=== PATIENT | female | born 1995 | race Two or more races ===

== ENCOUNTER 2020-07-15 22:47 | Emergency (ER) | payer OTHER, SELFPAY ==
[2020-07-15 22:58] VITALS: BP 111/71; BP 120/67; PULSE 71; PULSE 80; RESP 16; TEMP 36.7; O2SAT 100; O2SAT 99; BMI 33.6
--- NOTE | 2020-07-15 23:25 | ED.GENADULT ---
HPI - General Adult General Chief complaint: Dizziness Stated complaint: DIZZY W/NEAR SYNCOPE Time Seen by Provider: 07/15/20 23:12 History of Present Illness HPI narrative: 25-year-old female who presents to the emergency department for evaluation headache. 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 She states that at 8:45 p.m. she lifted a heavy package and had a sudden onset of left-sided headache. She describes the headache as a pounding sensation and it was 8/10 at its worst. She states that she lost her hearing in felt lightheaded and dizzy. She states that her legs also became shaky. She states that she had to continue working but the pain persisted and an ambulance was called and she was brought to the emergency department. Here in the emergency department she states she still has a pounding headache. The headache is located on the left side of her head. She denied any change in her vision or hearing. She denies any numbness or weakness. She states that her headache is currently 7/10. The patient states that she does get headaches approximately 3 times a month but has never had a headache like today's headache. The patient states that she had a cousin who at age 26 of an aneurysm. Related Data Allergies Allergy/AdvReac Type Severity Reaction Status Date / Time No Known Allergies Allergy Unverified 05/01/20 18:34 Environmental Allergies Allergy Unknown Uncoded 02/04/16 00:00 pt states no known food Allergy Unknown Uncoded 02/04/16 00:00 allerg Review of Systems Review of Systems: Yes all other systems are reviewed and are negative Constitutional: Constitutional: Reports as per HPI Eyes: Eyes: Reports as per HPI ENT: Reports as per HPI Cardiovascular: Cardiovascular: Reports as per HPI Respiratory: Respiratory: Reports as per HPI Gastrointestinal: Gastrointestinal: Reports as per HPI Genitourinary: Genitourinary: Reports as per HPI Musculoskeletal: Musculoskeletal: Reports as per HPI Integumentary/Breasts: Skin/Breast: Reports as per HPI Neurologic: Reports as per HPI and Reports Abnormal speech present Psychiatric: Psychiatric: Reports as per HPI Allergic/Immunologic: Allergic/Immunologic: Reports as per HPI PMFSH Past Medical History Medical History Asthma Social History Social History Advance Directives: No Advance Directives Information Provided: No Physical Exam Vital Signs: Vital Signs: Last Vital Signs Temp 98.1 F 07/15/20 22:58 Pulse 71 07/16/20 00:00 Resp 16 07/16/20 00:00 BP 107/71 07/16/20 00:00 Pulse Ox 100 07/16/20 00:00 Body Mass Index 33.6 Const: General: cooperative, no acute distress, alert and awake Orientation/consciousness: oriented to person and oriented to place Limitations: no limitations HENMT: Head: Yes normal to inspection, Yes normocephalic and Yes atraumatic Ears: external ears normal General nose exam: Normal external nose present Face and sinus: Yes normal facial exam Mouth: Normal oral and palatal mucosa present Throat: Yes posterior oropharynx normal Eyes: General: appearance normal, both eyes and all related structures Periorbital: periorbital findings normal Eyelids: Yes eyelids normal Conjunctivae: conjunctivae normal Sclerae: sclerae normal Corneas: corneas normal Pupils: Equal, round and reactive pupils present Direct Ophthalmoscopy: normal light reflex Neck: Neck: Yes normal visual inspection and Yes supple Lymphatic: no lymphadenopathy noted Chest: Chest palpation & inspection: normal inspection of the chest and normal palpation of entire chest wall Resp: Effort & Inspection: normal respiratory effort, abnormal respiratory pattern, no audible wheezes and no respiratory distress Auscultation: clear to auscultation bilaterally, no crackles, no rales, no rhonchi and no wheezes Cardio: Rate: regular rate Rhythm: regular rhythm Heart sounds: S1 normal heart sound present, S2 normal heart sound present and Murmur heart sound present GI: Inspection: No distended Palpation (GI): Soft to palpation, nontender, no guarding and No hepatosplenomegaly present Auscultation: normal bowel sounds : General: Yes no CVA tenderness Back/Spine/Pelvis: Back: no CVA tenderness Skin: General skin exam: no rashes or lesions noted Lesions: no lesions Rashes: no rashes Wounds: no wounds Neuro: General: oriented to person and oriented to place Cranial nerves: Yes CN's II-XII intact bilaterally and Yes Equal, round and reactive pupils present Cognition (Neuro): normal cognition Speech: Abnormal speech present Motor exam (neuro): 5/5 motor strength present throughout Extrem: General: Yes normal to inspection, Yes full ROM, Yes no pedal edema and Yes no calf tenderness Psych: Appearance: grossly normal Mental Status: mental status grossly normal Speech and movement: Clear speech present Affect: normal affect Thought process: Normal thought process present Course Course Course Narrative: 25-year-old female who presents emergency department for evaluation of sudden onset severe headache after lifting heavy object at work. The patient's physical examination was unremarkable. The patient was treated with Toradol 30 mg IV, Benadryl 50 mg IV and Reglan 10 mg IV with complete resolution of her headache. CT scan of the brain without contrast revealed no evidence of subarachnoid hemorrhage or other significant abnormality to explain the patient's headache. The CT scan was obtained within 6 hours of onset of the symptoms which is a good negative predictive for subarachnoid hemorrhage. I did discuss this with the patient. The patient will be discharged home. She was given a note not return to work for 2 days. She is advised to take Tylenol and ibuprofen for headache. Discharge Plan Discharge Clinical Impression: Headache Patient Disposition: Home, Self-Care Instructions: Acute Headache (ED) Additional Instructions: The CT scan of your brain revealed no bleeding in the brain and no other abnormalities to explain her headache. This is reassuring. I suspect that you may have strained the muscles of your neck and head from lifting a heavy box causing your headache. Apply ice to the areas that hurt for 10-15 minutes 4 to 6 times a day for the next 1-2 days. Take ibuprofen 200 mg pills, 3 pills every 6 hours as needed for pain. Also take Tylenol 500 mg pills, 2 pills every 4-6 hours as needed for pain. Follow-up with your doctor in 2 days. No work for 2 days. Return to the emergency department if your symptoms get worse or if you develop any new symptoms that are concerning to you. Stand Alone Forms: Work/School Release
[2020-07-15] MEDS: Metoclopramide HCl 10 MG/2 ML VIAL IVPUSH (23:55)
[2020-07-15] MEDS: Ketorolac Tromethamine 15 MG/ML VIAL 30 MG IV (23:55)
[2020-07-15] MEDS: diphenhydrAMINE HCL 50 MG/ML VIAL IVPUSH (23:56)
[2020-07-16] VITALS: BP 107/71; PULSE 71; RESP 16; O2SAT 100
--- NOTE | 2020-07-16 00:08 | PC.NURSE ---
Pt presents to ED for concerns of headache at base of head; states throbbing pain. Pain started after lifting heavy box earlier today. Familial hx of aneurysms. At this time, patient states pain 8/10. Denies nausea/vomiting/dizziness. Neuros intact. Breathing equal and unlabored. Skin warm and well perfused. Pt medicated at this time as ordered with Toradol and Benedryl; Reglan infusing. Pt with dizziness following Benedryl, patient laid down. Symptoms resolved within a few minutes. Will continue to monitor.
--- NOTE | 2020-07-16 00:59 | CT_ITS ---
EXAMINATION: CT HEAD WITHOUT CONTRAST CLINICAL INFORMATION: Sudden onset severe headache COMPARISON: 03/15/2019 TECHNIQUE: Contiguous axial imaging was performed from the skull base to vertex without intravenous administration of contrast. This CT examination was performed using dose optimization techniques as appropriate, variously including the following: *Automated exposure control *Adjustment of mA and/or kV according to patient size (this includes techniques or standardized protocols for targeted exams where dose is matched to indication/reason for exam; i.e. extremities or head) *Use of iterative reconstruction technique DLP: 648 mGy-cm FINDINGS: There is no evidence of acute intracranial hemorrhage or territorial infarction. No abnormal mass effect or midline shift is seen. Hendrickson to white matter differentiation is well preserved. No extra-axial fluid collections are identified. The ventricles are normal in size. There is no abnormal attenuation within the brain parenchyma. The osseous structures and soft tissues are normal. The mastoid air cells and visualized portions of the paranasal sinuses are well aerated. CT/CT head/brain wo con IMPRESSION: No acute intracranial pathology.
== END 2020-07-16 02:11 | disposition home or self-care (01) ==
PROVIDERS: Emergency Provider Emergency Medicine Emergency Medical Services
DX: R51.9 Headache, unspecified (principal)
CPT/HCPCS: 70450; 96374; 96375; 99284; J1200; J1885; J2765

== ENCOUNTER → 2020-10-01 11:12 | Outpatient (BNVA) | payer OTHER, SELFPAY | PROVIDERS: PCP Internal Medicine; Visit Provider Advanced Practice Midwife | DX: Z32.02 Encounter for pregnancy test, result negative (principal) | CPT/HCPCS: 99211 ==

== ENCOUNTER 2021-02-08 23:25 | Emergency (ER) | payer OTHER, SELFPAY ==
[2021-02-08 23:42] VITALS: BMI 36.7
--- NOTE | 2021-02-08 23:48 | ED.GENADULT ---
HPI - General Adult General Chief complaint: Upper Respiratory Symptoms Stated complaint: sore throat Time Seen by Provider: 02/08/21 23:47 History of Present Illness HPI narrative: 25-year-old female presents today with having sore throat and having some coughing upper respiratory symptoms. Patient has a history of coronavirus back in October. No chest pain or diaphoresis. No travel history. Patient from home. Related Data Previous Rx's Medication Instructions Recorded escitalopram oxalate 10 mg tablet 10 mg PO DAILY 90 Days #90 tab 01/21/21 sumatriptan succinate 25 mg tablet 25 mg PO Q2-4H PRN 30 Days #9 tab 01/21/21 Allergies Allergy/AdvReac Type Severity Reaction Status Date / Time shrimp Allergy Mild tongue Verified 02/08/21 23:45 swelling Environmental Allergies Allergy Intermediate sneezing, Uncoded 01/21/21 14:29 asthma Review of Systems Review of Systems: Constitutional: No Weight loss, No Fever, No Chills, No Night Sweats, No Fatigue, No Malaise ENT/Mouth: No Hearing loss, No Ear Pain, No Nasal Congestion, No Sinus Pain, No Hoarseness, positive sore throat, No Rhinorrhea, No Swallowing Difficulty Eyes: No Eye Pain, No Swelling, No Redness, No Foreign Body, No Discharge, No Vision Changes Cardiovascular: No Chest Pain, No SOB, No Dyspnea on Exertion, No Orthopnea, No Edema, No Palpitations Respiratory: Positive Cough, No Sputum, No Wheezing, No Smoke Exposure, No Dyspnea Gastrointestinal: No Nausea, No Vomiting, No Diarrhea, No Constipation, No abdominal Pain, No Hematochezia, No Melena Genitourinary: no irregular bleeding, No Dysuria, No Urinary Frequency, No Hematuria, No Urinary Incontinence, No Urgency, No Flank Pain, No Urinary Flow Changes, No Hesitancy Musculoskeletal: No joint pain, No Myalgias, No Joint Swelling Skin: No Skin Lesions, No rash Neuro: No Weakness, No Numbness, No Paresthesias, No Loss of Consciousness, No Dizziness, No Headache Psych: No Anxiety/Panic, No Depression, No SI/HI/AH/VH, No Social Issues, Heme/Lymph: No Bruising, No Bleeding,No Lymphadenopathy Endocrine: No Polyuria, No Polydipsia, No Temperature Intolerance PMFSH Past Medical History Attestation statement: The following information was validated with the patient. Medical History Asthma Depression Hyperprolactinemia Obese Surgical History No pertinent past surgical history Family History Family History Mother No problems noted. Father Parkinson disease Diabetes Social History Social History Housing: House Alcohol intake: former Patient Tobacco Use Status: Former Tobacco user Tobacco use type: Cigarette e-Cigarette/Vaping Use: Currently Using Second Hand Smoke Exposure: No Advance Directives: No Patient : No service: No Current occupational status: unemployed Physical Exam Vital Signs: Vital Signs: Last Vital Signs Temp 99.5 F 02/08/21 23:55 Pulse 98 02/08/21 23:55 Resp 17 02/08/21 23:55 BP 118/67 02/08/21 23:55 Pulse Ox 100 02/08/21 23:55 Body Mass Index 36.7 Appearance: Alert. Oriented X3. No acute distress. Eyes: Pupils equal, round and reactive to light. ENT: Pharynx normal. Neck: Normal inspection. Neck supple. No lymph nodes noted. No crepitus CVS: Normal heart rate and rhythm. Pulses normal. Normal S1 and S2 Respiratory: No respiratory distress. Breath sounds normal. No Wheezing. No rales Abdomen: Soft and nontender. No rigidity. No distention. good BS x4 Skin: Skin warm and dry. Normal skin color. Normal skin turgor. Extremities: No lower extremity edema. Neurovascular intact to all extremities. No Lacerations. No Rash Neuro: Oriented X 3. No motor deficit. No sensory deficit. Moving all extermities. No slurred speech Medical Decision Making MDM Narrative Medical decision making narrative: rapid strep negative. Patient's posterior pharynx only minimally inflamed. There is no exudate. Positive upper respiratory symptom less likely secondary to strep. Will discharge patient home close follow-up outpatient basis. Lab Data Labs: Lab Results 02/08/21 Range/Units 23:47 S. pyogenes GrpA KEN Negative (Negative) Discharge Plan Discharge Clinical Impression: Upper respiratory infection Patient Disposition: Home, Self-Care Instructions: Upper Respiratory Infection (ED) Prescriptions: No Action escitalopram oxalate 10 mg tablet 10 mg PO DAILY 90 Days Qty: 90 RF: 1 sumatriptan succinate 25 mg tablet 25 mg PO Q2-4H PRN (Reason: migraine headache) 30 Days Qty: 9 RF: 0 Referrals: Beckie Mora MD [Primary Care Provider] - 2 days
[2021-02-08 23:55] VITALS: BP 112/60; BP 118/67; PULSE 112; PULSE 98; RESP 17; TEMP 37.5; O2SAT 100; O2SAT 98; BMI 36.7
[2021-02-09 00:06] LABS: IDNOW Serial# 9DD0AD1C; Strep A Nucleic Acid Negative (Negative)
[2021-02-09 00:13] LABS: COVID-19 Test Negative (Negative)
== END 2021-02-09 00:28 | disposition home or self-care (01) ==
PROVIDERS: Emergency Provider Emergency Medicine Emergency Medical Services; PCP Internal Medicine
DX: J06.9 Acute upper respiratory infection, unspecified (principal); Z20.822 Contact with and (suspected) exposure to COVID-19; J45.909 Unspecified asthma, uncomplicated; F17.290 Nicotine dependence, other tobacco product, uncomplicated
CPT/HCPCS: 36415; 87635; 87651; 99283

== ENCOUNTER 2022-02-25 11:08 | Outpatient (REF) | payer OTHER, SELFPAY ==
--- NOTE | ~2022-02-25 | XR_ITS ---
EXAMINATION: XR LEFT SCAPULA XR LEFT SHOULDER CLINICAL INFORMATION: Pain. COMPARISON: None. TECHNIQUE: 4 views left shoulder and 2 views left scapula. FINDINGS: Left Scapula: There is a no visible fracture or bony abnormality. The soft tissues are normal. Left Shoulder: The glenohumeral joint space is normal. No bony erosive changes. No fracture or loose bodies. The soft tissues are normal. The left AC joint is maintained normal. XR/XR scapula LT IMPRESSION: Unremarkable left scapula and left shoulder.
--- NOTE | ~2022-02-25 | XR_ITS ---
EXAMINATION: XR LEFT SCAPULA XR LEFT SHOULDER CLINICAL INFORMATION: Pain. COMPARISON: None. TECHNIQUE: 4 views left shoulder and 2 views left scapula. FINDINGS: Left Scapula: There is a no visible fracture or bony abnormality. The soft tissues are normal. Left Shoulder: The glenohumeral joint space is normal. No bony erosive changes. No fracture or loose bodies. The soft tissues are normal. The left AC joint is maintained normal. XR/XR shoulder LT min 2V IMPRESSION: Unremarkable left scapula and left shoulder.
[2022-02-25 12:04] LABS: Hematocrit 38.4 % (37.0-47.0); Hemoglobin 12.7 g/dl (12.0-16.0); Mean Corpuscular HGB Conc 33.1 g/dl (31.0-35.0); Mean Corpuscular Hemoglobin 30.9 pg (27.0-33.0); Mean Corpuscular Volume 93.4 fL (80.0-98.0); Mean Platelet Volume 9.6 fL (9.4-12.3); Platelet Count 329 X10*3/uL (160-400); Red Blood Count 4.11 X10*6/uL (4.20-5.50); Red Cell Distribution Width 11.5 % (11.0-16.0); White Blood Count 12.1 X10*3/uL (4.8-10.8)
[2022-02-25 12:39] LABS: Alanine Aminotransferase 16 U/L (0-31); Albumin Level 3.9 g/dL (3.5-5.0); Alkaline Phosphatase 58 U/L (39-117); Anion Gap 11 (12-20); Aspartate Amino Transferase 10 U/L (5-31); Bilirubin Total 0.5 mg/dL (0.0-1.0); Blood Urea Nitrogen 9 mg/dL (9-16); Calcium 8.6 mg/dL (8.4-10.2); Carbon Dioxide 24 mmol/L (22-29); Chloride 106 mmol/L (96-108); Estimated Glomerular Filt Rate > 60; Glucose Random 91 mg/dL (60-115); Potassium 4.4 mmol/L (3.3-5.1); Sodium 137 mmol/L (135-145); Total Protein 6.8 g/dL (6.5-8.0)
[2022-02-25 12:49] LABS: TSH reflex Free T4 3.18 uIU/mL (0.32-4.0); Vitamin D 25-OH Total 16.2 ng/mL (>30)
[2022-02-25 13:13] LABS: Folate 7.9 ng/mL (> or = 4.0); Vitamin B12 293 pg/mL (200-900)
== END 2022-02-25 11:09 | disposition home or self-care (01) ==
LOC: HO.XRAY 11:08
PROVIDERS: Absent Provider Nurse Practitioner Family; PCP Internal Medicine; Visit Provider Internal Medicine
DX: Z13.29 Encounter for screening for other suspected endocrine disorder (principal); M89.8X1 Other specified disorders of bone, shoulder; M25.512 Pain in left shoulder; E66.9 Obesity, unspecified
CPT/HCPCS: 36415; 73010; 73030; 80053; 82306; 82607; 82746; 84443; 85027

== ENCOUNTER → 2022-03-04 15:51 | Outpatient (BNVA) | payer OTHER, SELFPAY | PROVIDERS: PCP Internal Medicine; Visit Provider Internal Medicine Endocrinology, Diabetes & Metabolism | DX: E66.9 Obesity, unspecified (principal); E22.1 Hyperprolactinemia; Z68.41 Body mass index [BMI] 40.0-44.9, adult | CPT/HCPCS: 99212 ==

== ENCOUNTER 2022-03-05 10:31 | Outpatient (REF) | payer OTHER, SELFPAY ==
[2022-03-08 08:18] LABS: Prolactin 32.7 ng/mL
== END 2022-03-05 10:32 | disposition home or self-care (01) ==
LOC: HO.LAB 10:31
PROVIDERS: PCP Internal Medicine; Visit Provider Internal Medicine Endocrinology, Diabetes & Metabolism
DX: E22.1 Hyperprolactinemia (principal)
CPT/HCPCS: 36415; 84146

== ENCOUNTER 2022-03-28 18:45 | Emergency (ER) | payer OTHER, SELFPAY ==
[2022-03-28 19:33] VITALS: BP 138/75; PULSE 80; RESP 18; TEMP 36.8; O2SAT 98; BMI 40.3
[2022-03-28 19:48] LABS: MANUAL DIFF FLAG NO
[2022-03-28 19:51] LABS: Basophils Absolute Auto 0.1 X10*3/uL (0.0-0.2); Basophils Percent Auto 0.6 % (0-2); Eosinophils Absolute Auto 0.3 X10*3/uL (0.0-0.4); Eosinophils Percent Auto 2.8 % (0-4); Hematocrit 38.9 % (37.0-47.0); Imm Gran Abs Auto 0.03 X10*3/uL (0.00-0.03); Imm Gran Pct Auto 0.3 % (0.0-0.4); Lymphocytes Absolute Auto 2.3 X10*3/uL (1.2-4.9); Mean Corpuscular HGB Conc 33.4 g/dl (31.0-35.0); Mean Corpuscular Hemoglobin 31.3 pg (27.0-33.0); Mean Corpuscular Volume 93.5 fL (80.0-98.0); Mean Platelet Volume 9.4 fL (9.4-12.3); Monocytes Absolute Auto 0.7 X10*3/uL (0.1-1.2); Monocytes Percent Auto 6.9 % (2-11); Neutrophils Absolute Auto 7.4 x10*3/uL (2.0-8.3); Neutrophils Percent Auto 68.4 % (45-73); Platelet Count 346 X10*3/uL (160-400); Red Blood Count 4.16 X10*6/uL (4.20-5.50); Red Cell Distribution Width 11.4 % (11.0-16.0); White Blood Count 10.8 X10*3/uL (4.8-10.8)
[2022-03-28 20:02] LABS: Appearance Urine CLEAR; Color Urine STRAW; Glucose Urine UA NEG (NEG); Leukocyte Esterase Urine NEG (NEG); Nitrite Urine NEG (NEG); Specific Gravity - Urine <= 1.005 (1.005-1.025); UACC Culture Trigger NO; UPreg QC Valid YES; Urine Blood TRACE (NEG); Urine Ketones NEG (NEG); Urine Pregnancy NEGATIVE (NEGATIVE); Urine Protein NEG (NEG-TRACE)
[2022-03-28 20:05] LABS: Alanine Aminotransferase 24 U/L (0-31); Albumin Level 3.9 g/dL (3.5-5.0); Alkaline Phosphatase 52 U/L (39-117); Anion Gap 13 (12-20); Aspartate Amino Transferase 13 U/L (5-31); Bilirubin Total 0.3 mg/dL (0.0-1.0); Blood Urea Nitrogen 7 mg/dL (9-16); Calcium 8.4 mg/dL (8.4-10.2); Carbon Dioxide 25 mmol/L (22-29); Chloride 106 mmol/L (96-108); Creatinine Clr Calc Pharmacy 144.2; Estimated Glomerular Filt Rate > 60; Glucose Random 71 mg/dL (60-115); Potassium 3.9 mmol/L (3.3-5.1); Sodium 140 mmol/L (135-145); Total Protein 7.1 g/dL (6.5-8.0)
[2022-03-28 20:13] LABS: Squamous Epithelial Cell Urine 1+ /LPF; WBC Urine 0-2 /HPF (0-4)
--- NOTE | 2022-03-29 01:54 | ED_ITS ---
HPI - General Adult General Chief complaint: General Medical Stated complaint: UTI Time Seen by Provider: 03/28/22 21:46 Source: patient Mode of arrival: ambulatory Limitations: no limitations History of Present Illness HPI narrative: 27-year-old female who presents emergency department for evaluation of abdominal pain, lower back pain, urinary frequency and urgency x1 week. Patient states that she has been having intermittent lower abdominal pain x1 week. She describes the pain as a pressure is like sensation. She points to her suprapubic and pelvic area when asked to localize the pain. She states that the pain is 7/10 at its worst. She has not noticed any vaginal discharge. She denied dysuria . she states she does feel the pain in her back. The patient is sexually active and she did request to be tested for STDs. She denied fever, chills, rhinorrhea, sore throat, cough, chest pain, shortness of breath, dyspnea on exertion, vomiting, diarrhea, rash. MD complaint: Pelvic pain Onset (ago): week(s) (1) Location: abdomen and pelvis Radiation: non-radiation Severity: severe Severity scale (1-10): 7 Quality: other (Pressure) Pain Consistency: intermittent Relieving factors: none Exacerbating factors: none Associated symptoms: other (Frequency, urgency) Treatments prior to arrival: none Related Data Previous Rx's Medication Instructions Recorded sumatriptan succinate 25 mg tablet 25 mg PO Q2-4H PRN migraine 01/21/21 headache 30 days #9 tabs albuterol sulfate 90 mcg/actuation 2 puff inhalation Q4-6H PRN 09/21/21 aerosol inhaler (ProAir HFA) bronchospasm 30 days #6.7 grams cholecalciferol (vitamin D3) 50 50 mcg PO DAILY 90 days #90 caps 02/25/22 mcg (2,000 unit) capsule doxycycline hyclate 100 mg tablet 100 mg PO 14 10 days #10 tabs 03/29/22 ibuprofen 600 mg tablet 600 mg PO Q6H PRN pain #30 tabs 03/29/22 metronidazole 500 mg tablet 500 mg PO BID 14 days #28 tabs 03/29/22 Allergies Allergy/AdvReac Type Severity Reaction Status Date / Time shrimp Allergy Mild tongue Verified 03/04/22 15:56 swelling Environmental Allergies Allergy Intermediate sneezing, Uncoded 02/25/22 10:45 asthma Review of Systems Review of Systems: Yes all other systems are reviewed and are negative [facility] Past Medical History Medical History Asthma Depression Hyperprolactinemia Obese Surgical History No pertinent past surgical history Family History Family History Mother No problems noted. Father Parkinson disease Diabetes Other Mental health disorder Social History Social History Housing: House Alcohol intake: former Patient Tobacco Use Status: Former Tobacco user Tobacco use type: Cigarette e-Cigarette/Vaping Use: Currently Using Second Hand Smoke Exposure: No Advance Directives: No Advance Directives Information Provided: Yes service: No Current occupational status: employed and unemployed Cognitive needs: No Hearing needs: No Vision needs: No Physical Exam ED Vital Signs: Vital Signs - 24 hr 03/28/22 19:33 Temperature 98.2 F Pulse Rate 80 Respiratory Rate 18 Blood Pressure 138/75 Pulse Oximetry 98 Oxygen Delivery Method Room Air BMI result Body Mass Index 40.3 Const General: cooperative and no acute distress Orientation/consciousness: oriented to person and oriented to place Limitations: no limitations HENMT Head: Yes normal to inspection, Yes normocephalic and Yes atraumatic Ears: external ears normal General nose exam: Normal external nose present Face and sinus: Yes normal facial exam Mouth: Normal oral and palatal mucosa present Throat: Yes posterior oropharynx normal Eyes General: appearance normal, both eyes and all related structures Pupils: Equal, round and reactive pupils present Neck Neck: Yes normal visual inspection, Yes no lymphadenopathy, Yes trachea midline and Yes supple Chest Chest palpation & inspection: normal inspection of the chest and normal palpation of entire chest wall Resp Effort & Inspection: normal respiratory effort and able to speak in complete sentences Auscultation: clear to auscultation bilaterally Cardio Rate: regular rate Rhythm: regular rhythm Heart sounds: S1 normal heart sound present, S2 normal heart sound present and no murmurs GI Inspection: Yes normal to inspection Palpation (GI): Soft to palpation, Tenderness to palpation present (GI) suprapubicly (Moderate) and no guarding Auscultation: normal bowel sounds General: Yes no CVA tenderness External Female Exam: normal external appearance Speculum Exam - Vagina: normal vaginal discharge Speculum Exam - Cervix: Cervical os closed, Abnormal cervical discharge present yellow and Cervical tenderness present Bimanual exam- vagina & uterus: Cervical tenderness present, cervical motion tenderness and Uterine tenderness Bimanual Exam- Adnexa, other: tender Back/Spine/Pelvis Back: no CVA tenderness Skin General skin exam: no rashes or lesions noted Neuro General: oriented to person and oriented to place Cranial nerves: Yes CN's II-XII intact bilaterally and Yes Equal, round and reactive pupils present Cognition (Neuro): normal cognition Motor exam (neuro): 5/5 motor strength present throughout Extrem General: Yes normal to inspection Psych Appearance: grossly normal Speech and movement: Normal speech and movement present Affect: normal affect Attitude: cooperative Thought process: Normal thought process present Thought content: Normal thought content present Course Course Course Narrative: 27-year-old female who presents emergency department for evaluation of lower abdominal pelvic pain, intermittent, x1 week, pain radiates to her back, patient has also had urinary frequency and urgency with no vaginal discharge. The patient is sexually active. Vital signs were normal. Abdominal exam did reveal suprapubic pelvic tenderness. Speculum exam did reveal an abnormal cervical discharge with a normal appearing vaginal discharge. The patient did have cervical motion tenderness, uterine tenderness and adnexal tenderness. Patient's CBC, comprehensive metabolic panel, urinalysis were unremarkable. Patient's urine test was negative. Patient's presentation physical findings are consistent with pelvic inflammatory disease and I did discuss this with the patient patient's mother. Patient was treated with ceftriaxone 500 mg/lidocaine IM. Patient was given a prescription for doxycycline 100 mg twice a day for 14 days, Flagyl 500 mg twice a day for 14 days, ibuprofen 600 mg 3 times a day as needed for pain. GC and chlamydia urine testing was ordered. 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 She was given printed and verbal instructions and discharged home. Medical Decision Making Lab Data Result diagrams: 03/28/22 19:43 03/28/22 19:42 Labs: Lab Results 03/28/22 03/28/22 03/28/22 Range/Units 19:42 19:43 19:43 WBC 10.8 (4.8-10.8) X10*3/uL RBC 4.16 L (4.20-5.50) X10*6/uL Hgb 13.0 (12.0-16.0) g/dl Hct 38.9 (37.0-47.0) % MCV 93.5 (80.0-98.0) fL MCH 31.3 (27.0-33.0) pg MCHC 33.4 (31.0-35.0) g/dl RDW 11.4 (11.0-16.0) % Plt Count 346 (160-400) X10*3/uL MPV 9.4 (9.4-12.3) fL Immature Gran % (Auto) 0.3 (0.0-0.4) % Neut % (Auto) 68.4 (45-73) % Lymph % (Auto) 21.0 (20-40) % [place] % (Auto) 6.9 (2-11) % Eos % (Auto) 2.8 (0-4) % Baso % (Auto) 0.6 (0-2) % Lymph # (Auto) 2.3 (1.2-4.9) X10*3/uL [place] # (Auto) 0.7 (0.1-1.2) X10*3/uL Eos # (Auto) 0.3 (0.0-0.4) X10*3/uL Baso # (Auto) 0.1 (0.0-0.2) X10*3/uL Abs Immat Gran (auto) 0.03 (0.00-0.03) X10*3/uL Absolute Neuts (auto) 7.4 (2.0-8.3) x10*3/uL Absolute Nucleated RBC 0.000 (0.0-0.012) X10*3/uL Nucleated RBC % (auto) 0.0 (0.0-0.2) /100WBC Sodium 140 (135-145) mmol/L Potassium 3.9 (3.3-5.1) mmol/L Chloride 106 (96-108) mmol/L Carbon Dioxide 25 (22-29) mmol/L Anion Gap 13 (12-20) BUN 7 L (9-16) mg/dL Creatinine 0.71 (0.5-1.4) mg/dL Estim Creat Clear Calc 144.2 Estimated GFR > 60 Random Glucose 71 (60-115) mg/dL Calcium 8.4 (8.4-10.2) mg/dL Total Bilirubin 0.3 (0.0-1.0) mg/dL AST 13 (5-31) U/L ALT 24 (0-31) U/L Alkaline Phosphatase 52 (39-117) U/L Total Protein 7.1 (6.5-8.0) g/dL Albumin 3.9 (3.5-5.0) g/dL Urine Color STRAW Urine Appearance CLEAR Urine pH 6.0 (5.0-8.0) Ur Specific [place] <= 1.005 (1.005-1.025) Urine Protein NEG (NEG-TRACE) MG/DL Urine Glucose (UA) NEG (NEG) MG/DL Urine Ketones NEG (NEG) MG/DL Urine Blood TRACE (NEG) Urine Nitrite NEG (NEG) Ur Leukocyte Esterase NEG (NEG) Urine RBC 1-4 (0) /HPF Urine WBC 0-2 (0-4) /HPF Ur Squamous Epith Cells 1+ /LPF Urine Bacteria NONE /LPF Urine Test (NEGATIVE) 03/28/22 Range/Units 19:43 WBC (4.8-10.8) X10*3/uL RBC (4.20-5.50) X10*6/uL Hgb (12.0-16.0) g/dl Hct (37.0-47.0) % MCV (80.0-98.0) fL MCH (27.0-33.0) pg MCHC (31.0-35.0) g/dl RDW (11.0-16.0) % Plt Count (160-400) X10*3/uL MPV (9.4-12.3) fL Immature Gran % (Auto) (0.0-0.4) % Neut % (Auto) (45-73) % Lymph % (Auto) (20-40) % [place] % (Auto) (2-11) % Eos % (Auto) (0-4) % Baso % (Auto) (0-2) % Lymph # (Auto) (1.2-4.9) X10*3/uL [place] # (Auto) (0.1-1.2) X10*3/uL Eos # (Auto) (0.0-0.4) X10*3/uL Baso # (Auto) (0.0-0.2) X10*3/uL Abs Immat Gran (auto) (0.00-0.03) X10*3/uL Absolute Neuts (auto) (2.0-8.3) x10*3/uL Absolute Nucleated RBC (0.0-0.012) X10*3/uL Nucleated RBC % (auto) (0.0-0.2) /100WBC Sodium (135-145) mmol/L Potassium (3.3-5.1) mmol/L Chloride (96-108) mmol/L Carbon Dioxide (22-29) mmol/L Anion Gap (12-20) BUN (9-16) mg/dL Creatinine (0.5-1.4) mg/dL Estim Creat Clear Calc Estimated GFR Random Glucose (60-115) mg/dL Calcium (8.4-10.2) mg/dL Total Bilirubin (0.0-1.0) mg/dL AST (5-31) U/L ALT (0-31) U/L Alkaline Phosphatase (39-117) U/L Total Protein (6.5-8.0) g/dL Albumin (3.5-5.0) g/dL Urine Color Urine Appearance Urine pH (5.0-8.0) Ur Specific [place] (1.005-1.025) Urine Protein (NEG-TRACE) MG/DL Urine Glucose (UA) (NEG) MG/DL Urine Ketones (NEG) MG/DL Urine Blood (NEG) Urine Nitrite (NEG) Ur Leukocyte Esterase (NEG) Urine RBC (0) /HPF Urine WBC (0-4) /HPF Ur Squamous Epith Cells /LPF Urine Bacteria /LPF Urine Test NEGATIVE (NEGATIVE) Discharge Plan Discharge Clinical Impression: Acute pelvic inflammatory disease (PID) Patient Disposition: Home, Self-Care Additional Instructions: Pelvic inflammatory disease instructions: Your presentation and physical findings are consistent with pelvic inflammatory disease (PID). Approximately 30% of the time, pelvic inflammatory disease is caused by sexually transmitted diseases such as Trichomonas, gonorrhea or chlamydia. Approximately 70% of the time, pelvic inflammatory disease is caused by abnormal bacteria (anaerobic bacteria) in your vagina that can cause an infection Medications You received ceftriaxone 500 mg intramuscularly here in the emergency department Take doxycycline 100 mg, 1 pill twice a day for 14 days. Take metronidazole 500 mg, 1 pill twice a day for 14 days. These 3 antibiotics treat sexually transmitted diseases such as gonorrhea, chlamydia and Trichomonas as well as anaerobic bacteria that can cause pelvic inflammatory disease. Take ibuprofen 600 mg pills, 1 pills every 6 hours as needed for pain. Take Tylenol (acetaminophen) 500 mg pills, 2 pills every 4 to 6 hours as needed for pain. Follow-Up Follow-up with your gynecology in 10-14 days. Pending laboratory tests: The doctor that follows up will need to review the following results with you: Gonorrhea and chlamydia (urine test) You can also check these results on the patient portal. If your gonorrhea and chlamydia tests are positive then your doctor will need to test you for syphilis and HIV disease. Return precautions: Please return to the emergency department if your symptoms get worse if your pain does not go away in 24-48 hours or if you develop any symptoms that are concerning to you. Prescriptions: New doxycycline hyclate 100 mg tablet 100 mg PO 14 10 Days Qty: 10 0RF metronidazole 500 mg tablet 500 mg PO BID 14 Days Qty: 28 0RF ibuprofen 600 mg tablet 600 mg PO Q6H PRN (Reason: pain) Qty: 30 0RF No Action albuterol sulfate [ProAir HFA] 90 mcg/actuation HFA aerosol inhaler 2 puff inhalation Q4-6H PRN (Reason: bronchospasm) 30 Days Qty: 6.7 3RF cholecalciferol (vitamin D3) 50 mcg (2,000 unit) capsule 50 mcg PO DAILY 90 Days Qty: 90 0RF sumatriptan succinate 25 mg tablet 25 mg PO Q2-4H PRN (Reason: migraine headache) 30 Days Qty: 9 0RF Rx Instructions: do not exceed 8 doses per 24 hrs
[2022-03-29] MEDS: cefTRIAXone sodium 500 MG, Lidocaine HCl 1 % MPF 1 ML IM (02:25)
[2022-03-29] MEDS: Ibuprofen 600 MG TABLET PO (02:52)
[2022-03-29 03:55] LABS: CT PCR NOT DETECTED (Not Detect.); NG PCR NOT DETECTED (Not Detect.)
== END 2022-03-29 02:53 | disposition home or self-care (01) ==
PROVIDERS: Emergency Provider Emergency Medicine Emergency Medical Services; PCP Internal Medicine
DX: N73.9 Female pelvic inflammatory disease, unspecified (principal); R10.30 Lower abdominal pain, unspecified
CPT/HCPCS: 36415; 80053; 81001; 81003; 81025; 85025; 87491; 87591; 96372; 99284; J0696

== ENCOUNTER 2022-05-26 10:01 | Outpatient (REF) | payer OTHER, SELFPAY ==
[2022-05-26 12:32] LABS: Hematocrit 39.9 % (37.0-47.0); Hemoglobin 13.4 g/dl (12.0-16.0); Mean Corpuscular HGB Conc 33.6 g/dl (31.0-35.0); Mean Corpuscular Hemoglobin 30.9 pg (27.0-33.0); Mean Corpuscular Volume 92.1 fL (80.0-98.0); Mean Platelet Volume 9.9 fL (9.4-12.3); Platelet Count 374 X10*3/uL (160-400); Red Blood Count 4.33 X10*6/uL (4.20-5.50); Red Cell Distribution Width 11.2 % (11.0-16.0); White Blood Count 9.5 X10*3/uL (4.8-10.8)
[2022-05-26 12:43] LABS: Estimated Average Glucose 94 mg/dL; Hemoglobin A1c % 4.9 %
[2022-05-26 13:10] LABS: HCG Quantitative < 2 mIU/mL
[2022-05-26 13:19] LABS: Vitamin D 25-OH Total 17.8 ng/mL (>30)
[2022-05-26 13:20] LABS: Free T4 (Free Thyroxine) 0.85 ng/dL (0.71-1.85); Thyroid Stimulating Hormone 2.31 uIU/mL (0.32-4.0)
== END 2022-05-26 10:02 | disposition home or self-care (01) ==
LOC: HO.LAB 10:01
PROVIDERS: Nurse Practitioner Family; Absent Provider Internal Medicine Endocrinology, Diabetes & Metabolism; PCP Internal Medicine; Visit Provider Advanced Practice Midwife
DX: E28.2 Polycystic ovarian syndrome (principal); E23.7 Disorder of pituitary gland, unspecified; N91.1 Secondary amenorrhea; E22.1 Hyperprolactinemia; R79.89 Other specified abnormal findings of blood chemistry; E66.01 Morbid (severe) obesity due to excess calories; D72.829 Elevated white blood cell count, unspecified; Z79.899 Other long term (current) drug therapy; Z68.41 Body mass index [BMI] 40.0-44.9, adult; Z32.02 Encounter for pregnancy test, result negative
CPT/HCPCS: 36415; 81025; 82306; 83036; 84439; 84443; 84702; 85027; 99212

== ENCOUNTER 2022-06-30 15:55 | Emergency (ER) | payer OTHER, SELFPAY ==
[2022-06-30 16:53] VITALS: BP 136/87; PULSE 76; RESP 18; TEMP 36.4; BMI 44.0
--- OUTSIDE RECORDS SUMMARY | 2022-06-30 17:16 | XMS_ITS ---
:1995 Author Organization [id number] Address [address] [place] [id number] Care Team Providers Name Role Phone Mo Ojeda Unavailable Unavailable PROBLEMS Type Condition ICD9-CM Code [id number] Code Onset Condition SNO MED Code Dates Status Problem Body mass Z68.35 Active [id number] index (BMI) 35.0-35.9, adult ALLERGIES No Known Allergies ENCOUNTERS Encounter Location Date Diagnosis [id number] [address] [place] [address], Oct, Cont act with [place] [id number] ([place] man[place]) exposure to other viral comm unicable diseases Z20.828 ; Other fatigue R53.83 a nd Nasal congestion R09.8 1 [id number] [address] [place] [address], Oct, Cont act with [place] [facility] [id number] ([place]) exposure to other viral comm unicable diseases Z20.828 ; Other fatigue R53.83 a nd Nasal congestion R09.8 1 [facility] and [address] Oct, [place] [address] [id number] [address] [facility], Oct, Cont act with [place] [facility] [address] ([place]) exposure to other viral comm unicable diseases Z20.828 ; Other fatigue R53.83 a nd Nasal congestion R09.8 1 [id number] [address] [place] [address], Aug, Unsp ecified [place] [facility] [id number] unspeci fied toe(s) with damage to nail, initial encounter S91.20 9A and Body mass index (BMI) 35.0-35.9, adult Z68.35 IMMUNIZATIONS No Known Immunizations SOCIAL HISTORY Never Assessed REASON FOR REFERRAL FUNCTIONAL STATUS PLAN OF CARE Activity Details Follow Up 1 Week Reason:Televisit foll ow up as needed VITAL SIGNS Temperature 98.4 degrees Fahrenheit 2020-10-31 Temperature 98.3 degrees Fahrenheit 2020-10-24 Temperature 98.5 degrees Fahrenheit 2020-10-14 Temperature 98 degrees Fahrenheit 2020-08-22 Heart Rate 101 /min 2020-10-31 Heart Rate 82 /min 2020-10-24 Heart Rate 104 /min 2020-10-14 Heart Rate 73 /min 2020-08-22 Oximetry 98 % 2020-10-31 Oximetry 99 % 2020-10-24 Oximetry 99 % 2020-10-14 Oximetry 98 % 2020-08-22 Respiratory Rate 17 /min 2020-10-31 Respiratory Rate 17 /min 2020-10-24 Respiratory Rate 16 /min 2020-08-22 Height 5 ft 4 in in 2020-10-31 Height 5 ft 4 in in 2020-10-24 Height 5 ft 4 in in 2020-10-14 Height 5 ft 4 in in 2020-08-22 Weight 204 lbs 2020-10-31 Weight 206 lbs 2020-10-24 Weight 204 lbs 2020-10-14 Weight 204 lbs 2020-08-22 BMI 35.01 kg/m2 2020-10-31 BMI 35.36 kg/m2 2020-10-24 BMI 35.01 kg/m2 2020-10-14 BMI 35.01 kg/m2 2020-08-22 Blood pressure systolic 122 mm Hg 2020-08-22 Blood pressure diastolic 83 mm Hg 2020-08-22 MEDICATIONS No Known Medications PROCEDURES Procedure Date Ordered Result Body Site SARS CoV 2 Antigen (Rapid Covid-19 swab) October 14, 2020 BMI >=30 CALCUATE W/FOLLOWUP Aug 22, 2020 Docrev cur meds by [facility] clin October 14, 2020 DOC MEDS VERIFIED W/PT OR RE October 31, 2020 Office Visit Aug 22, 2020 DOC MEDS VERIFIED W/PT OR RE October 24, 2020 Provision of additional supplies, PPE October 24, 2020 Provision of additional supplies, PPE October 31, 2020 BP SCR PRFRM RCMDD DEFIND SCR INTVL Aug 22, 2020 Provision of additional supplies, PPE October 14, 2020 MEDICATION RECONCILIATION October 31, 2020 SARS CoV 2 Antigen (Rapid Covid-19 swab) October 24, 2020 MEDICATION RECONCILIATION October 24, 2020 SARS CoV 2 Antigen (Rapid Covid-19 swab) October 31, 2020 Office Visit October 24, 2020 Office Visit October 31, 2020 Office Visit October 14, 2020 MEDICATION RECONCILIATION October 14, 2020 RESULTS Name Result Date Reference Range SARS-CoV-2 Antigen (rapid Covid-19 swab) Result Negative SARS-CoV-2 Antigen (rapid Covid-19 swab) Negative SARS Negative SARS-CoV-2 Antigen (rapid Covid-19 swab) Result Negative SARS-CoV-2 Antigen (rapid Covid-19 swab) Negative SARS Negative SARS-CoV-2 Antigen (rapid Covid-19 swab) Result Positive SARS-CoV-2 Antigen (rapid Covid-19 swab) Positive SARS Positive REASON FOR VISIT Rapid test, rapid, Covid f/u (rapid pos), Rapid test, toe injury Insurance Providers [facility] Member Patient Patient Patient Patient Patient Subscriber Subscriber Subscriber Group Insurance Plan Plan Plan Plan ID Relationship Address Phone Name Date of ID Name Date of No Type Insurance Insurance Insurance Coverage to Subscriber Address Phone Name Dates [facility] [phone] [facility] self Hina [id number] [facility] [id number] [facility] PLAN CLAIMS PLAN [facility] [id number]
--- OUTSIDE RECORDS SUMMARY | 2022-06-30 17:16 | XMS_ITS | Continuity of Care Document ---
:1995 Author Organization [facility] Address [address] [facility], [address]th Floor [address] [place] [id number] Care Team Providers Name Role Phone Margaret Fuller Vanita GRIMM Primary Care Physician [phone] Encounter [facility] Date(s): 03/07/20 - 05/22/20 [facility] [address] [facility] [place] [phone] [facility] Attending Physician: Bridgett Carr MD Referring Physician: Renuka HEATH , Manuelito Prince Allergies, Adverse Reactions, Alerts Substance Reaction Severity Status NKA Active Medications ProAir HFA 90 mcg/inh inhalation aerosol with adapter 2, puffs, Inhalation, 4 times a day, Refills 0, Maintenance, 05/18/17 11:30:39 Start Date: 05/18/17 Status: OrderedQvar 40 mcg/inh inhalation aerosol Inhalation, 2 times a day, Refills 0, Maintenance, 05/18/17 11:30:57 Start Date: 05/18/17 Status: OrderedSingulair By Mouth, Daily, 0 Refills, Maintenance, 05/18/17 11:30:21 Start Date: 05/18/17 Status: Ordered Problem List Condition Effective Dates Status Health Status Informant Epigastric pain(Confirmed) Active Dyspepsia(Confirmed) Active Microhematuria(Confirmed) Active RUQ abdominal pain(Confirmed) Active
--- OUTSIDE RECORDS SUMMARY | 2022-06-30 17:16 | XMS_ITS | Continuity of Care Document ---
:1995 Author Organization [facility] Address [address] [facility], [address]th [address] [place] [phone]- Care Team Providers Name Role Phone Vanita Llanos DO Primary Care Physician Encounter [facility] [place] Date(s): 04/22/20 - 05/22/20 [facility] [address] [facility] [place] [phone] [facility] Attending Physician: Shawn Trujillo Admitting Physician: AdmtrShawn Referring Physician: Admtr, ArAminah Allergies, Adverse Reactions, Alerts Substance Reaction Severity [...]
--- NOTE | 2022-06-30 17:25 | ED_ITS ---
HPI - General Adult General Chief complaint: General Medical Stated complaint: Body aches/ Cough Time Seen by Provider: 06/30/22 17:11 Source: patient Mode of arrival: ambulatory Limitations: no limitations History of Present Illness HPI narrative: 27-year-old female presents to the ED for coughing, headache, and body aches for the past 2 days. Patient states her sister was positive for COVID. Patient denies any chest pain, shortness of breath, rash, or watery eyes. Related Data Previous Rx's Medication Instructions Recorded sumatriptan succinate 25 mg tablet 25 mg PO Q2-4H PRN migraine 01/21/21 headache 30 days #9 tabs albuterol sulfate 90 mcg/actuation 2 puff inhalation Q4-6H PRN 09/21/21 aerosol inhaler (ProAir HFA) bronchospasm 30 days #6.7 grams doxycycline hyclate 100 mg tablet 100 mg PO 14 10 days #10 tabs 03/29/22 ibuprofen 600 mg tablet 600 mg PO Q6H PRN pain #30 tabs 03/29/22 budesonide 90 mcg/actuation breath 1 inh inhalation BID 30 days #1 ea 05/02/22 activated powder inhaler (Pulmicort Flexhaler) cholecalciferol (vitamin D3) 50 50 mcg PO DAILY 90 days #90 caps 05/25/22 mcg (2,000 unit) capsule desogestrel-e.estradiol 0.15 1 tab PO DAILY #84 tabs 05/26/22 mg-0.02 mg(21)/e.estrad 0.01 mg(5) tablet Allergies Allergy/AdvReac Type Severity Reaction Status Date / Time shrimp Allergy Mild tongue Verified 05/26/22 10:16 swelling Environmental Allergies Allergy Intermediate sneezing, Uncoded 05/26/22 10:16 asthma Review of Systems Review of Systems: Coughing, headache, and bodyaches Yes all other systems are reviewed and are negative PMFSH Past Medical History Medical History Asthma Depression Hyperprolactinemia Obese Surgical History No pertinent past surgical history Family History Family History Mother No problems noted. Father Parkinson disease Diabetes Other Mental health disorder Social History Social History Housing: House Alcohol intake: former Patient Tobacco Use Status: Former Tobacco user Tobacco use type: Cigarette e-Cigarette/Vaping Use: Currently Using Second Hand Smoke Exposure: No Advance Directives: No Advance Directives Information Provided: No service: No Current occupational status: employed and unemployed Cognitive needs: No Hearing needs: No Vision needs: No Physical Exam ED Vital Signs: Vital Signs - 24 hr 06/30/22 16:53 Temperature 97.6 F Pulse Rate 76 Respiratory Rate 18 Blood Pressure 136/87 Oxygen Delivery Method Room Air BMI result Body Mass Index 44.0 Const General: cooperative, healthy appearing, comfortable, no acute distress, well developed, alert, awake and Physically active Orientation/consciousness: oriented to person, oriented to place, oriented to time and patient oriented x3 HENMT Head: Yes normal to inspection, Yes No palpable skull fracture present, Yes normocephalic, Yes atraumatic and No abrasion Ears: hearing grossly normal bilaterally, external ears normal, TM's normal bilaterally, EAC's normal, mastoids normal and no periauricular adenopathy Throat: Yes posterior oropharynx normal, Yes tonsils normal and Yes uvula midline Eyes General: appearance normal, both eyes and all related structures Neck Neck: Yes normal visual inspection, Yes full ROM, Yes no lymphadenopathy, Yes no meningeal signs, Yes trachea midline, Yes supple, No anterior neck swelling and No tender Chest Chest palpation & inspection: normal inspection of the chest and normal palpati on of entire chest wall Resp Effort & Inspection: normal respiratory effort and able to speak in complete sentences Cardio Jugular venous distension: no JVD Heart sounds: S1 normal heart sound present and S2 normal heart sound present GI Inspection: Yes normal to inspection and No abdominal wall ecchymosis Palpation (GI): Soft to palpation, not firm, nontender, no guarding and not rigid General: No CVA tenderness and Yes no CVA tenderness Back/Spine/Pelvis Back: no CVA tenderness, No CVA tenderness and No back tenderness Skin General skin exam: no rashes or lesions noted and elasticity normal Neuro General: oriented to person, oriented to place, oriented to time, patient oriented x3, gait normal, tone normal, no meningeal signs and CN's II-XI intact bilaterally Cranial nerves: Yes CN's II-XII intact bilaterally Extrem General: Yes normal to inspection and Yes full ROM Psych Appearance: grossly normal, well kempt and not disheveled Course Course Course Narrative: SARS orderd. Reevaluation(s) Reevaluation #1: SARs negative. Patient well-appearing. Patient recommend to get retested in 5 days from onset of symptoms. Time: 18:32 Medical Decision Making MDM Narrative Medical decision making narrative: Viral Syndrome Lab Data Labs: Lab Results 06/30/22 Range/Units 17:07 Influenza Type A (PCR) NEGATIVE (Negative) Influenza Type B (PCR) NEGATIVE (Negative) RSV RNA Qual (PCR) NEGATIVE (Negative) SARS-CoV-2 RNA (RT-PCR) NEGATIVE (Negative) Discharge Plan Discharge Clinical Impression: Acute viral syndrome Patient Disposition: Home, Self-Care Instructions: Viral Syndrome (ED) Additional Instructions: Your COVID, RSV, and influenza came back negative. Recommend repeat tested 5 days from onset of symptoms. Return to the ED immediately for any chest pain, shortness of breath, weakness, dizziness, or any other concerning symptoms. Please follow up with PCP. Prescriptions: No Action albuterol sulfate [ProAir HFA] 90 mcg/actuation HFA aerosol inhaler 2 puff inhalation Q4-6H PRN (Reason: bronchospasm) 30 Days Qty: 6.7 3RF Pulmicort Flexhaler 90 mcg/actuation aerosol powdr breath activated 1 inh inhalation BID 30 Days Qty: 1 1RF cholecalciferol (vitamin D3) 50 mcg (2,000 unit) capsule 50 mcg PO DAILY 90 Days Qty: 90 0RF doxycycline hyclate 100 mg tablet 100 mg PO 14 10 Days Qty: 10 0RF ibuprofen 600 mg tablet 600 mg PO Q6H PRN (Reason: pain) Qty: 30 0RF sumatriptan succinate 25 mg tablet 25 mg PO Q2-4H PRN (Reason: migraine headache) 30 Days Qty: 9 0RF Rx Instructions: do not exceed 8 doses per 24 hrs desog-e.estradiol/e.estradiol 0.15-0.02 mgx21 /0.01 mg x 5 tablet 1 tab PO DAILY Qty: 84 4RF Referrals: Joe Lockett MD [Primary Care Provider] - (Viral syndrome) Stand Alone Forms: Work/School Release Interventions: ED Discharge Assessment Last Done: 06/30/22 19:03 Discharge Date/Time: 06/30/22 19:06 Print Language: Panamanian
[2022-06-30 18:04] LABS: Influenza A PCR NEGATIVE (Negative); Influenza B PCR NEGATIVE (Negative); Resp Syncy Virus RNA Qual PCR NEGATIVE (Negative); SARS COV2 PCR INHOUSE NEGATIVE (Negative)
== END 2022-06-30 19:06 | disposition home or self-care (01) ==
PROVIDERS: Emergency Provider Internal Medicine; PCP Student in an Organized Health Care Education/Training Program
DX: B34.9 Viral infection, unspecified (principal); R05.9 Cough, unspecified; M79.10 Myalgia, unspecified site; Z20.822 Contact with and (suspected) exposure to COVID-19; F17.290 Nicotine dependence, other tobacco product, uncomplicated; E66.9 Obesity, unspecified; Z68.41 Body mass index [BMI] 40.0-44.9, adult
CPT/HCPCS: 0241U; 99282; 99283

== ENCOUNTER 2022-07-09 05:12 | Emergency (ER) | payer OTHER, SELFPAY ==
[2022-07-09 05:20] VITALS: BP 117/87; PULSE 92; RESP 16; TEMP 36.6; O2SAT 97; BMI 39.4
[2022-07-09 07:36] VITALS: BP 109/74; PULSE 79; RESP 16; TEMP 36.8; O2SAT 97
[2022-07-09] MEDS: predniSONE 20 MG TABLET 80 MG PO (09:31)
[2022-07-09 10:18] LABS: COVID-19 Test Negative (Negative); IDNOW Serial# BCCEAD1C
[2022-07-09] MEDS: Albuterol Sulfate 2.5 MG/0.5 ML VIAL.NEB 5 MG INHALE (10:22)
[2022-07-09 10:23] VITALS: PULSE 83; RESP 18; O2SAT 95
[2022-07-09 10:29] LABS: IDNOW Serial# 16C4AD1C
[2022-07-09 10:30] LABS: Influenza A Negative (Negative); Influenza B2 Negative (Negative)
[2022-07-09 11:02] VITALS: BP 143/78; PULSE 113; RESP 20; TEMP 36.8; O2SAT 96
--- NOTE | 2022-07-09 11:07 | ED.URI ---
HPI - URI/Sore Throat General Chief Complaint: Upper Respiratory Symptoms Stated Complaint: asthma, headache, nausea Time Seen by Provider: 07/09/22 07:16 Source: patient Mode of arrival: ambulatory Limitations: no limitations History of Present Illness HPI Narrative: 27-year-old female who presents emergency department for evaluation of sore throat, cough, shortness of breath body aches x2 days. Patient states she has a history of asthma he she states that over the past 2 days she has felt sick. She states she has a constant, sore throat which is worse with swallowing. She states she has a cough which is nonproductive. She states she is feeling tired and fatigued and her body aches. The patient has been using her albuterol inhaler frequently with no improvement of her shortness of breath or cough. She has also been using her albuterol nebulizer. She states that she does have Advair Diskus but ran out of this medication about 1 month prior. She does have a refill his medication but she has not had a chance to get it refilled yet. Patient states that her asthma has been acting up over the past month as well. She attributes this to being exposed to dust in the [employer] that she works out. MD elicited complaint: cough, sore throat and other (Shortness of breath) Pertinent past history: asthma Onset (ago): day(s) (2) Consistency: intermittent Severity: moderate Description of mucous: other (Nonproductive) Able to tolerate fluids by mouth: Yes Exacerbating factors: other (Exposure to dust) Relieving factors: nothing Associated symptoms: myalgias, sore throat, cough and shortness of breath Treatments prior to arrival: other (Bronchodilators) Related Data Previous Rx's Medication Instructions Recorded sumatriptan succinate 25 mg tablet 25 mg PO Q2-4H PRN migraine 01/21/21 headache 30 days #9 tabs albuterol sulfate 90 mcg/actuation 2 puff inhalation Q4-6H PRN 09/21/21 aerosol inhaler (ProAir HFA) bronchospasm 30 days #6.7 grams doxycycline hyclate 100 mg tablet 100 mg PO 14 10 days #10 tabs 03/29/22 ibuprofen 600 mg tablet 600 mg PO Q6H PRN pain #30 tabs 03/29/22 budesonide 90 mcg/actuation breath 1 inh inhalation BID 30 days #1 ea 05/02/22 activated powder inhaler (Pulmicort Flexhaler) cholecalciferol (vitamin D3) 50 50 mcg PO DAILY 90 days #90 caps 05/25/22 mcg (2,000 unit) capsule desogestrel-e.estradiol 0.15 1 tab PO DAILY #84 tabs 05/26/22 mg-0.02 mg(21)/e.estrad 0.01 mg(5) tablet albuterol sulfate 2.5 mg/3 mL 2.5 mg (3 mL) inhalation Q4-6H PRN 07/09/22 (0.083 %) solution for nebulization shortness of breath or wheezing #75 mL prednisone 20 mg tablet 60 mg PO DAILY 5 days #15 tabs 07/09/22 Allergies Allergy/AdvReac Type Severity Reaction Status Date / Time shrimp Allergy Mild tongue Verified 05/26/22 10:16 swelling Environmental Allergies Allergy Intermediate sneezing, Uncoded 05/26/22 10:16 asthma Review of Systems Review of Systems: Yes all other systems are reviewed and are negative [facility] Past Medical History [facility] Narrative: Social history: She denies tobacco, alcohol and drug use. Medical History Asthma Depression Hyperprolactinemia Obese Surgical History No pertinent past surgical history Family History Family History Mother No problems noted. Father Parkinson disease Diabetes Other Mental health disorder Social History Social History Housing: House Alcohol intake: former Patient Tobacco Use Status: Former Tobacco user Tobacco use type: Cigarette Smoked in Last 30 Days: No e-Cigarette/Vaping Use: Currently Using Second Hand Smoke Exposure: No Use of substances other than those prescribed or required for medical reasons: No Advance Directives: No Advance Directives Information Provided: No Patient : No service: No Current occupational status: employed and unemployed Cognitive needs: No Hearing needs: No Vision needs: No Physical Exam Vital Signs: Vital Signs: Last Vital Signs Temp 98.3 F 07/09/22 11:02 Pulse 113 H 07/09/22 11:02 Resp 20 07/09/22 11:02 BP 143/78 H 07/09/22 11:02 Pulse Ox 96 07/09/22 11:02 O2 Del Method 07/09/22 11:02 BMI result Body Mass Index 39.4 Const: General: cooperative and no acute distress Orientation/consciousness: oriented to person and oriented to place Limitations: no limitations HEENT: Head: Yes normal to inspection, Yes normocephalic and Yes atraumatic Ears: external ears normal General nose exam: Normal external nose present Face and sinus: Yes normal facial exam Mouth: Normal oral and palatal mucosa present Throat: Yes posterior oropharynx normal Eyes: General: appearance normal, both eyes and all related structures Pupils: Equal, round and reactive pupils present Neck: Neck: Yes normal visual inspection, Yes no lymphadenopathy, Yes trachea midline and Yes supple Chest: Chest palpation & inspection: normal inspection of the chest and normal palpation of entire chest wall Resp: Effort & Inspection: normal respiratory effort and able to speak in complete sentences Auscultation: wheezes (Diffuse) Cardio: Rate: regular rate Rhythm: regular rhythm Heart sounds: S1 normal heart sound present, S2 normal heart sound present and no murmurs GI: Inspection: Yes normal to inspection Palpation (GI): Soft to palpation, nontender and no guarding Auscultation: normal bowel sounds : General: Yes no CVA tenderness Back/Spine/Pelvis: Back: no CVA tenderness Skin: General skin exam: no rashes or lesions noted Neuro: General: oriented to person and oriented to place Cranial nerves: Yes CN's II-XII intact bilaterally and Yes Equal, round and reactive pupils present Cognition (Neuro): normal cognition Motor exam (neuro): 5/5 motor strength present throughout Extrem: General: Yes normal to inspection Psych: Appearance: grossly normal Speech and movement: Normal speech and movement present Affect: normal affect Attitude: cooperative Thought process: Normal thought process present Thought content: Normal thought content present Course Course Course Narrative: 27-year-old female with history of asthma who presents emergency department for evaluation of symptoms consistent with a URI x2 days. Vital signs initially normal, repeat did reveal an elevated heart rate of 113 but this was after an albuterol nebulizer. The patient's lung exam did reveal diffuse wheezing otherwise was unremarkable. Patient's COVID-19 influenza tests were negative. Patient was treated with prednisone 80 mg orally and albuterol nebulized with improvement of her symptoms. Patient most likely has a viral URI causing exacerbation of the patient's asthma. Patient was started on prednisone 60 mg once a day for 5 days, she was given a refill of her albuterol nebulizer solution she was advised to refill her Advair as well. She was given printed and verbal instructions discharged home. Medications Administered Discontinued Medications Generic Name Dose Route Start Last Admin Trade Name Rufus PRN Reason Stop Dose Admin Albuterol Sulfate 5 mg 07/09/22 09:24 07/09/22 10:22 Albuterol Sulfate 2.5 Mg/0.5 Ml Vial.Neb INHALE 07/09/22 09:25 5 mg ONCE ONE Administration Prednisone 80 mg 07/09/22 09:24 07/09/22 09:31 Prednisone 20 Mg Tablet PO 07/09/22 09:25 80 mg ONCE ONE Administration MDM - URI/Sore Throat Lab Data Labs: Lab Results 07/09/22 07/09/22 Range/Units 09:44 09:44 COVID-19 (RADHA) Negative (Negative) COVID-19 Clin Com See Note Influenza Type A (KEN) Negative (Negative) Influenza Type B (KEN) Negative (Negative) Influenza A & B Note See Note Discharge Plan Discharge Clinical Impression: URI (upper respiratory infection) Qualifiers: URI type: unspecified viral URI Qualified Code(s): J06.9 - Acute upper respiratory infection, unspecified Asthma exacerbation Qualifiers: Asthma severity: moderate Patient Disposition: Home, Self-Care Additional Instructions: Your COVID-19 test was negative. Your influenza test was negative. You most likely have a virus which is causing your symptoms and causing your asthma to flare up. Take prednisone 20 mg pills, 3 pills once a day for 5 days. While you are taking prednisone, do not take any NSAIDs (Motrin, Advil, ibuprofen, Aleve, naproxen). Continue to use your albuterol nebulizer and inhaler as prescribed by your doctor. Make sure you get a refill of your Advair in use this twice a day, this will help improve your asthma and hopefully prevent you from having frequent asthma attacks. Follow-up with your doctor in 2 days. Please return to the emergency department if your symptoms get worse or if you develop any symptoms that are concerning to you. Prescriptions: New albuterol sulfate 2.5 mg /3 mL (0.083 %) solution for nebulization 2.5 mg inhalation Q4-6H PRN (Reason: shortness of breath or wheezing) Qty: 75 0RF prednisone 20 mg tablet 60 mg PO DAILY 5 Days Qty: 15 0RF No Action albuterol sulfate [ProAir HFA] 90 mcg/actuation HFA aerosol inhaler 2 puff inhalation Q4-6H PRN (Reason: bronchospasm) 30 Days Qty: 6.7 3RF Pulmicort Flexhaler 90 mcg/actuation aerosol powdr breath activated 1 inh inhalation BID 30 Days Qty: 1 1RF cholecalciferol (vitamin D3) 50 mcg (2,000 unit) capsule 50 mcg PO DAILY 90 Days Qty: 90 0RF doxycycline hyclate 100 mg tablet 100 mg PO 14 10 Days Qty: 10 0RF ibuprofen 600 mg tablet 600 mg PO Q6H PRN (Reason: pain) Qty: 30 0RF sumatriptan succinate 25 mg tablet 25 mg PO Q2-4H PRN (Reason: migraine headache) 30 Days Qty: 9 0RF Rx Instructions: do not exceed 8 doses per 24 hrs desog-e.estradiol/e.estradiol 0.15-0.02 mgx21 /0.01 mg x 5 tablet 1 tab PO DAILY Qty: 84 4RF
== END 2022-07-09 11:46 | disposition home or self-care (01) ==
PROVIDERS: Emergency Provider Emergency Medicine Emergency Medical Services
DX: J06.9 Acute upper respiratory infection, unspecified (principal); J45.41 Moderate persistent asthma with (acute) exacerbation; Z20.822 Contact with and (suspected) exposure to COVID-19; E66.9 Obesity, unspecified; Z68.39 Body mass index [BMI] 39.0-39.9, adult; Z87.891 Personal history of nicotine dependence
CPT/HCPCS: 36415; 71045; 80048; 85025; 87502; 87635; 94640; 96361; 96374; 96375; 99284; J1100; J3475

== ENCOUNTER 2022-07-09 21:09 | Emergency (ER) | payer OTHER, SELFPAY ==
--- NOTE | ~2022-07-09 | XR_ITS ---
EXAMINATION: XR CHEST CLINICAL INFORMATION: Shortness of breath COMPARISON: 10/13/2019 TECHNIQUE: Frontal view of the chest was obtained. FINDINGS: No significant abnormality is noted involving the heart, lungs, mediastinum, bony thorax or soft tissues. XR/XR chest 1V IMPRESSION: Unremarkable examination.
[2022-07-09 21:16] VITALS: BP 150/72; PULSE 123; PULSE 93; RESP 24; TEMP 37.2; O2SAT 92; O2SAT 98; BMI 39.9
--- NOTE | 2022-07-09 21:31 | ED_ITS ---
HPI - SOB/Dyspnea General Chief Complaint: Dyspnea Stated Complaint: dif breathing Time Seen by Provider: 07/09/22 21:16 Source: patient Mode of arrival: ambulatory Limitations: no limitations History of Present Illness HPI Narrative: Patient has history of asthma been having shortness of breath with wheezing since yesterday after work where she had a lot of dust was seen here last night given IV fluid and steroids comes back as she is still wheezing and feels short of breath on arrival patient is saturating 92% on room air patient does have asthma and gets sick often mostly secondary to allergies Related Data Previous Rx's Medication Instructions Recorded sumatriptan succinate 25 mg tablet 25 mg PO Q2-4H PRN migraine 01/21/21 headache 30 days #9 tabs albuterol sulfate 90 mcg/actuation 2 puff inhalation Q4-6H PRN 09/21/21 aerosol inhaler (ProAir HFA) bronchospasm 30 days #6.7 grams doxycycline hyclate 100 mg tablet 100 mg PO 14 10 days #10 tabs 03/29/22 ibuprofen 600 mg tablet 600 mg PO Q6H PRN pain #30 tabs 03/29/22 budesonide 90 mcg/actuation breath 1 inh inhalation BID 30 days #1 ea 05/02/22 activated powder inhaler (Pulmicort Flexhaler) cholecalciferol (vitamin D3) 50 50 mcg PO DAILY 90 days #90 caps 05/25/22 mcg (2,000 unit) capsule desogestrel-e.estradiol 0.15 1 tab PO DAILY #84 tabs 05/26/22 mg-0.02 mg(21)/e.estrad 0.01 mg(5) tablet albuterol sulfate 2.5 mg/3 mL 2.5 mg (3 mL) inhalation Q4-6H PRN 07/09/22 (0.083 %) solution for nebulization shortness of breath or wheezing #75 mL prednisone 20 mg tablet 60 mg PO DAILY 5 days #15 tabs 07/09/22 codeine 10 mg-guaifenesin 100 mg/5 10 ml PO Q6H PRN cough #237 mL 07/10/22 mL oral liquid Allergies Allergy/AdvReac Type Severity Reaction Status Date / Time shrimp Allergy Mild tongue Verified 05/26/22 10:16 swelling Environmental Allergies Allergy Intermediate sneezing, Uncoded 05/26/22 10:16 asthma Review of Systems Review of Systems: Yes all other systems are reviewed and are negative [facility] Past Medical History Medical History Asthma Depression Hyperprolactinemia Obese Surgical History No pertinent past surgical history Family History Family History Mother No problems noted. Father Parkinson disease Diabetes Other Mental health disorder Social History Social History Housing: House Alcohol intake: never Patient Tobacco Use Status: Former Tobacco user Tobacco use type: Cigarette Smoked in Last 30 Days: No e-Cigarette/Vaping Use: Currently Using Second Hand Smoke Exposure: No Use of substances other than those prescribed or required for medical reasons: No Advance Directives: No Patient : No service: No Current occupational status: employed and unemployed Cognitive needs: No Hearing needs: No Vision needs: No Physical Exam Vital Signs: Vital Signs: Last Vital Signs Temp 98.0 F 07/10/22 07:17 Pulse 119 H 07/10/22 07:17 Resp 18 07/10/22 07:17 BP 134/65 07/10/22 07:17 Pulse Ox 95 07/10/22 07:17 O2 Del Method 07/10/22 07:17 O2 Flow Rate 3 07/09/22 22:41 BMI result Body Mass Index 39.9 Appearance: Alert. Oriented X3. No acute distress. ModerateRespiratory distress with wheezing ENT: Pharynx normal. Oral Mucosa moist Neck: Normal inspection. Neck supple. CVS: Normal heart rate and rhythm. Pulses normal. Respiratory: Moderate respiratory distress. Equal air entry bilateral, bilateral wheezing and rhonchi no rales Abdomen: Soft and nontender. Bowel sounds are present, no mass palpable, no CVA tenderness Skin: Skin warm and dry. Normal skin color. Normal skin turgor. Extremities: No lower extremity edema. No calf tenderness Neuro: Oriented X 3. No motor deficit. Medications Administered Discontinued Medications Generic Name Dose Route Start Last Admin Trade Name Freq PRN Reason Stop Dose Admin Albuterol Sulfate 5 mg/ 7.5 mg 07/10/22 00:26 07/10/22 01:09 Albuterol Sulfate 2.5 mg INHALE 07/10/22 00:27 7.5 mg ONCE ONE Administration Albuterol Sulfate 2.5 mg/ 0 mg 07/09/22 21:31 07/09/22 22:03 Albuterol/Ipratropium 3 ml INHALE 07/09/22 21:32 1 each ONCE ONE Administration Dexamethasone Sodium Phosphate 10 mg 07/09/22 21:31 07/09/22 21:46 Dexamethasone Sod Phosphate 10 Mg/Ml Vial IVPUSH 07/09/22 21:32 10 mg ONCE ONE Administration Guaifenesin/Codeine Phosphate 10 ml 07/10/22 03:10 07/10/22 04:39 Guaifen/Codeine Sf 200/20/10ml 10 Ml Liquid PO 07/10/22 03:11 10 ml ONCE ONE Administration Magnesium Sulfate 2 gm in 50 mls @ 100 mls/hr 07/09/22 21:31 07/09/22 22:53 Magnesium Sulfate/H2o IV 07/09/22 22:00 Infused ONCE ONE Infusion Sodium Chloride 1,000 mls @ 999 mls/hr 07/09/22 21:33 07/09/22 22:56 Ns IV 07/09/22 22:33 Infused .Q1H1M ONE Infusion Levalbuterol HCl 2.5 mg 07/10/22 04:21 07/10/22 05:35 Levalbuterol Hcl 1.25 Mg/0.5 Ml Vial.Neb INHALE 07/10/22 04:22 2.5 mg ONCE ONE Administration MDM - SOB/Dyspnea MDM Narrative Medical decision making narrative: Patient acute asthma attack status asthmaticus responded to IV fluids steroids magnesium and continues treatment x2 will discharge patient home advised to continue albuterol nebulizing treatment at home patient is saturating 93- 94% at room air Lab Data Attestation: I reviewed the patient's lab results. Result diagrams: 07/09/22 21:41 07/09/22 21:41 Labs: Lab Results 07/09/22 07/09/22 Range/Units 21:41 21:41 WBC 14.9 H (4.8-10.8) X10*3/uL RBC 4.28 (4.20-5.50) X10*6/uL Hgb 13.2 (12.0-16.0) g/dl Hct 39.7 (37.0-47.0) % MCV 92.8 (80.0-98.0) fL MCH 30.8 (27.0-33.0) pg MCHC 33.2 (31.0-35.0) g/dl RDW 11.4 (11.0-16.0) % Plt Count 393 (160-400) X10*3/uL MPV 9.3 L (9.4-12.3) fL Immature Gran % (Auto) 0.4 (0.0-0.4) % Neut % (Auto) 90.1 H (45-73) % Lymph % (Auto) 4.6 L (20-40) % [place] % (Auto) 4.7 (2-11) % Eos % (Auto) 0.0 (0-4) % Baso % (Auto) 0.2 (0-2) % Lymph # (Auto) 0.7 L (1.2-4.9) X10*3/uL [place] # (Auto) 0.7 (0.1-1.2) X10*3/uL Eos # (Auto) 0.0 (0.0-0.4) X10*3/uL Baso # (Auto) 0.0 (0.0-0.2) X10*3/uL Abs Immat Gran (auto) 0.06 H (0.00-0.03) X10*3/uL Absolute Neuts (auto) 13.4 H (2.0-8.3) x10*3/uL Absolute Nucleated RBC 0.000 (0.0-0.012) X10*3/uL Nucleated RBC % (auto) 0.0 (0.0-0.2) /100WBC Smear Tech's Comments VERIFIED Sodium 139 (135-145) mmol/L Potassium 4.4 (3.3-5.1) mmol/L Chloride 106 (96-108) mmol/L Carbon Dioxide 22 (22-29) mmol/L Anion Gap 15 (12-20) BUN 6 L (9-16) mg/dL Creatinine 0.74 (0.5-1.4) mg/dL Estim Creat Clear Calc 137.7 Estimated GFR > 60 Random Glucose 110 (60-115) mg/dL Calcium 9.5 D (8.4-10.2) mg/dL Critical Care Time Critical Care Time Critical Care Time: Yes Total Critical Care Time: 45 Attestation: The patient was critically ill with a high probability of imminent or life threatening deterioration. I spent greater than 50 minutes of discontinuous time evaluating the patient,delivering critical care at the bedside, discussing and evaluating pertinent data with consultants. Critical care time does not include time spent performing separately billable procedures or teaching. Total time spent performing critical care was 45 minutes. Discharge Plan Discharge Clinical Impression: Asthma with acute exacerbation Patient Disposition: Home, Self-Care Instructions: Asthma (ED) Additional Instructions: Continue your nebulizing treatment and prednisone tablets as prescribed Follow with PCP Prescriptions: New codeine-guaifenesin 10-100 mg/5 mL liquid 10 ml PO Q6H PRN (Reason: cough) Qty: 237 0RF No Action albuterol sulfate [ProAir HFA] 90 mcg/actuation HFA aerosol inhaler 2 puff inhalation Q4-6H PRN (Reason: bronchospasm) 30 Days Qty: 6.7 3RF Pulmicort Flexhaler 90 mcg/actuation aerosol powdr breath activated 1 inh inhalation BID 30 Days Qty: 1 1RF cholecalciferol (vitamin D3) 50 mcg (2,000 unit) capsule 50 mcg PO DAILY 90 Days Qty: 90 0RF doxycycline hyclate 100 mg tablet 100 mg PO 14 10 Days Qty: 10 0RF ibuprofen 600 mg tablet 600 mg PO Q6H PRN (Reason: pain) Qty: 30 0RF albuterol sulfate 2.5 mg /3 mL (0.083 %) solution for nebulization 2.5 mg inhalation Q4-6H PRN (Reason: shortness of breath or wheezing) Qty: 75 0RF prednisone 20 mg tablet 60 mg PO DAILY 5 Days Qty: 15 0RF sumatriptan succinate 25 mg tablet 25 mg PO Q2-4H PRN (Reason: migraine headache) 30 Days Qty: 9 0RF Rx Instructions: do not exceed 8 doses per 24 hrs desog-e.estradiol/e.estradiol 0.15-0.02 mgx21 /0.01 mg x 5 tablet 1 tab PO DAILY Qty: 84 4RF Interventions: ED Discharge Assessment Last Done: 07/10/22 07:26 Discharge Date/Time: 07/10/22 07:34
[2022-07-09] MEDS: 0.9 % Sodium Chloride 1,000 ML 999 ML IV (21:38)
[2022-07-09] MEDS: dexAMETHasone sod phosphate 10 MG/ML VIAL IVPUSH (21:46)
[2022-07-09 21:47] LABS: Basophils Percent Auto 0.2 % (0-2); Hematocrit 39.7 % (37.0-47.0); Hemoglobin 13.2 g/dl (12.0-16.0); Imm Gran Abs Auto 0.06 X10*3/uL (0.00-0.03); Imm Gran Pct Auto 0.4 % (0.0-0.4); Lymphocytes Absolute Auto 0.7 X10*3/uL (1.2-4.9); Lymphocytes Percent Auto 4.6 % (20-40); MANUAL DIFF FLAG SCAN; Mean Corpuscular HGB Conc 33.2 g/dl (31.0-35.0); Mean Corpuscular Hemoglobin 30.8 pg (27.0-33.0); Mean Corpuscular Volume 92.8 fL (80.0-98.0); Mean Platelet Volume 9.3 fL (9.4-12.3); Monocytes Absolute Auto 0.7 X10*3/uL (0.1-1.2); Monocytes Percent Auto 4.7 % (2-11); Neutrophils Absolute Auto 13.4 x10*3/uL (2.0-8.3); Neutrophils Percent Auto 90.1 % (45-73); Platelet Count 393 X10*3/uL (160-400); Red Blood Count 4.28 X10*6/uL (4.20-5.50); Red Cell Distribution Width 11.4 % (11.0-16.0); SCAN SMEAR FLAG 1; White Blood Count 14.9 X10*3/uL (4.8-10.8)
[2022-07-09] MEDS: Magnesium Sulfate/H2O 2 GM/50 ML PIGGYBACK IV (21:47)
[2022-07-09 22:00] LABS: Anion Gap 15 (12-20); Blood Urea Nitrogen 6 mg/dL (9-16); Calcium 9.5 mg/dL (8.4-10.2); Carbon Dioxide 22 mmol/L (22-29); Chloride 106 mmol/L (96-108); Creatinine Clr Calc Pharmacy 137.7; Estimated Glomerular Filt Rate > 60; Glucose Random 110 mg/dL (60-115); Potassium 4.4 mmol/L (3.3-5.1); Sodium 139 mmol/L (135-145)
[2022-07-09 22:03] VITALS: PULSE 122; RESP 16; O2SAT 97
[2022-07-09] MEDS: Albuterol Sulfate 2.5 MG, Albuterol/Iprat 2.5/0.5MG 3 ML 3 ML INHALE (22:03)
[2022-07-09 22:07] LABS: SLIDE REVIEW VERIFIED
[2022-07-09 22:41] VITALS: BP 127/61; PULSE 118; RESP 21; O2SAT 96
[2022-07-10] MEDS: Albuterol Sulfate 5 MG, Albuterol Sulfate (0.083%) 2.5 MG 7.5 MG INHALE (01:09)
[2022-07-10 01:10] VITALS: PULSE 118; RESP 21; O2SAT 96
[2022-07-10 01:21] VITALS: BP 138/79; PULSE 134; RESP 16; TEMP 36.6; O2SAT 98
--- NOTE | 2022-07-10 03:08 | PC.NURSE ---
report given to SHAYY Hook
[2022-07-10 03:59] VITALS: BP 141/76; PULSE 121; RESP 26; TEMP 36.6; O2SAT 96
[2022-07-10] MEDS: guaiFEN/Codeine SF 200/20/10ML 10 ML LIQUID PO (04:39)
[2022-07-10 05:41] VITALS: PULSE 105; RESP 18; O2SAT 95
[2022-07-10 07:17] VITALS: BP 134/65; PULSE 119; RESP 18; TEMP 36.7; O2SAT 95
== END 2022-07-10 07:34 | disposition home or self-care (01) ==
PROVIDERS: Emergency Provider Internal Medicine; PCP Internal Medicine
DX: J45.901 Unspecified asthma with (acute) exacerbation (principal); E66.9 Obesity, unspecified; Z68.39 Body mass index [BMI] 39.0-39.9, adult; Z87.891 Personal history of nicotine dependence
CPT/HCPCS: 36415; 71045; 80048; 85025; 94640; 99284; J1100; J3475

== ENCOUNTER 2022-11-04 01:28 | Emergency (ER) | payer OTHER, SELFPAY ==
[2022-11-04 01:31] VITALS: BP 109/72; PULSE 101; O2SAT 100; BMI 24.0
--- NOTE | 2022-11-04 01:41 | ECG_ITS ---
Test Reason : CHEST PAIN Blood Pressure : / mmHG Vent. Rate : 076 BPM Atrial Rate : 076 BPM P-R Int : 142 ms QRS Dur : 076 ms QT Int : 370 ms P-R-T Axes : 061 069 042 degrees QTc Int : 416 ms Normal sinus rhythm Normal ECG No previous ECGs available Referred By: Generic ED Physician Electronically Signed By:CHRIS LOGAN MD
[2022-11-04 01:42] VITALS: BP 131/82; PULSE 93; RESP 15; TEMP 36.9; O2SAT 96
--- NOTE | 2022-11-04 01:50 | ED_ITS ---
HPI - SOB/Dyspnea General Chief Complaint: Dyspnea Stated Complaint: SOB/Asthma Time Seen by Provider: 11/04/22 01:46 Source: patient and EMS Mode of arrival: EMS Limitations: no limitations History of Present Illness HPI Narrative: Patient comes to the emergency room complaining of an asthma exacerbation. Patient states that she has been having intermittent asthma exacerbation for couple of months. Patient call 911 for an asthma exacerbation, EMS reports that when they arrived, patient's oxygen saturation was 93% on room air, patient was giving a DuoNeb and oxygen saturation improved to 100%. Patient feeling much better, denies cough, no wheezing at this time, overall patient feeling better. Patient states that she ran out of albuterol. Related Data Previous Rx's Medication Instructions Recorded sumatriptan succinate 25 mg tablet 25 mg PO Q2-4H PRN migraine 01/21/21 headache 30 days #9 tabs albuterol sulfate 90 mcg/actuation 2 puff inhalation Q4-6H PRN 09/21/21 aerosol inhaler (ProAir HFA) bronchospasm 30 days #6.7 grams doxycycline hyclate 100 mg tablet 100 mg PO 14 10 days #10 tabs 03/29/22 ibuprofen 600 mg tablet 600 mg PO Q6H PRN pain #30 tabs 03/29/22 budesonide 90 mcg/actuation breath 1 inh inhalation BID 30 days #1 ea 05/02/22 activated powder inhaler (Pulmicort Flexhaler) cholecalciferol (vitamin D3) 50 50 mcg PO DAILY 90 days #90 caps 05/25/22 mcg (2,000 unit) capsule desogestrel-e.estradiol 0.15 1 tab PO DAILY #84 tabs 05/26/22 mg-0.02 mg(21)/e.estrad 0.01 mg(5) tablet albuterol sulfate 2.5 mg/3 mL 2.5 mg (3 mL) inhalation Q4-6H PRN 07/09/22 (0.083 %) solution for nebulization shortness of breath or wheezing #75 mL prednisone 20 mg tablet 60 mg PO DAILY 5 days #15 tabs 07/09/22 codeine 10 mg-guaifenesin 100 mg/5 10 ml PO Q6H PRN cough #237 mL 07/10/ mL oral liquid albuterol sulfate 2.5 mg/3 mL 2.5 mg (3 mL) inhalation Q4-6H PRN 11/04/22 (0.083 %) solution for nebulization shortness of breath or wheezing #75 mL albuterol sulfate 90 mcg/actuation 2 puff inhalation Q4-6H PRN 11/04/22 aerosol inhaler shortness of breath or wheezing #8.5 grams prednisone 50 mg tablet 50 mg PO DAILY #4 tabs 11/04/22 Allergies Allergy/AdvReac Type Severity Reaction Status Date / Time shrimp Allergy Mild tongue Verified 05/26/22 10:16 swelling Environmental Allergies Allergy Intermediate sneezing, Uncoded 05/26/22 10:16 asthma Review of Systems Review of Systems: Constitutional : No Weight loss, No Fever, No Chills, No Night Sweats, No Fatigue, No Malaise ENT/Mouth : No Hearing loss, No Ear Pain, No Nasal Congestion, No Sinus Pain, No Hoarseness, No sore throat, No Rhinorrhea, No Swallowing Difficulty Eyes: No Eye Pain, No Swelling, No Redness, No Foreign Body, No Discharge, No Vision Changes Cardiovascular : No Chest Pain, No SOB, No Dyspnea on Exertion, No Orthopnea, No Edema, No Palpitations Respiratory : No Cough, No Sputum, complaining of Wheezing, No Smoke Exposure, No Dyspnea Gastrointestinal : No Nausea, No Vomiting, No Diarrhea, No Constipation, No abdominal Pain, No Hematochezia, No Melena Genitourinary : no irregular bleeding, No Dysuria, No Urinary Frequency, No Hematuria, No Urinary Incontinence, No Urgency, No Flank Pain, No Urinary Flow Changes, No Hesitancy Musculoskeletal : No joint pain, No Myalgias, No Joint Swelling Skin : No Skin Lesions, No rash Neuro : No Weakness, No Numbness, No Paresthesias, No Loss of Consciousness, No Dizziness, No Headache Psych : No Anxiety/Panic, No Depression, No SI/HI/AH/VH, No Social Issues, Heme/Lymph: No Bruising, No Bleeding,No Lymphadenopathy Endocrine : No Polyuria, No Polydipsia, No Temperature Intolerance PMFSH Past Medical History Medical History Asthma Depression Hyperprolactinemia Obese Surgical History No pertinent past surgical history Family History Family History Mother No problems noted. Father Parkinson disease Diabetes Other Mental health disorder Social History Social History Housing: House Alcohol intake: never Patient Tobacco Use Status: Former Tobacco user Tobacco use type: Cigarette e-Cigarette/Vaping Use: Currently Using Second Hand Smoke Exposure: No Advance Directives: No service: No Current occupational status: employed and unemployed Cognitive needs: No Hearing needs: No Vision needs: No Physical Exam Vital Signs: Vital Signs: Last Vital Signs Temp 97.7 F 11/04/22 03:04 Pulse 87 11/04/22 03:04 Resp 12 11/04/22 03:04 BP 127/56 L 11/04/22 03:04 Pulse Ox 98 11/04/22 03:04 O2 Del Method 11/04/22 03:04 BMI result Body Mass Index 24.0 Const: Other: Appearance: Alert. Oriented X3. No acute distress. Eyes: Pupils equal, round and reactive to light. ENT: Pharynx normal. Neck: Normal inspection. Neck supple. No lymph nodes noted. No crepitus CVS: Normal heart rate and rhythm. Pulses normal. Normal S1 and S2 Respiratory: No respiratory distress. Minimal wheezing bilaterally, good air movement, oxygen saturation 96% on room air Abdomen: Soft and nontender. No rigidity. No distention. Skin: Skin warm and dry. Normal skin color. Normal skin turgor. Extremities: No lower extremity edema. No Lacerations. No Rash Neuro: Oriented X 3. No motor deficit. No sensory deficit. Moving all extremities. No slurred speech. CN 2 through 12 grossly intact Psych: calm, cooperative, normal affect Course Course Course Narrative: -patient will be given 1 more dose of nebulized treatment albuterol, IV Solu- Medrol and magnesium. -patient speaking full sentences, well appearing, likely to be discharged home Medications Administered Generic Name Dose Route Start Last Admin Trade Name Freq PRN Reason Stop Dose Admin Magnesium Sulfate 2 gm in 50 mls @ 25 mls/hr 11/04/22 01:49 11/04/22 02:06 Magnesium Sulfate/H2o IV 11/04/22 03:48 25 mls/hr ONCE ONE Administration Discontinued Medications Generic Name Dose Route Start Last Admin Trade Name Freq PRN Reason Stop Dose Admin Albuterol Sulfate 5 mg 11/04/22 01:49 11/04/22 01:58 Albuterol Sulfate (0.083%) 2.5 Mg/3 Ml Vial.Neb INHALE 11/04/22 01:50 5 mg ONCE ONE Administration Methylprednisolone Sodium Succinate 125 mg 11/04/22 01:49 11/04/22 02:06 Methylprednisolone Sod Succ 125 Mg/2 Ml Vial IVPUSH 11/04/22 01:50 125 mg ONCE ONE Administration Medical Decision Making Medical Decision Making [facility] Narrative: -after treatment, patient feels completely back to baseline, no longer wheezing. Oxygen saturation 98% with exertion. Differential Diagnosis Differential Diagnoses: The differential diagnosis associated with the presentation includes (Asthma exacerbation, viral syndrome) Lab Data [facility] Lab Attestation statement: I reviewed the patient's lab results. Labs: Lab Results 11/04/22 Range/Units 02:11 POC Glucose 94 (60-115) mg/dL Discharge Plan Discharge Clinical Impression: Asthma exacerbation Patient Disposition: Home, Self-Care Instructions: Asthma (ED) Additional Instructions: Please follow-up with your primary care physician tomorrow. If you have any worsening or new symptoms, please return to the emergency room or call 911 Prescriptions: New albuterol sulfate 90 mcg/actuation HFA aerosol inhaler 2 puff inhalation Q4-6H PRN (Reason: shortness of breath or wheezing) Qty: 8.5 1RF albuterol sulfate 2.5 mg /3 mL (0.083 %) solution for nebulization 2.5 mg inhalation Q4-6H PRN (Reason: shortness of breath or wheezing) Qty: 75 0RF prednisone 50 mg tablet 50 mg PO DAILY Qty: 4 0RF No Action albuterol sulfate [ProAir HFA] 90 mcg/actuation HFA aerosol inhaler 2 puff inhalation Q4-6H PRN (Reason: bronchospasm) 30 Days Qty: 6.7 3RF Pulmicort Flexhaler 90 mcg/actuation aerosol powdr breath activated 1 inh inhalation BID 30 Days Qty: 1 1RF cholecalciferol (vitamin D3) 50 mcg (2,000 unit) capsule 50 mcg PO DAILY 90 Days Qty: 90 0RF doxycycline hyclate 100 mg tablet 100 mg PO 14 10 Days Qty: 10 0RF ibuprofen 600 mg tablet 600 mg PO Q6H PRN (Reason: pain) Qty: 30 0RF albuterol sulfate 2.5 mg /3 mL (0.083 %) solution for nebulization 2.5 mg inhalation Q4-6H PRN (Reason: shortness of breath or wheezing) Qty: 75 0RF prednisone 20 mg tablet 60 mg PO DAILY 5 Days Qty: 15 0RF codeine-guaifenesin 10-100 mg/5 mL liquid 10 ml PO Q6H PRN (Reason: cough) Qty: 237 0RF sumatriptan succinate 25 mg tablet 25 mg PO Q2-4H PRN (Reason: migraine headache) 30 Days Qty: 9 0RF Rx Instructions: do not exceed 8 doses per 24 hrs desog-e.estradiol/e.estradiol 0.15-0.02 mgx21 /0.01 mg x 5 tablet 1 tab PO DAILY Qty: 84 4RF
[2022-11-04 01:54] VITALS: RESP 15
[2022-11-04] MEDS: Albuterol Sulfate (0.083%) 2.5 MG/3 ML VIAL.NEB 5 MG INHALE (01:58)
[2022-11-04 02:00] VITALS: PULSE 90; RESP 15; O2SAT 96
[2022-11-04] MEDS: Magnesium Sulfate/H2O 2 GM/50 ML PIGGYBACK IV (02:06)
[2022-11-04] MEDS: methylPREDNISolone Sod Succ 125 MG/2 ML VIAL IVPUSH (02:06)
[2022-11-04 02:18] LABS: Glucose, Whole Blood 94 mg/dL (60-115)
[2022-11-04 03:04] VITALS: BP 127/56; PULSE 87; RESP 12; TEMP 36.5; O2SAT 98
--- NOTE | 2022-11-04 03:06 | PC.NURSE ---
Pt aox3 resting at the bedside in no apparent distress. Breaths are even regular and unlabored. NSR on monitor with hr 87. Pt reports improved breathing and no pain at this time. MD at bedside. Will continue to monitor.
--- NOTE | 2022-11-04 03:29 | PC.NURSE ---
IV line removed with no complications. Pt tolerated well. Discharge instructions reviewed with pt. Pt verbalizes understanding.
== END 2022-11-04 03:30 | disposition home or self-care (01) ==
PROVIDERS: Emergency Provider Emergency Medicine; PCP Internal Medicine
DX: J45.901 Unspecified asthma with (acute) exacerbation (principal); Z87.891 Personal history of nicotine dependence; Z79.899 Other long term (current) drug therapy
CPT/HCPCS: 82947; 93005; 94640; 96374; 96375; 99284; 99285; J2930; J3475

== ENCOUNTER → 2022-11-05 14:20 | Outpatient (BNVA) | payer OTHER, SELFPAY | PROVIDERS: PCP Internal Medicine; Visit Provider Physician Assistant Surgical ==

== ENCOUNTER → 2022-11-08 08:03 | Outpatient (BNVA) | payer OTHER, SELFPAY | PROVIDERS: PCP Internal Medicine; Visit Provider Surgery ==

== ENCOUNTER 2022-11-18 10:20 | Outpatient (REF) | payer OTHER, SELFPAY ==
--- NOTE | ~2022-11-18 | XR_ITS ---
EXAMINATION: XR CHEST CLINICAL INFORMATION: E66.01. Bariatric service evaluation. COMPARISON: Chest radiographs 07/09/2022, 10/13/2019 TECHNIQUE: 2 views of the chest were obtained. FINDINGS: The lungs are clear. The vascularity is normal. The costophrenic sulci are well-defined. Heart size normal. The hilar and mediastinal contours and bony structures are unremarkable. XR/XR chest 2V IMPRESSION: Unremarkable examination.
--- NOTE | 2022-11-18 10:28 | ECG_ITS ---
Test Reason : E66.01 Blood Pressure : / mmHG Vent. Rate : 064 BPM Atrial Rate : 064 BPM P-R Int : 150 ms QRS Dur : 094 ms QT Int : 400 ms P-R-T Axes : 039 058 034 degrees QTc Int : 412 ms Normal sinus rhythm Normal ECG When compared with ECG of 04-NOV-2022 01:43, No significant change was found Referred By: Keith Nick Electronically Signed By:CHRIS LOGAN MD
[2022-11-18 10:42] LABS: MANUAL DIFF FLAG NO
[2022-11-18 11:03] LABS: Basophils Percent Auto 0.3 % (0-2); Eosinophils Absolute Auto 0.2 X10*3/uL (0.0-0.4); Eosinophils Percent Auto 1.6 % (0-4); Hematocrit 37.8 % (37.0-47.0); Imm Gran Abs Auto 0.03 X10*3/uL (0.00-0.03); Imm Gran Pct Auto 0.3 % (0.0-0.4); Lymphocytes Absolute Auto 2.4 X10*3/uL (1.2-4.9); Lymphocytes Percent Auto 26.1 % (20-40); Mean Corpuscular HGB Conc 34.4 g/dl (31.0-35.0); Mean Corpuscular Hemoglobin 32.3 pg (27.0-33.0); Mean Platelet Volume 9.6 fL (9.4-12.3); Monocytes Absolute Auto 0.6 X10*3/uL (0.1-1.2); Monocytes Percent Auto 6.8 % (2-11); Neutrophils Percent Auto 64.9 % (45-73); Platelet Count 374 X10*3/uL (160-400); Red Blood Count 4.02 X10*6/uL (4.20-5.50); Red Cell Distribution Width 11.4 % (11.0-16.0); White Blood Count 9.3 X10*3/uL (4.8-10.8)
[2022-11-18 11:12] LABS: Estimated Average Glucose 100 mg/dL; Hemoglobin A1c % 5.1 %
[2022-11-18 11:39] LABS: Alanine Aminotransferase 15 U/L (0-31); Albumin Level 3.9 g/dL (3.5-5.0); Alkaline Phosphatase 56 U/L (39-117); Anion Gap 11 (12-20); Aspartate Amino Transferase 12 U/L (5-31); Bilirubin Total 0.8 mg/dL (0.0-1.0); Blood Urea Nitrogen 8 mg/dL (9-16); C Reactive Protein 0.41 mg/dL (< or = 0.50); Calcium 8.9 mg/dL (8.4-10.2); Carbon Dioxide 27 mmol/L (22-29); Chloride 108 mmol/L (96-108); Cholesterol 135 mg/dL; Estimated Glomerular Filt Rate > 60; Glucose Random 95 mg/dL (60-115); HDL Cholesterol 28 mg/dL; Iron 71 mcg/dL (30-160); LDL Cholesterol Calculated 95 mg/dl; Percent Iron Saturation 24 % (15-50); Potassium 4.1 mmol/L (3.3-5.1); Sodium 142 mmol/L (135-145); Total Iron Binding Capacity 292 mcg/dL (228-428); Total Protein 6.5 g/dL (6.5-8.0); Triglycerides 60 mg/dL; Unsaturated Iron Binding 221 ug/dL
[2022-11-18 12:29] LABS: Ferritin 34 ng/mL (10-122); Insulin 8 uU/mL (2-29); TSH reflex Free T4 3.73 uIU/mL (0.32-4.0); Vitamin B12 487 pg/mL (200-900); Vitamin D 25-OH Total 16.8 ng/mL (>30)
[2022-11-22 21:49] LABS: Calcium (PTHI) 8.9 mg/dL (8.6-10.2); PTHI 32 pg/mL (16-77)
[2022-11-23 05:39] LABS: Zinc 84 mcg/dL (60-130)
[2022-11-25 23:44] LABS: Vitamin A 35 mcg/dL (38-98)
[2022-11-26 06:24] LABS: Vitamin B1 9 nmol/L (8-30)
== END 2022-11-18 10:21 | disposition home or self-care (01) ==
LOC: HO.LAB 10:20
PROVIDERS: PCP Internal Medicine; Visit Provider Surgery
DX: E66.01 Morbid (severe) obesity due to excess calories (principal); E28.2 Polycystic ovarian syndrome; J45.909 Unspecified asthma, uncomplicated
CPT/HCPCS: 36415; 71046; 80053; 80061; 82306; 82607; 82728; 82746; 83036; 83525; 83540; 83970; 84425; 84443; 84590; 84630; 85025; 86140; 93005

== ENCOUNTER → 2022-11-25 11:58 | Outpatient (BNVA) | payer OTHER, SELFPAY | PROVIDERS: PCP Internal Medicine; Visit Provider Counselor Mental Health ==

== ENCOUNTER → 2022-12-02 09:30 | Outpatient (BNVA) | payer OTHER, SELFPAY | PROVIDERS: PCP Internal Medicine; Visit Provider Counselor Mental Health ==

== ENCOUNTER → 2022-12-10 08:00 | Outpatient (BNVA) | payer OTHER, SELFPAY | PROVIDERS: PCP Internal Medicine; Visit Provider Surgery ==

== ENCOUNTER 2022-12-13 09:03 | Outpatient (REF) | payer OTHER, SELFPAY ==
[2022-12-14 15:28] LABS: H Pylori Breath Test Negative (Negative)
== END 2022-12-13 09:04 | disposition home or self-care (01) ==
LOC: HO.LNP 09:03
PROVIDERS: Surgery; PCP Internal Medicine; Visit Provider Physician Assistant Surgical
DX: E66.01 Morbid (severe) obesity due to excess calories (principal); E28.2 Polycystic ovarian syndrome; J45.909 Unspecified asthma, uncomplicated
CPT/HCPCS: 83013; 99211

== ENCOUNTER → 2022-12-14 11:26 | Outpatient (BNVA) | payer OTHER, SELFPAY | PROVIDERS: PCP Internal Medicine; Visit Provider Dietitian, Registered | DX: E66.01 Morbid (severe) obesity due to excess calories (principal); E22.1 Hyperprolactinemia; U07.0 Vaping-related disorder; Z87.891 Personal history of nicotine dependence; Z71.3 Dietary counseling and surveillance | CPT/HCPCS: 97802 ==

== ENCOUNTER → 2022-12-16 10:38 | Outpatient (BNVA) | payer OTHER, SELFPAY | PROVIDERS: PCP Internal Medicine; Visit Provider Counselor Mental Health | DX: F33.1 Major depressive disorder, recurrent, moderate (principal); F50.81 Binge eating disorder; E66.01 Morbid (severe) obesity due to excess calories ==

== ENCOUNTER 2023-01-03 19:44 | Emergency (ER) | payer OTHER, SELFPAY ==
[2023-01-03 20:00] VITALS: BP 126/69; PULSE 98; RESP 20; TEMP 36.6; O2SAT 97; BMI 39.5
--- NOTE | 2023-01-03 20:00 | ED_ITS ---
HPI - URI/Sore Throat General Chief Complaint: General Medical Stated Complaint: sore throat headache Time Seen by Provider: 01/03/23 20:04 Source: patient Mode of arrival: ambulatory Limitations: no limitations History of Present Illness HPI Narrative: Year old female history of vitamin-D deficiency and vitamin-D deficiency, asthma, obesity, PCOS, amenorrhea, migraines, anxiety, depression, occipital neuralgia presenting to the emergency department for evaluation of sore throat, fatigue, malaise, nausea, diffuse headache which feels like typical, for the past day. Patient reports the symptoms started suddenly. Reports that nephew is sick with similar symptoms. Patient denies fevers, chills, chest pain, shortness of breath, vision changes, dizziness, weakness. Eating and drinking per usual. Related Data Previous Rx's Medication Instructions Recorded budesonide 90 mcg/actuation breath 1 inh inhalation BID 30 days #1 ea 05/02/22 activated powder inhaler (Pulmicort Flexhaler) cholecalciferol (vitamin D3) 50 50 mcg PO DAILY 90 days #90 caps 05/25/22 mcg (2,000 unit) capsule albuterol sulfate 2.5 mg/3 mL 2.5 mg (3 mL) inhalation Q4-6H PRN 07/09/22 (0.083 %) solution for nebulization shortness of breath or wheezing #75 mL albuterol sulfate 2.5 mg/3 mL 2.5 mg (3 mL) inhalation Q4-6H PRN 11/04/22 (0.083 %) solution for nebulization shortness of breath or wheezing #75 mL albuterol sulfate 90 mcg/actuation 2 puff inhalation Q4-6H PRN 11/04/22 aerosol inhaler shortness of breath or wheezing #8.5 grams cholecalciferol (vitamin D3) 125 125 mcg PO DAILY #30 caps 11/18/22 mcg (5,000 unit) capsule vitamin A palmitate 3,000 mcg 10,000 unit PO .COMPLEX #30 caps 12/10/22 (10,000 unit) capsule prednisone 20 mg tablet 40 mg PO DAILY 5 days #10 tabs 01/03/23 Allergies Allergy/AdvReac Type Severity Reaction Status Date / Time peanut Allergy Mild itchy Verified 01/03/23 20:03 throat shrimp Allergy Mild tongue Verified 01/03/23 20:03 swelling Environmental Allergies Allergy Intermediate sneezing, Uncoded 11/08/22 08:16 asthma Review of Systems Review of Systems: Constitutional : No Weight loss, No Fever, No Chills, + Fatigue, + Malaise ENT/Mouth : + sore throat, No Rhinorrhea Eyes: No Eye Pain, No Swelling, No Redness Cardiovascular : No Chest Pain, No SOB, No Dyspnea on Exertion, No Orthopnea, No Edema, No Palpitations Respiratory : No Cough, No Sputum, No Wheezing Gastrointestinal : No Nausea, No Vomiting, No Diarrhea, No Constipation, No abdominal Pain, No Hematochezia, No Melena Genitourinary : No Dysuria, No Urinary Frequency, No Hematuria, Musculoskeletal : No joint pain, No Myalgias, No Joint Swelling Skin : No Skin Lesions, No rash Neuro : No Weakness, No Numbness, No Dizziness, No Headache Psych : No Anxiety/Panic, No Depression All other systems reviewed and are negative Yes all other systems are reviewed and are negative ON LICENSE OF [facility] Past Medical History Attestation statement: The following information was validated with the patient. Source: old records reviewed and nursing notes reviewed Medical History (Updated 01/03/23 @ 20:58 by AARON Eastman) Asthma Depression Hyperprolactinemia Morbid obesity Obese Surgical History No pertinent past surgical history Family History Family History (Updated 11/05/22 @ 14:47 by CON Manley) Mother Hypertension Fibromyalgia Thyroid disease Father Parkinson disease Diabetes Sister No problems noted. Brother No problems noted. Brother No problems noted. Other Mental health disorder Social History Social History Housing: House Alcohol intake: never Patient Tobacco Use Status: Former Tobacco user Tobacco use type: Cigarette e-Cigarette/Vaping Use: Currently Using Second Hand Smoke Exposure: No Advance Directives: No Advance Directives Information Provided: Yes service: No Current occupational status: employed and unemployed Cognitive needs: No Hearing needs: No Vision needs: No Physical Exam Vital Signs: Vital Signs: Last Vital Signs Temp 97.9 F 01/03/23 20:00 Pulse 98 01/03/23 20:00 Resp 20 01/03/23 20:00 BP 126/69 01/03/23 20:00 Pulse Ox 97 01/03/23 20:00 O2 Del Method Room Air 01/03/23 20:00 BMI result Body Mass Index 39.5 vss Appearance: Alert.? Oriented X3.? No acute distress.? Head: Normocephalic, atraumatic, no step-offs or deformities Ears, nose, throat: Uvula midline, bilateral tonsils erythematous however no edema. No signs of retropharyngeal or peritonsillar abscess. Patient speaking in full sentences, controlling secretions well. No signs of exudates. Eyes: Pupils equal, round and reactive to light.? CVS: Normal heart rate and rhythm.? Pulses normal.? Respiratory: No respiratory distress.? Breath sounds normal.? Abdomen: Soft and nontender.? Skin: Skin warm and dry.? Normal skin color.? Normal skin turgor.? Extremities: No lower extremity edema.? No calf ttp. 5/5 strength to bilateral upper and lower extremities Neuro: Oriented X 3.? No motor deficit.? No sensory deficit. CN 2-12 intact Course Course Course Narrative: This is a rapid medical exam. Deferred additional HPI, ROS, PE to primary provider. 27 yo female here with sore throat x 1 day with headache, chills, weakness. Will obtain testing for strep, covid. VSS Reevaluation(s) Reevaluation #1: COVID, strep negative. However high suspicion for strep throat. Will treat with antibiotics. Educated patient on diagnosis and treatment plan, answered all question, patient verbalizes understanding. At this time patient will be discharged home, advised to return with new or worsening symptoms. Educated on worrisome signs and symptoms and when to return. At this time I feel comfortable discharge home. Time: 20:43 Medical Decision Making Medical Decision Making [facility] Narrative: 2041 27-year-old female presents with sore throat, fatigue, malaise for few days worsening. No known sick contacts. Physical exam benign. Will likely viral pharyngitis / viral illness Will rule out viral illness such as COVID. Unlikely peritonsillar abscess, epiglottitis. No signs of airway compromise. Plan viral testing which was done in triage. No need for imaging as there is no signs of peritonsillar abscess or retropharyngeal abscess on exam. Differential Diagnosis Differential Diagnoses: The differential diagnosis associated with the presentation includes Will likely viral pharyngitis/ viral ilness. Will rule out viral illness such as COVID. Unlikely peritonsillar abscess, epiglottitis. No signs of airway compromise. Admission/Observation Consideration of admission/observation: Escalation of care including admission/observation considered Not indicate Lab Data MDM Lab Attestation statement: I reviewed the patient's lab results. Labs: Lab Results 01/03/23 01/03/23 Range/Units 20:08 20:08 COVID-19 (RADHA) Negative (Negative) COVID-19 Clin Com See Note S. pyogenes GrpA KEN Negative (Negative) Core Measures AMI core measures followed: Yes Measure exclusions: not indicated Critical Care Time Critical Care Time Critical Care Time: No Discharge Plan Discharge Clinical Impression: Pharyngitis, Viral illness Patient Disposition: Home, Self-Care Instructions: Pharyngitis (ED) Additional Instructions: Take your medications as prescribed. If you were prescribed antibiotics today, it is important that you take your medication to their entirety, do not skip any doses, do not finish them early. Follow-up with your primary care provider this week. Return to the emergency department with new or worsening symptoms. Such as fevers, chills, chest pain, shortness of breath, nausea, vomiting, dizziness, headache, vision changes, lethargy In case of emergency call 911 Prescriptions: New prednisone 20 mg tablet 40 mg PO DAILY 5 Days Qty: 10 0RF No Action Pulmicort Flexhaler 90 mcg/actuation aerosol powdr breath activated 1 inh inhalation BID 30 Days Qty: 1 1RF cholecalciferol (vitamin D3) 50 mcg (2,000 unit) capsule 50 mcg PO DAILY 90 Days Qty: 90 0RF cholecalciferol (vitamin D3) 125 mcg (5,000 unit) capsule 125 mcg PO DAILY Qty: 30 2RF albuterol sulfate 2.5 mg /3 mL (0.083 %) solution for nebulization 2.5 mg inhalation Q4-6H PRN (Reason: shortness of breath or wheezing) Qty: 75 0RF albuterol sulfate 90 mcg/actuation HFA aerosol inhaler 2 puff inhalation Q4-6H PRN (Reason: shortness of breath or wheezing) Qty: 8.5 1RF albuterol sulfate 2.5 mg /3 mL (0.083 %) solution for nebulization 2.5 mg inhalation Q4-6H PRN (Reason: shortness of breath or wheezing) Qty: 75 0RF vitamin A palmitate 3,000 mcg (10,000 unit) capsule 10,000 unit PO .COMPLEX Qty: 30 2RF Rx Instructions: 10,000 units orally one per day; Referrals: Beckie Mora MD [Primary Care Provider] - 2 days Stand Alone Forms: Work/School Release
[2023-01-03 20:24] LABS: IDNOW Serial# 6674DD1D; Strep A Nucleic Acid Negative (Negative)
[2023-01-03 20:40] LABS: COVID-19 Test Negative (Negative); IDNOW Serial# BCCEAD1C
== END 2023-01-03 21:28 | disposition home or self-care (01) ==
PROVIDERS: Nurse Practitioner Family; Emergency Provider Internal Medicine; PCP Internal Medicine
DX: B34.9 Viral infection, unspecified (principal); J02.9 Acute pharyngitis, unspecified; Z20.822 Contact with and (suspected) exposure to COVID-19
CPT/HCPCS: 87635; 87651; 99282; 99283

== ENCOUNTER 2023-02-11 14:51 | Outpatient (REF) | payer OTHER, SELFPAY ==
[2023-02-14 04:26] LABS: HBS Num1 105.05 mIU/mL (0-7.99); HBc Num1 0.12 S/CO (0.00-0.79); HBsAGNum1 0.42 S/CO (0.00-0.99); Hepatitis B Core Antibody Nonreactive (Nonreactive); Hepatitis B Surface Antigen Negative (Negative); ~Hepatitis B Surface Antibody REACTIVE (Nonreactive)
[2023-02-14 15:53] LABS: TS Negative Control Passed; TS Panel A 4; TS Panel B 5; TS Positive Control Passed; TSpotTB Borderline (Negative)
[2023-02-14 21:33] LABS: Mumps Virus IgG Antibody <9.00 AU/mL; Rubeola IgG (Measles) <13.50 AU/mL
[2023-02-16 18:38] LABS: Rubella IgG Antibody 1.07 Index
== END 2023-02-11 14:52 | disposition home or self-care (01) ==
LOC: HO.LAB 14:51
PROVIDERS: PCP Internal Medicine; Visit Provider Internal Medicine
DX: Z01.84 Encounter for antibody response examination (principal); Z11.1 Encounter for screening for respiratory tuberculosis
CPT/HCPCS: 36415; 86481; 86704; 86706; 86735; 86762; 86765; 86787; 87340

== ENCOUNTER 2023-02-24 14:11 | Outpatient (REF) | payer OTHER, SELFPAY ==
--- NOTE | ~2023-02-24 | XR_ITS ---
EXAMINATION: XR CHEST CLINICAL INFORMATION: Latent tuberculosis. COMPARISON: 11/18/2022. TECHNIQUE: Frontal view of the chest was obtained. FINDINGS: No significant abnormality is noted involving the heart, lungs, mediastinum, bony thorax or soft tissues. XR/XR chest 1V IMPRESSION: Unremarkable examination.
== END 2023-02-24 14:12 | disposition home or self-care (01) ==
LOC: HO.XRAY 14:11
PROVIDERS: PCP Internal Medicine; Visit Provider Internal Medicine
DX: Z22.7 Latent tuberculosis (principal)
CPT/HCPCS: 71045

== ENCOUNTER 2023-03-21 12:38 | Emergency (ER) | payer OTHER, SELFPAY ==
--- NOTE | ~2023-03-21 | XR_ITS ---
EXAMINATION: XR CHEST CLINICAL INFORMATION: Cough and wheezing. COMPARISON: Chest radiograph dated 02/24/2023. TECHNIQUE: 2 views of the chest were obtained. FINDINGS: No significant abnormality is noted involving the heart, lungs, mediastinum, bony thorax or soft tissues. XR/XR chest 2V IMPRESSION: No acute cardiopulmonary process.
[2023-03-21 13:23] VITALS: BP 109/64; PULSE 99; RESP 20; TEMP 36.8; O2SAT 98; BMI 38.8
--- NOTE | 2023-03-21 13:24 | ED.GENADULT ---
HPI - General Adult General Chief complaint: Upper Respiratory Symptoms Stated complaint: Diff breathing/Sore throat Time Seen by Provider: 03/21/23 14:17 Source: patient, RN notes reviewed and old records reviewed Mode of arrival: ambulatory History of Present Illness HPI narrative: 28 year old female w/ pmhx of asthma presents to the ED today with complaints of asthma exacerbation w/productive cough, sinus pressure, L ear pain, wheezing, SOB, and chest discomfort with cough x2 days. Admits to using neb machine q4h nightly starting Tuesday night but ran out of albuterol this morning. denies nausea, vomiting, fever, chills, body aches, and rhinorrhea. No known sick contacts or recent travel. Onset (ago): day(s) (2) Related Data Previous Rx's Medication Instructions Recorded budesonide 90 mcg/actuation breath 1 inh inhalation BID 30 days #1 ea 05/02/22 activated powder inhaler (Pulmicort Flexhaler) cholecalciferol (vitamin D3) 50 50 mcg PO DAILY 90 days #90 caps 05/25/22 mcg (2,000 unit) capsule albuterol sulfate 2.5 mg/3 mL 2.5 mg (3 mL) inhalation Q4-6H PRN 07/09/22 (0.083 %) solution for nebulization shortness of breath or wheezing #75 mL albuterol sulfate 2.5 mg/3 mL 2.5 mg (3 mL) inhalation Q4-6H PRN 11/04/22 (0.083 %) solution for nebulization shortness of breath or wheezing #75 mL albuterol sulfate 90 mcg/actuation 2 puff inhalation Q4-6H PRN 11/04/22 aerosol inhaler shortness of breath or wheezing #8.5 grams cholecalciferol (vitamin D3) 125 125 mcg PO DAILY #30 caps 11/18/22 mcg (5,000 unit) capsule vitamin A palmitate 3,000 mcg 10,000 unit PO .COMPLEX #30 caps 12/10/22 (10,000 unit) capsule prednisone 20 mg tablet 40 mg PO DAILY 5 days #10 tabs 01/03/23 albuterol sulfate 2.5 mg/0.5 mL 5 mg inhalation Q4H PRN shortness 03/21/23 solution for nebulization of breath or wheezing #30 ea amoxicillin 875 mg-potassium 1 tab PO BID 7 days #14 tabs 03/21/23 clavulanate 125 mg tablet prednisone 20 mg tablet 40 mg PO DAILY 5 days #10 tabs 03/21/23 Allergies Allergy/AdvReac Type Severity Reaction Status Date / Time peanut Allergy Mild itchy Verified 03/21/23 13:27 throat shrimp Allergy Mild tongue Verified 03/21/23 13:27 swelling Environmental Allergies Allergy Intermediate sneezing, Uncoded 03/21/23 13:27 asthma Review of Systems Review of Systems: Constitutional: No Fever, No Chills, No Malaise ENT/Mouth: (+) L Ear Pain, (+) Nasal Congestion, (+) Sinus Pain, No Hoarseness, No sore throat, No Rhinorrhea, No Swallowing Difficulty Eyes: No Eye Pain, No Swelling, No Redness, No Foreign Body, No Discharge Cardiovascular: (+) Chest Pain, (+) SOB, No Dyspnea on Exertion, No Orthopnea Respiratory: (+) Cough, (+) Sputum, (+) Wheezing Gastrointestinal: No Nausea, No Vomiting, No Diarrhea, No Constipation, No Abdominal pain Skin: No Skin Lesions, No rash Yes all other systems are reviewed and are negative Constitutional: Constitutional: Reports as per [facility] Past Medical History Attestation statement: The following information was validated with the patient. Source: old records reviewed Medical History Asthma Depression Hyperprolactinemia Morbid obesity Obese Surgical History No pertinent past surgical history Family History Family History Mother Hypertension Fibromyalgia Thyroid disease Father Parkinson disease Diabetes Sister No problems noted. Brother No problems noted. Brother No problems noted. Other Mental health disorder Social History Social History Housing: House Alcohol intake: never Patient Tobacco Use Status: Former Tobacco user Tobacco use type: Cigarette e-Cigarette/Vaping Use: Currently Using Second Hand Smoke Exposure: No Advance Directives: No Advance Directives Information Provided: No service: No Current occupational status: employed and unemployed Cognitive needs: No Hearing needs: No Vision needs: No Physical Exam ED Vital Signs: Vital Signs - 24 hr 08/07/23 13:23 03/21/23 15:29 Temperature 98.2 F Pulse Rate 99 86 Respiratory Rate 20 18 Blood Pressure 109/64 Pulse Oximetry 98 Oxygen Delivery Method Room Air BMI result Body Mass Index 38.8 Const General: cooperative, healthy appearing, no acute distress, alert and awake Orientation/consciousness: patient oriented x3 Limitations: no limitations HENMT Other: Bulging erythematous TM noted on the left, postauricular pain w/ palpation, Mastid WNL Head: Yes normal to inspection and Yes atraumatic Ears: hearing grossly normal bilaterally, external ears normal, TM normal on the right and mastoids normal General nose exam: Normal external nose present Face and sinus: Yes normal facial exam Mouth: Normal oral and palatal mucosa present, lip normal and tongue normal Throat: Yes uvula midline, No peritonsillar mass, Yes posterior oropharynx abnormal (mild erythematous, no tonsillar exudates), No uvula laterally displaced and No uvular edema Eyes General: appearance normal, both eyes and all related structures EOM: EOMs intact bilaterally Neck Neck: Yes normal visual inspection, Yes no meningeal signs, Yes supple, No anterior neck swelling and No torticollis Resp Other: Inspiratory & end-expiratory wheeze Effort & Inspection: normal respiratory effort, not labored and no respiratory distress Auscultation: wheezes Cardio Rate: regular rate Heart sounds: S1 normal heart sound present and S2 normal heart sound present GI Inspection: Yes normal to inspection Palpation (GI): Soft to palpation, nontender, no guarding and not rigid Skin Rashes: no rashes Wounds: no wounds Neuro General: patient oriented x3, tone normal and no meningeal signs Gait exam (Neuro): Normal gait present Extrem General: Yes normal to inspection and Yes no pedal edema Course Course Course Narrative: RME performed by Siria Larsen PA-C. Patient is a 28 year old assigned female at presenting to the emergency department with increased wheezing and concern for an asthma exacerbation. Patient is out of all asthma medications. Imaging and swabs ordered. Patient placed back in the waiting room pending room availability and results. -1616--COVID, influenza, and rapid strep negative XR chest 2V IMPRESSION: No acute cardiopulmonary process. > 1617-- on re-evaluation lungs CTA, reports symptomatic improvement Results discussed with patient including worrisome signs and symptoms and strict return precautions, and when to return to the emergency department. They verbalized understanding and feel safe for discharge at this time. Medications Administered Discontinued Medications Generic Name Dose Route Start Last Admin Trade Name Rufus PRN Reason Stop Dose Admin Albuterol/Ipratropium 3 ml 03/21/23 15:05 03/21/23 15:28 Albuterol/Iprat 2.5/0.5mg 3 Ml Ampul.Neb INHALE 03/21/23 15:06 3 ml ONCE ONE Administration Prednisone 40 mg 03/21/23 15:10 03/21/23 15:22 Prednisone 20 Mg Tablet PO 03/21/23 15:11 40 mg ONCE ONE Administration Medical Decision Making Medical Decision Making [facility] Narrative: 28 year old female w/ pmhx of asthma presents to the ED today with complaints of asthma exacerbation w/productive cough, sinus pressure, L ear pain, wheezing, SOB, and chest discomfort with cough x2 days. On exam VSS and NAD. Inspiratory and expiratory wheeze noted, left TM consistent with otitis media, mastoids WNL. Concern for AOM of the left ear as well as asthma exacerbation. Low clinical suspicion for COVID, Flu, strep, Pneumonia, mastoiditis, and otitis externa/mastoiditis Plan: Viral testing, CXR, DuoNeb, PO prednisone Please refer to course for remaining clinical decision making, interpretation of labs/imaging results, and discussions with consultants and/or family members. Differential Diagnosis Differential Diagnoses: The differential diagnosis associated with the presentation includes As above Admission/Observation Consideration of admission/observation: Escalation of care including admission/observation considered Lab Data [facility] Lab Attestation statement: I reviewed the patient's lab results. Labs: Lab Results 03/21/23 03/21/23 03/21/23 Range/Units 13:28 13:28 14:57 COVID-19 (RADHA) Negative (Negative) COVID-19 Clin Com See Note Influenza Type A (KEN) Negative (Negative) Influenza Type B (KEN) Negative (Negative) Influenza A & B Note See Note S. pyogenes GrpA KEN Negative (Negative) Radiology Impression Discussion of test interpretation with radiology: I have reviewed the radiologist's reading. External Record Review External record reviewed: Inpatient record, Office record, Outpatient record, Prior outpatient labs, Prior outpatient radiology, Primary care record and Outside ED record Tests considered The following testing was considered but not selected: As above Prescription Management I considered prescription management with: Antibiotic and Other Chronic Conditions Patient?s care impacted by: Other (asthma) Discharge Plan Discharge Clinical Impression: Asthma exacerbation Patient Disposition: Home, Self-Care Instructions: Asthma (DC) Additional Instructions: Your x-rays unremarkable. He tested negative for COVID, flu, and strep throat Continue to use neb machine inhalers at home In addition use prednisone Augmentin is an antibiotic for her ear infection please take as prescribed Rest Stay hydrated Follow-up with her doctor If symptoms persist or worsen return to the ED Prescriptions: New prednisone 20 mg tablet 40 mg PO DAILY 5 Days Qty: 10 0RF albuterol sulfate 2.5 mg/0.5 mL solution for nebulization 5 mg inhalation Q4H PRN (Reason: shortness of breath or wheezing) Qty: 30 0RF amoxicillin-pot clavulanate 875-125 mg tablet 1 tab PO BID 7 Days Qty: 14 0RF No Action Pulmicort Flexhaler 90 mcg/actuation aerosol powdr breath activated 1 inh inhalation BID 30 Days Qty: 1 1RF cholecalciferol (vitamin D3) 50 mcg (2,000 unit) capsule 50 mcg PO DAILY 90 Days Qty: 90 0RF cholecalciferol (vitamin D3) 125 mcg (5,000 unit) capsule 125 mcg PO DAILY Qty: 30 2RF albuterol sulfate 2.5 mg /3 mL (0.083 %) solution for nebulization 2.5 mg inhalation Q4-6H PRN (Reason: shortness of breath or wheezing) Qty: 75 0RF albuterol sulfate 90 mcg/actuation HFA aerosol inhaler 2 puff inhalation Q4-6H PRN (Reason: shortness of breath or wheezing) Qty: 8.5 1RF albuterol sulfate 2.5 mg /3 mL (0.083 %) solution for nebulization 2.5 mg inhalation Q4-6H PRN (Reason: shortness of breath or wheezing) Qty: 75 0RF prednisone 20 mg tablet 40 mg PO DAILY 5 Days Qty: 10 0RF vitamin A palmitate 3,000 mcg (10,000 unit) capsule 10,000 unit PO .COMPLEX Qty: 30 2RF Rx Instructions: 10,000 units orally one per day; Referrals: Beckie Mora MD [Primary Care Provider] - 5 days
--- NOTE | 2023-03-21 13:30 | MHC.EDTECH ---
Covid and flu swab collected and sent to lab
[2023-03-21 14:26] LABS: COVID-19 Test Negative (Negative); IDNOW Serial# 55D5AD1C; IDNOW Serial# 9DB6401D
[2023-03-21 14:27] LABS: Influenza A Negative (Negative); Influenza B2 Negative (Negative)
[2023-03-21] MEDS: predniSONE 20 MG TABLET 40 MG PO (15:22)
[2023-03-21 15:25] LABS: IDNOW Serial# 08D9AD1C; Strep A Nucleic Acid Negative (Negative)
[2023-03-21] MEDS: Albuterol/Iprat 2.5/0.5MG 3 ML AMPUL.NEB INHALE (15:28)
[2023-03-21 15:29] VITALS: PULSE 86; RESP 18; O2SAT 98
== END 2023-03-21 16:31 | disposition home or self-care (01) ==
PROVIDERS: Physician Assistant Medical; Emergency Provider Emergency Medicine; PCP Internal Medicine
DX: J45.901 Unspecified asthma with (acute) exacerbation (principal); Z20.822 Contact with and (suspected) exposure to COVID-19; Z79.899 Other long term (current) drug therapy
CPT/HCPCS: 71046; 87502; 87635; 87651; 94640; 99283; 99284

== ENCOUNTER 2023-10-20 17:16 | Outpatient (AMB) | payer OTHER, SELFPAY ==
[2023-10-20 17:20] VITALS: BP 122/70; BMI 40.3
--- NOTE | 2023-10-20 17:20 | A.OFFPC_ITS ---
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 Required: No Accompanied by: Mother Allergies shrimp Allergy (Mild, Verified 10/20/23 17:31) tongue swelling Environmental Allergies Allergy (Intermediate, Uncoded 10/20/23 17:31) sneezing, asthma Medication List - Last Reconciled 10/20/23 by Beckie Grace MD albuterol sulfate 90 mcg/actuation 2 puffs inhalation Q4-6H PRN albuterol sulfate 2.5 mg (3 mL) inhalation Q4-6H PRN cholecalciferol (vitamin D3) 125 mcg PO DAILY Tobacco use date assessed: 10/20/23 Dental Screening Dental Screen Date: 10/20/23 Did you have a dental visit in the last 12 months?: No Did you have a dental problem in the last 6 months where you did not have access to dental care?: No Was dental information given to patient?: Patient has dentist HPI HPI Comments History of Present Illness Details This is a 28 year old female with morbid obesity and moderate recurrent major depression that comes for her physical exam accompanied by her mother. She is morbidly obese and would like to be refer to [place] [facility] She also has depression and I will start her on bupropion. Last Pap smear was 2019 and has appointment for another Pap this year. No chest pain or shortness of breath. [facility], [facility] Medical History (Updated 10/21/23 @ 08:17 by Beckie Grace MD) Morbid obesity Hyperprolactinemia Depression Obese Asthma Surgical History No pertinent past surgical history Family History Mother Hypertension Fibromyalgia Thyroid disease Father Parkinson disease Diabetes Sister No problems noted. Brother No problems noted. Brother No problems noted. Other Mental health disorder Social History Housing: House Alcohol intake: never Patient Tobacco Use Status: Former Tobacco user Tobacco use type: Cigarette e-Cigarette/Vaping Use: Former Use Second Hand Smoke Exposure: No service: No Current occupational status: employed Current occupational exposures/hazards: No Cognitive needs: No Hearing needs: No Vision needs: No Female Reproductive History Menstrual Age of Menarche: 14 Questionnaire PHQ-9 Over the last 2 weeks, how often have you been bothered by any of the following problems? 1. Little interest or pleasure in doing things: nearly every day 2. Feeling down, depressed, or hopeless: nearly every day 3. Trouble falling or staying asleep, or sleeping too much: nearly every day 4. Feeling tired or having little energy: nearly every day 5. Poor appetite or overeating: more than half the days 6. Feeling bad about yourself - or that you are a failure or have let yourself or your family down: nearly every day 7. Trouble concentrating on things, such as reading the newspaper or watching television: several days 8. Moving or speaking so slowly that other people could have noticed. Or the opposite - being so fidgety or restless that you have been moving around a lot more than usual: not at all 9. Thoughts that you would be better off or of hurting yourself in some way: not at all Total score: 18 Depression Screening Interpretation: Positive (no suicidal thoughts) Depression Screening Follow-up: Existing condition and New Medication prescribed Depression Screening Done: Yes 75438 - PHQ-9 Billing: Yes Source: Developed by Drs. Ariel Bragg, Jo Zimmerman, Charles Molina and colleagues, with an educational aquiles from [employer]. Thrive Questionnaire Date Thrive assessed: 10/20/23 I am a: Patient What is your living situation today?: I have a steady place to live Within the past 12 months, did the food you bought not last and you didn't have the money to get more?: Never true Within the past 12 months, did you worry whether your food would run out before you got money to buy more?: Never true Do you have trouble paying for medicines?: No Do you have trouble getting transportation to medical appointments?: No Do you have trouble paying your heating and electricity bill?: No Do you have trouble taking care of your child, family member or friend?: No Do you have trouble with day-to-day activities such as bathing, preparing meals, shopping, managing finances, etc.?: No Are you currently unemployed and looking for a job?: No Are you interested in more education?: No Please select the resources that you would like help with: None Currently or been in a relationship where the following occur: no concerns reported THRIVE Score: 0 AUDIT C Alcohol Use Questionnaire (AUDIT-C) 1. How often do you have a drink containing alcohol?: Never Total Score: 0 Score Reviewed/Action Taken: No TERRELL-7 AMB Questionnaire TERRELL-7 Date TERRELL - 7 assessed: 10/20/23 Feeling nervous, anxious, or on edge: 1 = Several days Not being able to stop or control worryin = Several days Worrying too much about different things: 3 = Nearly every day Trouble relaxin = Several days Being so restless that it is hard to sit still: 1 = Several days Becoming easily annoyed or irritable: 3 = Nearly every day Feeling afraid as if something awful might happen: 3 = Nearly every day Total TERRELL-7 score (0-4 normal; 5-9 mild; 10-14 moderate; 15-21 severe): 13 Source: Developed by Drs. Ariel Bragg, Jo Zimmerman, Charles Molina and colleagues, with an educational aquiles from [employer]. TERRELL-7 Assessment Billing TERRELL-7 Assessment Tool: TERRELL-7 Assessment 76301 Review of Systems Const All systems reviewed & are unremarkable except as noted in HPI and below Eyes Reports no additional complaints, Denies change in vision and Denies other visual disturbances Card Denies chest pain at rest, Denies chest pain with activity, Denies edema, Denies irregular heart rhythm, Denies claudication, Denies dyspnea, Denies dyspnea on exertion, Denies orthopnea, Denies paroxysmal nocturnal dyspnea and Denies slow heart rate Resp Denies cough, Denies dyspnea and Denies dyspnea on exertion GI Denies abdominal pain, Denies change in bowel habits, Denies excessive flatus, Denies nausea and Denies vomiting Denies urinary incontinence, Denies urinary hesitancy and Denies urinary urgency Musc Denies abnormal gait, Denies atrophy, Denies deformity and Denies limited range of motion Skin/Breast Denies bleeding lesions, Denies changing lesions and Denies rash Neuro Denies abnormal gait, Denies behavioral changes, Denies confusion and Denies lack of coordination Psych Denies behavioral changes and Denies confusion Endo Denies cold intolerance Delta/Lymph Denies easy bleeding and Denies easy bruising Aller/Immun Denies urticaria Physical exam (Primary Care) Vital Signs: Last Vital Signs BP 122/70 10/20/23 17:20 BMI result Body Mass Index 40.3 Tobacco/Smoking Status: Tobacco use Status Tobacco use date assessed 10/20/23 10/20/23 17:28 Patient Tobacco Use Status Former Tobacco user 10/20/23 17:28 Tobacco use type Cigarette 10/20/23 17:28 e-Cigarette/Vaping Use Former Use 10/20/23 17:28 PHQ-9: PHQ-9 Score PHQ-9: Total score 18 10/20/23 17:38 Depression Screening Interpretation: Positive (no suicidal thoughts) Depression Screening Follow-up: Existing condition and New Medication prescribed Thrive Assessment: Date of Thrive Assessment Date Thrive assessed 10/20/23 10/20/23 17:28 Currently or been in a relationship where the following occur: no concerns reported Const General: No confusion Orientation/consciousness: patient oriented x3 and No confusion HENMT Head: Yes normal to inspection, Yes normocephalic and Yes atraumatic Ears: external ears normal Eyes General: appearance normal, both eyes and all related structures Eyelids: Yes eyelids normal Conjunctivae: conjunctivae normal Neck Neck: Yes normal visual inspection and Yes supple Resp Effort & Inspection: normal respiratory effort Auscultation: clear to auscultation bilaterally Cardio Jugular venous distension: no JVD Rate: regular rate Rhythm: regular rhythm Heart sounds: S1 normal heart sound present and S2 normal heart sound present GI Inspection: Yes normal to inspection Palpation (GI): Soft to palpation and nontender Auscultation: normal bowel sounds Skin General skin exam: no rashes or lesions noted Neuro General: patient oriented x3, no focal motor deficits and No confusion Extrem General: Yes full ROM Psych Appearance: grossly normal Assessment and Plan Assessment & Plan (1) Physical exam: Code(s): Z00.00 - Encounter for general adult medical examination without abnormal findings Plan: Repeat in a year. (2) Major depressive disorder, recurrent, moderate: Code(s): F33.1 - Major depressive disorder, recurrent, moderate Plan: Start bupropion. (3) Morbid obesity with BMI of 40.0-44.9, adult: Code(s): E66.01 - Morbid (severe) obesity due to excess calories; Z68.41 - Body mass index [BMI] 40.0-44.9, adult Plan: Refer to weight management. BMI goal is less than 30. Orders: Orders XR mandible min 4V 10/20/23 R68.84 - Jaw pain Referrals Medical Weight Management Referral E66.01 - Morbid (severe) obesity due to excess calories Medications: New carbamide peroxide 6.5% (Debrox) 5 drps otic (ear) right DAILY 4 days 15 mL 0RF bupropion HCl 150 mg PO QAM 90 days 90 tabs 1RF F33.1 - Major depressive disorder, recurrent, moderate omeprazole 20 mg PO DAILY 90 days 90 caps 1RF K21.9 - Gastro-esophageal reflux disease without esophagitis Ventolin HFA 90 mcg/actuation (albuterol sulfate) 2 puffs inhalation Q6H 30 days PRN 18 grams 3RF shortness of breath or wheezing NS Coding Level of Care Code Est Pt Prev Care 18-39y(48921) Diagnoses Physical exam Z00.00 Major depressive disorder, recurrent, moderate F33.1 Morbid obesity with BMI of 40.0-44.9, adult E66.01; Z68.41 Additional Codes TERRELL-7 Assessment Billing - TERRELL-7 Assessment Tool: TERRELL-7 Assessment 88162 ([id number]) Time Spent (min) 33
== END 2023-10-20 17:44 | disposition home or self-care (01) ==
PROVIDERS: PCP Internal Medicine; Visit Provider Internal Medicine
DX: Z00.00 Encounter for general adult medical examination without abnormal findings (principal); F33.1 Major depressive disorder, recurrent, moderate; E66.01 Morbid (severe) obesity due to excess calories; Z68.41 Body mass index [BMI] 40.0-44.9, adult
CPT/HCPCS: 99395

== ENCOUNTER 2023-11-16 10:36 | Outpatient (AMB) | payer OTHER, SELFPAY ==
[2023-11-16 10:45] VITALS: BP 118/74; BMI 40.5
--- NOTE | 2023-11-16 10:45 | MHC.OFFVIS ---
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: No Information Interpreted: non-clinical & clinical Mold Making Supervisor: Mold Making Supervisor Present (Caesar) Allergies shrimp Allergy (Mild, Verified 11/16/23 10:47) tongue swelling Environmental Allergies Allergy (Intermediate, Uncoded 11/16/23 10:47) sneezing, asthma black olives Allergy (Mild, Uncoded 11/16/23 10:47) Itching Medication List - Last Reconciled 11/16/23 by Adamaris Montaño CNM albuterol sulfate 90 mcg/actuation 2 puffs inhalation Q4-6H PRN albuterol sulfate 2.5 mg (3 mL) inhalation Q4-6H PRN bupropion HCl 150 mg PO QAM 90 days cholecalciferol (vitamin D3) 125 mcg PO DAILY omeprazole 20 mg PO DAILY 90 days Ventolin HFA 90 mcg/actuation (albuterol sulfate) 2 puffs inhalation Q6H PRN 30 days NS Is last menstrual period known: Yes Last menstrual period: 10/16/23 Post menopausal: No 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 She has been working at [email or web address] part-time but she likes it a keeps her active. She has an appointment to start the weight loss management program at [facility] in December she was wishing it could be sooner could she is eager to get started she is hoping she can do it this time. She is feeling motivated she has been dealing with some depression and now is focused on getting herself healthier and is not in relationships and is taking time for herself and planning to go to school at [employer] and another program as well. She has been getting regular periods so she went off the control pills because she did not need them. She has not seen endocrinology in a couple of years she saw her primary care provider recently but does not think she had any blood work to do. [facility] Medical History Morbid obesity Hyperprolactinemia Depression Obese Asthma Surgical History No pertinent past surgical history Family History Mother Hypertension Fibromyalgia Thyroid disease Father Parkinson disease Diabetes Sister No problems noted. Brother No problems noted. Brother No problems noted. Other Mental health disorder Social History Housing: House Alcohol intake: never Patient Tobacco Use Status: Former Tobacco user Tobacco use type: Cigarette e-Cigarette/Vaping Use: Former Use Second Hand Smoke Exposure: No service: No Current occupational status: employed Current occupational exposures/hazards: No Cognitive needs: No Hearing needs: No Vision needs: No Female Reproductive History Menstrual Age of Menarche: 14 Duration of menses: 3-5 days Date of last menstrual period: 10/16/23 control method: none Total pregnancies: 0 Date of last pap smear: 02/08/19 (negative) History of abnormal pap smear: No Physical Exam Vital Signs: Last Vital Signs BP 118/74 11/16/23 10:45 BMI result Body Mass Index 40.5 Const General: healthy appearing, comfortable, no acute distress, well developed and alert Nutritional Appearance: average body habitus Orientation/consciousness: patient oriented x3 Limitations: no limitations HEENT Head: Yes normocephalic Neck Neck: Yes normal visual inspection Chest Chest palpation & inspection: normal inspection of the chest Breast/axilla inspection: normal inspection of the breasts and normal inspection of the axillae Breast/axilla palpation: normal palpation of the breasts and normal palpation of the axillae Resp Effort & Inspection: normal respiratory effort GI Inspection: Yes normal to inspection, No Abdominal wall edema and No distended Palpation (GI): Soft to palpation and nontender Other: Normal speculum exam vagina pink moist cervix nulliparous pink smooth mobile nontender uterus small anteverted nontender good tone with Kegel. General: Yes bladder normal to palpation External Female Exam: normal external appearance and normal appearance of the urethra Speculum Exam - Vagina: normal appearance of the vagina, normal palpation and normal vaginal discharge Speculum Exam - Cervix: normal appearance of the cervix, normal palpation and nontender Bimanual exam- vagina & uterus: normal bimanual exam, normal palpation, uterine size normal, bladder normal to palpation, consistency normal, normal palpation, uterine mobility normal, uterine shape normal, No Cervical tenderness present, non-tender and no cervical motion tenderness Bimanual Exam- Adnexa, other: normal adnexae, no masses, normal and No adnexal tenderness Neuro General: patient oriented x3 Assessment & Plan Assessment & Plan (1) 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: Code(s): N91.1 - Secondary amenorrhea; E23.7 - Disorder of pituitary gland, unspecified (2) Morbid obesity: Code(s): E66.01 - Morbid (severe) obesity due to excess calories (3) Morbid obesity with BMI of 40.0-44.9, adult: Code(s): E66.01 - Morbid (severe) obesity due to excess calories; Z68.41 - Body mass index [BMI] 40.0-44.9, adult (4) Depression: Code(s): F32.9 - Major depressive disorder, single episode, unspecified (5) Hyperprolactinemia: Code(s): E22.1 - Hyperprolactinemia (6) Well woman exam with routine gynecological exam: Code(s): Z01.419 - Encounter for gynecological examination (general) (routine) without abnormal findings (7) Encounter for screening examination for sexually transmitted disease: Code(s): Z11.3 - Encounter for screening for infections with a predominantly sexual mode of transmission (8) Cervical cancer screening: Code(s): Z12.4 - Encounter for screening for malignant neoplasm of cervix (9) Elevated TSH: Code(s): R79.89 - Other specified abnormal findings of blood chemistry Plan -----Discussed in this visit the following: healthy balanced diet, regular and consistent exercise, getting recommended health screens, doing the best she can for her particular health concerns, kegel exercises, pap smear screening and followup recommendations, mammography screening and SBE, normal changes in cycles in her life stage--- .---Discussed with pt, her wt, and BMI, and her goals. Discussed ideal dietary guidelines to assist in weight loss, focusing on vegetables and fruits and lean proteins, and minimizing fats and carbohydrates and eliminating empty calories. Discussed exercise, including regular, sufficient, and consistent cardio based exercise, and weight bearing exercise. Discussed barriers to exercise and healthy eating, and possible ways of establishing newer healthier habits. Discussed supports to help in her efforts, and timing issues. Discussed adequate sleep, and ways to achieve this. Discussed adequate water intake.-- Encouraged her in her weight loss journey encouraged focusing in on how she feels when she eats healthier and enjoy every little success when she has it. Discussed options for control should she become sexually active while she is on her journey to lose weight and get healthier discussed focusing on herself for now. Suggested contacting her primary care provider to see if she did need follow-up with endocrinology and was there any other fasting blood work that needed to be done I am ordering testing for STIs but I see that in the past she has had elevated TSH and so I ordered prolactin level because of her history TSH and testing for blood borne STIs as well as the random blood sugar that she will do fasting and hemoglobin A1c she does have some darkening in skin folds. Patient is going to check with her primary care provider as to see if other lab work is needed as well. RTC 1 year Pap smear was done today as well as testing for gonorrhea chlamydia trichomoniasis Gardnerella and Margarita. Orders: Orders Hepatitis B Surface Antigen Today E22.1 - Hyperprolactinemia, E23.7 - Disorder of pituitary gland, unspecified, E66.01 - Morbid (severe) obesity due to excess calories, F32.9 - Major depressive disorder, single episode, unspecified, N91.1 - Secondary amenorrhea, Z01.419 - Encounter for gynecological examination (general) (routine) without abnormal findings, Z11.3 - Encounter for screening for infections with a predominantly sexual mode of transmission, Z12.4 - Encounter for screening for malignant neoplasm of cervix, Z68.41 - Body mass index [BMI] 40.0-44.9, adult HIV Ab/Ag Today E22.1 - Hyperprolactinemia, E23.7 - Disorder of pituitary gland, unspecified, E66.01 - Morbid (severe) obesity due to excess calories, F32.9 - Major depressive disorder, single episode, unspecified, N91.1 - Secondary amenorrhea, Z01.419 - Encounter for gynecological examination (general) (routine) without abnormal findings, Z11.3 - Encounter for screening for infections with a predominantly sexual mode of transmission, Z12.4 - Encounter for screening for malignant neoplasm of cervix, Z68.41 - Body mass index [BMI] 40.0-44.9, adult Thyroid Stimulating Hormone Today E22.1 - Hyperprolactinemia, R79.89 - Other specified abnormal findings of blood chemistry, Z01.419 - Encounter for gynecological examination (general) (routine) without abnormal findings, Z11.3 - Encounter for screening for infections with a predominantly sexual mode of transmission, Z12.4 - Encounter for screening for malignant neoplasm of cervix Glucose Random Today E22.1 - Hyperprolactinemia, R79.89 - Other specified abnormal findings of blood chemistry, Z01.419 - Encounter for gynecological examination (general) (routine) without abnormal findings, Z11.3 - Encounter for screening for infections with a predominantly sexual mode of transmission, Z12.4 - Encounter for screening for malignant neoplasm of cervix Hemoglobin A1c Today E22.1 - Hyperprolactinemia, R79.89 - Other specified abnormal findings of blood chemistry, Z01.419 - Encounter for gynecological examination (general) (routine) without abnormal findings, Z11.3 - Encounter for screening for infections with a predominantly sexual mode of transmission, Z12.4 - Encounter for screening for malignant neoplasm of cervix Bacterial Vaginosis Panel Today Z11.3 - Encounter for screening for infections with a predominantly sexual mode of transmission Pap Smear Today Z12.4 - Encounter for screening for malignant neoplasm of cervix Hepatitis C Antibody Today E22.1 - Hyperprolactinemia, E23.7 - Disorder of pituitary gland, unspecified, E66.01 - Morbid (severe) obesity due to excess calories, F32.9 - Major depressive disorder, single episode, unspecified, N91.1 - Secondary amenorrhea, Z01.419 - Encounter for gynecological examination (general) (routine) without abnormal findings, Z11.3 - Encounter for screening for infections with a predominantly sexual mode of transmission, Z12.4 - Encounter for screening for malignant neoplasm of cervix, Z68.41 - Body mass index [BMI] 40.0-44.9, adult Syphilis Screen Today E22.1 - Hyperprolactinemia, E23.7 - Disorder of pituitary gland, unspecified, E66.01 - Morbid (severe) obesity due to excess calories, F32.9 - Major depressive disorder, single episode, unspecified, N91.1 - Secondary amenorrhea, Z01.419 - Encounter for gynecological examination (general) (routine) without abnormal findings, Z11.3 - Encounter for screening for infections with a predominantly sexual mode of transmission, Z12.4 - Encounter for screening for malignant neoplasm of cervix, Z68.41 - Body mass index [BMI] 40.0-44.9, adult Prolactin Today E22.1 - Hyperprolactinemia, R79.89 - Other specified abnormal findings of blood chemistry, Z01.419 - Encounter for gynecological examination (general) (routine) without abnormal findings, Z11.3 - Encounter for screening for infections with a predominantly sexual mode of transmission, Z12.4 - Encounter for screening for malignant neoplasm of cervix CT NG by PCR Today Z11.3 - Encounter for screening for infections with a predominantly sexual mode of transmission Coding Level of Care Code Est Pt Prev Care 18-39y([id number]) Diagnoses 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
== END 2023-11-16 12:52 | disposition home or self-care (01) ==
LOC: HO.HWSM 10:36
PROVIDERS: PCP Internal Medicine; Visit Provider Advanced Practice Midwife
DX: Z01.419 Encounter for gynecological examination (general) (routine) without abnormal findings (principal); N91.1 Secondary amenorrhea; E23.7 Disorder of pituitary gland, unspecified; E66.01 Morbid (severe) obesity due to excess calories; Z68.41 Body mass index [BMI] 40.0-44.9, adult
CPT/HCPCS: 99395

== ENCOUNTER 2023-11-16 10:36 | Outpatient (REF) | payer OTHER, SELFPAY ==
[2023-11-16 18:37] LABS: CT PCR NOT DETECTED (Not Detect.); NG PCR NOT DETECTED (Not Detect.)
[2023-11-17 12:57] LABS: BV Int Neg Control Negative (Negative); BV Int Pos Control Positive (Positive)
[2023-12-08 22:43] LABS: HPV 16 RNA NOT DETECTED (NOT DETECTED); HPV mRNA E6/E7 rflx Detected (Not Detected)
== END 2023-11-16 10:37 | disposition home or self-care (01) ==
LOC: HO.LNP 10:36
PROVIDERS: PCP Internal Medicine; Visit Provider Advanced Practice Midwife
DX: Z01.419 Encounter for gynecological examination (general) (routine) without abnormal findings (principal); N91.1 Secondary amenorrhea; E23.7 Disorder of pituitary gland, unspecified; E66.01 Morbid (severe) obesity due to excess calories; E22.1 Hyperprolactinemia; R79.89 Other specified abnormal findings of blood chemistry; Z68.41 Body mass index [BMI] 40.0-44.9, adult; Z11.3 Encounter for screening for infections with a predominantly sexual mode of transmission; Z79.899 Other long term (current) drug therapy
CPT/HCPCS: 0353U; 87480; 87510; 87624; 87625; 87660; 88142; 99395

== ENCOUNTER 2023-11-25 12:03 | Emergency (ER) | payer OTHER, SELFPAY ==
--- NOTE | ~2023-11-25 | US_ITS ---
EXAMINATION: US PELVIS CLINICAL INFORMATION: Pain. Heavy menses. COMPARISON: Previous pelvic ultrasound January 2020 TECHNIQUE: Ultrasound of the pelvis is performed using both transabdominal and transvaginal transducers along with Doppler. Transvaginal imaging is performed due to inadequate visualization transabdominally. FINDINGS: Uterus: The uterus is anteverted and measures 9 x 3 x 4.5 cm. The double wall endometrial thickness is 3 mm. The uterus is smooth in contour and has normal myometrial echogenicity. No visible fibroid. Right ovary measures 2.6 x 2 x 1.5 cm. the right ovary is normal appearing. The left ovary is not seen. There is no fluid in the pelvis. US/US pelvic and transvaginal IMPRESSION: Normal-appearing uterus and right ovary. Left ovary not seen.
[2023-11-25 12:26] VITALS: BP 117/81; PULSE 80; RESP 18; TEMP 36.6; O2SAT 98; BMI 40.9
--- NOTE | 2023-11-25 12:26 | ED.FEMALEGU ---
HPI - Female Genitourinary General Chief complaint: Vaginal Bleeding Stated complaint: heavy menstrual bleeding, headache, trembling Time Seen by Provider: 11/25/23 19:38 Source: patient, RN notes reviewed and old records reviewed Mode of arrival: ambulatory Limitations: no limitations History of Present Illness HPI Narrative: 28-year-old female presents for evaluation of lower abdominal pain and vaginal bleeding. Patient reports that her symptoms started yesterday. She reports heavy vaginal bleeding which is abnormal for her. She reports that she last followed up with her OBGYN about a week ago and had an unremarkable visit and her Pap smear was done. She contraception of any kind and states that she has not been on it for years She denies any new sexual partners. Denies any burning with urination or urinary frequency No fevers or chills She reports some nausea and diarrhea since yesterday as well No other complaints or concerns at this time Related Data Previous Rx's ?Medication ?Instructions ?Recorded albuterol sulfate 2.5 mg/3 mL 2.5 mg (3 mL) inhalation Q4-6H PRN 11/04/22 (0.083 %) solution for nebulization shortness of breath or wheezing #75 mL albuterol sulfate 90 mcg/actuation 2 puff inhalation Q4-6H PRN 11/04/22 aerosol inhaler shortness of breath or wheezing #8.5 grams cholecalciferol (vitamin D3) 125 125 mcg PO DAILY #30 caps 11/18/22 mcg (5,000 unit) capsule Ventolin HFA 90 mcg/actuation 2 puff inhalation Q6H PRN 10/20/23 aerosol inhaler (albuterol sulfate) shortness of breath or wheezing 30 days #18 grams bupropion HCl 150 mg 24 hr tablet, 150 mg PO QAM 90 days #90 tabs 10/20/23 extended release omeprazole 20 mg capsule,delayed 20 mg PO DAILY 90 days #90 caps 10/20/23 release Allergies Allergy/AdvReac Type Severity Reaction Status Date / Time shrimp Allergy Mild tongue Verified 11/25/23 12:30 swelling Environmental Allergies Allergy Intermediate sneezing, Uncoded 11/25/23 12:30 asthma black olives Allergy Mild Itching Uncoded 11/25/23 12:30 Review of Systems Constitutional: Constitutional: Denies body ache(s), Denies chills and Denies fever(s) ENT: Denies sore throat Cardiovascular: Cardiovascular: Denies chest pain and Denies dyspnea Respiratory: Respiratory: Denies cough and Denies dyspnea Gastrointestinal: Gastrointestinal: Reports abdominal pain, Denies hematochezia, Reports diarrhea, Reports nausea and Denies vomiting Genitourinary: Genitourinary: Denies dysuria Musculoskeletal: Musculoskeletal: Denies back pain Integumentary/Breasts: Skin/Breast: Denies rash PMFSH Past Medical History Medical History Morbid obesity Hyperprolactinemia Depression Obese Asthma Surgical History No pertinent past surgical history Family History Family History Mother Hypertension Fibromyalgia Thyroid disease Father Parkinson disease Diabetes Sister No problems noted. Brother No problems noted. Brother No problems noted. Other Mental health disorder Social History Social History Housing: House Alcohol intake: never Patient Tobacco Use Status: Former Tobacco user Tobacco use type: Cigarette Smoked in Last 30 Days: No e-Cigarette/Vaping Use: Former Use Second Hand Smoke Exposure: No Use of substances other than those prescribed or required for medical reasons: No Advance Directives: No Advance Directives Information Provided: Yes service: No Current occupational status: employed Current occupational exposures/hazards: No Cognitive needs: No Hearing needs: No Vision needs: No Physical Exam Vital Signs: Vital Signs: Last Vital Signs Temp 97 F 11/25/23 20:35 Pulse 90 11/25/23 20:35 Resp 18 11/25/23 20:35 BP 117/60 11/25/23 20:35 Pulse Ox 99 11/25/23 20:35 O2 Del Method Room Air 11/25/23 20:35 BMI result Body Mass Index 40.9 Const: General: healthy appearing, comfortable, no acute distress, alert and awake Nutritional Appearance: well nourished Orientation/consciousness: patient oriented x3 HEENT: Head: Yes normocephalic and Yes atraumatic Eyes: Eyelids: Yes eyelids normal Conjunctivae: conjunctivae normal Sclerae: sclerae normal Corneas: corneas normal Pupils: Equal, round and reactive pupils present EOM: EOMs intact bilaterally Neck: Neck: Yes full ROM Resp: Effort & Inspection: normal respiratory effort, able to speak in complete sentences and not labored GI: Inspection: No distended Palpation (GI): Soft to palpation, not firm, nontender, no guarding and not rigid Skin: General skin exam: elasticity normal Neuro: General: patient oriented x3 Cranial nerves: Yes Equal, round and reactive pupils present and Yes Bilaterally intact EOM present Cognition (Neuro): normal cognition Course Course Course Narrative: This is an RME: Additional HPI, ROS, PE not included below will be deferred to primary provider. Patient is a 28-year-old female presenting to emergency department with reports of lower abdominal cramping with onset yesterday morning, feels fatigued, weak, heavy menstrual bleeding states she is soaking through an overnight pad every 45 minutes, with headache. Plan: labs, hcg, US Medical Decision Making Medical Decision Making [facility] Narrative: 28-year-old female presents for evaluation of lower abdominal pain and heavy vaginal bleeding. Her workup is reviewed, she has not anemic. Her MCV is within normal limits. Electrolytes are within normal limits. Patient had an ultrasound performed of the pelvis which did not show any concerning abnormalities. The patient is not . UA shows blood but no evidence of infection. Patient be discharged to follow up with her PCP. Differential Diagnosis Differential Diagnoses: The differential diagnosis associated with the presentation includes Dysfunctional uterine bleeding Pelvic pain Abdominal pain UTI Lab Data [facility] Lab Attestation statement: I reviewed the patient's lab results. See above 11/25/23 13:39 11/25/23 13:39 Labs: Lab Results 11/25/23 11/25/23 Range/Units 13:39 19:50 WBC 9.2 (4.8-10.8) X10*3/uL RBC 4.10 L (4.20-5.50) X10*6/uL Hgb 13.0 (12.0-16.0) g/dl Hct 37.6 (37.0-47.0) % MCV 91.7 (80.0-98.0) fL MCH 31.7 (27.0-33.0) pg MCHC 34.6 (31.0-35.0) g/dl RDW 11.6 (11.0-16.0) % Plt Count 360 (160-400) X10*3/uL MPV 9.1 L (9.4-12.3) fL Immature Gran % (Auto) 0.3 (0.0-0.4) % Neut % (Auto) 61.5 (45-73) % Lymph % (Auto) 22.9 (20-40) % [place] % (Auto) 6.4 (2-11) % Eos % (Auto) 8.2 H (0-4) % Baso % (Auto) 0.7 (0-2) % Lymph # (Auto) 2.1 (1.2-4.9) X10*3/uL [place] # (Auto) 0.6 (0.1-1.2) X10*3/uL Eos # (Auto) 0.8 H (0.0-0.4) X10*3/uL Baso # (Auto) 0.1 (0.0-0.2) X10*3/uL Abs Immat Gran (auto) 0.03 (0.00-0.03) X10*3/uL Absolute Neuts (auto) 5.7 (2.0-8.3) x10*3/uL Absolute Nucleated RBC 0.000 (0.0-0.012) X10*3/uL Nucleated RBC % (auto) 0.0 (0.0-0.2) /100WBC Sodium 140 (135-145) mmol/L Potassium 4.5 (3.3-5.1) mmol/L Chloride 109 H (96-108) mmol/L Carbon Dioxide 25 (22-29) mmol/L Anion Gap 11 L (12-20) BUN 10 (9-16) mg/dL Creatinine 0.72 (0.5-1.4) mg/dL Estim Creat Clear Calc 142.1 Estimated GFR > 60 Random Glucose 98 (60-115) mg/dL Calcium 8.6 (8.4-10.2) mg/dL Total Bilirubin 0.2 (0.0-1.0) mg/dL AST 10 (5-31) U/L ALT 17 (0-31) U/L Alkaline Phosphatase 52 (39-117) U/L Total Protein 7.1 (6.5-8.0) g/dL Albumin 4.0 (3.5-5.0) g/dL Beta HCG, Quant < 2 mIU/mL Urine Color Yellow Urine Appearance Cloudy Urine pH 5.5 (5.0-9.0) Ur Specific [place] 1.025 (1.005-1.025) Urine Protein Trace (Neg-Trace) mg/dL Urine Glucose (UA) Negative (Negative) mg/dL Urine Ketones Negative (Negative) mg/dL Urine Blood Large (3+) H (Negative) Urine Nitrite Negative (Negative) Ur Leukocyte Esterase Negative (Negative) Urine RBC >20 H (0-2) /HPF Urine WBC 6-10 H (0-5) /HPF Ur Squamous Epith Cells 3-5 (0-2) /HPF Urine Bacteria None Seen (None Seen) Hyaline Casts 0-2 (0-2) /LPF Urine Test NEGATIVE (NEGATIVE) Radiology Impression Discussion of test interpretation with radiology: I have reviewed the radiologist's reading. Radiologist Impression: IMPRESSION: Normal-appearing uterus and right ovary. Left ovary not seen. Discharge Plan Discharge Clinical Impression: Dysfunctional uterine bleeding Patient Disposition: Home, Self-Care Instructions: Dysfunctional Uterine Bleeding (ED) Additional Instructions: Your workup in the ER today was reassuring. Your blood work did not show any concerning abnormalities. You are not anemic Your ultrasound did not show any concerning abnormalities You are not and there is no evidence of urinary tract infection Follow-up with your OBGYN Prescriptions: No Action cholecalciferol (vitamin D3) 125 mcg (5,000 unit) capsule 125 mcg PO DAILY Qty: 30 2RF albuterol sulfate 90 mcg/actuation HFA aerosol inhaler 2 puff inhalation Q4-6H PRN (Reason: shortness of breath or wheezing) Qty: 8.5 1RF albuterol sulfate 2.5 mg /3 mL (0.083 %) solution for nebulization 2.5 mg inhalation Q4-6H PRN (Reason: shortness of breath or wheezing) Qty: 75 0RF bupropion HCl 150 mg tablet extended release 24 hr 150 mg PO QAM 90 Days Qty: 90 1RF omeprazole 20 mg capsule,delayed release(DR/EC) 20 mg PO DAILY 90 Days Qty: 90 1RF albuterol sulfate [Ventolin HFA] 90 mcg/actuation HFA aerosol inhaler 2 puff inhalation Q6H PRN (Reason: shortness of breath or wheezing) 30 Days Qty: 18 3RF Stand Alone Forms: Work/School Release Interventions: ED Discharge Assessment Last Done: 11/25/23 20:35 Discharge Date/Time: 11/25/23 20:35 Print Language: Faroese
[2023-11-25 13:43] LABS: MANUAL DIFF FLAG NO
[2023-11-25 13:46] LABS: Basophils Absolute Auto 0.1 X10*3/uL (0.0-0.2); Basophils Percent Auto 0.7 % (0-2); Eosinophils Absolute Auto 0.8 X10*3/uL (0.0-0.4); Eosinophils Percent Auto 8.2 % (0-4); Hematocrit 37.6 % (37.0-47.0); Imm Gran Abs Auto 0.03 X10*3/uL (0.00-0.03); Imm Gran Pct Auto 0.3 % (0.0-0.4); Lymphocytes Absolute Auto 2.1 X10*3/uL (1.2-4.9); Lymphocytes Percent Auto 22.9 % (20-40); Mean Corpuscular HGB Conc 34.6 g/dl (31.0-35.0); Mean Corpuscular Hemoglobin 31.7 pg (27.0-33.0); Mean Corpuscular Volume 91.7 fL (80.0-98.0); Mean Platelet Volume 9.1 fL (9.4-12.3); Monocytes Absolute Auto 0.6 X10*3/uL (0.1-1.2); Monocytes Percent Auto 6.4 % (2-11); Neutrophils Absolute Auto 5.7 x10*3/uL (2.0-8.3); Neutrophils Percent Auto 61.5 % (45-73); Platelet Count 360 X10*3/uL (160-400); Red Cell Distribution Width 11.6 % (11.0-16.0); White Blood Count 9.2 X10*3/uL (4.8-10.8)
[2023-11-25 14:00] LABS: Alanine Aminotransferase 17 U/L (0-31); Alkaline Phosphatase 52 U/L (39-117); Anion Gap 11 (12-20); Aspartate Amino Transferase 10 U/L (5-31); Bilirubin Total 0.2 mg/dL (0.0-1.0); Blood Urea Nitrogen 10 mg/dL (9-16); Calcium 8.6 mg/dL (8.4-10.2); Carbon Dioxide 25 mmol/L (22-29); Chloride 109 mmol/L (96-108); Creatinine Clr Calc Pharmacy 142.1; Estimated Glomerular Filt Rate > 60; Glucose Random 98 mg/dL (60-115); Potassium 4.5 mmol/L (3.3-5.1); Sodium 140 mmol/L (135-145); Total Protein 7.1 g/dL (6.5-8.0)
[2023-11-25 18:00] VITALS: BP 113/62; PULSE 73; RESP 18; TEMP 36.9; O2SAT 99
[2023-11-25 19:59] LABS: Appearance Urine Cloudy; Color Urine Yellow; Glucose Urine UA Negative (Negative); Leukocyte Esterase Urine Negative (Negative); Nitrite Urine Negative (Negative); PH 5.5 (5.0-9.0); Specific Gravity - Urine 1.025 (1.005-1.025); UMIC TRIGGER UACC YES; Urine Blood Large (3+) (Negative); Urine Ketones Negative (Negative); Urine Protein Trace mg/dL (Neg-Trace)
[2023-11-25 20:01] LABS: UPreg QC Valid YES; Urine Pregnancy NEGATIVE (NEGATIVE)
[2023-11-25 20:10] LABS: HCG Quantitative < 2 mIU/mL
[2023-11-25 20:16] LABS: Bacteria Urine None Seen (None Seen); Hyaline Casts Urine 0-2 /LPF (0-2); RBC Urine >20 /HPF (0-2); UACC Culture Trigger YES
[2023-11-25 20:24] VITALS: BP 122/76; PULSE 97; RESP 18; TEMP 36.6; O2SAT 98
[2023-11-25 20:35] VITALS: BP 117/60; PULSE 90; RESP 18; TEMP 36.1; O2SAT 99
== END 2023-11-25 20:35 | disposition home or self-care (01) ==
PROVIDERS: Nurse Practitioner Family; Physician Assistant; Emergency Provider Student in an Organized Health Care Education/Training Program; PCP Internal Medicine
DX: N93.8 Other specified abnormal uterine and vaginal bleeding (principal); J45.909 Unspecified asthma, uncomplicated
CPT/HCPCS: 36415; 76830; 76856; 80053; 81001; 81003; 81025; 84702; 85025; 87086; 99284

== ENCOUNTER 2023-12-04 10:40 | Emergency (ER) | payer OTHER, SELFPAY ==
--- NOTE | ~2023-12-04 | CT_ITS ---
EXAMINATION: CT abdomen pelvis wo IV con CLINICAL INFORMATION: Reason for Exam RLQ abdominal pain COMPARISON: No prior CT available for comparison. TECHNIQUE: Multidetector volumetric imaging was performed from the superior aspect of the liver through the pubic symphysis , noncontrast CT. Sagittal and coronal reformatted images were obtained on the technologist's workstation. This CT examination was performed using dose optimization techniques as appropriate, variously including the following: *Automated exposure control *Adjustment of mA and/or kV according to patient size (this includes techniques or standardized protocols for targeted exams where dose is matched to indication/reason for exam; i.e. extremities or head) *Use of iterative reconstruction technique DLP: 856 mGy-cm FINDINGS: LOWER THORAX: Included lung bases are clear. HEPATOBILIARY: No focal hepatic lesions. No biliary ductal dilatation. GALLBLADDER: Gallbladder unremarkable. SPLEEN: Spleen is normal in size. PANCREAS: No focal mass or ductal dilatation. STOMACH AND GASTROINTESTINAL TRACT: Stomach is grossly unremarkable. There is no bowel distention or thickening. Appendix is normal. There is circumferential wall thickening and minimal perirectal fat stranding suggesting probably proctitis. ADRENALS: No adrenal nodules. KIDNEYS/URETERS: No hydronephrosis, stones or solid mass lesions. URINARY BLADDER: Partially decompressed. PELVIC VISCERA: Unremarkable PERITONEUM: No free air or fluid. LYMPH NODES: No lymphadenopathy. VASCULAR:Abdominal aorta normal in size, no aneurysm found. BONES, ABDOMINAL WALL AND SOFT TISSUES: Age-appropriate changes of the spine and skeletal system, no destructive osteolytic or osteosclerotic bone lesion found CT/CT abdomen pelvis wo IV con IMPRESSION: 1. No CT evidence of appendicitis. Normal appendix identified. 2. There is circumferential wall thickening and minimal perirectal fat stranding suggesting proctitis.
[2023-12-04 10:42] VITALS: BP 125/75; PULSE 75; RESP 19; TEMP 36.6; O2SAT 99; BMI 40.3
--- NOTE | 2023-12-04 10:56 | ED_ITS ---
HPI - Abdominal Pain General Chief Complaint: Abdominal Pain Stated Complaint: Lower abd pain Time Seen by Provider: 12/04/23 10:52 Source: patient Mode of arrival: ambulatory Limitations: no limitations History of Present Illness HPI narrative: 28-year-old female with no known medical history presents to the ER with complaints of right lower abdominal pain for the last 10 days. Patient reports she initially had heavy vaginal bleeding associated with this and was seen in the emergency room with normal lab work, urine testing and a pelvic ultrasound (of note they were unable to visualize her left ovary). She reports the bleeding resolved but her pain has continued. This is not associated with any vomiting, diarrhea, urinary symptoms, fevers or chills. Her last menstrual cycle was 1 week ago which was her normal cycle. She has not sexually active and has low suspicion for STDs. 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 and had a normal flower grader exam and Pap smear Related Data Previous Rx's ?Medication ?Instructions ?Recorded albuterol sulfate 2.5 mg/3 mL 2.5 mg (3 mL) inhalation Q4-6H PRN 11/04/22 (0.083 %) solution for nebulization shortness of breath or wheezing #75 mL albuterol sulfate 90 mcg/actuation 2 puff inhalation Q4-6H PRN 11/04/22 aerosol inhaler shortness of breath or wheezing #8.5 grams cholecalciferol (vitamin D3) 125 125 mcg PO DAILY #30 caps 11/18/22 mcg (5,000 unit) capsule Ventolin HFA 90 mcg/actuation 2 puff inhalation Q6H PRN 10/20/23 aerosol inhaler (albuterol sulfate) shortness of breath or wheezing 30 days #18 grams bupropion HCl 150 mg 24 hr tablet, 150 mg PO QAM 90 days #90 tabs 10/20/23 extended release omeprazole 20 mg capsule,delayed 20 mg PO DAILY 90 days #90 caps 10/20/23 release Allergies Allergy/AdvReac Type Severity Reaction Status Date / Time shrimp Allergy Mild tongue Verified 12/04/23 10:44 swelling Environmental Allergies Allergy Intermediate sneezing, Uncoded 12/04/23 10:44 asthma black olives Allergy Mild Itching Uncoded 12/04/23 10:44 Review of Systems Review of Systems Yes all other systems are reviewed and are negative Constitutional: Reports no additional constitutional complaints, Denies body ache(s), Denies chills, Denies fever(s), Denies headache(s) and Denies weakness Eyes: Reports no additional eye complaints and Denies change in vision Reports system reviewed and no additional complaints, except as documented, Denies dizziness, Denies headache(s), Denies nasal congestion, Denies nasal discharge and Denies neck pain Cardiovascular: Reports no additional cardiovascular complaints, Denies chest pain, Denies leg edema and Denies dyspnea Respiratory: Reports no additional respiratory complaints, Denies cough and Denies dyspnea Gastrointestinal: Reports no additional gastrointestinal complaints, Reports abdominal pain, Denies diarrhea, Denies nausea and Denies vomiting Genitourinary: Reports no additional female genitourinary complaints and Denies urinary incontinence Musculoskeletal: Reports no additional musculoskeletal complaints, Denies back pain, Denies arthralgias, Denies joint swelling, Denies neck pain, Denies numbness and Denies tingling Skin/Breast: Reports system reviewed and no additional complaints, except as docu and Denies rash Reports system reviewed and no additional complaints, except as documented, Denies Abnormal speech present, Denies dizziness, Denies headache(s), Denies numbness, Denies tingling and Denies weakness PMFSH Past Medical History Attestation statement: The following information was validated with the patient. Source: old records reviewed and nursing notes reviewed Medical History Morbid obesity Hyperprolactinemia Depression Obese Asthma Surgical History No pertinent past surgical history Family History Family History Mother Hypertension Fibromyalgia Thyroid disease Father Parkinson disease Diabetes Sister No problems noted. Brother No problems noted. Brother No problems noted. Other Mental health disorder Social History Social History Housing: House Alcohol intake: never Patient Tobacco Use Status: Former Tobacco user Tobacco use type: Cigarette Smoked in Last 30 Days: No e-Cigarette/Vaping Use: Former Use Second Hand Smoke Exposure: No Use of substances other than those prescribed or required for medical reasons: No Advance Directives: No Advance Directives Information Provided: No Patient : No service: No Current occupational status: employed Current occupational exposures/hazards: No Cognitive needs: No Hearing needs: No Vision needs: No Physical Exam ED Vital Signs: Vital Signs - 24 hr 12/04/23 10:42 12/04/23 10:58 12/04/23 12:59 Temperature 98 F 97.7 F Pulse Rate 75 68 60 Respiratory Rate 19 17 16 Blood Pressure 125/75 133/53 L 108/67 Pulse Oximetry 99 97 99 Oxygen Delivery Method Room Air Room Air Room Air BMI result Body Mass Index 40.3 Const General: cooperative, healthy appearing, comfortable and no acute distress Orientation/consciousness: patient oriented x3 Limitations: no limitations HENMT Head: Yes normal to inspection Ears: hearing grossly normal bilaterally General nose exam: Normal external nose present Face and sinus: Yes normal facial exam Mouth: Normal oral and palatal mucosa present Throat: Yes posterior oropharynx normal Eyes General: appearance normal, both eyes and all related structures Pupils: Equal, round and reactive pupils present Neck Neck: Yes normal visual inspection Chest Chest palpation & inspection: normal inspection of the chest Resp Effort & Inspection: normal respiratory effort Auscultation: clear to auscultation bilaterally Cardio Rate: regular rate Rhythm: regular rhythm Peripheral pulses: Peripheral pulses 2+ throughout GI Inspection: Yes normal to inspection Palpation (GI): Soft to palpation, Tenderness to palpation present (GI) in the RLQ; with no rebound tenderness and no guarding Auscultation: normal bowel sounds 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 External Female Exam: normal external appearance Speculum Exam - Vagina: normal appearance of the vagina Speculum Exam - Cervix: normal appearance of the cervix Bimanual exam- vagina & uterus: normal bimanual exam and no cervical motion tenderness Bimanual Exam- Adnexa, other: normal adnexae and no tenderness Back/Spine/Pelvis Thoracic/Lumbar Spine: thoracic and lumbar spine normal to inspection Skin General skin exam: no rashes or lesions noted Neuro General: patient oriented x3, no focal motor deficits and normal sensation to monofilament Cranial nerves: Yes Equal, round and reactive pupils present Cognition (Neuro): normal cognition Speech: No Abnormal speech present Gait exam (Neuro): Normal gait present Motor exam (neuro): 5/5 motor strength present throughout Extrem General: Yes normal to inspection Course Course Course Narrative: CT shows MPRESSION: 1. No CT evidence of appendicitis. Normal appendix identified. 2. There is circumferential wall thickening and minimal perirectal fat stranding suggesting proctitis. Patient reports no history of rectal bleeding or mucousy diarrhea. She does tend to have diarrhea 3-4 episodes daily. She denies any family history of inflammatory bowel disease. She does have a family history of colon cancer and to close relatives. She denies any sexual activity. She has no reports of vaginal discharge. She reports she has not had sexual activity and more than 2 years so she has not concerned for sexually transmitted diseases. However, we did send testing for CT NG, BV panel. Will discuss patient with GI as she will likely need outpatient testing. Medical Decision Making Medical Decision Making [facility] Narrative: 28-year-old female with no known medical history presents to the ER with complaints of right lower abdominal pain for the last 10 days.? Patient reports she initially had heavy vaginal bleeding associated with this and was seen in the emergency room with normal lab work, urine testing and a pelvic ultrasound (of note they were unable to visualize her left ovary).? She reports the bleeding resolved but her pain has continued.? This is not associated with any vomiting, diarrhea, urinary symptoms, fevers or chills.? Her last menstrual cycle was 1 week ago which was her normal cycle.? She has not sexually active and has low suspicion for STDs.? 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 and had a normal flower grader exam and Pap smear Abdomen soft, tender to right lower quadrant with no rebound or guarding exam normal Will obtain labs, UA, urine , CT A/P Will send CT NG, BV panel Differential Diagnosis Differential Diagnoses: The differential diagnosis associated with the presentation includes BV, PID, ovarian cyst, appendicitis Doubt ovarian torsion with symptoms for greater than 10 days and no left-sided pain Admission/Observation Consideration of admission/observation: Escalation of care including admission/observation considered Consult Healthcare Provider Management of the patient was discussed with: Boarder Hand I did discuss the case with Gastroenterology Dr. Poe. She believes the patient can follow-up outpatient. At this point the patient does need supportive measures. I did discuss all this with the patient her family. Lab Data [facility] Lab Attestation statement: I reviewed the patient's lab results. 12/04/23 11:16 12/04/23 11:16 Labs: Lab Results 12/04/23 12/04/23 12/04/23 Range/Units 11:13 11:16 12:19 WBC 8.2 (4.8-10.8) X10*3/uL RBC 3.93 L (4.20-5.50) X10*6/uL Hgb 12.3 (12.0-16.0) g/dl Hct 36.7 L (37.0-47.0) % MCV 93.4 (80.0-98.0) fL MCH 31.3 (27.0-33.0) pg MCHC 33.5 (31.0-35.0) g/dl RDW 11.4 (11.0-16.0) % Plt Count 342 (160-400) X10*3/uL MPV 9.0 L (9.4-12.3) fL Immature Gran % (Auto) 0.2 (0.0-0.4) % Neut % (Auto) 55.0 (45-73) % Lymph % (Auto) 29.9 (20-40) % Aiken % (Auto) 7.7 (2-11) % Eos % (Auto) 6.3 H (0-4) % Baso % (Auto) 0.9 (0-2) % Lymph # (Auto) 2.5 (1.2-4.9) X10*3/uL Aiken # (Auto) 0.6 (0.1-1.2) X10*3/uL Eos # (Auto) 0.5 H (0.0-0.4) X10*3/uL Baso # (Auto) 0.1 (0.0-0.2) X10*3/uL Abs Immat Gran (auto) 0.02 (0.00-0.03) X10*3/uL Absolute Neuts (auto) 4.5 (2.0-8.3) x10*3/uL Absolute Nucleated RBC 0.000 (0.0-0.012) X10*3/uL Nucleated RBC % (auto) 0.0 (0.0-0.2) /100WBC Sodium 140 (135-145) mmol/L Potassium 3.8 (3.3-5.1) mmol/L Chloride 107 (96-108) mmol/L Carbon Dioxide 25 (22-29) mmol/L Anion Gap 12 (12-20) BUN 13 (9-16) mg/dL Creatinine 0.76 (0.5-1.4) mg/dL Estim Creat Clear Calc 133.6 Estimated GFR > 60 Random Glucose 89 (60-115) mg/dL Calcium 8.5 (8.4-10.2) mg/dL Total Bilirubin 0.4 (0.0-1.0) mg/dL Direct Bilirubin 0.2 (0.0-0.5) mg/dL AST 10 (5-31) U/L ALT 15 (0-31) U/L Alkaline Phosphatase 47 (39-117) U/L Total Protein 6.9 (6.5-8.0) g/dL Albumin 3.8 (3.5-5.0) g/dL Urine Color Yellow Urine Appearance Clear Urine pH 6.0 (5.0-9.0) Ur Specific [place] >= 1.030 H (1.005-1.025) Urine Protein Negative (Neg-Trace) mg/dL Urine Glucose (UA) Negative (Negative) mg/dL Urine Ketones Negative (Negative) mg/dL Urine Blood Trace H (Negative) Urine Nitrite Negative (Negative) Ur Leukocyte Esterase Negative (Negative) Urine RBC 3-5 H (0-2) /HPF Urine WBC 0-5 (0-5) /HPF Ur Squamous Epith Cells 0-2 (0-2) /HPF Urine Bacteria None Seen (None Seen) Hyaline Casts 0-2 (0-2) /LPF Urine Test NEGATIVE (NEGATIVE) Chlam trachomat DNA PCR TNP N.gonorrhoeae DNA (PCR) TNP Independent Interpretation I performed an independent interpretation of an: CT Scan Interpretation: I independently reviewed the CT scan agree with the radiology report Radiology Impression Discussion of test interpretation with radiology: I have reviewed the radiologist's reading. Radiologist Impression: Launch?Image [address] [address] [address] Scan Report Signed Patient: Hina Agustin MR#: [id number] : 1995 Acct:[id number] Age/Sex: 28 / F ADM Date: 12/04/23 Loc: .ED Attending Dr: Ordering Physician: Sandra Low NP Date of Service: 12/04/23 Procedure(s): CT abdomen pelvis wo IV con Accession Number(s): [id number] cc: Beckie Mora MD; Sandra Low NP~ EXAMINATION: CT abdomen pelvis wo IV con CLINICAL INFORMATION: Reason for Exam RLQ abdominal pain COMPARISON: No prior CT available for comparison. TECHNIQUE: Multidetector volumetric imaging was performed from the superior aspect of the liver through the pubic symphysis , noncontrast CT. Sagittal and coronal reformatted images were obtained on the technologist's workstation. This CT examination was performed using dose optimization techniques as appropriate, variously including the following: *Automated exposure control *Adjustment of mA and/or kV according to patient size (this includes techniques or standardized protocols for targeted exams where dose is matched to indication/reason for exam; i.e. extremities or head) *Use of iterative reconstruction technique DLP: 856 mGy-cm FINDINGS: LOWER THORAX: Included lung bases are clear. HEPATOBILIARY: No focal hepatic lesions. No biliary ductal dilatation. GALLBLADDER: Gallbladder unremarkable. SPLEEN: Spleen is normal in size. PANCREAS: No focal mass or ductal dilatation. STOMACH AND GASTROINTESTINAL TRACT: Stomach is grossly unremarkable. There is no bowel distention or thickening. Appendix is normal. There is circumferential wall thickening and minimal perirectal fat stranding suggesting probably proctitis. ADRENALS: No adrenal nodules. KIDNEYS/URETERS: No hydronephrosis, stones or solid mass lesions. URINARY BLADDER: Partially decompressed. PELVIC VISCERA: Unremarkable PERITONEUM: No free air or fluid. LYMPH NODES: No lymphadenopathy. VASCULAR:Abdominal aorta normal in size, no aneurysm found. BONES, ABDOMINAL WALL AND SOFT TISSUES: Age-appropriate changes of the spine and skeletal system, no destructive osteolytic or osteosclerotic bone lesion found CT/CT abdomen pelvis wo IV con IMPRESSION: 1. No CT evidence of appendicitis. Normal appendix identified. 2. There is circumferential wall thickening and minimal perirectal fat stranding suggesting proctitis. External Record Review External record reviewed: Outside ED record Prescription Management I considered prescription management with: Pain Medication Discharge Plan Discharge Clinical Impression: Abdominal pain Patient Disposition: Home, Self-Care Instructions: Abdominal Pain (ED) Additional Instructions: Your CT shows some inflammation your rectum. We did discuss your case with our marine plumber and they recommended outpatient follow-up. You will need referral from her primary care doctor so please call them to get a referral. If you are having difficulty getting referral then you may reach out to the gastroenterology office. Return for any change in symptoms Prescriptions: No Action cholecalciferol (vitamin D3) 125 mcg (5,000 unit) capsule 125 mcg PO DAILY Qty: 30 2RF albuterol sulfate 90 mcg/actuation HFA aerosol inhaler 2 puff inhalation Q4-6H PRN (Reason: shortness of breath or wheezing) Qty: 8.5 1RF albuterol sulfate 2.5 mg /3 mL (0.083 %) solution for nebulization 2.5 mg inhalation Q4-6H PRN (Reason: shortness of breath or wheezing) Qty: 75 0RF bupropion HCl 150 mg tablet extended release 24 hr 150 mg PO QAM 90 Days Qty: 90 1RF omeprazole 20 mg capsule,delayed release(DR/EC) 20 mg PO DAILY 90 Days Qty: 90 1RF albuterol sulfate [Ventolin HFA] 90 mcg/actuation HFA aerosol inhaler 2 puff inhalation Q6H PRN (Reason: shortness of breath or wheezing) 30 Days Qty: 18 3RF Referrals: Omaira Poe MD [Physician] - 1 week Beckie Mora MD [Primary Care Provider] - 1 week Stand Alone Forms: Work/School Release Print Language: Greek
[2023-12-04 10:58] VITALS: BP 133/53; PULSE 68; RESP 17; TEMP 36.5; O2SAT 97
[2023-12-04 11:20] LABS: MANUAL DIFF FLAG NO
[2023-12-04 11:21] LABS: Basophils Absolute Auto 0.1 X10*3/uL (0.0-0.2); Basophils Percent Auto 0.9 % (0-2); Eosinophils Absolute Auto 0.5 X10*3/uL (0.0-0.4); Eosinophils Percent Auto 6.3 % (0-4); Hematocrit 36.7 % (37.0-47.0); Hemoglobin 12.3 g/dl (12.0-16.0); Imm Gran Abs Auto 0.02 X10*3/uL (0.00-0.03); Imm Gran Pct Auto 0.2 % (0.0-0.4); Lymphocytes Absolute Auto 2.5 X10*3/uL (1.2-4.9); Lymphocytes Percent Auto 29.9 % (20-40); Mean Corpuscular HGB Conc 33.5 g/dl (31.0-35.0); Mean Corpuscular Hemoglobin 31.3 pg (27.0-33.0); Mean Corpuscular Volume 93.4 fL (80.0-98.0); Monocytes Absolute Auto 0.6 X10*3/uL (0.1-1.2); Monocytes Percent Auto 7.7 % (2-11); Neutrophils Absolute Auto 4.5 x10*3/uL (2.0-8.3); Platelet Count 342 X10*3/uL (160-400); Red Blood Count 3.93 X10*6/uL (4.20-5.50); Red Cell Distribution Width 11.4 % (11.0-16.0); White Blood Count 8.2 X10*3/uL (4.8-10.8)
--- NOTE | 2023-12-04 11:31 | PC.NURSE ---
Pt reports she came in last week to this ED for severe menstrual cramps and heavy vaginal bleeding, while she was here they do an ultrasound and could not see her left ovary per pt. Pt reports since 11/22 she has had lower ABD pain radiating in her vagina, pain worse on right side, 02/21, sharp and intermittent. Pt does report a few episodes of diarrhea, denies vomiting, fevers, cough. Pt alert and oriented, breathing even and unlabored, skin WNL. VSS, no outward distress noted.
[2023-12-04 11:35] LABS: Alanine Aminotransferase 15 U/L (0-31); Albumin Level 3.8 g/dL (3.5-5.0); Alkaline Phosphatase 47 U/L (39-117); Anion Gap 12 (12-20); Aspartate Amino Transferase 10 U/L (5-31); Bilirubin Direct 0.2 mg/dL (0.0-0.5); Bilirubin Total 0.4 mg/dL (0.0-1.0); Blood Urea Nitrogen 13 mg/dL (9-16); Calcium 8.5 mg/dL (8.4-10.2); Carbon Dioxide 25 mmol/L (22-29); Chloride 107 mmol/L (96-108); Creatinine Clr Calc Pharmacy 133.6; Estimated Glomerular Filt Rate > 60; Glucose Random 89 mg/dL (60-115); Potassium 3.8 mmol/L (3.3-5.1); Sodium 140 mmol/L (135-145); Total Protein 6.9 g/dL (6.5-8.0)
[2023-12-04 12:27] LABS: Appearance Urine Clear; Color Urine Yellow; Glucose Urine UA Negative (Negative); Leukocyte Esterase Urine Negative (Negative); Nitrite Urine Negative (Negative); Specific Gravity - Urine >= 1.030 (1.005-1.025); UMIC TRIGGER UACC YES; Urine Blood Trace (Negative); Urine Ketones Negative (Negative); Urine Protein Negative (Neg-Trace)
[2023-12-04 12:28] LABS: UPreg QC Valid YES; Urine Pregnancy NEGATIVE (NEGATIVE)
[2023-12-04 12:29] LABS: Bacteria Urine None Seen (None Seen); Hyaline Casts Urine 0-2 /LPF (0-2); Squamous Epithelial Cell Urine 0-2 /HPF (0-2); WBC Urine 0-5 /HPF (0-5)
[2023-12-04 12:59] VITALS: BP 108/67; PULSE 60; RESP 16; O2SAT 99
--- NOTE | 2023-12-04 16:07 | PC.NURSE ---
this rn assumed care of pt @ 1500. repeat urine sent down to lab. disposition pending
[2023-12-04 16:40] LABS: C Reactive Protein 0.25 mg/dL (< or = 0.50)
[2023-12-04 17:07] VITALS: BP 108/67; PULSE 60; RESP 18; TEMP 36.6; O2SAT 99
[2023-12-04 17:40] LABS: Erythrocyte Sedimentation Rate 13 MM/HR (0-20)
[2023-12-05 05:55] LABS: CT PCR NOT DETECTED (Not Detect.); NG PCR NOT DETECTED (Not Detect.)
[2023-12-05 09:52] LABS: BV Int Neg Control Negative (Negative); BV Int Pos Control Positive (Positive)
== END 2023-12-04 17:08 | disposition home or self-care (01) ==
PROVIDERS: Nurse Practitioner Family; Emergency Provider Emergency Medicine; PCP Internal Medicine
DX: R10.31 Right lower quadrant pain (principal); R11.2 Nausea with vomiting, unspecified; N93.8 Other specified abnormal uterine and vaginal bleeding; B96.89 Other specified bacterial agents as the cause of diseases classified elsewhere; Z79.899 Other long term (current) drug therapy; Z20.2 Contact with and (suspected) exposure to infections with a predominantly sexual mode of transmission
CPT/HCPCS: 0353U; 36415; 74176; 80048; 80076; 81001; 81025; 85025; 85652; 86140; 87480; 87510; 87660; 99284

== ENCOUNTER 2023-12-13 14:33 | Outpatient (AMB) | payer OTHER, SELFPAY ==
--- NOTE | 2023-12-13 14:37 | A.OFFVIS_ITS ---
Vital Signs 12/13/23 14:38 Height 5 ft 4 in Weight 244 lb 11.41 oz BMI 42.0 BP 112/59 L Blood Pressure Location Lt brachial Position Sitting Pulse 86 Intake Visit Reasons: Abdominal pain Intake Note: Hina presents in the office as a new patient for abdominal pains. CC: She states that she takes omeprazole as needed - it helps when she takes it. Pains in the LRQ. Diarrhea more so over constipation. Component Engineer Required: No Allergies shrimp Allergy (Mild, Verified 12/13/23 14:40) tongue swelling Environmental Allergies Allergy (Intermediate, Uncoded 12/13/23 14:40) sneezing, asthma black olives Allergy (Mild, Uncoded 12/13/23 14:40) Itching HPI HPI Abdominal pain: Details: 28 years old female with past medical history of PCOS, obesity, hypothyroidism, hyperprolactinemia, depression, anxiety, PCOS is here today for initial consultation. Patient was sent to us by her PCP. Patient reports that in the past few months she has been dealing with frequent postprandial loose stools. Patient reports postprandial abdominal bloating, occasional epigastric pain and reflux. Patient was prescribed omeprazole, however takes it only when needed. Patient does admit that when she does take it she feels that it helps. Patient denies any nausea or vomiting. Denies any melena, hematochezia, unintentional weight loss or ribbon like stools. Patient reports that even though she has loose stools she does not feel like she empties her bowels completely. Patient was seen in the ER last week for abdominal pain, diarrhea and vaginal bleed. Patient was diagnosed with proctitis as well as with Gardnerella. Patient was given script for metronidazole, however she took couple doses and stopped it as she was traveling away for the weekend. Patient returned yesterday and is planning to start taking it again. Patient denies any fever or chills. Denies any other GI concerning symptoms. [facility] Medical History Morbid obesity Hyperprolactinemia Depression Obese Asthma Surgical History History of esophagogastroduodenoscopy (EGD) No pertinent past surgical history Family History (Updated 12/13/23 @ 14:41 by CON Sanchez) Mother Hypertension Fibromyalgia Thyroid disease Father Parkinson disease Diabetes Sister No problems noted. Brother Colon cancer Brother No problems noted. Maternal Grandfather Colon cancer Prostate cancer Other Mental health disorder Social History Housing: House Alcohol intake: never Patient Tobacco Use Status: Former Tobacco user Tobacco use type: Cigarette e-Cigarette/Vaping Use: Former Use Second Hand Smoke Exposure: No service: No Current occupational status: employed Current occupational exposures/hazards: No Cognitive needs: No Hearing needs: No Vision needs: No Female Reproductive History Menstrual Age of Menarche: 14 Review of Systems Const Denies weight gain and Denies weight loss ENT Reports no additional complaints, Denies dysphagia and Denies odynophagia Card Reports no additional complaints Resp Reports no additional complaints GI Reports abdominal pain (CRAMPING), Denies belching, Denies melena, Reports bl oating, Reports constipation, Denies dysphagia, Denies excessive flatus, Denies dyspepsia, Reports heartburn, Denies diarrhea, Reports loose stools, Denies nausea, Denies odynophagia and Denies vomiting Reports no additional complaints Musc Reports no additional complaints Neuro Reports no additional complaints Psych Reports no additional complaints Endo Reports no additional complaints Physical Exam Vital Signs: Last Vital Signs Pulse 86 12/13/23 14:38 BP 112/59 L 12/13/23 14:38 BMI result Body Mass Index 42.0 Const General: healthy appearing, no acute distress and well developed Nutritional Appearance: well nourished Orientation/consciousness: patient oriented x3 Resp Effort & Inspection: normal respiratory effort, able to speak in complete sentences, no tracheal deviation and symmetric chest movement Auscultation: clear to auscultation bilaterally Cardio Rate: regular rate GI Inspection: Yes normal to inspection and No distended Palpation (GI): Soft to palpation, not firm, nontender and No hepatosplenomegaly present Auscultation: normal bowel sounds General: Yes no CVA tenderness Back/Spine/Pelvis Back: no CVA tenderness Skin General skin exam: elasticity normal, turgor normal and dry skin Neuro General: patient oriented x3 Psych Appearance: grossly normal Mental Status: mental status grossly normal Results Reviewed Results Reviewed: Laboratory Tests 12/04/23 12/04/23 11:13 11:16 WBC 8.2 Hgb 12.3 Hct 36.7 L Total Bilirubin 0.4 Direct Bilirubin 0.2 AST 10 ALT 15 C-Reactive Protein 0.25 Gardnerella DNA Probe Positive A CT SCAN OF ABDOMEN AND PELVIS 12/04/2023 FROM ED VISIT IMPRESSION: 1. No CT evidence of appendicitis. Normal appendix identified. 2. There is circumferential wall thickening and minimal perirectal fat stranding suggesting proctitis. Assessment & Plan Assessment & Plan (1) GERD (gastroesophageal reflux disease): Code(s): K21.9 - Gastro-esophageal reflux disease without esophagitis Category: Medical Qualifiers: Esophagitis presence: esophagitis presence not specified Qualified Code (s): K21.9 - Gastro-esophageal reflux disease without esophagitis (2) IBS (irritable bowel syndrome): Code(s): K58.9 - Irritable bowel syndrome without diarrhea Qualifiers: Irritable bowel syndrome type: with both diarrhea and constipation Qual ified Code(s): K58.2 - Mixed irritable bowel syndrome (3) Diarrhea: Code(s): R19.7 - Diarrhea, unspecified Qualifiers: Diarrhea type: functional diarrhea Qualified Code(s): K59.1 - Functional diarrhea (4) Constipation: Code(s): K59.00 - Constipation, unspecified Qualifiers: Constipation type: slow transit constipation Qualified Code(s): K59.01 - Slow transit constipation Plan Patient was encouraged to take omeprazole daily. Avoid dietary triggers in late night snacking. Staying upright for minimum 3 hours after meals discussed with patient. Patient was encouraged to eat smaller meals and more often. Patient will take [id number] fiber supplements and will take Dulcolax at bedtime to help her empty her bowels better. Low FODMAP diet discussed with patient as well. List of food recommended as well as list of food to avoid given to patient. Patient will follow-up in the office in 5 weeks, sooner on as needed basis. Patient is agreeable to this plan and verbalizes understanding of instructions. She was given the opportunity to ask questions and all questions answered. Thank you for allowing me to participate in her care Medications: New bisacodyl (Dulcolax (bisacodyl)) 5 mg PO BEDTIME 60 tabs 4RF Coding Level of Care Code New Pt Level 4 (87866) Diagnoses Gastroesophageal reflux disease, unspecified whether esophagitis present K21.9 Esophagitis presence: esophagitis presence not specified Irritable bowel syndrome with both constipation and diarrhea K58.2 Irritable bowel syndrome type: with both diarrhea and constipation Functional diarrhea K59.1 Diarrhea type: functional diarrhea Slow transit constipation K59.01 Constipation type: slow transit constipation Time Spent (min) 45 Comment 30 minutes spent with patient and additional 15 minutes spent reviewing her records
[2023-12-13 14:38] VITALS: BP 112/59; PULSE 86; BMI 42.0
== END 2023-12-13 15:31 | disposition home or self-care (01) ==
PROVIDERS: PCP Internal Medicine; Visit Provider Nurse Practitioner Family
DX: K21.9 Gastro-esophageal reflux disease without esophagitis (principal); K58.2 Mixed irritable bowel syndrome; K59.1 Functional diarrhea; K59.01 Slow transit constipation
CPT/HCPCS: 99204

== ENCOUNTER → 2023-12-13 14:33 | Outpatient (BNVA) | payer OTHER, SELFPAY | PROVIDERS: PCP Internal Medicine; Visit Provider Nurse Practitioner Family | DX: K21.9 Gastro-esophageal reflux disease without esophagitis (principal); K58.2 Mixed irritable bowel syndrome; K59.1 Functional diarrhea; K59.01 Slow transit constipation | CPT/HCPCS: 99202 ==

== ENCOUNTER 2023-12-15 | Outpatient (REF) | payer OTHER, SELFPAY ==
[2023-12-15 11:12] LABS: Hematocrit 37.2 % (37.0-47.0); Hemoglobin 12.6 g/dl (12.0-16.0); Mean Corpuscular HGB Conc 33.9 g/dl (31.0-35.0); Mean Corpuscular Hemoglobin 31.3 pg (27.0-33.0); Mean Corpuscular Volume 92.5 fL (80.0-98.0); Mean Platelet Volume 9.4 fL (9.4-12.3); Platelet Count 371 X10*3/uL (160-400); Red Blood Count 4.02 X10*6/uL (4.20-5.50); Red Cell Distribution Width 11.5 % (11.0-16.0); White Blood Count 9.1 X10*3/uL (4.8-10.8)
[2023-12-15 11:19] LABS: Estimated Average Glucose 100 mg/dL; Hemoglobin A1c % 5.1 % (<6.0)
[2023-12-15 11:35] LABS: Glucose Random 96 mg/dL (60-115)
[2023-12-15 11:54] LABS: HCG Quantitative < 2 mIU/mL; TSH reflex Free T4 4.05 uIU/mL (0.32-4.0); Thyroid Stimulating Hormone 4.14 uIU/mL (0.32-4.0)
[2023-12-15 11:56] LABS: HIV AB/AG Nonreactive (Nonreactive); HIV Num 1 0.06 S/CO (0.00-0.99); Hepatitis B Surface Antigen Negative (Negative); ~HepC Num1 0.08 S/CO (0.00-0.79); ~Hepatitis C Antibody Nonreactive (Nonreactive)
[2023-12-15 12:01] LABS: Syphilis Screen Nonreactive (Nonreactive)
[2023-12-15 12:25] LABS: Free T4 (Free Thyroxine) 0.81 ng/dL (0.71-1.85)
== END 2023-12-15 00:01 | disposition home or self-care (01) ==
LOC: HO.LAB
PROVIDERS: Advanced Practice Midwife; PCP Internal Medicine; Visit Provider Obstetrics & Gynecology
DX: Z11.3 Encounter for screening for infections with a predominantly sexual mode of transmission (principal); Z11.4 Encounter for screening for human immunodeficiency virus [HIV]; N91.1 Secondary amenorrhea; E23.7 Disorder of pituitary gland, unspecified; E66.01 Morbid (severe) obesity due to excess calories; Z68.41 Body mass index [BMI] 40.0-44.9, adult; F32.9 Major depressive disorder, single episode, unspecified; E22.1 Hyperprolactinemia; R79.89 Other specified abnormal findings of blood chemistry; N93.9 Abnormal uterine and vaginal bleeding, unspecified; R31.29 Other microscopic hematuria
CPT/HCPCS: 36415; 82947; 83036; 84146; 84439; 84443; 84702; 85027; 86780; 86803; 87086; 87340; 87389

== ENCOUNTER 2023-12-15 09:42 | Outpatient (AMB) | payer OTHER, SELFPAY ==
--- NOTE | 2023-12-15 09:50 | A.OFFVIS_ITS ---
Vital Signs 12/15/23 09:53 Height 5 ft 4 in Weight 244 lb BMI 41.9 BP 114/60 Intake Visit Reasons: ER Follow up /Colposcopy Admiralty Lawyer Required: No Information Interpreted: non-clinical & clinical Loom Control Chain Builder: Loom Control Chain Builder Present (Aidyn) Allergies shrimp Allergy (Mild, Verified 12/15/23 09:55) tongue swelling Environmental Allergies Allergy (Intermediate, Uncoded 12/15/23 09:55) sneezing, asthma black olives Allergy (Mild, Uncoded 12/15/23 09:55) Itching Is last menstrual period known: Yes Last menstrual period: 12/23/23 Post menopausal: No HPI Comments Details: Presenting for ER follow-up and referred by Adamaris Montaño CNM regarding LSIL on Pap smear. The patient went to the emergency room on 2 occasions on 11/25 23 and 11/2123 complaining of vaginal bleeding and pelvic/abdominal pain the 1st ER visit followed by persistent of pelvic/abdominal pain after resolution of her vaginal bleeding. On the 2 occasions the following workup was done: H and H 13/37.6 HCG less than 2 GC/CT negative UA showed microscopic hematuria CT of abdomen /pelvis on 12/04/2023 showed the following: IMPRESSION: 1. No CT evidence of appendicitis. Normal appendix identified. 2. There is circumferential wall thickening and minimal perirectal fat stranding suggesting proctitis. Ultrasound of the pelvis done on 11/25/2023 showed the following: Uterus: The uterus is anteverted and measures 9 x 3 x 4.5 cm. The double wall endometrial thickness is 3 mm. The uterus is smooth in contour and has normal myometrial echogenicity. No visible fibroid. Right ovary measures 2.6 x 2 x 1.5 cm. the right ovary is normal appearing. The left ovary is not seen. There is no fluid in the pelvis Last Pap smear done in the outpatient office on 11/17/2023 showed low-grade CLAIRE Pap smear done on 01/31 was negative The patient still complaining of mild lower pelvic pain on and off over the last few weeks no other associated symptoms no vaginal discharge, GI or symptoms , no fever or chills PFSH Medical History Morbid obesity Hyperprolactinemia Depression Obese Asthma Surgical History History of esophagogastroduodenoscopy (EGD) No pertinent past surgical history Family History Mother Hypertension Fibromyalgia Thyroid disease Father Parkinson disease Diabetes Sister No problems noted. Brother Colon cancer Brother No problems noted. Maternal Grandfather Colon cancer Prostate cancer Other Mental health disorder Social History Housing: House Alcohol intake: never Patient Tobacco Use Status: Former Tobacco user Tobacco use type: Cigarette e-Cigarette/Vaping Use: Former Use Second Hand Smoke Exposure: No service: No Current occupational status: employed Current occupational exposures/hazards: No Cognitive needs: No Hearing needs: No Vision needs: No Female Reproductive History Menstrual Age of Menarche: 14 Duration of menses: 3-5 days Date of last menstrual period: 12/23/23 control method: none Total pregnancies: 0 Date of last pap smear: 11/17/23 (JONATHAN 1) History of abnormal pap smear: Yes Review of Systems Const All systems reviewed & are unremarkable except as noted in HPI and below Physical Exam General: Yes no CVA tenderness External Female Exam: normal external appearance and normal appearance of the urethra Speculum Exam - Vagina: normal appearance of the vagina, normal palpation, no lesions and no masses Speculum Exam - Cervix: normal appearance of the cervix, normal palpation, no lesions, no masses and nontender Bimanual exam- vagina & uterus: normal bimanual exam, normal palpation, uterine size normal, normal palpation, uterine shape normal, No Cervical tenderness present and non-tender Bimanual Exam- Adnexa, other: normal adnexae Back/Spine/Pelvis Back: no CVA tenderness Assessment & Plan Assessment & Plan (1) Abnormal uterine bleeding: Code(s): N93.9 - Abnormal uterine and vaginal bleeding, unspecified Category: Medical Plan: GC and chlamydia recently taken and pelvic ultrasound with CT scan done, will order CBC, prolactin, TSH, HCG, . Discussed with the patient the different causes of abnormal bleeding including thyroid disorders, uterine and ovarian pathology and other potential causes. Discussed with the patient the work up including CBC (to r/o anemia), TSH, prolactin, pelvic Ultrasound. All questions answered and the patient verbalized understanding. Instructed the patient to schedule an appointment for follow-up in 2 weeks. (2) LGSIL on Pap smear of cervix: Code(s): R87.612 - Low grade squamous intraepithelial lesion on cytologic smear of cervix (LGSIL) Category: Medical Plan: Discussed with the patient the result of her abnormal pap, its significance, risk of progression, persistence, and regression. the false positive/negative rate of a Pap smear as a screening test in detecting cervical cancer and the indication for a diagnostic test -colposcopy, biopsy, endocervical curettage. Instructions given the patient to schedule a colposcopy in 2 weeks. The patient verbalized understanding and agreed with the plan, all questions answered. (3) Pelvic pain: Code(s): R10.2 - Pelvic and perineal pain Category: Medical Plan: Urine dip showed microscopic hematuria and urine test done in the office was negative. GC and chlamydia recently recently taken and pelvic ultrasound done. Discussed with the patient the differential diagnosis of pelvic pain including but not limited to adnexal, uterine masses, pelvic infections (PID), GI the (Irritable bowel syndrome, diverticulitis, others), musculos keletal, myofascial pain abdominal wall , adhesions, endometriosis, psychological and others causes. Instructions given to patient to schedule a 2 week follow-up appointment. All questions answered, the patient verbalized understanding. Instructed the patient to schedule follow-up appointment in 2 weeks (4) Microscopic hematuria: Code(s): R31.29 - Other microscopic hematuria Category: Medical Plan: Urine dip showed microscopic hematuria, urine culture sent. Will repeat urine dip in 2 weeks. Discussed with the patient the possible causes of microscopic hematuria including but not limited to: interstitial cystitis, polyps, stones, masses, urethral inflammatory processes and others. If Urine Culture is negative and repeat urine dip in 2 weeks shows persistent microscopic hematuria, will proceed with urology referral. Instructions given the patient to schedule a 2 week urine dip follow-up appointment. All questions answered and the patient verbalized understanding. Orders: Orders TSH reflex Free T4 Today N93.9 - Abnormal uterine and vaginal bleeding, unspecified Prolactin Today N93.9 - Abnormal uterine and vaginal bleeding, unspecified HCG Quantitative Today N93.9 - Abnormal uterine and vaginal bleeding, unspecified Complete Blood Count no Diff Today N93.9 - Abnormal uterine and vaginal bleeding, unspecified Coding Level of Care Code Est Pt Level 3 (64292) Diagnoses Abnormal uterine bleeding N93.9 LGSIL on Pap smear of cervix R87.612 Pelvic pain R10.2 Microscopic hematuria R31.29
[2023-12-15 09:53] VITALS: BP 114/60; BMI 41.9
== END 2023-12-15 10:15 | disposition home or self-care (01) ==
PROVIDERS: PCP Internal Medicine; Visit Provider Obstetrics & Gynecology
DX: N93.9 Abnormal uterine and vaginal bleeding, unspecified (principal); R87.612 Low grade squamous intraepithelial lesion on cytologic smear of cervix (LGSIL); R10.2 Pelvic and perineal pain; R31.29 Other microscopic hematuria; Z32.02 Encounter for pregnancy test, result negative
CPT/HCPCS: 99213

== ENCOUNTER 2023-12-15 09:42 | Outpatient (REF) | payer OTHER, SELFPAY | END 2023-12-15 09:43 | disposition home or self-care (01) | LOC: HO.LNP 09:42 | PROVIDERS: PCP Internal Medicine; Visit Provider Obstetrics & Gynecology | DX: N93.9 Abnormal uterine and vaginal bleeding, unspecified (principal); R87.612 Low grade squamous intraepithelial lesion on cytologic smear of cervix (LGSIL); R10.2 Pelvic and perineal pain; R31.29 Other microscopic hematuria | CPT/HCPCS: 81003; 81025; 99212 ==

== ENCOUNTER 2023-12-20 13:00 | Outpatient (AMB) | payer OTHER, SELFPAY ==
[2023-12-20 13:03] VITALS: BP 118/80; BMI 41.7
--- NOTE | 2023-12-20 13:03 | A.OFFPC_ITS ---
Vital Signs 12/20/23 13:03 Height 5 ft 4 in Weight 243 lb BMI 41.7 BP 118/80 Blood Pressure Location Lt brachial Position Sitting Intake Visit Reasons: referral request Intake Note: Patient here for follow labs, Endo referral Accounting Methods Analyst Required: No Accompanied by: Mother Allergies shrimp Allergy (Mild, Verified 12/20/23 13:05) tongue swelling Environmental Allergies Allergy (Intermediate, Uncoded 12/15/23 09:55) sneezing, asthma black olives Allergy (Mild, Uncoded 12/15/23 09:55) Itching Tobacco use date assessed: 10/20/23 Dental Screening Dental Screen Date: 10/20/23 HPI HPI Comments History of Present Illness Details This is a 28-year-old female with moderate major depression, morbid obesity and elevated TSH that comes today for follow-up on her TSH and is accompanied by mother. Her TSH is elevated with normal free T4 most likely due to subclinical hypothyroidism. TSH will be repeated in 6 weeks. She has been having heavy menses follow by OBGYN. She admits not been completely compliant with bupropion and was advised to try to be compliant for her depression. She is morbidly obese with a BMI of 41.7 and we will see weight management for this matter. Has goiter an ultrasound of the thyroid will be order. [facility] Medical History (Updated 12/20/23 @ 13:24 by Beckie Grace MD) Morbid obesity Hyperprolactinemia Depression Obese Asthma Surgical History History of esophagogastroduodenoscopy (EGD) No pertinent past surgical history Family History Mother Hypertension Fibromyalgia Thyroid disease Father Parkinson disease Diabetes Sister No problems noted. Brother Colon cancer Brother No problems noted. Maternal Grandfather Colon cancer Prostate cancer Other Mental health disorder Social History Housing: House Alcohol intake: never Patient Tobacco Use Status: Former Tobacco user Tobacco use type: Cigarette e-Cigarette/Vaping Use: Former Use Second Hand Smoke Exposure: No service: No Current occupational status: unemployed Cognitive needs: No Hearing needs: No Vision needs: No Female Reproductive History Menstrual Age of Menarche: 14 Questionnaire Thrive Questionnaire Date Thrive assessed: 10/20/23 TERRELL-7 AMB Questionnaire TERRELL-7 Date TERRELL - 7 assessed: 10/20/23 Source: Developed by Drs. Ariel Bragg, Jo Zimmerman, Charles Molina and colleagues, with an educational aquiles from [employer]. Review of Systems Const All systems reviewed & are unremarkable except as noted in HPI and below Eyes Reports no additional complaints, Denies change in vision and Denies other visual disturbances Card Denies chest pain at rest, Denies chest pain with activity, Denies edema, Denies irregular heart rhythm, Denies claudication, Denies dyspnea, Denies dyspnea on exertion, Denies orthopnea, Denies paroxysmal nocturnal dyspnea and Denies slow heart rate Resp Denies cough, Denies dyspnea and Denies dyspnea on exertion Physical exam (Primary Care) Vital Signs: Last Vital Signs BP 118/80 12/20/23 13:03 BMI result Body Mass Index 41.7 Tobacco/Smoking Status: Tobacco use Status Tobacco use date assessed 10/20/23 12/20/23 13:08 Patient Tobacco Use Status Former Tobacco user 12/20/23 13:08 Tobacco use type Cigarette 12/20/23 13:08 e-Cigarette/Vaping Use Former Use 12/20/23 13:08 Thrive Assessment: Date of Thrive Assessment Date Thrive assessed 10/20/23 12/20/23 13:08 Resp Effort & Inspection: normal respiratory effort Auscultation: clear to auscultation bilaterally Cardio Jugular venous distension: no JVD Rate: regular rate Rhythm: regular rhythm Heart sounds: S1 normal heart sound present and S2 normal heart sound present Extrem General: Yes full ROM Assessment and Plan Assessment & Plan (1) Subclinical hypothyroidism: Code(s): E03.8 - Other specified hypothyroidism Plan: Repeat thyroid function test in 6 weeks. (2) Moderate major depression: Code(s): F32.1 - Major depressive disorder, single episode, moderate Plan: Be compliant with bupropion. (3) Morbid obesity with BMI of 40.0-44.9, adult: Code(s): E66.01 - Morbid (severe) obesity due to excess calories; Z68.41 - Body mass index [BMI] 40.0-44.9, adult Plan: Follow-up with weight management. BMI goal is less than 30. (4) Goiter: Code(s): E04.9 - Nontoxic goiter, unspecified Plan: Ultrasound of the thyroid ordered. Orders: Orders Thyroid Stimulating Hormone 6 Weeks E03.8 - Other specified hypothyroidism Thyroid Peroxidase Antibodies 6 Weeks E03.8 - Other specified hypothyroidism US thyroid 6 Weeks E04.9 - Nontoxic goiter, unspecified Free T4 (Free Thyroxine) 6 Weeks E03.8 - Other specified hypothyroidism Thyroglobulin Antibodies 6 Weeks E03.8 - Other specified hypothyroidism Vitamin D 25-OH Total Today E55.9 - Vitamin D deficiency, unspecified Coding Level of Care Code Est Pt Level 4 (42988) Diagnoses Subclinical hypothyroidism E03.8 Moderate major depression F32.1 Morbid obesity with BMI of 40.0-44.9, adult E66.01; Z68.41 Goiter E04.9 Time Spent (min) 23
== END 2023-12-20 13:24 | disposition home or self-care (01) ==
PROVIDERS: PCP Internal Medicine; Visit Provider Internal Medicine
DX: E03.8 Other specified hypothyroidism (principal); F32.1 Major depressive disorder, single episode, moderate; E66.01 Morbid (severe) obesity due to excess calories; Z68.41 Body mass index [BMI] 40.0-44.9, adult; E04.9 Nontoxic goiter, unspecified
CPT/HCPCS: 99214

== ENCOUNTER 2023-12-22 23:40 | Emergency (ER) | payer OTHER, SELFPAY ==
[2023-12-22 23:50] VITALS: BP 139/85; PULSE 81; RESP 18; TEMP 36.8; O2SAT 97; BMI 42.1
[2023-12-23] MEDS: methylPREDNISolone Sod Succ 125 MG/2 ML VIAL IVPUSH (00:14)
[2023-12-23] MEDS: Famotidine/PF 20 MG/2 ML VIAL IVPUSH (00:14)
[2023-12-23] MEDS: diphenhydrAMINE HCL 50 MG/ML VIAL 25 MG IVPUSH (00:14)
--- NOTE | 2023-12-23 00:32 | ED_ITS ---
HPI - Allergic Reaction General Chief complaint: Allergic Reaction Stated complaint: allergic reaction Time Seen by Provider: 12/23/23 00:03 Source: patient Mode of arrival: ambulatory Limitations: no limitations History of Present Illness HPI narrative: 28 yo female with no sig PMH no prior epi use - was giving her dog iefoma sausage tonight so it would take its pills when she noted swelling around the eyes, tingling of the lips, she feels her lips are swollen, hive on R cheek. She did take a dose of amoxicillin tonight after strep exposure (not Rx to her). She noted she took a dose of 25mg benadryl with little relief. complaint: allergic reaction Onset (ago): hour(s) (few) Exposure: unknown Symptoms: itching and facial swelling Severity: mild Treatment prior to arrival: benadryl Previous Allergic Reaction History: none Related Data Previous Rx's ?Medication ?Instructions ?Recorded albuterol sulfate 2.5 mg/3 mL 2.5 mg (3 mL) inhalation Q4-6H PRN 11/04/22 (0.083 %) solution for nebulization shortness of breath or wheezing #75 mL cholecalciferol (vitamin D3) 125 125 mcg PO DAILY #30 caps 11/18/22 mcg (5,000 unit) capsule Ventolin HFA 90 mcg/actuation 2 puff inhalation Q6H PRN 10/20/23 aerosol inhaler (albuterol sulfate) shortness of breath or wheezing 30 days #18 grams bupropion HCl 150 mg 24 hr tablet, 150 mg PO QAM 90 days #90 tabs 10/20/23 extended release omeprazole 20 mg capsule,delayed 20 mg PO DAILY 90 days #90 caps 10/20/23 release bisacodyl 5 mg tablet,delayed 5 mg PO BEDTIME #60 tabs 12/13/23 release (Dulcolax (bisacodyl)) epinephrine 0.3 mg/0.3 mL 0.3 mg (0.3 mL) IM Q10M PRN 12/23/23 injection, auto-injector anaphylaxis #2 ea prednisone 20 mg tablet 40 mg (2 x 20 mg) PO DAILY 4 days 12/23/23 #8 tabs Allergies Allergy/AdvReac Type Severity Reaction Status Date / Time shrimp Allergy Mild tongue Verified 12/22/23 23:57 swelling Environmental Allergies Allergy Intermediate sneezing, Uncoded 12/22/23 23:57 asthma black olives Allergy Mild Itching Uncoded 12/22/23 23:57 Review of Systems Review of Systems: Constitutional : No Fever, No Chills ENT/Mouth : positive oral swelling, No Hoarseness, No Swallowing Difficulty Eyes: No Eye Pain, No Swelling, No Redness Cardiovascular : No Chest Pain, No SOB Respiratory : No Cough, No Sputum, No Wheezing, No Smoke Exposure, No Dyspnea Gastrointestinal : No Nausea, No Vomiting, No Diarrhea, No abdominal Pain Genitourinary : No Dysuria, No Urinary Frequency, No Hematuria Musculoskeletal : No joint pain, No Myalgias, No Joint Swelling Skin : No Skin Lesions, positive rash Neuro : No Weakness, No Numbness, No Headache Psych : No Anxiety/Panic, No Depression All other systems reviewed and are negative FOR[facility]LY [facility] Past Medical History Attestation statement: The following information was validated with the patient. Source: old records reviewed Medical History Morbid obesity Hyperprolactinemia Depression Obese Asthma Surgical History History of esophagogastroduodenoscopy (EGD) No pertinent past surgical history Family History Family History Mother Hypertension Fibromyalgia Thyroid disease Father Parkinson disease Diabetes Sister No problems noted. Brother Colon cancer Brother No problems noted. Maternal Grandfather Colon cancer Prostate cancer Other Mental health disorder Social History Social History Housing: House Alcohol intake: never Patient Tobacco Use Status: Former Tobacco user Tobacco use type: Cigarette Smoked in Last 30 Days: No e-Cigarette/Vaping Use: Former Use Second Hand Smoke Exposure: No Use of substances other than those prescribed or required for medical reasons: No Advance Directives: No Advance Directives Information Provided: No Patient : No service: No Current occupational status: unemployed Cognitive needs: No Hearing needs: No Vision needs: No Physical Exam ED Vital Signs: Vital Signs - 24 hr 12/22/23 23:50 Temperature 98.2 F Pulse Rate 81 Respiratory Rate 18 Blood Pressure 139/85 Pulse Oximetry 97 Oxygen Delivery Method Room Air BMI result Body Mass Index 42.1 Appearance: Alert. Oriented X3. No acute distress. Eyes: Pupils equal, round and reactive to light. ENT: Pharynx uvula midline tongue normal - possible mild lower lip swelling, under eyelids mildly swollen, voice not hoarse Neck: Normal inspection. Neck supple. CVS: Normal heart rate and rhythm. Pulses normal. Respiratory: No respiratory distress. Breath sounds normal. Abdomen: Soft and nontender. Skin: Skin warm and dry. Normal skin color. Normal skin turgor. Extremities: No lower extremity edema. No calf ttp Neuro: Oriented X 3. No motor deficit. No sensory deficit. Medications Administered Discontinued Medications Generic Name Dose Route Start Last Admin Trade Name Freq PRN Reason Stop Dose Admin Diphenhydramine HCl 25 mg 12/23/23 00:06 12/23/23 00:14 Diphenhydramine Hcl 50 Mg/Ml Vial IVPUSH 12/23/23 00:07 25 mg ONCE ONE Administration Famotidine 20 mg 12/23/23 00:06 12/23/23 00:14 Famotidine/Pf 20 Mg/2 Ml Vial IVPUSH 12/23/23 00:07 20 mg ONCE ONE Administration Methylprednisolone Sodium Succinate 125 mg 12/23/23 00:06 12/23/23 00:14 Methylprednisolone Sod Succ 125 Mg/2 Ml Vial IVPUSH 12/23/23 00:07 125 mg ONCE ONE Administration Medical Decision Making Medical Decision Making [facility] Narrative: 28 yo female with no sig PMH no prior epi use here with c/o eye swelling, lip swelling after unknown exposure she is mild appearing at this time will obtain strep swab and start on IV steroids, pepcid and benadryl will monitor closely. Differential Diagnosis Differential Diagnoses: The differential diagnosis associated with the presentation includes allergic reaction Admission/Observation Consideration of admission/observation: Escalation of care including admission/observation considered symptoms improved stable for DC Lab Data Labs: Lab Results 12/23/23 Range/Units 00:47 S. pyogenes GrpA KEN Negative (Negative) Independent Historian Clinical information obtained from an independent historian. History obtained from or confirmed by: Friend External Record Review External record reviewed: Inpatient record Prescription Management I considered prescription management with: Other Discharge Plan Discharge Clinical Impression: Allergic reaction Patient Disposition: Home, Self-Care Instructions: General Allergic Reaction (ED) Additional Instructions: return for worsening symptoms, swelling, difficulty breathing or any other concerns avoid any exposures you may have had tonight only use epi pen for symptoms of throat closing, difficulty breathing with swelling or any signs of anaphylaxis Prescriptions: New prednisone 20 mg tablet 40 mg PO DAILY 4 Days Qty: 8 0RF epinephrine 0.3 mg/0.3 mL auto-injector 0.3 mg IM Q10M PRN (Reason: anaphylaxis) Qty: 2 0RF Rx Instructions: for 2 doses No Action cholecalciferol (vitamin D3) 125 mcg (5,000 unit) capsule 125 mcg PO DAILY Qty: 30 2RF albuterol sulfate 2.5 mg /3 mL (0.083 %) solution for nebulization 2.5 mg inhalation Q4-6H PRN (Reason: shortness of breath or wheezing) Qty: 75 0RF bupropion HCl 150 mg tablet extended release 24 hr 150 mg PO QAM 90 Days Qty: 90 1RF omeprazole 20 mg capsule,delayed release(DR/EC) 20 mg PO DAILY 90 Days Qty: 90 1RF albuterol sulfate [Ventolin HFA] 90 mcg/actuation HFA aerosol inhaler 2 puff inhalation Q6H PRN (Reason: shortness of breath or wheezing) 30 Days Qty: 18 3RF bisacodyl [Dulcolax (bisacodyl)] 5 mg tablet,delayed release (DR/EC) 5 mg PO BEDTIME Qty: 60 4RF Print Language: [place]
[2023-12-23 01:14] LABS: IDNOW Serial# 6674DD1D; Strep A Nucleic Acid Negative (Negative)
[2023-12-23 02:22] VITALS: BP 128/62; PULSE 76; RESP 18; TEMP 36.8; O2SAT 99
== END 2023-12-23 02:05 | disposition home or self-care (01) ==
PROVIDERS: Emergency Provider Emergency Medicine
DX: L50.0 Allergic urticaria (principal); J02.9 Acute pharyngitis, unspecified
CPT/HCPCS: 87651; 96374; 96375; 99284; J1200; J2919

== ENCOUNTER 2024-01-12 12:04 | Outpatient (AMB) | payer OTHER, SELFPAY ==
--- NOTE | 2024-01-12 12:10 | MHC.OFFVIS ---
Vital Signs 01/12/24 12:26 Height 5 ft 4 in Weight 244 lb 11.41 oz BMI 42.0 BP 118/74 Intake Visit Reasons: Colpo Senior Web Services Developer Required: No Information Interpreted: non-clinical & clinical Managed Services Sales Consultant: Managed Services Sales Consultant Present (Ivelisse ANDUJAR) Accompanied by: Mother Allergies shrimp Allergy (Mild, Verified 01/12/24 12:27) tongue swelling Environmental Allergies Allergy (Intermediate, Uncoded 01/12/24 12:27) sneezing, asthma black olives Allergy (Mild, Uncoded 01/12/24 12:27) Itching Is last menstrual period known: Yes Last menstrual period: 12/21/23 HPI Comments Details: Presenting for abnormal Pap smear showing LGSIL PFSH Medical History Morbid obesity Hyperprolactinemia Depression Obese Asthma Surgical History History of esophagogastroduodenoscopy (EGD) No pertinent past surgical history Family History Mother Hypertension Fibromyalgia Thyroid disease Father Parkinson disease Diabetes Sister No problems noted. Brother Colon cancer Brother No problems noted. Maternal Grandfather Colon cancer Prostate cancer Other Mental health disorder Social History Housing: House Alcohol intake: never Patient Tobacco Use Status: Former Tobacco user Tobacco use type: Cigarette e-Cigarette/Vaping Use: Former Use Second Hand Smoke Exposure: No service: No Current occupational status: unemployed Cognitive needs: No Hearing needs: No Vision needs: No Female Reproductive History Menstrual Age of Menarche: 14 Date of last menstrual period: 12/21/23 Review of Systems Const All systems reviewed & are unremarkable except as noted in HPI and below Reports as per HPI and Reports no additional complaints GI Reports no additional complaints Reports no additional complaints Physical Exam Vital Signs: Last Vital Signs BP 118/74 01/12/24 12:26 BMI result Body Mass Index 42.0 Office Procedures Colposcopy Colposcopy: Pre-Procedure Counseling: Before beginning the procedure, I conducted comprehensive counseling with the patient. We thoroughly discussed the procedure itself, including its details, alternatives, and all associated risks. This included but not limited to the following complications such as bleeding, infection, and injury to the vagina, bladder, and vessels, as well as the potential need for transfusion with all its associated risks. Subsequently, the patient sign the consent. Pap smear result: LSIL. Urine test in office = Negative Procedure: During the procedure, the following steps were performed: A speculum was inserted, and acetic acid was applied. Colposcopy was conducted, allowing visualization of the transformation zone. Acetowhite lesions were identified at the 6+11+12+1 o'clock position. Cervical biopsies were obtained from the 6+11+12 o'clock position, followed by an endocervical curettage (ECC). Vaginoscopy of the upper vagina revealed no evidence of aceto-white lesions. Hemostasis was achieved using Monsel solution, and the patient tolerated the procedure well. Post-Procedure Instructions: The patient was advised to promptly contact the office or the after hours answering service or go to the emergency room if experiencing a temperature exceeding 100.4?F, abdominal pain, nausea/vomiting, or bleeding. Additionally, the patient was instructed to abstain from vaginal intercourse and bathtub use. The patient confirmed understanding of these instructions. Discharge Instructions: The patient was instructed to schedule a follow-up appointment in 2 weeks for further evaluation and management. Please note that this note was generated using a voice recognition program, and errors may have occurred during retail merchandising coordinator. [id number] of cervix including upper vagina with biopsy and ECC Procedure code (CPT) selection complete Results AMB Test Urine AMB Test Urine Negative Last Edit by Ivelisse Greco CMA on 01/12/24 12:30 Results Reviewed Results Reviewed: Laboratory Last Values Tst Clinic Negative 01/12/24 12:29 Assessment & Plan Assessment & Plan (1) LGSIL on Pap smear of cervix: Code(s): R87.612 - Low grade squamous intraepithelial lesion on cytologic smear of cervix (LGSIL) Category: Medical Plan: Discussed with the patient the result of her abnormal pap, its significance, risk of progression, persistence, and regression. the false positive/negative rate of a Pap smear as a screening test in detecting cervical cancer and the indication for a diagnostic test -colposcopy, biopsy, endocervical curettage. The patient verbalized understanding and agreed with the plan, all questions answered. Colposcopy/ biopsy/ECC done, see procedure note. Orders: Orders AMB HCG Urine Test Today Z32.02 - Encounter for test, result negative AMB Colposcopy Today R87.612 - Low grade squamous intraepithelial lesion on cytologic smear of cervix (LGSIL) Coding Level of Care Code Procedure Only Diagnoses LGSIL on Pap smear of cervix R87.612 CPT Codes Colposcopy - CPT: 62200-Vexmcjjlj of cervix including upper vagina with biopsy and ECC ([id number])
[2024-01-12 12:26] VITALS: BP 118/74; BMI 42.0
== END 2024-01-12 12:47 | disposition home or self-care (01) ==
PROVIDERS: PCP Internal Medicine; Visit Provider Obstetrics & Gynecology
DX: R87.612 Low grade squamous intraepithelial lesion on cytologic smear of cervix (LGSIL) (principal); Z32.02 Encounter for pregnancy test, result negative
CPT/HCPCS: 57454

== ENCOUNTER 2024-01-12 12:04 | Outpatient (REF) | payer OTHER, SELFPAY | END 2024-01-12 12:05 | disposition home or self-care (01) | LOC: HO.LNP 12:04 | PROVIDERS: PCP Internal Medicine; Visit Provider Obstetrics & Gynecology | DX: R87.612 Low grade squamous intraepithelial lesion on cytologic smear of cervix (LGSIL) (principal) | CPT/HCPCS: 57454; 81025; 88305 ==

== ENCOUNTER 2024-01-18 12:08 | Outpatient (AMB) | payer OTHER, SELFPAY ==
[2024-01-18 12:19] VITALS: BP 122/74; BMI 42.0
--- NOTE | 2024-01-18 12:19 | MHC.OFFVIS ---
Vital Signs 01/18/24 12:19 Height 5 ft 4 in Weight 244 lb 11.41 oz BMI 42.0 BP 122/74 Intake Visit Reasons: AUB/colpo results Wound Care Specialist Required: No Information Interpreted: non-clinical & clinical Accompanied by: Mother Allergies shrimp Allergy (Mild, Verified 01/12/24 12:27) tongue swelling Environmental Allergies Allergy (Intermediate, Uncoded 01/12/24 12:27) sneezing, asthma black olives Allergy (Mild, Uncoded 01/12/24 12:27) Itching HPI Comments Details: The patient is presenting for follow-up to discuss the results of her abnormal uterine bleeding workup and options of treatment. The following workup was done.: H&H= 12.6/37.2 hCG, GC and chlamydia were negative. TSH was 4.06, normal free T4 Prolactin, hCG within normal Pap showed low-grade CLAIRE, colpo/biopsy/ECC, pathology showed the following: A. Endocervix, curettage: Mildly inflamed endocervical mucosa; otherwise within normal limits. B. Cervix, 1 o'clock, biopsy: - Low-grade squamous intraepithelial lesion (JONATHAN 1). - Background cervical transformation zone mucosa. C. Cervix, 6 o'clock, biopsy: - Low-grade squamous intraepithelial lesion (JONATHAN 1). - Background cervical transformation zone mucosa. D. Cervix, 11 o'clock, biopsy: - Low-grade squamous intraepithelial lesion (JONATHAN 1). - Background cervical transformation zone mucosa. E. Cervix, 12 o'clock, biopsy: - Low-grade squamous intraepithelial lesion (JONATHAN 1). - Background cervical transformation zone mucosa. COMMENT: The findings are concordant with the patient's recent Pap/cytology specimen ([id number]; LSIL) - slide reviewed Pelvic ultrasound showed the following: Uterus: The uterus is anteverted and measures 9 x 3 x 4.5 cm. The double wall endometrial thickness is 3 mm. The uterus is smooth in contour and has normal myometrial echogenicity. No visible fibroid. Right ovary measures 2.6 x 2 x 1.5 cm. the right ovary is normal appearing. The left ovary is not seen. There is no fluid in the pelvis. [facility] Medical History Morbid obesity Hyperprolactinemia Depression Obese Asthma Surgical History History of esophagogastroduodenoscopy (EGD) No pertinent past surgical history Family History Mother Hypertension Fibromyalgia Thyroid disease Father Parkinson disease Diabetes Sister No problems noted. Brother Colon cancer Brother No problems noted. Maternal Grandfather Colon cancer Prostate cancer Other Mental health disorder Social History Housing: House Alcohol intake: never Patient Tobacco Use Status: Former Tobacco user Tobacco use type: Cigarette e-Cigarette/Vaping Use: Former Use Second Hand Smoke Exposure: No service: No Current occupational status: unemployed Cognitive needs: No Hearing needs: No Vision needs: No Female Reproductive History Menstrual Age of Menarche: 14 Review of Systems Const All systems reviewed & are unremarkable except as noted in HPI and below Reports as per HPI and Reports no additional complaints GI Reports no additional complaints Reports no additional complaints Physical Exam Vital Signs: Last Vital Signs BP 122/74 01/18/24 12:19 BMI result Body Mass Index 42.0 Assessment & Plan Assessment & Plan (1) Elevated TSH: Code(s): R79.89 - Other specified abnormal findings of blood chemistry Category: Medical Plan: The patient is scheduled an appointment with her PCP for follow-up (2) Dysplasia of cervix, low grade (JONATHAN 1): Code(s): N87.0 - Mild cervical dysplasia Category: Medical Plan: Discussed with the patient the pathology results of the colposcopy biopsies & endocervical curettage ( mild dysplasia-JONATHAN 1). Discussed with the patient the sensitivity specificity, positive and negative predictive value in detecting cervical cancer in addition discussed the regression, persistence and progression rates. Recommended Pap smear in 12 months, if cytology and or HPV are abnormal will proceed was colposcopy biopsy and endocervical curettage. Instructions given to the patient to schedule a co test appointment in 1 year. All questions answered the patient verbalized understanding. (3) Abnormal uterine bleeding: Code(s): N93.9 - Abnormal uterine and vaginal bleeding, unspecified Category: Medical Plan: Discussed with the patient the results of the work up done and options of treatment including Lysteda, control pills, Mirena IUD, endometrial ablation and hysterectomy. All pros, cons, risks and benefits if each option was discussed with the patient and the patient decided to go ahead with Mirena IUD so a more detailed discussion about it was conducted including mechanism of action, risks (uterine perforation, infection, injury to bladder, bowel, displacement, and others) benefits (hypo menorrhea, amenorrhea, ...). GC/CT were taken and the patient was instructed to schedule Mirena IUD insertion on day 1-5 of next cycle . All questions answered, the patient verbalized understanding Coding Level of Care Code Est Pt Level 3 (11428) Diagnoses Elevated TSH R79.89 Dysplasia of cervix, low grade (JONATHAN 1) N87.0 Abnormal uterine bleeding N93.9
== END 2024-01-18 12:46 | disposition home or self-care (01) ==
PROVIDERS: PCP Internal Medicine; Visit Provider Obstetrics & Gynecology
DX: R79.89 Other specified abnormal findings of blood chemistry (principal); N87.0 Mild cervical dysplasia; N93.9 Abnormal uterine and vaginal bleeding, unspecified
CPT/HCPCS: 99213

== ENCOUNTER → 2024-01-18 12:08 | Outpatient (BNVA) | payer OTHER, SELFPAY | PROVIDERS: PCP Internal Medicine; Visit Provider Obstetrics & Gynecology | DX: N93.9 Abnormal uterine and vaginal bleeding, unspecified (principal); N87.0 Mild cervical dysplasia; R79.89 Other specified abnormal findings of blood chemistry | CPT/HCPCS: 99212 ==

== ENCOUNTER → 2024-08-28 12:41 | Outpatient (BNVA) | payer OTHER, SELFPAY | PROVIDERS: PCP Internal Medicine; Visit Provider Physician Assistant Surgical ==

== ENCOUNTER 2024-08-30 14:34 | Outpatient (REF) | payer OTHER, SELFPAY ==
[2024-08-30 15:54] LABS: Free T4 (Free Thyroxine) 0.89 ng/dL (0.71-1.85); Thyroid Stimulating Hormone 2.39 uIU/mL (0.32-4.0); Vitamin D 25-OH Total 22.6 ng/mL (>30)
[2024-08-30 15:59] LABS: Influenza A PCR NEGATIVE (Negative); Influenza B PCR NEGATIVE (Negative); Resp Syncy Virus RNA Qual PCR NEGATIVE (Negative); SARS COV2 PCR INHOUSE NEGATIVE (Negative)
[2024-08-31 18:49] LABS: Prolactin 28.7 ng/mL
[2024-08-31 23:17] LABS: Thyroglobulin Antibodies <1 IU/mL (< or = 1); Thyroid Peroxidase Antibodies 31 IU/mL (<9)
== END 2024-08-30 14:35 | disposition home or self-care (01) ==
LOC: HO.LAB 14:34
PROVIDERS: Obstetrics & Gynecology; PCP Internal Medicine; Visit Provider Internal Medicine
DX: E03.8 Other specified hypothyroidism (principal); E55.9 Vitamin D deficiency, unspecified; R09.89 Other specified symptoms and signs involving the circulatory and respiratory systems; N93.9 Abnormal uterine and vaginal bleeding, unspecified
CPT/HCPCS: 0241U; 36415; 82306; 84146; 84439; 84443; 86376; 86800

== ENCOUNTER 2024-09-27 12:36 | Emergency (ER) | payer OTHER, SELFPAY ==
[2024-09-27 13:29] VITALS: BP 136/66; PULSE 91; RESP 18; TEMP 36.8; O2SAT 98; BMI 42.1
--- NOTE | 2024-09-27 13:29 | ED.GENADULT ---
HPI - General Adult General Chief complaint: General Medical Stated complaint: asthma Time Seen by Provider: 09/27/24 15:58 Source: patient, RN notes reviewed and old records reviewed Mode of arrival: ambulatory Limitations: no limitations History of Present Illness ED Provider: Charlie SUAREZ narrative: Patient is a 29-year-old female with history of asthma presenting with complaint of shortness of breath since Tuesday, was cleaning with bleach and feels this exacerbated her asthma. Woke with chills yesterday. Also states that she's having some dysuria, feels like a UTI. Has been using inhaler and nebulizer at home. complaint: shortness of breath Onset (ago): day(s) Related Data Previous Rx's ?Medication ?Instructions ?Recorded albuterol sulfate 2.5 mg/3 mL 2.5 mg (3 mL) inhalation Q4-6H PRN 11/04/22 (0.083 %) solution for nebulization shortness of breath or wheezing #75 mL Ventolin HFA 90 mcg/actuation 2 puff inhalation Q6H PRN 10/20/23 aerosol inhaler (albuterol sulfate) shortness of breath or wheezing 30 days #18 grams bupropion HCl 150 mg 24 hr tablet, 150 mg PO QAM 90 days #90 tabs 10/20/23 extended release omeprazole 20 mg capsule,delayed 20 mg PO DAILY 90 days #90 caps 10/20/23 release bisacodyl 5 mg tablet,delayed 5 mg PO BEDTIME #60 tabs 12/13/23 release (Dulcolax (bisacodyl)) epinephrine 0.3 mg/0.3 mL 0.3 mg (0.3 mL) IM Q10M PRN 12/23/23 injection, auto-injector anaphylaxis #2 ea prednisone 20 mg tablet 40 mg (2 x 20 mg) PO DAILY 4 days 12/23/23 #8 tabs cholecalciferol (vitamin D3) 125 125 mcg PO DAILY #30 caps 09/02/24 mcg (5,000 unit) capsule Allergies Allergy/AdvReac Type Severity Reaction Status Date / Time shrimp Allergy Mild tongue Verified 09/27/24 13:33 swelling Environmental Allergies Allergy Intermediate sneezing, Uncoded 01/12/24 12:27 asthma black olives Allergy Mild Itching Uncoded 01/12/24 12:27 Review of Systems Review of Systems: As per HPI Yes all other systems are reviewed and are negative Constitutional: Constitutional: Reports as per HPI [facility] Past Medical History Medical History Morbid obesity Hyperprolactinemia Depression Obese Asthma Surgical History History of esophagogastroduodenoscopy (EGD) No pertinent past surgical history Family History Family History Mother Hypertension Fibromyalgia Thyroid disease Father Parkinson disease Diabetes Sister No problems noted. Brother Colon cancer Brother No problems noted. Maternal Grandfather Colon cancer Prostate cancer Other Mental health disorder Social History Social History Housing: House Alcohol intake: never Patient Tobacco Use Status: Former Tobacco user Tobacco use type: Cigarette e-Cigarette/Vaping Use: Former Use Second Hand Smoke Exposure: No Advance Directives: No Advance Directives Information Provided: No Do you have a plan to hurt others: No Plan service: No Current occupational status: unemployed Cognitive needs: No Hearing needs: No Vision needs: No Physical Exam ED Vital Signs: Vital Signs - 24 hr 09/27/24 13:29 Temperature 98.3 F Pulse Rate 91 Respiratory Rate 18 Blood Pressure 136/66 Pulse Oximetry 98 Oxygen Delivery Method Room Air BMI result Body Mass Index 42.1 Vital signs have been reviewed and appear to be correct. Blood pressure normal. Heart rate normal. Respiratory rate normal. Temperature normal. Oxygen saturation normal. Const General: cooperative, healthy appearing and no acute distress Orientation/consciousness: oriented to person, oriented to place, oriented to time and patient oriented x3 Limitations: no limitations [facility] Head: Yes normocephalic and Yes atraumatic Ears: external ears normal General nose exam: Normal external nose present Face and sinus: Yes face symmetric Mouth: oropharynx normal and moist mucous membranes Throat: Yes uvula midline Eyes Pupils: Equal, round and reactive pupils present Neck Neck: Yes normal visual inspection and Yes supple Resp Effort & Inspection: normal respiratory effort and able to speak in complete sentences Auscultation: clear to auscultation bilaterally Cardio Rate: regular rate Rhythm: regular rhythm Heart sounds: S1 normal heart sound present and S2 normal heart sound present GI Palpation (GI): Soft to palpation and nontender Auscultation: normoactive bowel sounds General: Yes no CVA tenderness Back/Spine/Pelvis Back: no CVA tenderness Skin General skin exam: elasticity normal and turgor normal Neuro General: oriented to person, oriented to place, oriented to time, patient oriented x3, moves all extremities, no focal motor deficits and CN's II-XI intact bilaterally Cranial nerves: Yes Equal, round and reactive pupils present Cognition (Neuro): normal cognition Extrem General: Yes full ROM, Yes no pedal edema and Yes no calf tenderness Psych Mental Status: mental status grossly normal Affect: normal affect Thought process: Normal thought process present Course Course Course Narrative: This is a rapid medical exam performed by Mart Guerra NP: Additional HPI, ROS, PE not included below will be deferred to primary provider. Patient is a 29-year-old female with history of asthma presenting with complaint of shortness of breath, was cleaning with bleach and feels this exacerbated her asthma. Woke with chills yesterday. Also states that she's having some dysuria, feels like a UTI. Plan: viral serology, UA Medical Decision Making Medical Decision Making [facility] Narrative: Patient is a 29-year-old female with history of asthma presenting with complaint of shortness of breath, was cleaning with bleach and feels this exacerbated her asthma, also complaining of dysuria. On exam patient is awake, A+Ox3, VS WNL, afebrile, normal neurological exam without focal deficits, physical exam findings as above. Given reported symptoms and physical exam findings, initial differential includes but is not limited to asthma exacerbation, viral illness, COVID, flu, RSV, UTI. Viral serology positive for influenza A. Urinalysis notable for negative leukocytes, 2+ blood, no bacteria, do not suspect UTI. Results discussed with patient all questions answered. Discussed treatment with Tamiflu which patient declined. Advised adequate rest, adequate fluid intake, Tylenol and ibuprofen. Follow up with PCP as needed. Return precautions discussed. Patient verbalized understanding of and agreement with plan. Differential Diagnosis Differential Diagnoses: The differential diagnosis associated with the presentation includes As per [facility] Lab Data [facility] Lab Attestation statement: I reviewed the patient's lab results. As per [facility] Labs: Lab Results 09/27/24 Range/Units 13:45 Urine Color Yellow Urine Appearance Clear Urine pH 8.0 (5.0-9.0) Ur Specific Bells 1.025 (1.005-1.025) Urine Protein Negative (Neg-Trace) mg/dL Urine Glucose (UA) Negative (Negative) mg/dL Urine Ketones Negative (Negative) mg/dL Urine Blood Moderate (2+) H (Negative) Urine Nitrite Negative (Negative) Ur Leukocyte Esterase Negative (Negative) Urine RBC >20 H (0-2) /HPF Urine WBC 0-5 (0-5) /HPF Ur Squamous Epith Cells 0-2 (0-2) /HPF Urine Bacteria None Seen (None Seen) Hyaline Casts 0-2 (0-2) /LPF Urine Test NEGATIVE (NEGATIVE) Influenza Type A (PCR) POSITIVE A (Negative) Influenza Type B (PCR) NEGATIVE (Negative) RSV RNA Qual (PCR) NEGATIVE (Negative) SARS-CoV-2 RNA (RT-PCR) NEGATIVE (Negative) External Record Review External record reviewed: Inpatient record, Office record and Outpatient record Prescription Management I considered prescription management with: Antiviral Discharge Plan Discharge Clinical Impression: Influenza A Patient Disposition: Home, Self-Care Instructions: Influenza (DC), Flu Shot (Vaccine) for Adults (ED), Droplet Precautions (ED) Additional Instructions: You were evaluated in the emergency department today for shortness of breath. Your flu test was positive. You should isolate at home for the next few days and continue to wear a mask while symptomatic after that. You were offered treatment with Tamiflu which you declined. Your symptoms should resolve over time with rest and fluids. You can take 650 mg Tylenol or 600 mg ibuprofen every 6 hours as needed for fever or pain. Please follow-up with your primary care provider for any ongoing symptoms. Return to the emergency department if you develop worsening pain, fever not controlled with Tylenol and ibuprofen, chest pain, dizziness or lightheadedness, or any other concerning symptoms. Prescriptions: No Action cholecalciferol (vitamin D3) 125 mcg (5,000 unit) capsule 125 mcg PO DAILY Qty: 30 2RF albuterol sulfate 2.5 mg /3 mL (0.083 %) solution for nebulization 2.5 mg inhalation Q4-6H PRN (Reason: shortness of breath or wheezing) Qty: 75 0RF prednisone 20 mg tablet 40 mg PO DAILY 4 Days Qty: 8 0RF epinephrine 0.3 mg/0.3 mL auto-injector 0.3 mg IM Q10M PRN (Reason: anaphylaxis) Qty: 2 0RF Rx Instructions: for 2 doses bupropion HCl 150 mg tablet extended release 24 hr 150 mg PO QAM 90 Days Qty: 90 1RF omeprazole 20 mg capsule,delayed release(DR/EC) 20 mg PO DAILY 90 Days Qty: 90 1RF albuterol sulfate [Ventolin HFA] 90 mcg/actuation HFA aerosol inhaler 2 puff inhalation Q6H PRN (Reason: shortness of breath or wheezing) 30 Days Qty: 18 3RF bisacodyl [Dulcolax (bisacodyl)] 5 mg tablet,delayed release (DR/EC) 5 mg PO BEDTIME Qty: 60 4RF Stand Alone Forms: Work/School Release Print Language: Kinyarwanda
[2024-09-27 13:56] LABS: Appearance Urine Clear; Color Urine Yellow; Glucose Urine UA Negative (Negative); Leukocyte Esterase Urine Negative (Negative); Nitrite Urine Negative (Negative); Specific Gravity - Urine 1.025 (1.005-1.025); UMIC TRIGGER UACC YES; Urine Blood Moderate (2+) (Negative); Urine Ketones Negative (Negative); Urine Protein Negative (Neg-Trace)
[2024-09-27 13:57] LABS: UPreg QC Valid YES; Urine Pregnancy NEGATIVE (NEGATIVE)
[2024-09-27 13:58] LABS: Bacteria Urine None Seen (None Seen); Hyaline Casts Urine 0-2 /LPF (0-2); RBC Urine >20 /HPF (0-2); Squamous Epithelial Cell Urine 0-2 /HPF (0-2); WBC Urine 0-5 /HPF (0-5)
[2024-09-27 14:43] LABS: Influenza A PCR POSITIVE (Negative); Influenza B PCR NEGATIVE (Negative); Resp Syncy Virus RNA Qual PCR NEGATIVE (Negative); SARS COV2 PCR INHOUSE NEGATIVE (Negative)
--- OUTSIDE RECORDS SUMMARY | 2024-09-27 16:01 | XMS_ITS | Clinical Summary ---
Author Organization 175 [facility] Address [address] [place] [address] Phone Care Team Providers Care Electrical Parts Reconditioner Name Role Phone Beckie Grace MD Primary Care Provider [phone] Allergies Active Allergy Reactions Criticality Noted Date Comments Other 12/21/2023 Seasonal Allergies Shrimp Itching 12/21/2023 Medications No known medications Active Problems Problem Noted Date Diagnosed Date Class 3 severe obesity due t o excess calories with body mass index (BMI) of 40.0 to 44.9 in adult 02/02/2024 Asthma 01/04/2024 GERD (gastroesophageal reflux disease) Encounters Date Type Department Care Team Description 09/25/2024 1:30 PM EST Office Visit Bariatric Surgery - [address] [place] [address] Maril Carvalho MD Morbid obesity with BMI of 40.0-44.9, adult ([facility]) (Primary Dx); Gastroesophageal reflux disease, unspecified whether esophagitis present; Weight gain from Last 3 Months Social History Tobacco Use Types Packs/Day Years Used Date Smoking Tobacco: Never Assessed Comments Unknown Sex and Gender Information Value Date Recorded Sex Assigned at Not on file Legal Sex Female 11:06 AM EDT Gender Identity Not on file Sexual Orientation Not on file Last Filed Vital Signs Vital Sign Reading Time Taken Comments Blood Pressure 132/85 09/25/2024 1:32 PM EST Pulse 94 09/25/2024 1:32 PM EST Temperature 37.1 ??C (98.7 ??F) 09/25/2024 1:32 PM ES T Respiratory Rate - - Oxygen Saturation - - Inhaled Oxygen Concentration - - Weight 116 kg (256 lb) 09/25/2024 1:32 PM EST Height 162.6 cm (5' 4 ) 09/25/2024 1:32 PM EST Body Mass Index 43.94 09/25/2024 1:32 PM EST Plan of Treatment Upcoming Encounters Date Type Department Care Team (Late st Contact Info) Description 10/08/2024 2:00 PM EST Nutrition Bariatric Surgery - [place] [address] [facility] [address] [place] [address] Julia Flores, RD 175 [facility] [address] [place] [id number] Health Maintenance Due Date Last Done Comments Pneumococcal Vaccine: Pediatrics (0 to 5 Years) and At-Risk Patients (6 to 64 Years) (1 of 2 - PCV) 2016 Cervical Cancer Screening: Pap Smear 2018 Cholesterol Screening (Lipid Panel) 03/09/2024 Depression Screening 03/09/2024 HIV Screening 03/09/2024 Hepatitis C Screening 03/09/2024 Social Influencers of Health Screening 03/09/2024 COVID-19 Vaccine ( season) 2024 02/24/2022, 05/30/2021 Influenza Vaccine (#1) 2024 , 07/24/2019, 06/05/2019, Additional history exists DTaP,Tdap,and Td Vaccines (8 - Td or Tdap) 06/05/2029 06/05/2019, 05/24/2008, 05/24/2008, Additional history exists HIB Vaccines Completed 08/15/1998, 09/1997, 1997, Additional history exists Hepatitis A Vaccines Completed 09/13/2007, 08/17/2007, 01/20/2007, Additional history exists HPV Vaccines Completed 05/24/2008, 10/14, 09/13/2007, Additional history exists Meningococcal ACWY Vaccine Aged Out 12/04/2008 N o longer eligible based on patient's age to complete this topic IPV Vaccines Completed 04/24/2011, 12/1998, 1997, Additional history exists Varicella Vaccines Aged Out 08/03/2019, 09/13/2007 No longer eligible based on patient's age to complete this topic Hepatitis B Vaccines Completed 02/02/2023, 01/24/1998, 1997, Additional history exists MMR Vaccines Completed 02/17/2023, 11/13, 04/15/2001, Additional history exists Meningococcal B Vacine Aged Out No lo nger eligible based on patient's age to complete this topic RSV Immunization Patients Under 20 months Aged Out No longer eligible based on patient's age to complete this topic Insurance [facility] [employer] Care Teams Electrical Parts Reconditioner Relationship Specialty Start Date End Date Beckie Grace MD 2 [facility] , [place] [address] [facility] Physician Associ D/B/A: Richie Singhatikimberly In Internal Medicine JEN Quiroz PCP - General 12/21/23
--- OUTSIDE RECORDS SUMMARY | 2024-09-27 16:01 | XMS_ITS | Encounter Summary ---
Author Organization [facility] Address [address] [place] [address] Care Team Providers Care Cherry Picker Operator Name Role Phone Beckie Grace MD Primary Care Provider [phone] Reason for Referral * Imaging (Routine) - Authorized Specialty Diagnoses / Procedures Referred By Contac t Referred To Contact Radiology Diagnoses Gastroesophageal reflux disease, unspecified whether esophagitis present Procedures XR UGI w Single Contrast Marli aCrvalho MD [address] [address] Phone: tel: fax: [facility] [address] Scan [address] [place] [address] Phone: tel: Referral ID Status Reason Start Date Expiration Date V isits Requested Visits Authorized [id number] Authorized 09/25/2024 09/25/2025 1 1 Reason for Visit * Reason Comments Consult Restart Program Encounter Details Date Type Department Care Team (Late st Contact Info) Description 09/25/2024 1:30 PM EST Office Visit Bariatric Surgery - [place] [address] [address] Marli Carvalho MD [address] [address] Morbid obesity with BMI of 40.0-44.9, adult ([facility]) (Primary Dx); Gastroesophageal reflux disease, unspecified whether esophagitis present; Weight gain Social History Tobacco Use Types Packs/Day Years Used Date Smoking Tobacco: Never Assessed Comments Unknown Sex and Gender Information Value Date Recorded Sex Assigned at Not on file Legal Sex Female 11:06 AM EDT Gender Identity Not on file Sexual Orientation Not on file documented as of this encounter Last Filed Vital Signs Vital Sign Reading [...] Mass Index 43.94 09/25/2024 1:32 PM EST documented in this encounter Progress Notes * Marli Carvalho MD - 09/25/2024 1:30 PM EST Hina was last seen in December 2023 for obesity. She then had some family issues and needed to take care of her grandmother so had to stay away from the program for several months. Her weight at that time was 246 pounds. At that initial visit, she had some reflux and was on as needed omeprazole. Had an EGD about 8 years ago, no hiatal hernia at that time. I did order an upper GI study to rule out a hiatal hernia. She had been waitlisted to see psychiatrist to discuss and treat her depression which had a role inher weight gain.-Had seen a psychiatrist in the past, was on meds, now off. A sleep study has been ordered as well for symptoms of snoring, daytime somnolence and fatigue. She saw the dietitian once in January 2024. Today she states that she did see a psychiatrist in the past for her depression and was on medications temporarily. She is now off medications and feeling well. She is taking 5,000u of daily vitamin D. Has a history of insomnia-sleep anywhere from 8 to 3 hours per night. Sometimes snacks at night because she feels hungry. barriers to weight loss: eating fast, eating late at night. Not big portions. Exercise: walking. Used to do you tube exercise. Weight change since initial visit: 246 -256= +10 lbs Vitals: 09/25/24 1332 BP: 132/85 Pulse: 94 Temp: 37.1 ??C (98.7 ??F) TempSrc: Temporal Weight: 116 kg (256 lb) Height: 1.626 m (64 ) Assessment and plan: 29-year-old female with morbid obesity. Will continue the weight loss program.Did see the dietitian in the summer. Restart follow-up with dietitian again. We discussed the importance of lifelong healthy diet and exercise. She will find ways to increase her activity level. We discussed GERD diet and lifestyle modifications. Will reorder upper GI study to rule out hiatal hernia. Sleep study was reordered. Labs were reordered. She will need a PCP preop evaluation as well as a psychiatric clearance. We discussed the sleeve gastrectomy and gastric bypass in detail. Follow-up with me once cleared by dietitian and done with her preop workup. documented in this encounter Plan of Treatment Upcoming Encounters Date Type Department Care Team (Late st Contact Info) Description 10/08/2024 2:00 PM EST Nutrition Bariatric Surgery - [address] [address] Julia Flores, RD [address] [address] Scheduled Orders Name Type Priority Associated Diagnoses Orde r Schedule XR UGI w Single Contrast Imaging Routine Gastroesophageal reflux disease, unspecified whether esophagitis present Expected: 09/25/2024, Expires: 09/25/2025 CBC and differential Lab Routine Morbid obesity with BMI of 40.0-44.9, adult (CMS/HCC) 1 Occurrences starting 09/25/2024 until 09/25/2025 Comprehensive metabolic panel Lab Routine Morbid obesity with BMI of 40.0-44.9, adult (CMS/HCC) 1 Occurrences starting 09/25/2024 until 09/25/2025 Cortisol Lab Routine Morbid obesity with BMI of 40.0-44.9, adult ([facility]) 1 Occurrences starting 09/25/2024 until 09/25/2025 Ferritin Lab Routine Morbid obesity with BMI of 40.0-44.9, adult ([facility]) 1 Occurrences starting 09/25/2024 until 09/25/2025 Folate Lab Routine Morbid obesity with BMI of 40.0-44.9, adult ([facility]) 1 Occurrences starting 09/25/2024 until 09/25/2025 Helicobacter pylori breath test Lab Routine Morbid obesity with BMI of 40.0-44.9, adult ([facility]) 1 Occurrences starting 09/25/2024 until 09/25/2025 Hemoglobin A1c Lab Routine Morbid obesity with BMI of 40.0-44.9, adult ([facility]) 1 Occurrences starting 09/25/2024 until 09/25/2025 Insulin, fasting Lab Routine Morbid obesity with BMI of 40.0-44.9, adult ([facility]) 1 Occurrences starting 09/25/2024 until 09/25/2025 Iron and TIBC Lab Routine Morbid obesity with BMI of 40.0-44.9, adult ([facility]) 1 Occurrences starting 09/25/2024 until 09/25/2025 Lipid panel with reflex to direct LDL Lab Routine Morbid obesity with BMI of 40.0-44.9, adult ([facility]) 1 Occurrences starting 09/25/2024 until 09/25/2025 Nicotine and cotinine Lab Routine Morbid obesity with BMI of 40.0-44.9, adult ([facility]) 1 Occurrences starting 09/25/2024 until 09/25/2025 Parathyroid hormone intact Lab Routine Morbid obesity with BMI of 40.0-44.9, adult ([facility]) 1 Occurrences starting 09/25/2024 until 09/25/2025 Thyroid stimulating hormone with reflex to free t4 and free t3 Lab Routine Morbid obesity with BMI of 40.0-44.9, adult ([facility]) 1 Occurrences starting 09/25/2024 until 09/25/2025 Uric acid Lab Routine Morbid obesity with BMI of 40.0-44.9, adult ([facility]) 1 Occurrences starting 09/25/2024 until 09/25/2025 Vitamin B1 Lab Routine Morbid obesity with BMI of 40.0-44.9, adult ([facility]) 1 Occurrences starting 09/25/2024 until 09/25/2025 Vitamin B12 Lab Routine Morbid obesity with BMI of 40.0-44.9, adult ([facility]) 1 Occurrences starting 09/25/2024 until 09/25/2025 Vitamin D 25 hydroxy Lab Routine Morbid obesity with BMI of 40.0-44.9, adult ([facility]) 1 Occurrences starting 09/25/2024 until 09/25/2025 documented as of this encounter Visit Diagnoses Diagnosis Morbid obesity with BMI of 40.0-44.9, adult ([facility])- Primary Gastroesophageal reflux disease, unspecified whether esophagitis present Weight gain Other symptoms concerning nutrition, metabolism, and development documented in this encounter Care Teams Cherry Picker Operator Relationship Specialty Start Date End Date Beckie Grace MD 2 [facility] , [address] Physician Associ D/B/A: Richie Singhatikimberly In Internal Medicine JEN Quiroz PCP - General 12/21/23 documented as of this encounter
--- OUTSIDE RECORDS SUMMARY | 2024-09-27 16:01 | XMS_ITS | Patient Health Record ---
Author Organization [facility] Address [address] [facility] [place] [address] Support Name Relationship Address Phone Agustin, Hina Beverly Guarantor Unknown [phone] Allergies No Known Allergies Reason For Referral No Information Problems Problem Type SNOMED Code ICD Code Onset Dates Problem Status W/U Status Risk Notes Problem Obese class II (930274717734 105) Body mass index (BMI) 35.0-35.9, adult (Z68.35) Active confirmed Plan Of Treatment No Information Insurance Providers Payer Name Payer Address Payer Phone Subscriber Number Group Number Insured Name Patient Relationship to Insured Coverage Start Date Coverage End Date [facility] [employer] [employer] [address] [address] [place] [address] [id number] Hina Agustin Self - patient is the insured Medical (General) History Medical History History ICD Code none
[2024-09-27 16:05] VITALS: BP 136/66; PULSE 91; RESP 18; TEMP 36.8; O2SAT 98
== END 2024-09-27 16:06 | disposition home or self-care (01) ==
PROVIDERS: Registered Nurse Emergency; Emergency Provider Emergency Medicine; PCP Internal Medicine
DX: J10.1 Influenza due to other identified influenza virus with other respiratory manifestations (principal); R06.02 Shortness of breath; Z03.818 Encounter for observation for suspected exposure to other biological agents ruled out
CPT/HCPCS: 0241U; 81001; 81025; 99282; 99283

== ENCOUNTER 2024-11-27 10:48 | Outpatient (AMB) | payer OTHER, SELFPAY ==
[2024-11-27 10:50] VITALS: BP 120/82; BMI 43.1
--- NOTE | 2024-11-27 10:50 | MHC.PC.OV ---
Vital Signs 11/27/24 10:50 Height 5 ft 4 in Weight 251 lb BMI 43.1 BP 120/82 Blood Pressure Location Lt brachial Position Sitting Intake Visit Reasons: annual exam Intake Note: Patient here for an annual physical exam [facility]isle Cashier Required: No Accompanied by: Mother Allergies shrimp Allergy (Mild, Verified 11/27/24 11:07) tongue swelling Environmental Allergies Allergy (Intermediate, Uncoded 11/27/24 11:07) sneezing, asthma black olives Allergy (Mild, Uncoded 11/27/24 11:07) Itching Medication List - Last Reconciled 11/27/24 by Beckie Grace MD albuterol sulfate 2.5 mg (3 mL) inhalation Q4-6H PRN bisacodyl (Dulcolax (bisacodyl)) 5 mg PO BEDTIME bupropion HCl XL 150 mg PO QAM 90 days epinephrine 0.3 mg (0.3 mL) IM Q10M PRN ergocalciferol (vitamin D2) 1,250 mcg PO QWEEK omeprazole 20 mg PO DAILY 90 days prednisone 40 mg (2 x 20 mg) PO DAILY 4 days Ventolin HFA 90 mcg/actuation (albuterol sulfate) 2 puffs inhalation Q6H PRN 30 days NS Tobacco use date assessed: 11/27/24 Dental Screening Dental Screen Date: 11/27/24 Did you have a dental visit in the last 12 months?: Yes Did you have a dental problem in the last 6 months where you did not have access to dental care?: No Was dental information given to patient?: Patient has dentist HPI HPI Comments History of Present Illness Details The patient is a 29-year-old female presenting for an annual physical examination after a 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 She has notable allergies to shrimp, black olives, and an unidentified medication, necessitating the use of an Epipen. Medications include bisacodyl and bupropion 150 mg, with a recent PHQ-9 score reflecting mild depression which is being actively managed. Use of vitamin D and omeprazole is ongoing for heartburn relief. 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 Despite no significant surgical history aside from an endoscopy, her BMI suggests a need for lifestyle modifications. Family medical history prompts a gastrointestinal evaluation, as she was referred to [facility] previously. Current discussions emphasize weight loss and lifestyle improvements. - Papanicolaou test performed last year showing CIN1; follow-up biopsy done. - Identified need for monitoring thyroid function due to Nata's thyroiditis. - Cholesterol, blood sugar, kidney, and liver function tests to be conducted. - Encouragement of weight management and referral to allergy testing due to unidentified allergen. - Vaccine status updated and current. 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 Brother Colon cancer Brother No problems noted. Maternal Grandfather Colon cancer Prostate cancer Other Mental health disorder Social History Housing: House Alcohol intake: never Patient Tobacco Use Status: Former Tobacco user Tobacco use type: Cigarette e-Cigarette/Vaping Use: Former Use Second Hand Smoke Exposure: No service: No Current occupational status: unemployed Cognitive needs: No Hearing needs: No Vision needs: No Female Reproductive History Menstrual Age of Menarche: 14 Questionnaire PHQ-9 Over the last 2 weeks, how often have you been bothered by any of the following problems? 1. Little interest or pleasure in doing things: not at all 2. Feeling down, depressed, or hopeless: several days 3. Trouble falling or staying asleep, or sleeping too much: not at all 4. Feeling tired or having little energy: nearly every day 5. Poor appetite or overeating: not at all 6. Feeling bad about yourself - or that you are a failure or have let yourself or your family down: several days 7. Trouble concentrating on things, such as reading the newspaper or watching television: not at all 8. Moving or speaking so slowly that other people could have noticed. Or the opposite - being so fidgety or restless that you have been moving around a lot more than usual: several days 9. Thoughts that you would be better off or of hurting yourself in some way: not at all Total score: 6 Depression Screening Interpretation: Positive Depression Screening Follow-up: Existing condition, In treatment and Follow-up Visit Requested Depression Screening Done: Yes 10576 - PHQ-9 Billing: Yes Source: Developed by Drs. Ariel Bragg, Jo Zimmerman, Charles Molina and colleagues, with an educational aquiles from [employer]. Thrive Questionnaire Date Thrive assessed: 11/27/24 I am a: Patient What is your living situation today?: I have a steady place to live Within the past 12 months, did the food you bought not last and you didn't have the money to get more?: Never true Within the past 12 months, did you worry whether your food would run out before you got money to buy more?: Never true Do you have trouble paying for medicines?: No Do you have trouble getting transportation to medical appointments?: No Do you have trouble paying your heating and electricity bill?: No Do you have trouble taking care of your child, family member or friend?: No Do you have trouble with day-to-day activities such as bathing, preparing meals, shopping, managing finances, etc.?: No Are you currently unemployed and looking for a job?: No Are you interested in more education?: No Please select the resources that you would like help with: None Currently or been in a relationship where the following occur: No concerns reported THRIVE Score: 0 AUDIT C Alcohol Use Questionnaire (AUDIT-C) 1. How often do you have a drink containing alcohol?: Never Total Score: 0 Score Reviewed/Action Taken: No TERRELL-7 AMB Questionnaire TERRELL-7 Date TERRELL - 7 assessed: 11/27/24 Feeling nervous, anxious, or on edge: 1 = Several days Not being able to stop or control worryin = Not at all Worrying too much about different things: 1 = Several days Trouble relaxin = Several days Being so restless that it is hard to sit still: 0 = Not at all Becoming easily annoyed or irritable: 3 = Nearly every day Feeling afraid as if something awful might happen: 3 = Nearly every day Total TERRELL-7 score (0-4 normal; 5-9 mild; 10-14 moderate; 15-21 severe): 9 Source: Developed by Drs. Ariel Bragg, Jo Zimmerman, Charles Molina and colleagues, with an educational aquiles from [employer]. TERRELL-7 Assessment Billing TERRELL-7 Assessment Tool: TERRELL-7 Assessment 17134 Review of Systems Const All systems reviewed & are unremarkable except as noted in HPI and below Card Denies chest pain at rest, Denies chest pain with activity, Denies edema, Denies irregular heart rhythm, Denies claudication, Denies dyspnea, Denies dyspnea on exertion, Denies orthopnea, Denies paroxysmal nocturnal dyspnea and Denies slow heart rate Resp Denies cough, Denies dyspnea and Denies dyspnea on exertion GI Denies abdominal pain, Denies change in bowel habits, Denies excessive flatus, Denies nausea and Denies vomiting Physical exam (Primary Care) Vital Signs: Last Vital Signs BP 120/82 11/27/24 10:50 BMI result Body Mass Index 43.1 BMI Assessment/Plan discussion: High BMI High, discussed plan: lifestyle, weight reduction, dietary and physical activity Tobacco/Smoking Status: Tobacco use Status Tobacco use date assessed 11/27/24 11/27/24 10:59 Patient Tobacco Use Status Former Tobacco user 11/27/24 10:51 Tobacco use type Cigarette 11/27/24 10:51 e-Cigarette/Vaping Use Former Use 11/27/24 10:51 PHQ-9: PHQ-9 Score PHQ-9: Total score 6 11/27/24 11:11 Depression Screening Interpretation: Positive Depression Screening Follow-up: Existing condition, In treatment and Follow-up Visit Requested Thrive Assessment: Date of Thrive Assessment Date Thrive assessed 11/27/24 11/27/24 10:59 Currently or been in a relationship where the following occur: No concerns reported HENMT Head: Yes normal to inspection, Yes normocephalic and Yes atraumatic Ears: external ears normal Eyes General: appearance normal, both eyes and all related structures Eyelids: Yes eyelids normal Conjunctivae: conjunctivae normal Neck Neck: Yes normal visual inspection and Yes supple Resp Effort & Inspection: normal respiratory effort Auscultation: clear to auscultation bilaterally Cardio Jugular venous distension: no JVD Rate: regular rate Rhythm: regular rhythm Heart sounds: S1 normal heart sound present and S2 normal heart sound present GI Inspection: Yes normal to inspection Palpation (GI): Soft to palpation and nontender Auscultation: normal bowel sounds Skin General skin exam: no rashes or lesions noted Neuro General: no focal motor deficits Extrem General: Yes full ROM Psych Appearance: grossly normal Coding Level of Care Code Est Pt Level 3 (83229) Est Pt Prev Care 18-39y(89067) Diagnoses Physical exam Z00.00 Allergic reaction T78.40XA Morbid obesity E66.01 Mild recurrent major depression F33.0 Additional Codes TERRELL-7 Assessment Billing - TERRELL-7 Assessment Tool: TERRELL-7 Assessment 61581 ([id number]) PHQ-9 - 80539 - PHQ-9 Billing: Yes ([id number]) Time Spent (min) 33 Assessment & Plan Assessment & Plan (1) Physical exam: Code(s): Z00.00 - Encounter for general adult medical examination without abnormal findings Category: Medical (2) Allergic reaction: Code(s): T78.40XA - Allergy, unspecified, initial encounter Category: Medical (3) Morbid obesity: Code(s): E66.01 - Morbid (severe) obesity due to excess calories Category: Medical (4) Mild recurrent major depression: Code(s): F33.0 - Major depressive disorder, recurrent, mild Category: Medical Plan Continuation of cervical cancer surveillance is advised following the CIN1 finding. An allergy workup is necessary due to the unspecified medication allergy, while maintaining the current depressive disorder management. Heartburn is addressable through omeprazole and dietary modifications. Monitoring thyroid function due to Nata's thyroiditis remains crucial, independent of the current euthyroid state. Emphasis on lifestyle changes, including weight loss and exercise, is stressed. She should maintain her connection with gastrointestinal specialists at [facility] for any future familial concerns. Patient was informed and verbally consented to the use of an ambient scribe for clinic note documentation during this visit. During this appointment, I discussed the importance of monitoring the CIN1 finding with routine Pap smears. We acknowledged the necessity for allergy testing following reactions to unidentified medications. I advised that her current treatment regimen for depression appears effective, and we will regularly monitor her PHQ-9 score. Continuation of omeprazole was recommended with emphasis on addressing lifestyle factors to ameliorate heartburn symptoms. We reviewed the current status of her Nata's thyroiditis and the ongoing need to reassess thyroid function periodically. Discussions highlighted the prompt action for weight management and suggested exercise to achieve a healthier BMI. 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 Orders: Orders Thyroid Stimulating Hormone Today E03.8 - Other specified hypothyroidism Lipid Panel Today Z00.00 - Encounter for general adult medical examination without abnormal findings Comprehensive Garretson. Panel Fast Today Z00.00 - Encounter for general adult medical examination without abnormal findings Vitamin D 25-OH Total Today E55.9 - Vitamin D deficiency, unspecified Referrals Allergy & Immunology Referral T78.40XA - Allergy, unspecified, initial encounter Patient Instructions: - Schedule and attend follow-up Pap smear appointments. - Proceed with allergy testing as advised. - Continue current depression medication and follow up based on future PHQ-9 scores. - Incorporate dietary changes to manage heartburn and follow an omeprazole regimen. - Monitor thyroid function regularly to manage Nata's thyroiditis. - Implement lifestyle changes to promote weight loss and physical activity. - Maintain engagement with gastrointestinal specialists as needed.
--- OUTSIDE RECORDS SUMMARY | 2024-11-27 13:07 | XMS_ITS | Patient Health Record ---
Author Organization [facility] Address [address] [address] Support Name Relationship Address Phone Agustin, Hina Beverly Guarantor Unknown Allergies No Known Allergies Reason For Referral No Information Problems Problem Type SNOMED Code ICD Code Onset Dates Problem Status W/U Status Risk Notes Problem Obese class II ([id number] 105) Body mass index (BMI) 35.0-35.9, adult (Z68.35) Active confirmed Plan Of Treatment No Information Insurance Providers Payer Name Payer Address Payer Phone Subscriber Number Group Number Insured Name Patient Relationship to Insured Coverage Start Date Coverage End Date [facility] [employer] [address] [address] [place] [address] [id number] Hina Agustin Self - patient is the insured Medical (General) History Medical History History ICD Code none
--- OUTSIDE RECORDS SUMMARY | 2024-11-27 13:07 | XMS_ITS | Encounter Summary ---
Author Organization [facility] Address [address] [place] [address] Care Team Providers Care Tin Dipper Name Role Phone Beckie Grace MD Primary Care Provider [phone] Reason for Visit * Imaging (Routine) - Closed Specialty Diagnoses / Procedures Referred By Contac t Referred To Contact Radiology Diagnoses Gastroesophageal reflux disease, unspecified whether esophagitis present Procedures XR UGI w Air Contrast XR UGI w Single Contrast Marli Carvalho MD [address] [address] Phone: tel: fax: [facility] CT Scan [address] [place] [address] Phone: tel: Referral ID Status Reason Start Date Expiration Date Visits Re quested Visits Authorized [id number] Closed 09/25/2024 09/25/2025 1 1 Encounter Details Date Type Department Care Team (Latest Contact Info) Description 11/22/2024 8:00 AM EDT - 11/22/2024 11:59 PM EDT Hospital Encounter [facility] Xray [address] [place] [address] Gastroesophageal reflux disease, unspecified whether esophagitis present Discharge Disposition: Home or Self Care Social History Tobacco Use Types Packs/Day Years Used Date Smoking Tobacco: Never Assessed Comments Unknown Sex and Gender Information Value Date Recorded Sex Assigned at Not on file Legal Sex Female 11:06 AM EDT Gender Identity Not on file Sexual Orientation Not on file documented as of this encounter Medications at Time of Discharge ergocalciferol (VITAMIN D-2) 1,250 mcg (50,000 unit) capsule Take 1 capsule (50,000 Units total) by mouth 1 (one) time per week. 12 each 10/16/2024 10/16/2025 documented as of this encounter Discharge Disposition Disposition Code Departure Means Destination Home or Self Care documented in this encounter Plan of Treatment Upcoming Encounters Date Type Department Care Team (Late st Contact Info) Description 12/18/2024 10:00 AM EDT Nutrition Bariatric Surgery - [place] [address] [facility] [address] [place] [address] Julia Flores, RD [address] [facility] [address] [place] [address] documented as of this encounter Procedures Procedure Name Priority Date/Time Associated Diagnosis Comments XR UGI W AIR CONTRAST Routine 11/22/2024 8:35 AM EDT Gastroesophageal reflux disease, unspecified whether esophagitis present documented in this encounter Results * XR UGI w Air Contrast (11/22/2024 8:35 AM EDT) Anatomical Region Laterality Modality Body Radiographic Francisca ging 11/22/2024 10:4 9 AM EDT Impressions 11/22/2024 11:41 AM EDT Normal double contrast upper GI examination. -------- FINAL REPORT -------- Dictated By: Rhonda Lopez Dictated Date: 11/22/2024 10:49 ET Assigned Physician: Alex Loyola Reviewed and Electronically Signed By: Alex Loyola Signed Date: 11/22/2024 11:41 ET Workstation ID: [id number] Transcribed By: Self Edit Transcribed Date: 11/22/2024 10:50 ET Resident/PA/MANAGER RELIABILITY: Rhonda Lopez Narrative 11/22/2024 11:41 AM EDT FINDINGS: Double contrast UGI performed. COMPARISON: None. HISTORY: Patient is a 29-year-old female preop for gastric sleeve. TOWER CLIMBER radiographs: Payroll Processor AP radiograph of the abdomen obtained. Bowel gas pattern is nonobstructive. Osseous structures are overall unremarkable. FINDINGS: Effervescent crystals were administered orally. Thick and thin barium was then administered orally under fluoroscopic control. Esophagus: Normal distensibility, motility and mucosal pattern. There is no evidence of obstruction or hiatal hernia. Stomach: Normal distensibility and motility. Prompt passage of contrast from the stomach into the duodenal bulb and sweep. No gastric mass or ulceration. Visualization of proximal small bowel is within normal limits. ?? Gastroesophageal reflux: Unable to elicit DAP: 11.16 Gycm^2 Procedure Note Alex Loyola MD - 11/22/2024 FINDINGS: Double contrast UGI performed. COMPARISON: None. HISTORY: Patient is a 29-year-old female preop for gastric sleeve. TOWER CLIMBER radiographs: Payroll Processor AP radiograph of the abdomen obtained. Bowel gaspattern is nonobstructive. Osseous structures are overall unremarkable. FINDINGS: Effervescent crystals were administered orally. Thick and thinbarium was then administered orally under fluoroscopic control. Esophagus: Normal distensibility, motility and mucosal pattern. There isno evidence of obstruction or hiatal hernia. Stomach: Normal distensibility and motility. Prompt passage of contrastfrom the stomach into the duodenal bulb and sweep. No gastric mass orulceration. Visualization of proximal small bowel is within normal limits. Gastroesophageal reflux: Unable to elicit DAP: 11.16 Gycm^2 IMPRESSION: Normal double contrast upper GI examination. -------- FINAL REPORT -------- Dictated By: Rhonda Lopez Dictated Date: 11/22/2024 10:49 ET Assigned Physician: Alex Loyola Reviewed and Electronically Signed By: Alex Loyola Signed Date: 11/22/2024 11:41 ET Workstation ID: [id number] Transcribed By: Self Edit Transcribed Date: 11/22/2024 10:50 ET Resident/PA/MANAGER RELIABILITY: Rhonda Lopez us Marli Carvalho MD IMG FLUOROSCOPY PROCEDU RES Final Result documented in this encounter Visit Diagnoses Diagnosis Gastroesophageal reflux disease, unspecified whether esophagitis present documented in this encounter Administered Medications Inactive Administered Medications - up to 3 most recent administrations Medication Order MAR Action Action Date Dose Rate Site barium sulfate (E-Z-HD) 98 % suspension 100 mL 100 mL, oral, Once in imaging, Starting on Alana 11/22/24 at 0835, For 1 dose Given 11/22/2024 8:36 AM EDT 100 mL barium sulfate (E-Z-PAQUE) 96 % (w/w) suspension 50 mL 50 mL, oral, Once in imaging, Starting on Alana 11/22/24 at 0835, For 1 dose Given 11/22/2024 8:36 AM EDT 50 mL sod bicarb-citric ac-simeth 2.21-1.53 gram/4 gram packet 2 packet 2 packet, oral, Once, On Alana 11/22/24 at 0900, For 1 dose, Dissolve the contents of a half of a packet on the back of the tongue, wash down with 15 mL of water or juice and repeat with remaining contents. Given 11/22/2024 8:36 AM EDT 2 packets documented in this encounter Care Teams Tin Dipper Relationship Specialty Start Date End Date Beckie Grace MD [address] [facility] , [address] [facility] Physician Associ D/B/A: [facility] [place] PCP - General 12/21/23 documented as of this encounter
--- OUTSIDE RECORDS SUMMARY | 2024-11-27 13:07 | XMS_ITS | Clinical Summary ---
Author Organization 175 [facility] Address [address] [place] [address] Phone Care Team Providers Care Supplier Quality Manager Name Role Phone Beckie Grace MD Primary Care Provider [phone] Allergies Active Allergy Reactions Criticality Noted Date Comments Other 12/21/2023 Seasonal Allergies Shrimp Itching 12/21/2023 Medications ergocalciferol (VITAMIN D-2) 1,250 mcg (50,000 unit) capsule Take 1 capsule (50,000 Units total) by mouth 1 (one) time per week. 12 each 10/16/2024 Active Active Problems Problem Noted Date Diagnosed Date Class 3 severe obesity with serious comorbidity and body mass index (BMI) of 40.0 to 44.9 in adult 02/02/2024 Asthma 01/04/2024 GERD (gastroesophageal reflux disease) 4 Encounters Date Type Department Care Team Description 11/22/2024 8:00 AM EDT - 11/22/2024 11:59 PM EDT Hospital Encounter [facility] [address] [place] [address] Gastroesophageal reflux disease, unspecified whether esophagitis present Discharge Disposition: Home or Self Care 11/13/2024 12:30 PM EDT Nutrition Bariatric Surgery - [place] [address] [phone] Class 3 severe obesity with serious comorbidity and body mass index (BMI) of 40.0 to 44.9 in adult, unspecified obesity type (Primary Dx) 10/09/2024 11:15 AM EST Lab Draw Station - 175 [facility] 175 [facility] [address] [place] [address] Morbid obesity with BMI of 40.0-44.9, adult ([facility] V24, CMS/[facility] V28) 10/08/2024 2:00 PM EST Nutrition Bariatric Surgery - [address] [address] Class 3 severe obesity with serious comorbidity and body mass index (BMI) of 40.0 to 44.9 in adult, unspecified obesity type (CMS/HCC V24, CMS/HCC V28) (Primary Dx) 09/25/2024 1:30 PM EST Office Visit Bariatric Surgery [address] [phone] Marli Carvalho MD Morbid obesity with BMI of 40.0-44.9, adult (CMS/[facility] V24, CMS/[facility] V28) (Primary Dx); Gastroesophageal reflux disease, unspecified whether [...] - Inhaled Oxygen Concentration - - Weight 114 kg (252 lb) 11/13/2024 12:53 PM EDT Height 162.6 cm (5' 4 ) 09/25/2024 1:32 PM EST Body Mass Index 43.26 09/25/2024 1:32 PM EST Plan of Treatment Upcoming Encounters Date Type Department Care Team (Late st Contact Info) Description 12/18/2024 10:00 AM EDT Nutrition Bariatric Surgery - [address] [phone] CarrenoSisiTonja Julia, RD 175 [facility] [address] [place] [address] Health Maintenance Due Date Last Done Comments Pneumococcal Vaccine: Pediatrics (0 to 5 Years) and At-Risk Patients (6 to 64 Years) (1 of 2 - PCV) 2016 Cervical Cancer Screening: Pap Smear 2018 Depression Screening 03/09/2024 HIV Screening 03/09/2024 Hepatitis C Screening 03/09/2024 Social Influencers of Health Screening 03/09/2024 COVID-19 Vaccine ( season) 2024 02/24/2022, 05/30/2021 DTaP,Tdap,and Td Vaccines (8 - Td or Tdap) 06/05/2029 06/05/2019, 05/24/2008, 05/24/2008, Additional history exists Cholesterol Screening (Lipid Panel) 10/09/2029 10/09/2024 HIB Vaccines Completed 08/15/1998, 09/1997, 1997, Additional [...] Completed 02/17/2023, 11/13, 04/15/2001, Additional history exists Influenza Vaccine Completed 11/13/2024, , 07/24/2019, Additional history exists Meningococcal B Vaccine Aged Out No l onger eligible based on patient's age to complete this topic RSV Immunization Patients Under 20 months Aged Out No longer eligible based on patient's age to complete this topic Procedures Procedure Name Priority Date/Time Associated Diagnosis Comments XR UGI W AIR CONTRAST Routine 11/22/2024 8:35 AM EDT Gastroesophageal reflux disease, unspecified whether esophagitis present TRIIODOTHYRONINE FREE Routine 10/09/2024 11:12 AM EST Morbid obesity with BMI of 40.0-44.9, adult ([facility]/HCC V24, CMS/HCC V28) FREE THYROXINE WITH REFLEX TO FREE TRIIODOTHYRONINE Routine 10/09/2024 11:12 AM EST Morbid obesity with BMI of 40.0-44.9, adult (CMS/HCC V24, CMS/HCC V28) CBC WITH AUTO DIFFERENTIAL Routine 10/09/2024 11:12 AM EST Morbid obesity with BMI of 40.0-44.9, adult (CMS/HCC V24, CMS/HCC V28) VITAMIN D 25 HYDROXY Routine 10/09/2024 11:12 AM EST Morbid obesity with BMI of 40.0-44.9, adult (CMS/HCC V24, CMS/HCC V28) VITAMIN B12 Routine 10/09/2024 11:12 AM EST Morbid obesity with BMI of 40.0-44.9, adult (CMS/HCC V24, CMS/HCC V28) VITAMIN B1 Routine 10/09/2024 11:12 AM EST Morbid obesity with BMI of 40.0-44.9, adult (CMS/HCC V24, CMS/HCC V28) URIC ACID Routine 10/09/2024 11:12 AM EST Morbid obesity with BMI of 40.0-44.9, adult (CMS/HCC V24, CMS/HCC V28) THYROID STIMULATING HORMONE WITH REFLEX TO FREE T4 AND FREE T3 Routine 10/09/2024 11:12 AM EST Morbid obesity with BMI of 40.0-44.9, adult (CMS/HCC V24, CMS/HCC V28) PARATHYROID HORMONE INTACT Routine 10/09/2024 11:12 AM EST Morbid obesity with BMI of 40.0-44.9, adult (CMS/HCC V24, CMS/HCC V28) NICOTINE AND COTININE Routine 10/09/2024 11:12 AM EST Morbid obesity with BMI of 40.0-44.9, adult (CMS/HCC V24, CMS/HCC V28) LIPID PANEL WITH REFLEX TO DIRECT LDL Routine 10/09/2024 11:12 AM EST Morbid obesity with BMI of 40.0-44.9, adult (CMS/HCC V24, CMS/HCC V28) IRON AND TIBC Routine 10/09/2024 11:12 AM EST Morbid obesity with BMI of 40.0-44.9, adult (CMS/HCC V24, CMS/HCC V28) INSULIN, TOTAL Routine 10/09/2024 11:12 AM EST Morbid obesity with BMI of 40.0-44.9, adult (CMS/HCC V24, CMS/HCC V28) HEMOGLOBIN A1C Routine 10/09/2024 11:12 AM EST Morbid obesity with BMI of 40.0-44.9, adult (CMS/HCC V24, CMS/HCC V28) HELICOBACTER PYLORI BREATH TEST Routine 10/09/2024 11:12 AM EST Morbid obesity with BMI of 40.0-44.9, adult (CMS/HCC V24, CMS/HCC V28) FOLATE Routine 10/09/2024 11:12 AM EST Morbid obesity with BMI of 40.0-44.9, adult (CMS/HCC V24, CMS/HCC V28) FERRITIN Routine 10/09/2024 11:12 AM EST Morbid obesity with BMI of 40.0-44.9, adult (CMS/HCC V24, CMS/HCC V28) CORTISOL Routine 10/09/2024 11:12 AM EST Morbid obesity with BMI of 40.0-44.9, adult (CMS/HCC V24, CMS/HCC V28) COMPREHENSIVE METABOLIC PANEL Routine 10/09/2024 11:12 AM EST Morbid obesity with BMI of 40.0-44.9, adult (CMS/HCC V24, CMS/HCC V28) CBC AND DIFFERENTIAL Routine 10/09/2024 11:12 AM EST Morbid obesity with BMI of 40.0-44.9, adult (CMS/HCC V24, CMS/HCC V28) from Last 3 Months Results * XR UGI w Air Contrast [...] Signed Date: 11/22/2024 11:41 ET Workstation ID: [id number] Transcribed By: Self Edit Transcribed Date: 11/22/2024 10:50 ET Resident/PA/CURRICULUM AND INSTRUCTION DIRECTOR: Rhonda Lopez Narrative 11/22/2024 11:41 AM EDT FINDINGS: Double contrast UGI performed. COMPARISON: None. HISTORY: Patient is a 29-year-old female preop for gastric sleeve. CULINARY ART TEACHER radiographs: Pipe Manufacture Supervisor AP radiograph of the abdomen obtained. Bowel [...] a 29-year-old female preop for gastric sleeve. CULINARY ART TEACHER radiographs: Pipe Manufacture Supervisor AP radiograph of the abdomen obtained. Bowel [...] Signed Date: 11/22/2024 11:41 ET Workstation ID: [id number] Transcribed By: Self Edit Transcribed Date: 11/22/2024 10:50 ET Resident/PA/CURRICULUM AND INSTRUCTION DIRECTOR: Rhonda Lopez us Marli Carvalho MD IMG FLUOROSCOPY PROCEDU RES Final Result * (ABNORMAL) Thyroid stimulating hormone with reflex to free t4 and free t3 (10/09/2024 11:12 AM EST) TSH 4.56(H) 0.40 - 4.00 mcIU/mL LAB CHEMISTRY METHOD 10/09/2024 3:03 PM EST [facility] ([facility] Blood Venous blood specimen / Unknown Venipuncture / Unknown 10/09/2024 11:12 AM EST 10/09/2024 11:12 AM EST us Marli Carvalho MD LAB BLOOD ORDERABLES Fi nal Result Performing Organization Address City/[facility]/ZIP Co de Phone Number [facility] [address] [place] [address], [place] [phone] * Free thyroxine with reflex to free triiodothyronine (10/09/2024 11:12 AM EST) [facility] Free T4 0.97 0.70 - 1.80 ng/dL LAB CHEMISTRY METHOD 10/09/2024 3:32 PM [facility] Blood Venous blood specimen / Unknown Venipuncture / Unknown 10/09/2024 11:12 AM EST 10/09/2024 11:12 AM EST us Marli Carvalho MD LAB BLOOD ORDERABLES Fi nal Result Performing Organization Address [facility] Co de Phone Number [facility] [address] [place] [address], [place] [phone] * Lipid panel with reflex to direct LDL (10/09/2024 11:12 AM EST) [facility] Cholesterol 161 0 - 200 mg/dL LAB CHEMISTRY METHOD 10/09/2024 3:32 PM [facility] Triglycerides 128 0 - 150 mg/dL LAB CHEMISTRY METHOD 10/09/2024 3:32 PM [facility] HDL 40 >=40 mg/dL LAB CHEMISTRY METHOD 10/09/2024 3:32 PM [facility] LDL Calculated 95 0 - 100 mg/dL LAB CHEMISTRY METHOD 10/09/2024 3:32 PM [facility] VLDL Cholesterol Luis 25.6 mg/dL LAB CHEMISTRY METHOD 10/09/2024 3:32 PM [facility] Non HDL Chol. (LDL+VLDL) 121 <145 mg/dL LAB CHEMISTRY METHOD 10/09/2024 3:32 PM EST [facility] Chol/HDL Ratio 4.0 0.0 - 4.4 LAB CHEMISTRY METHOD 10/09/2024 3:32 PM EST [facility] Blood Venous blood specimen / Unknown Venipuncture / Unknown 10/09/2024 11:12 AM EST 10/09/2024 11:12 AM EST us Marli Carvalho MD LAB BLOOD ORDERABLES Fi nal Result [facility] [address] [place] [address], * (ABNORMAL) Nicotine and cotinine (10/09/2024 11:12 AM EST) Nicotine <2.0 <2.0 ng/mL 10/15/2024 6:24 AM EST [facility] Cotinine 9.7(H) <2.0 ng/mL 10/15/2024 6:24 AM EST [facility] Comment: ?Additional Reference Ranges: ? Active Tobacco ? Passive ? Abstinence ?User ?Exposure ?? 2 Weeks and more ? Nicotine ?30 - 50 ??ng/mL ?<2 ng/mL ?<2 ng/mL Cotinine ?? 200 - 800 ng/mL ?<8 ng/mL ?<2 ng/mL Reference Ranges from: ??Clin. Chem.; ??[id number] (2001) Direct any interpretive questions to the toxicology laboratory. This is for medical use only, it is not intended for forensic use. If applicable, any drug confirmation testing reported here was developed and the performance characteristics determined by [facility]. This confirmation testing has not been cleared or approved by the FDA. The laboratory is regulated under CLIA as qualified to perform high-complexity testing. This test is used for patient testing purposes. It should not be regarded as investigational or for research. Test performed at [facility], [address] , [place], [place] ??[address] ? [phone] Teressa Rothman MD, PhD - Relocation Coordinator Blood Venous blood specimen / Unknown Venipuncture / Unknown 10/09/2024 11:12 AM EST 10/09/2024 11:12 AM EST Marli Carvalho MD LAB BLOOD ORDERABLES Fi nal Result [facility] [address] [place] [address] * (ABNORMAL) CBC auto differential (10/09/2024 11:12 AM EST) WBC 9.3 4.8 - 10.8 K/mcL LAB HEMETOLOGY METHOD 10/09/2024 2:15 PM EST [facility] RBC 4.20 3.80 - 4.80 M/mcL LAB HEMETOLOGY METHOD 10/09/2024 2:15 PM [facility] Hemoglobin 13.2 11.5 - 16.0 g/dL LAB HEMETOLOGY METHOD 10/09/2024 2:15 PM [facility] Hematocrit 41.1 35.0 - 47.0 % LAB HEMETOLOGY METHOD 10/09/2024 2:15 PM [facility] MCV 98.3(H) 79.0 - 98.0 FL LAB HEMETOLOGY METHOD 10/09/2024 2:15 PM [facility] MCH 31.6 27.0 - 32.0 pcg LAB HEMETOLOGY METHOD 10/09/2024 2:15 PM [facility] MCHC 32.1 32.0 - 37.0 g/dL LAB HEMETOLOGY METHOD 10/09/2024 2:15 PM [facility] RDW 11.5 11.0 - 15.0 % LAB HEMETOLOGY METHOD 10/09/2024 2:15 PM [facility] Platelets 407(H) 130 - 400 K/mcL LAB HEMETOLOGY METHOD 10/09/2024 2:15 PM [facility] MPV 9.7 7.0 - 11.0 FL LAB HEMETOLOGY METHOD 10/09/2024 2:15 PM [facility] NRBC 0.0 <1.0 % LAB HEMETOLOGY METHOD 10/09/2024 2:15 PM [facility] NRBC Absolute 0.00 <0.10 K/mcL LAB HEMETOLOGY METHOD 10/09/2024 2:15 PM [facility] Neutrophils Relative 64.1 % LAB HEMETOLOGY METHOD 10/09/2024 2:15 PM [facility] Lymphocytes Relative 27.0 % LAB HEMETOLOGY METHOD 10/09/2024 2:15 PM [facility] Monocytes Relative 6.8 % LAB HEMETOLOGY METHOD 10/09/2024 2:15 PM [facility] Eosinophils Relative 1.4 % LAB HEMETOLOGY METHOD 10/09/2024 2:15 PM [facility] Basophils Relative 0.4 % LAB HEMETOLOGY METHOD 10/09/2024 2:15 PM [facility] Immature Granulocytes Relative 0.3 % LAB HEMETOLOGY METHOD 10/09/2024 2:15 PM EST [facility] Neutrophils Absolute 5.96 1.50 - 7.00 K/mcL LAB HEMETOLOGY METHOD 10/09/2024 2:15 PM EST [facility] Lymphocytes Absolute 2.51 1.00 - 5.00 K/mcL LAB HEMETOLOGY METHOD 10/09/2024 2:15 PM [facility] Monocytes Absolute 0.63 0.20 - 1.00 K/mcL LAB HEMETOLOGY METHOD 10/09/2024 2:15 PM [facility] Eosinophils Absolute 0.13 0.00 - 0.50 K/mcL LAB HEMETOLOGY METHOD 10/09/2024 2:15 PM [facility] Basophils Absolute 0.04 0.00 - 0.20 K/mcL LAB HEMETOLOGY METHOD 10/09/2024 2:15 PM [facility] Immature Granulocytes Absolute 0.03 0.00 - 0.03 K/mcL LAB HEMETOLOGY METHOD 10/09/2024 2:15 PM [facility] Blood Venous blood specimen / Unknown Venipuncture / Unknown 10/09/2024 11:12 AM EST 10/09/2024 11:12 AM EST us Marli Carvalho MD LAB BLOOD ORDERABLES Fi nal Result [facility] [address] [place] [address], * (ABNORMAL) Iron and TIBC (10/09/2024 11:12 AM EST) Iron 160(H) 40 - 150 mcg/dL LAB CHEMISTRY METHOD 10/09/2024 3:32 PM [facility] TIBC 320 250 - 450 mcg/dL LAB CHEMISTRY METHOD 10/09/2024 3:32 PM [facility] Iron Saturation 50 15 - 50 % LAB CHEMISTRY METHOD 10/09/2024 3:32 PM EST [facility] Blood Venous blood specimen / Unknown Venipuncture / Unknown 10/09/2024 11:12 AM EST 10/09/2024 11:12 AM EST us Marli Carvalho MD LAB BLOOD ORDERABLES Fi nal Result Performing Organization Address [facility] de Phone Number [facility] [address] [place] [address], * (ABNORMAL) Insulin, fasting (10/09/2024 11:12 AM EST) Insulin 29.4(H) 3.0 - 25.0 mcIU/mL LAB CHEMISTRY METHOD 10/09/2024 3:03 PM EST [facility] Blood Venous blood specimen / Unknown Venipuncture / Unknown 10/09/2024 11:12 AM EST 10/09/2024 11:12 AM EST Narrative [facility] - 10/09/2024 3:03 PM EST Insulin reference range based on fasting status. ??Insulin values vary in non- fasting individuals. us Marli Carvalho MD LAB BLOOD ORDERABLES Fi nal Result Performing Organization Address [facility] Co de Phone Number [facility] [address] [place] [address], * Helicobacter pylori breath test (10/09/2024 11:12 AM EST) H Pylori Breath Test Negative Negative LAB CHEMISTRY METHOD 10/09/2024 2:23 PM EST [facility] Breath Oral cavity structure / Unknown Non-blood Collection / Unknown 10/09/2024 11:12 AM EST 10/09/2024 11:12 AM EST us Marli Carvalho MD LAB BODY FLUIDS AND STO OLS ORDERABLES Final Result Performing Organization Address [facility]/ZIP Co de Phone Number [facility] [address] [place] [address], * (ABNORMAL) Vitamin D 25 hydroxy (10/09/2024 11:12 AM EST) Vit D, 25-Hydroxy 20.7(L) 30.0 - 80.0 ng/mL LAB CHEMISTRY METHOD 10/09/2024 3:02 PM EST [facility] Blood Venous blood specimen / Unknown Venipuncture / Unknown 10/09/2024 11:12 AM EST 10/09/2024 11:12 AM EST us Marli Carvalho MD LAB BLOOD ORDERABLES Fi nal Result Performing Organization Address [facility] Co de Phone Number [facility] [address] [place] [address], * Uric acid (10/09/2024 11:12 AM EST) [facility] Uric Acid 5.7 3.1 - 7.8 mg/dL LAB CHEMISTRY METHOD 10/09/2024 3:32 PM EST [facility] Blood Venous blood specimen / Unknown Venipuncture / Unknown 10/09/2024 11:12 AM EST 10/09/2024 11:12 AM EST Marli Carvalho MD LAB BLOOD ORDERABLES Fi nal Result Performing Organization Address [facility]/ZIP Co de Phone Number [facility] [address] [place] [address], * Triiodothyronine free (10/09/2024 11:12 AM EST) T3, Free 286 230 - 420 pcg/dL LAB CHEMISTRY METHOD 10/09/2024 5:29 PM EST [facility] Blood Venous blood specimen / Unknown Venipuncture / Unknown 10/09/2024 11:12 AM EST 10/09/2024 11:12 AM EST us Marli Carvalho MD LAB BLOOD ORDERABLES Fi nal Result Performing Organization Address [facility] Co de Phone Number [facility] [address] [place] [address], * Vitamin B1 (10/09/2024 11:12 AM EST) Vitamin B1 Whole Blood 96 38 - 122 ug/L 10/17/2024 9:29 AM EST [facility] Comment: This test was developed and the performance characteristics determined by [facility]. It has not been cleared or approved by the FDA. The laboratory is regulated under CLIA as qualified to perform high-complexity testing. This test is used for patient testing purposes. It should not be regarded as investigational or for research. Test performed at [facility], [address] [place], [place] ??[address] ? [phone] Teressa Rothman MD, PhD - Relocation Coordinator Blood Venous blood specimen / Unknown Venipuncture / Unknown 10/09/2024 11:12 AM EST 10/09/2024 11:12 AM EST us Marli Carvalho MD LAB BLOOD ORDERABLES Fi nal Result Performing Organization Address City/[facility]/ZIP Co de Phone Number [facility] [address] [place] [address] * Parathyroid hormone intact (10/09/2024 11:12 AM EST) PTH 38.2 18.5 - 88.0 pcg/mL LAB CHEMISTRY METHOD 10/09/2024 4:43 PM EST [facility] Blood Venous blood specimen / Unknown Venipuncture / Unknown 10/09/2024 11:12 AM EST 10/09/2024 11:12 AM EST us Marli Carvalho MD LAB BLOOD ORDERABLES Fi nal Result [facility] [address] [place] [address], [place] [phone] * Hemoglobin A1c (10/09/2024 11:12 AM EST) [facility] Hemoglobin A1C 5.2 <6.5 % LAB CHEMISTRY METHOD 10/09/2024 8:28 PM EST [facility] Mean Bld Glu Estim. 103 mg/dL LAB CHEMISTRY METHOD 10/09/2024 8:28 PM EST [facility] Blood Venous blood specimen / Unknown Venipuncture / Unknown 10/09/2024 11:12 AM EST 10/09/2024 11:12 AM EST us Marli Carvalho MD LAB BLOOD ORDERABLES Fi nal Result Performing Organization Address City/[facility]/ZIP Co de Phone Number [facility] [address] [place] [address], [place] [phone] * Folate (10/09/2024 11:12 AM EST) [facility] Folate 14.6 2.8 - 17.0 ng/ml LAB CHEMISTRY METHOD 10/09/2024 3:32 PM EST [facility] Blood Venous blood specimen / Unknown Venipuncture / Unknown 10/09/2024 11:12 AM EST 10/09/2024 11:12 AM EST us Marli Carvalho MD LAB BLOOD ORDERABLES Fi nal Result Performing Organization Address City/[facility]/ZIP Co de Phone Number [facility] [address] [place] [address], [place] [phone] * Ferritin (10/09/2024 11:12 AM EST) [facility] Ferritin 90 8 - 252 ng/mL LAB CHEMISTRY METHOD 10/09/2024 3:32 PM EST [facility] Blood Venous blood specimen / Unknown Venipuncture / Unknown 10/09/2024 11:12 AM EST 10/09/2024 11:12 AM EST us Marli Carvalho MD LAB BLOOD ORDERABLES Fi nal Result Performing Organization Address City/[facility]/ZIP Co de Phone Number [facility] [address] [place] [address], [place] [phone] * Vitamin B12 (10/09/2024 11:12 AM EST) [facility] Vitamin B-12 569 250 - 900 pcg/mL LAB CHEMISTRY METHOD 10/09/2024 3:32 PM EST [facility] Blood Venous blood specimen / Unknown Venipuncture / Unknown 10/09/2024 11:12 AM EST 10/09/2024 11:12 AM EST us Marli Carvalho MD LAB BLOOD ORDERABLES Fi nal Result Performing Organization Address [facility]/ZIP Co de Phone Number [facility] [address] [place] [address], [place] [phone] * Cortisol (10/09/2024 11:12 AM EST) [facility] Cortisol 11.7 mcg/dL LAB CHEMISTRY METHOD 10/09/2024 3:03 PM EST [facility] Blood Venous blood specimen / Unknown Venipuncture / Unknown 10/09/2024 11:12 AM EST 10/09/2024 11:12 AM EST Narrative [facility] - 10/09/2024 3:03 PM EST CORTISOL REFERENCE RANGE ?? 8 AM SPEC: ??5.0-23.0 mcg/dL ?? 4 PM SPEC: ??3.0-16.0 mcg/dL ?? 8 PM SPEC: ??<5.0 mcg/dL us Marli Carvalho MD LAB BLOOD ORDERABLES Fi nal Result [facility] [address] [place] [address], [place] [phone] * Comprehensive metabolic panel (10/09/2024 11:12 AM EST) Sodium 140 133 - 145 mmol/L LAB CHEMISTRY METHOD 10/09/2024 3:32 PM EST [facility] Potassium 4.5 3.5 - 5.5 mmol/L LAB CHEMISTRY METHOD 10/09/2024 3:32 PM [facility] Chloride 106 96 - 110 mmol/L LAB CHEMISTRY METHOD 10/09/2024 3:32 PM [facility] CO2 25 21 - 32 mmol/L LAB CHEMISTRY METHOD 10/09/2024 3:32 PM [facility] Anion Gap 9 3 - 11 LAB CHEMISTRY METHOD 10/09/2024 3:32 PM [facility] Glucose 83 70 - 100 mg/dL LAB CHEMISTRY METHOD 10/09/2024 3:32 PM [facility] BUN 12 5 - 25 mg/dL LAB CHEMISTRY METHOD 10/09/2024 3:32 PM [facility] Creatinine 0.74 0.50 - 1.10 mg/dL LAB CHEMISTRY METHOD 10/09/2024 3:32 PM [facility] eGFR 114 >=60 mL/min/1. 73m2 LAB CHEMISTRY METHOD 10/09/2024 3:32 PM [facility] Comment:Calculation based on the??Chronic Kidney Disease Epidemiology Collaboration (CKD-EPI) equation refit??without adjustment for race. BUN/Creatinine Ratio 16.2 LAB CHEMISTRY METHOD 10/09/2024 3:32 PM [facility] Calcium 9.2 8.5 - 10.5 mg/dL LAB CHEMISTRY METHOD 10/09/2024 3:32 PM [facility] AST (SGOT) 18 10 - 42 unit/L LAB CHEMISTRY METHOD 10/09/2024 3:32 PM [facility] ALT (SGPT) 41 10 - 60 unit/L LAB CHEMISTRY METHOD 10/09/2024 3:32 PM [facility] Alkaline Phosphatase 53 42 - 121 unit/L LAB CHEMISTRY METHOD 10/09/2024 3:32 PM [facility] Total Protein 7.4 6.0 - 8.0 g/dL LAB CHEMISTRY METHOD 10/09/2024 3:32 PM [facility] Albumin 3.6 3.2 - 5.0 g/dL LAB CHEMISTRY METHOD 10/09/2024 3:32 PM [facility] Total Bilirubin 0.6 0.0 - 1.4 mg/dL LAB CHEMISTRY METHOD 10/09/2024 3:32 PM EST [facility] Blood Venous blood specimen / Unknown Venipuncture / Unknown 10/09/2024 11:12 AM EST 10/09/2024 11:12 AM EST Marli Carvalho MD LAB BLOOD ORDERABLES Fi nal Result [facility] [address] [place] [address], from Last 3 Months Insurance [employer] Care Teams Supplier Quality Manager Relationship Specialty Start Date End Date Beckie Grace MD 2 [facility] , [address] Physician Associ D/B/A: [facility] JEN Quiroz PCP - General 12/21/23
== END 2024-11-27 11:19 | disposition home or self-care (01) ==
LOC: HO.HMCH 10:48
PROVIDERS: PCP Internal Medicine; Visit Provider Internal Medicine
DX: Z00.00 Encounter for general adult medical examination without abnormal findings (principal); T78.40XA Allergy, unspecified, initial encounter; E66.01 Morbid (severe) obesity due to excess calories; F33.0 Major depressive disorder, recurrent, mild; Z68.41 Body mass index [BMI] 40.0-44.9, adult

== ENCOUNTER → 2024-11-27 10:48 | Outpatient (BNVA) | payer OTHER, SELFPAY | PROVIDERS: PCP Internal Medicine; Visit Provider Internal Medicine | DX: Z00.00 Encounter for general adult medical examination without abnormal findings (principal); F33.0 Major depressive disorder, recurrent, mild; E66.01 Morbid (severe) obesity due to excess calories; E06.3 Autoimmune thyroiditis; E55.9 Vitamin D deficiency, unspecified; Z88.9 Allergy status to unspecified drugs, medicaments and biological substances; Z91.013 Allergy to seafood; Z91.018 Allergy to other foods; Z79.899 Other long term (current) drug therapy | CPT/HCPCS: 96127; 99212; 99395 ==

== ENCOUNTER 2025-02-18 15:18 | Outpatient (AMB) | payer OTHER, SELFPAY ==
--- NOTE | 2025-02-18 15:21 | MHC.OFFVIS ---
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 Complaining of regular menstrual cycles associated with hair growth. 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 Brother Colon cancer Brother No problems noted. Maternal Grandfather Colon cancer Prostate cancer Other Mental health disorder Social History Housing: House Alcohol intake: never Patient Tobacco Use Status: Former Tobacco user Tobacco use type: Cigarette e-Cigarette/Vaping Use: Former Use Second Hand Smoke Exposure: No service: No Current occupational status: unemployed Cognitive needs: No Hearing needs: No Vision needs: No Female Reproductive History Menstrual Age of Menarche: 14 Date of last menstrual period: 02/22/25 control method: none Total pregnancies: 0 Date of last pap smear: 11/16/23 (CIN1) Review of Systems Const All systems reviewed & are unremarkable except as noted in HPI and below Card Reports as per HPI Resp Reports as per HPI GI Reports as per HPI and Reports no additional complaints Reports as per HPI Physical Exam Vital Signs: Last Vital Signs BP 122/78 02/18/25 15:28 BMI result Body Mass Index 42.9 Const General: cooperative, healthy appearing and comfortable Chest Chest palpation & inspection: normal inspection of the chest and normal palpation of entire chest wall Breast/axilla inspection: normal inspection of the breasts and normal inspection of the axillae Breast/axilla palpation: normal palpation of the breasts, normal palpation of the axillae and no axillary lymphadenopathy Resp Effort & Inspection: normal respiratory effort Auscultation: clear to auscultation bilaterally Percussion: percussion normal Cardio Palpation: normal PMI Rate: regular rate Rhythm: regular rhythm Heart sounds: no murmurs and no rubs Peripheral pulses: Peripheral pulses 2+ throughout GI Inspection: Yes normal to inspection Palpation (GI): Soft to palpation, nontender, no guarding, not rigid and No hepatosplenomegaly present Percussion: Yes normal to percussion Auscultation: normal bowel sounds Rectal Exam - Female: deferred General: Yes bladder normal to palpation External Female Exam: No lesion Speculum Exam - Vagina: normal appearance of the vagina, normal palpation, normal vaginal discharge and not erythematous Speculum Exam - Cervix: normal appearance of the cervix and normal palpation Bimanual exam- vagina & uterus: normal bimanual exam, normal palpation, uterine size normal, bladder normal to palpation, consistency normal and normal palpation Bimanual Exam- Adnexa, other: normal adnexae, no masses and no tenderness Assessment & Plan Assessment & Plan (1) Well woman exam with routine gynecological exam: Comment: JONATHAN 1 in 12/06 Code(s): Z01.419 - Encounter for gynecological examination (general) (routine) without abnormal findings Category: Medical Plan: Pap done. Counseled the patient about the recommended dietary allowance of 1000 mg of Calcium & 600 IU of vitamin D. The patient was instructed to perform monthly self-breast exams and to schedule an annual exam in a year; All questions answered and the patient verbalized understanding. Instructed the patient to schedule annual exam in a year (2) Abnormal uterine bleeding: Comment: With a hirsutism possible PCOS Code(s): N93.9 - Abnormal uterine and vaginal bleeding, unspecified Category: Medical Plan: Co testing done, GC and chlamydia taken CBC, TSH, prolactin, HCG, 17 hydroxyprogesterone and total and free testosterone and pelvic ultrasound ordered. Discussed with the patient the different causes of abnormal bleeding including thyroid disorders, uterine and ovarian pathology, endometrial hyperplasia, carcinoma and other potential causes. Discussed with the patient the work up including CBC (to r/o anemia), TSH, prolactin, 17 hydroxyprogesterone with total and free testosterone, pelvic Ultrasound, endometrial biopsy to r/o endometrial pathology. All questions answered and the patient verbalized understanding. Instructed the patient to schedule an appointment for an endometrial biopsy in 2 weeks. Orders: Orders TSH reflex Free T4 Today N93.9 - Abnormal uterine and vaginal bleeding, unspecified HCG Quantitative Today N93.9 - Abnormal uterine and vaginal bleeding, unspecified 17 Hydroxyprogesterone Today L68.0 - Hirsutism US pelvic and transvaginal Today N93.9 - Abnormal uterine and vaginal bleeding, unspecified Complete Blood Count no Diff Today N93.9 - Abnormal uterine and vaginal bleeding, unspecified Prolactin Today N93.9 - Abnormal uterine and vaginal bleeding, unspecified Testosterone, Free/Total Today L68.0 - Hirsutism Coding Level of Care Code Est Pt Level 3 (69579) Est Pt Prev Care 18-39y(77936) Diagnoses Well woman exam with routine gynecological exam Z01.419 Abnormal uterine bleeding N93.9
[2025-02-18 15:28] VITALS: BP 122/78; BMI 42.9
--- OUTSIDE RECORDS SUMMARY | 2025-02-18 15:36 | XMS_ITS | Clinical Summary ---
Author Organization 175 [facility] Address [address] [place] [address] Phone Care Team Providers Care Weatherstrip Machine Operator Name Role Phone Beckie Grace MD Primary Care Provider [phone] Allergies Active Allergy Reactions Criticality Noted Date Comments Other 12/21/2023 Seasonal Allergies Shrimp Itching 12/21/2023 Medications ergocalciferol (VITAMIN D-2) 1,250 mcg (50,000 unit) capsule Take 1 capsule (50,000 Units total) by mouth 1 (one) time per week. 12 each 10/16/2024 Active Active Problems Problem Noted Date Diagnosed Date Morbid obesity with BMI of 4 0.0-44.9, adult ([facility] V24, [facility] V28) 01/09/2025 Class 3 severe obesity with serious comorbidity and body mass index (BMI) of 45.0 to 49.9 in adult ([facility] V24, [facility] V28) 12/20/2024 Class 3 severe obesity with serious comorbidity and body mass index (BMI) of 40.0 to 44.9 in adult ([facility] V24, [facility] V28) 02/02/2024 Asthma 01/04/2024 GERD (gastroesophageal reflux disease) 4 Encounters Date Type Department Care Team Description 02/18/2025 12:44 PM EDT Hospital Encounter [facility] Xray [address] [place] [phone] Arrived 02/08/2025 9:00 AM EDT Telemedicine Bariatric Surgery [facility] [address] [phone] Class 3 severe obesity with serious comorbidity and body mass index (BMI) of 45.0 to 49.9 in adult, unspecified obesity type (CMS/HCC V24, CMS/HCC V28) (Primary Dx) 01/09/2025 1:00 PM EDT Office Visit Bariatric Surgery [facility] [address] [phone] Marli Carvalho MD Morbid obesity with BMI of 40.0-44.9, adult (CMS/HCC V24, CMS/HCC V28) (Primary Dx); Abnormal laboratory test; Preop testing 12/20/2024 12:30 PM EDT Nutrition Bariatric Surgery - [place] [address] [phone] Class 3 severe obesity with serious comorbidity and body mass index (BMI) of 40.0 to 44.9 in adult, unspecified obesity type (CMS/HCC V24, CMS/HCC V28) (Primary Dx) 11/22/2024 8:00 AM EDT - 11/22/2024 11:59 PM EDT Hospital Encounter [facility] [address] [place] [address] Gastroesophageal reflux disease, unspecified whether esophagitis present Discharge Disposition: Home or Self Care from Last 3 Months Social History Tobacco Use Types Packs/Day Years Used Date Smoking Tobacco: Never Assessed Comments Unknown Sex and Gender Information Value Date Recorded Sex Assigned at Not on file Legal Sex Female 11:06 AM EDT Gender Identity Not on file Sexual Orientation Not on file Last Filed Vital Signs Vital Sign Reading Time Taken Comments Blood Pressure 111/74 01/09/2025 12:31 PM EDT Pulse 73 01/09/2025 12:31 PM EDT Temperature 36.7 C (98.1 F) 01/09/2025 12:31 PM EDT Respiratory Rate - - Oxygen Saturation - - Inhaled Oxygen Concentration - - Weight 113 kg (250 lb) 02/08/2025 9:00 AM EDT Height 162.6 cm (5' 4 ) 01/09/2025 12:31 PM EDT Body Mass Index 42.91 01/09/2025 12:31 PM EDT Plan of Treatment Upcoming Encounters Date Type Department Care Team (Late st Contact Info) Description 02/19/2025 10:30 AM EDT Consult Bariatric Surgery [address] [phone] Marli Carvalho MD [address] [phone] 03/08/2025 7:30 AM EDT Hospital Encounter [facility] Main OR [address] [place] [phone] Marli Carvalho MD [address] [place] [phone] 03/08/2025 7:30 AM EDT - 03/08/2025 10:00 AM EDT Surgery [facility] Main OR [address] [place] [phone] Marli Carvalho MD [address] [place] [phone] LAPAROSCOPIC SLEEVE GASTRECTOMY [48593 (CPT )] 03/26/2025 8:15 AM EDT Office Visit Bariatric Surgery [address] [phone] Мария Rodriguez PA [address] [phone] 04/29/2025 11:00 AM EDT Telemedicine Bariatric Surgery [address] [phone] Julia Flores, ELIAS [address] [phone] 05/22/2025 9:00 AM EDT Office Visit Bariatric Surgery - [place] [address] [place] [phone] Marli Carvalho MD [address] [place] [phone] Scheduled Procedures Name Priority Associated Diagnoses Date/Ti me GASTRECTOMY SLEEVE LAPAROSCOPIC Morbid obesity with BMI of 40.0-44.9, adult (CMS/HCC V24, CMS/HCC V28) 03/08/2025 7:30 AM EDT Health Maintenance Due Date Last Done Comments Pneumococcal Vaccine: Pediatrics (0 to 5 Years) and At-Risk Patients (6 to 49 Years) (1 of 2 - PCV) 2016 Cervical Cancer Screening: Pap Smear 2018 Depression Screening 03/09/2024 HIV Screening 03/09/2024 Hepatitis C Screening 03/09/2024 Social Influencers of Health Screening 03/09/2024 COVID-19 Vaccine ( season) 2024 02/24/2022, 05/30/2021 Influenza Vaccine (#1) 2025 , 09/13/2022, 07/24/2019, Additional history exists DTaP,Tdap,and Td Vaccines (8 [...] 11/13, 04/15/2001, Additional history exists Meningococcal B Vaccine Aged Out No l onger eligible based on patient's age to complete this topic RSV Immunization Patients Under 20 months Aged Out No longer eligible based on patient's age to complete this topic Procedures Procedure Name Priority Date/Time Associated Diagnosis Comments ECG 12-LEAD Routine 02/18/2025 12:35 PM EDT Morbid obesity with BMI of 40.0-44.9, adult (CMS/HCC V24, CMS/HCC V28) CBC WITH AUTO DIFFERENTIAL Routine 02/18/2025 12:28 PM EDT Morbid obesity with BMI of 40.0-44.9, adult (CMS/HCC V24, CMS/HCC V28) CBC AND DIFFERENTIAL Routine 02/18/2025 12:28 PM EDT Morbid obesity with BMI of 40.0-44.9, adult (CMS/HCC V24, CMS/HCC V28) COMPREHENSIVE METABOLIC PANEL Routine 02/18/2025 12:28 PM EDT Morbid obesity with BMI of 40.0-44.9, adult (CMS/HCC V24, CMS/HCC V28) PROTHROMBIN TIME WITH INR Routine 02/18/2025 12:28 PM EDT Morbid obesity with BMI of 40.0-44.9, adult (CMS/HCC V24, CMS/HCC V28) TYPE AND SCREEN Routine 02/18/2025 12:28 PM EDT Morbid obesity with BMI of 40.0-44.9, adult (CMS/HCC V24, CMS/HCC V28) XR UGI W AIR CONTRAST Routine 11/22/2024 8:35 AM EDT Gastroesophageal reflux disease, unspecified whether esophagitis present LIPID PANEL WITH REFLEX TO DIRECT LDL Routine 10/09/2024 11:12 AM EST Morbid obesity with BMI of 40.0-44.9, adult (CMS/HCC V24, CMS/HCC V28) from Last 3 Months or Most Recently Relevant to Health Maintenance Results * (ABNORMAL) CBC auto differential (02/18/2025 12:28 PM EDT) WBC 12.5(H) 4.8 - 10.8 K/mcL LAB HEMETOLOGY METHOD 02/18/2025 2:06 PM [facility] RBC 4.10 3.80 - 4.80 M/mcL LAB HEMETOLOGY METHOD 02/18/2025 2:06 PM [facility] Hemoglobin 12.9 11.5 - 16.0 g/dL LAB HEMETOLOGY METHOD 02/18/2025 2:06 PM [facility] Hematocrit 38.1 35.0 - 47.0 % LAB HEMETOLOGY METHOD 02/18/2025 2:06 PM [facility] MCV 93.8 79.0 - 98.0 FL LAB HEMETOLOGY METHOD 02/18/2025 2:06 PM [facility] MCH 31.8 27.0 - 32.0 pcg LAB HEMETOLOGY METHOD 02/18/2025 2:06 PM [facility] MCHC 33.9 32.0 - 37.0 g/dL LAB HEMETOLOGY METHOD 02/18/2025 2:06 PM [facility] RDW 11.3 11.0 - 15.0 % LAB HEMETOLOGY METHOD 02/18/2025 2:06 PM [facility] Platelets 354 130 - 400 K/mcL LAB HEMETOLOGY METHOD 02/18/2025 2:06 PM [facility] MPV 10.0 7.0 - 11.0 FL LAB HEMETOLOGY METHOD 02/18/2025 2:06 PM [facility] NRBC 0.0 <1.0 % LAB HEMETOLOGY METHOD 02/18/2025 2:06 PM [facility] NRBC Absolute 0.00 <0.10 K/mcL LAB HEMETOLOGY METHOD 02/18/2025 2:06 PM [facility] Neutrophils Relative 68.0 % LAB HEMETOLOGY METHOD 02/18/2025 2:06 PM [facility] Lymphocytes Relative 20.5 % LAB HEMETOLOGY METHOD 02/18/2025 2:06 PM [facility] Monocytes Relative 7.1 % LAB HEMETOLOGY METHOD 02/18/2025 2:06 PM [facility] Eosinophils Relative 3.5 % LAB HEMETOLOGY METHOD 02/18/2025 2:06 PM [facility] Basophils Relative 0.6 % LAB HEMETOLOGY METHOD 02/18/2025 2:06 PM [facility] Immature Granulocytes Relative 0.3 % LAB HEMETOLOGY METHOD 02/18/2025 2:06 PM [facility] Neutrophils Absolute 8.49(H) 1.50 - 7.00 K/mcL LAB HEMETOLOGY METHOD 02/18/2025 2:06 PM [facility] Lymphocytes Absolute 2.56 1.00 - 5.00 K/mcL LAB HEMETOLOGY METHOD 02/18/2025 2:06 PM [facility] Monocytes Absolute 0.89 0.20 - 1.00 K/mcL LAB HEMETOLOGY METHOD 02/18/2025 2:06 PM [facility] Eosinophils Absolute 0.44 0.00 - 0.50 K/mcL LAB HEMETOLOGY METHOD 02/18/2025 2:06 PM [facility] Basophils Absolute 0.07 0.00 - 0.20 K/mcL LAB HEMETOLOGY METHOD 02/18/2025 2:06 PM EDT [facility] Immature Granulocytes Absolute 0.04(H) 0.00 - 0.03 K/mcL LAB HEMETOLOGY METHOD 02/18/2025 2:06 PM EDT [facility] Blood Venous blood specimen / Unknown Venipuncture / Unknown 02/18/2025 12:28 PM EDT 02/18/2025 12:48 PM EDT us Marli Carvalho MD LAB BLOOD ORDERABLES Fi nal Result Performing Organization Address [facility]/ZIP Co de Phone Number [facility] [address] [place] [address], [place] [phone] * Prothrombin time with INR (02/18/2025 12:28 PM EDT) Pathologist [facility] Protime 12.8 10.6 - 13.9 sec LAB COAGULATION METHOD 02/18/2025 1:06 PM EDT [facility] INR 1.0 LAB COAGULATION METHOD 02/18/2025 1:06 PM EDT [facility] Blood Venous blood specimen / Unknown Venipuncture / Unknown 02/18/2025 12:28 PM EDT 02/18/2025 12:48 PM EDT us Marli Carvalho MD LAB BLOOD ORDERABLES Fi nal Result Performing Organization Address City/[facility]/ZIP Co de Phone Number [facility] [address] [place] [address], [place] [phone] * Type and screen (02/18/2025 12:28 PM EDT) ABO Group B 02/18/2025 2:09 PM EDT [facility] Rh Type Positive 02/18/2025 2:09 PM EDT [facility] Antibody Screen Negative 02/18/2025 2:09 PM EDT [facility] Blood Venous blood specimen / Unknown Venipuncture / Unknown 02/18/2025 12:28 PM EDT 02/18/2025 12:48 PM EDT Marli Carvalho MD LAB BLOOD BANK TEST ORD ERABLES Final Result [facility] [address] [place] [address], * (ABNORMAL) CMP (02/18/2025 12:28 PM EDT) Sodium 136 133 - 145 mmol/L LAB CHEMISTRY METHOD 02/18/2025 1:21 PM [facility] Potassium 4.2 3.5 - 5.5 mmol/L LAB CHEMISTRY METHOD 02/18/2025 1:21 PM [facility] Chloride 105 96 - 110 mmol/L LAB CHEMISTRY METHOD 02/18/2025 1:21 PM [facility] CO2 26 21 - 32 mmol/L LAB CHEMISTRY METHOD 02/18/2025 1:21 PM [facility] Anion Gap 5 3 - 11 LAB CHEMISTRY METHOD 02/18/2025 1:21 PM [facility] Glucose 88 70 - 100 mg/dL LAB CHEMISTRY METHOD 02/18/2025 1:21 PM [facility] BUN 15 5 - 25 mg/dL LAB CHEMISTRY METHOD 02/18/2025 1:21 PM [facility] Creatinine 0.68 0.50 - 1.10 mg/dL LAB CHEMISTRY METHOD 02/18/2025 1:21 PM [facility] eGFR 123 >=60 mL/min/1. 73m2 LAB CHEMISTRY METHOD 02/18/2025 1:21 PM [facility] Comment:Calculation based on the Chronic Kidney Disease Epidemiology Collaboration (CKD-EPI) equation refit without adjustment for race. BUN/Creatinine Ratio 22.1 LAB CHEMISTRY METHOD 02/18/2025 1:21 PM EDT [facility] Calcium 8.2(L) 8.5 - 10.5 mg/dL LAB CHEMISTRY METHOD 02/18/2025 1:21 PM [facility] AST (SGOT) 13 10 - 42 unit/L LAB CHEMISTRY METHOD 02/18/2025 1:21 PM [facility] ALT (SGPT) 32 10 - 60 unit/L LAB CHEMISTRY METHOD 02/18/2025 1:21 PM [facility] Alkaline Phosphatase 57 42 - 121 unit/L LAB CHEMISTRY METHOD 02/18/2025 1:21 PM [facility] Total Protein 7.0 6.0 - 8.0 g/dL LAB CHEMISTRY METHOD 02/18/2025 1:21 PM [facility] Albumin 3.4 3.2 - 5.0 g/dL LAB CHEMISTRY METHOD 02/18/2025 1:21 PM [facility] Total Bilirubin 0.4 0.0 - 1.4 mg/dL LAB CHEMISTRY METHOD 02/18/2025 1:21 PM [facility] Blood Venous blood specimen / Unknown Venipuncture / Unknown 02/18/2025 12:28 PM EDT 02/18/2025 12:48 PM EDT us Marli Carvalho MD LAB BLOOD ORDERABLES Fi nal Result [facility] [address] [place] [address], * XR UGI w Air Contrast (11/22/2024 [...] Signed Date: 11/22/2024 11:41 ET Workstation ID: [id number] Transcribed By: Self Edit Transcribed Date: 11/22/2024 10:50 ET Resident/PA/ROLLER ENGRAVER: Rhonda Lopez Narrative 11/22/2024 11:41 AM EDT FINDINGS: Double contrast UGI performed. COMPARISON: None. HISTORY: Patient is a 29-year-old female preop for gastric sleeve. NURSING UNIT CLERK radiographs: Rug Dyer AP radiograph of the abdomen obtained. Bowel [...] a 29-year-old female preop for gastric sleeve. NURSING UNIT CLERK radiographs: Rug Dyer AP radiograph of the abdomen obtained. Bowel [...] Signed Date: 11/22/2024 11:41 ET Workstation ID: [id number] Transcribed By: Self Edit Transcribed Date: 11/22/2024 10:50 ET Resident/PA/ROLLER ENGRAVER: Rhonda Lopez Marli Carvalho MD IMG FLUOROSCOPY PROCEDU RES Final Result * Lipid panel with reflex to direct LDL (10/09/2024 11:12 AM EST) Cholesterol 161 0 - 200 mg/dL LAB CHEMISTRY METHOD 10/09/2024 3:32 PM [facility] Triglycerides 128 0 - 150 mg/dL LAB CHEMISTRY METHOD 10/09/2024 3:32 PM [facility] HDL 40 >=40 mg/dL LAB CHEMISTRY METHOD 10/09/2024 3:32 PM [facility] LDL Calculated 95 0 - 100 mg/dL LAB CHEMISTRY METHOD 10/09/2024 3:32 PM [facility] VLDL Cholesterol Luis 25.6 mg/dL LAB CHEMISTRY METHOD 10/09/2024 3:32 PM [facility] Non HDL Chol. (LDL+VLDL) 121 <145 mg/dL LAB CHEMISTRY METHOD 10/09/2024 3:32 PM EST [facility] Chol/HDL Ratio 4.0 0.0 - 4.4 LAB CHEMISTRY METHOD 10/09/2024 3:32 PM [facility] Blood Venous blood specimen / Unknown Venipuncture / Unknown 10/09/2024 11:12 AM EST 10/09/2024 11:12 AM EST Marli Carvalho MD LAB BLOOD ORDERABLES Fi nal Result [facility] [place] ([facility] [address] [place] [address], from Last 3 Months or Most Recently Relevant to Health Maintenance Insurance [facility] Care Teams Weatherstrip Machine Operator Relationship Specialty Start Date End Date Beckie Grace MD 2 [facility] , [place] [address] [facility] Physician Associ D/B/A: [facility] Richie CT PCP - General 12/21/23
== END 2025-02-18 15:50 | disposition home or self-care (01) ==
LOC: HO.HWS 15:18
PROVIDERS: PCP Internal Medicine; Visit Provider Obstetrics & Gynecology
DX: Z01.419 Encounter for gynecological examination (general) (routine) without abnormal findings (principal); N93.9 Abnormal uterine and vaginal bleeding, unspecified
CPT/HCPCS: 99213; 99395; 99459

== ENCOUNTER 2025-02-18 15:18 | Outpatient (REF) | payer OTHER, SELFPAY ==
[2025-02-18 17:22] LABS: Hematocrit 38.0 % (37.0-47.0); Hemoglobin 12.8 g/dl (12.0-16.0); Mean Corpuscular HGB Conc 33.7 g/dl (31.0-35.0); Mean Corpuscular Hemoglobin 30.9 pg (27.0-33.0); Mean Corpuscular Volume 91.8 fL (80.0-98.0); NRBC Abs Auto 0.000 X10*3/uL (0.0-0.012); NRBC Pct Auto 0.0 /100WBC (0.0-0.2); Platelet Count 360 X10*3/uL (160-400); Red Blood Count 4.14 X10*6/uL (4.20-5.50); White Blood Count 12.3 X10*3/uL (4.8-10.8)
[2025-02-21 19:15] LABS: Testosterone, Free 5.7 pg/mL (0.1-6.4)
== END 2025-02-18 15:19 | disposition home or self-care (01) ==
LOC: HO.LNP 15:18
PROVIDERS: PCP Internal Medicine; Visit Provider Obstetrics & Gynecology
DX: Z01.411 Encounter for gynecological examination (general) (routine) with abnormal findings (principal); N93.9 Abnormal uterine and vaginal bleeding, unspecified; L68.0 Hirsutism; Z79.899 Other long term (current) drug therapy; N87.0 Mild cervical dysplasia; B37.49 Other urogenital candidiasis
CPT/HCPCS: 83498; 84146; 84402; 84403; 84443; 84702; 85027; 88175; 99212; 99395

== ENCOUNTER 2025-02-18 15:55 | Outpatient (REF) | payer OTHER, SELFPAY ==
[2025-02-18 18:00] LABS: Albumin Level 4.2 g/dL (3.5-5.0); Alkaline Phosphatase 56 U/L (39-117); Anion Gap 9 (12-20); Blood Urea Nitrogen 20 mg/dL (9-16); Calcium 8.8 mg/dL (8.4-10.2); Carbon Dioxide 25 mmol/L (22-29); Chloride 107 mmol/L (96-108); Cholesterol 155 mg/dL (<200); Estimated Glomerular Filt Rate > 60; HDL Cholesterol 31 mg/dL (>40); Potassium 3.6 mmol/L (3.3-5.1); Sodium 137 mmol/L (135-145); Total Protein 7.4 g/dL (6.5-8.0); Triglycerides 133 mg/dL (<150)
[2025-02-18 18:12] LABS: Alanine Aminotransferase 30 U/L (0-31); Aspartate Amino Transferase 17 U/L (5-31); Thyroid Stimulating Hormone 3.45 uIU/mL (0.32-4.0)
[2025-02-19 02:03] LABS: CT PCR NOT DETECTED (Not Detect.); NG PCR NOT DETECTED (Not Detect.)
== END 2025-02-18 15:56 | disposition home or self-care (01) ==
LOC: HO.LAB 15:55
PROVIDERS: PCP Internal Medicine; Visit Provider Obstetrics & Gynecology
DX: Z01.411 Encounter for gynecological examination (general) (routine) with abnormal findings (principal); E03.8 Other specified hypothyroidism; E55.9 Vitamin D deficiency, unspecified
CPT/HCPCS: 36415; 80053; 80061; 82306; 84443; 87491; 87591

== ENCOUNTER 2025-02-28 14:47 | Outpatient (REF) | payer OTHER, SELFPAY | END 2025-02-28 14:48 | disposition home or self-care (01) | LOC: HO.LNP 14:47 | PROVIDERS: PCP Internal Medicine; Visit Provider Obstetrics & Gynecology | DX: R87.612 Low grade squamous intraepithelial lesion on cytologic smear of cervix (LGSIL) (principal); N93.9 Abnormal uterine and vaginal bleeding, unspecified; Z32.02 Encounter for pregnancy test, result negative | CPT/HCPCS: 57454; 58110; 81025; 88305 ==

== ENCOUNTER 2025-02-28 14:47 | Outpatient (AMB) | payer OTHER, SELFPAY ==
--- NOTE | 2025-02-28 14:55 | MHC.OFFVIS ---
Vital Signs 02/28/25 15:16 Height 5 ft 4 in Weight 250 lb BMI 42.9 Intake Visit Reasons: EMB/colposcopy Accounting Clerk Required: No Information Interpreted: non-clinical & clinical Bee Tender: Bee Tender Present (Ivelisse ANDUJAR) Accompanied by: Mother Allergies shrimp Allergy (Mild, Verified 02/28/25 15:17) tongue swelling Environmental Allergies Allergy (Intermediate, Uncoded 02/28/25 15:17) sneezing, asthma black olives Allergy (Mild, Uncoded 02/28/25 15:17) Itching Is last menstrual period known: Yes Last menstrual period: 02/28/25 HPI Comments Details: Presenting for EMB and abnormal Pap smear showing [facility] Medical History Dysplasia of cervix, low grade (JONATHAN 1) 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 Brother Colon cancer Brother No problems noted. Maternal Grandfather Colon cancer Prostate cancer Other Mental health disorder Social History Housing: House Alcohol intake: never Patient Tobacco Use Status: Former Tobacco user Tobacco use type: Cigarette e-Cigarette/Vaping Use: Former Use Second Hand Smoke Exposure: No service: No Current occupational status: unemployed Cognitive needs: No Hearing needs: No Vision needs: No Female Reproductive History Menstrual Age of Menarche: 14 Date of last menstrual period: 02/28/25 Review of Systems Const All systems reviewed & are unremarkable except as noted in HPI and below Reports as per HPI and Reports no additional complaints GI Reports no additional complaints Reports no additional complaints Office Procedures Colposcopy Colposcopy: Pre-Procedure Counseling: Before beginning the procedure, I conducted comprehensive counseling with the patient. We thoroughly discussed the procedure itself, including its details, alternatives, and all associated risks. This included but not limited to the following complications such as bleeding, infection, and injury to the vagina, bladder, and vessels, as well as the potential need for transfusion with all its associated risks. Subsequently, the patient sign the consent. Pap smear result: LSIL. Urine test in office = Negative Procedure: During the procedure, the following steps were performed: A speculum was inserted, and acetic acid was applied. Colposcopy was conducted, allowing visualization of the transformation zone. Acetowhite lesions were identified at the 4+9+1 o'clock position. Cervical biopsies were obtained from the4+9+1o'clock position, followed by an endocervical curettage (ECC). Vaginoscopy of the upper vagina revealed no evidence of aceto-white lesions. Hemostasis was achieved using Monsel solution, and the patient tolerated the procedure well. Post-Procedure Instructions: The patient was advised to promptly contact the office or the after hours answering service or go to the emergency room if experiencing a temperature exceeding 100.4?F, abdominal pain, nausea/vomiting, or bleeding. Additionally, the patient was instructed to abstain from vaginal intercourse and bathtub use. The patient confirmed understanding of these instructions. Discharge Instructions: The patient was instructed to schedule a follow-up appointment in 2 weeks for further evaluation and management. Please note that this note was generated using a voice recognition program, and errors may have occurred during asphalt heater tender. 25617-Sxekvtmsq of cervix including upper vagina with biopsy and ECC Procedure code (CPT) selection complete Endometrial Biopsy Details: The patient was counseled regarding the indication and benefits of endometrial sampling to rule out endometrial pathology including not limited to endometrial hyperplasia or endometrial cancer and others; The alternatives (Either do nothing vs. hysteroscopy D&C) & the risks were discussed with the patient including but not limited: pain, uterine perforation, bleeding, infection, possible injury to bladder, bowel, ureter, possible need for blood transfusion with all its possible risks. The patient verbalized understanding all questions answered and signed consent. Urine test done in the office was negative The patient was placed into the dorsal lithotomy position; a speculum was inserted in the vagina. Using aseptic technique for the procedure, the cervix was cleansed with Betadine. The anterior lip of the cervix was grasped with a single tooth tenaculum. The uterus was sounded to 7 cm with a 4 mm Pipelle was used. Tissues samples were obtained and placed in formalin, in a patient labeled container and sent to the pathology department. At the end of the procedure, there was minimal bleeding noted The patient tolerated the procedure well and was discharged in good condition with the following instructions: Nothing in the vagina until the bleeding stops. No sex until the bleeding stops, to call if any of the following occurs: fever (>100.4), flu-like symptoms, abdominal pain, heavy bleeding, four smelling vaginal discharge. The patient was instructed to schedule a Follow up appointment in 2 weeks to discuss pathology results of the biopsy and treatment options. This note was generated with a voice recognition program. Some errors may have been overlooked during the review of this note. Sometimes these errors may affect the content or meaning of a given sentence. [id number]-[id number] Biopsy Results AMB Test Urine AMB Test Urine Negative Last Edit by Ivelisse Greco CMA on 02/28/25 15:17 Assessment & Plan Assessment & Plan (1) LGSIL on Pap smear of cervix: Code(s): R87.612 - Low grade squamous intraepithelial lesion on cytologic smear of cervix (LGSIL) Category: Medical Plan: Discussed with the patient the result of her abnormal pap, its significance, risk of progression, persistence, and regression. the false positive/negative rate of a Pap smear as a screening test in detecting cervical cancer and the indication for a diagnostic test -colposcopy, biopsy, endocervical curettage. The patient verbalized understanding and agreed with the plan, all questions answered. Colposcopy, biopsy /ECC done, see procedure note (2) Abnormal uterine bleeding: Comment: With a hirsutism possible PCOS Code(s): N93.9 - Abnormal uterine and vaginal bleeding, unspecified Category: Medical Plan: EMB done, see procedure note Orders: Orders AMB HCG Urine Test Today Z32.02 - Encounter for test, result negative AMB Endometrial Biopsy Today N93.9 - Abnormal uterine and vaginal bleeding, unspecified AMB Colposcopy Today R87.612 - Low grade squamous intraepithelial lesion on cytologic smear of cervix (LGSIL) Coding Level of Care Code Procedure Only Diagnoses LGSIL on Pap smear of cervix R87.612 Abnormal uterine bleeding N93.9 CPT Codes Colposcopy - CPT: 42172-Ivewrlkpy of cervix including upper vagina with biopsy and ECC ([id number]) Endometrial Biopsy - CPT: 57638-Cvyxaklcvyb Biopsy ([id number])
[2025-02-28 15:16] VITALS: BMI 42.9
--- OUTSIDE RECORDS SUMMARY | 2025-02-28 15:30 | XMS_ITS | Clinical Summary ---
Author Organization [facility] Address [address] [place] [address] Phone Care Team Providers Care Heater Helper Name Role Phone Beckie Grace MD Primary Care Provider [phone] Allergies Active Allergy Reactions Criticality Noted Date Comments Other 12/21/2023 Seasonal Allergies Shrimp Itching 12/21/2023 Medications ergocalciferol (VITAMIN D-2) 1,250 mcg (50,000 unit) capsule Take 1 capsule (50,000 Units total) by mouth 1 (one) time per week. 12 each 5 026 Active acetaminophen (TYLENOL) 500 mg tablet Take 2 tablets (1,000 mg total) by mouth every 8 (eight) hours. 30 each 5 025 Active pantoprazole (PROTONIX) 40 mg EC tablet Take 1 tablet (40 mg total) by mouth 1 (one) time each day before breakfast. Do not crush, chew, or split. 30 each 2 5 025 Active simethicone (MYLICON) 80 mg chewable tablet Chew 1 tablet (80 mg total) every 6 (six) hours if needed for flatulence. 30 tablet 5 Active wheat dextrin 3 gram/3.5 gram powder in packet Take 1 packet by mouth 1 (one) time each day. 30 packet 5 Active ursodioL (ACTIGALL) 300 mg capsule Take 1 capsule (300 mg total) by mouth 2 (two) times a day. 60 each 5 5 026 Active polyethylene glycol 1450,bulk, powder 1 Capful 1 (one) time each day if needed (constipatio n). 1 each 5 Active ondansetron (ZOFRAN) 4 mg tablet Take 1 tablet (4 mg total) by mouth every 8 (eight) hours if needed for nausea or vomiting for up to 7 days. 21 tablet 5 025 polyethylene glycol (MIRALAX) 17 gram packet Take 17 g by mouth 1 (one) time each day. 510 g 5 025 Discontinued Active Problems Problem Noted Date Diagnosed Date Morbid obesity with BMI of 4 0.0-44.9, adult ([facility] V24, [facility] V28) 01/09/2025 Class 3 severe obesity with serious comorbidity and body mass index (BMI) of 45.0 to 49.9 in adult ([facility] V24, [facility] V28) 12/20/2024 Class 3 severe obesity with serious comorbidity and body mass index (BMI) of 40.0 to 44.9 in adult ([facility] V24, [facility] V28) 02/02/2024 Asthma 01/04/2024 GERD (gastroesophageal reflux disease) 4 Encounters Date Type Department Care Team Description 02/19/2025 10:30 AM EDT Consult Bariatric Surgery - [address] [phone] Marli Carvalho MD Morbid obesity with BMI of 40.0-44.9, adult ([facility] V24, [facility] V28) (Primary Dx); Abnormal laboratory test; Inactivity 02/18/2025 12:44 PM EDT - 02/18/2025 11:59 PM EDT Hospital Encounter [facility] Xray [address] [place] [address] Discharge Disposition: Home or Self Care 02/08/2025 9:00 AM EDT Telemedicine Bariatric Surgery [address] [phone] Class 3 severe obesity with serious comorbidity and body mass index (BMI) of 45.0 to 49.9 in adult, unspecified obesity type (CMS/HCC V24, CMS/HCC V28) (Primary Dx) 01/09/2025 1:00 PM EDT Office Visit Bariatric Surgery [facility] [address] [phone] Marli Carvalho MD Morbid obesity with BMI of 40.0-44.9, adult (CMS/HCC V24, CMS/HCC V28) (Primary Dx); Abnormal laboratory test; Preop testing 12/20/2024 12:30 PM EDT Nutrition Bariatric Surgery - [place] [facility] [address] [place] [address] Class 3 severe obesity with serious comorbidity and body mass index (BMI) of 40.0 to 44.9 in adult, unspecified obesity type (CMS/HCC V24, CMS/HCC V28) (Primary Dx) from Last 3 Months Medical History Medical History Date Comments Asthma GERD (gastroesophageal reflux disease) Obesity Social History Tobacco Use Types Packs/Day Years Used Date Smoking Tobacco: Never Assessed Comments Unknown Sex and Gender Information Value Date Recorded Sex Assigned at Not on file Legal Sex Female 11:06 AM EDT Gender Identity Not on file Sexual Orientation Not on file Obstetrics History Last Filed Vital Signs Vital Sign Reading Time Taken Comments Blood Pressure 130/79 02/19/2025 10:35 AM EDT Pulse 83 02/19/2025 10:35 AM EDT Temperature 36.8 C (98.3 F) 02/19/2025 10:35 AM EDT Respiratory Rate - - Oxygen Saturation - - Inhaled Oxygen Concentration - - Weight 113 kg (250 lb) 02/19/2025 10:35 AM EDT Height 162.6 cm (5' 4 ) 02/19/2025 10:35 AM EDT Body Mass Index 42.91 02/19/2025 10:35 AM EDT Plan of Treatment Upcoming Encounters Date Type Department Care Team (Late st Contact Info) Description 03/08/2025 7:30 AM EDT Hospital Encounter [facility] Main OR [address] [place] [phone] Marli Carvalho MD [address] [phone] 03/08/2025 7:30 AM EDT - 03/08/2025 10:00 AM EDT Surgery [facility] Main OR [address] [place] [phone] Marli Carvalho MD [address] [phone] LAPAROSCOPIC SLEEVE GASTRECTOMY [[id number] (CPT )] 03/26/2025 8:15 AM EDT Office Visit Bariatric Surgery [address] [phone] Мария Rodriguez PA [address] [phone] 04/29/2025 11:00 AM EDT Telemedicine Bariatric Surgery - [address] [phone] Julia Flores, RD [address] [phone] 05/22/2025 9:00 AM EDT Office Visit Bariatric Surgery [address] [phone] Marli Carvalho MD [address] [phone] Scheduled Procedures Name Priority Associated Diagnoses Date/Ti me GASTRECTOMY SLEEVE LAPAROSCOPIC Morbid obesity with BMI of 40.0-44.9, adult (CMS/HCC V24, CMS/HCC V28) 03/08/2025 7:30 AM EDT Health Maintenance Due Date Last Done Comments Pneumococcal Vaccine: Pediatrics (0 to 5 Years) and At-Risk Patients (6 to 49 Years) (1 of 2 - PCV) 2016 Cervical Cancer Screening: Pap Smear 2018 HIV Screening 03/09/2024 Hepatitis C Screening 03/09/2024 Social Influencers of Health Screening 03/09/2024 COVID-19 Vaccine ( season) 2024 02/24/2022, 05/30/2021 Depression Screening 08/15/2024 Influenza Vaccine (#1) 2025 , 09/13/2022, 07/24/2019, [...] Procedure Name Priority Date/Time Associated Diagnosis Comments HCG QUALITATIVE, URINE Routine 11:09 AM EDT Morbid obesity with BMI of 40.0-44.9, adult (CMS/HCC V24, CMS/[facility] V28) TRIIODOTHYRONINE FREE Routine 02/19/2025 11:02 AM EDT Abnormal laboratory test FREE THYROXINE WITH REFLEX TO FREE TRIIODOTHYRONINE Routine 02/19/2025 11:02 AM EDT Abnormal laboratory test THYROID STIMULATING HORMONE WITH REFLEX TO FREE T4 AND FREE T3 Routine 02/19/2025 11:02 AM EDT Abnormal laboratory test NICOTINE AND COTININE Routine 02/19/2025 11:02 AM EDT Preop testing XR CHEST 2 VIEWS Routine 02/18/2025 12:5 3 PM EDT Morbid obesity with BMI of 40.0-44.9, adult (CMS/HCC V24, CMS/HCC V28) ECG 12-LEAD Routine 02/18/2025 12:35 PM EDT [...] with BMI of 40.0-44.9, adult (CMS/HCC V24, [facility] V28) LIPID PANEL WITH REFLEX TO DIRECT LDL Routine 10/09/2024 11:12 AM EST Morbid obesity with BMI of 40.0-44.9, adult ([facility] V24, [facility] V28) from Last 3 Months or Most Recently Relevant to Health Maintenance Results * , urine (02/19/2025 11:09 AM EDT) Pathologist [facility] Preg Test, Ur Negative Negative 02/19/2025 2:20 PM EDT [facility] Urine Urine specimen obtained by clean catch procedure / Unknown Non-blood Collection / Unknown 02/19/2025 11:09 AM EDT 02/19/2025 11:09 AM EDT us Marli Carvalho MD LAB URINE ORDERABLES Fi nal Result Performing Organization Address City/[facility]/ZIP Co de Phone Number [facility] [address] [place] [address], [place] [phone] * (ABNORMAL) Thyroid stimulating hormone with reflex to free t4 and free t3 (02/19/2025 11:02 AM EDT) [facility] TSH 4.96(H) 0.40 - 4.00 mcIU/mL LAB CHEMISTRY METHOD 02/19/2025 2:40 PM EDT [facility] Blood Venous blood specimen / Unknown Venipuncture / Unknown 02/19/2025 11:02 AM EDT 02/19/2025 11:02 AM EDT us Marli Carvalho MD LAB BLOOD ORDERABLES Fi nal Result Performing Organization Address City/[facility]/ZIP Co de Phone Number [facility] [address] [place] [address], [place] [phone] * Free thyroxine with reflex to free triiodothyronine (02/19/2025 11:02 AM EDT) Free T4 1.02 0.70 - 1.80 ng/dL LAB CHEMISTRY METHOD 02/19/2025 3:28 PM EDT [facility] Blood Venous blood specimen / Unknown Venipuncture / Unknown 02/19/2025 11:02 AM EDT 02/19/2025 11:02 AM EDT Marli Carvalho MD LAB BLOOD ORDERABLES Fi nal Result [facility] [address] [place] [address], * Nicotine and cotinine (02/19/2025 11:02 AM EDT) Nicotine <2.0 <2.0 ng/mL 02/23/2025 9:11 AM EDT [facility] Cotinine <2.0 <2.0 ng/mL 02/23/2025 9:11 AM EDT [facility] Comment: Additional Reference Ranges: Active Tobacco Passive Abstinence User Exposure 2 Weeks and more Nicotine 30 - 50 ng/mL <2 ng/mL <2 ng/mL Cotinine 200 - 800 ng/mL <8 ng/mL <2 ng/mL Reference Ranges from: Clin. Chem.; 48:0867-2888 (2002) Direct any interpretive questions to the toxicology laboratory. This is for medical use only, it is not intended for forensic use. If applicable, any drug confirmation testing reported here was developed and the performance characteristics determined by [facility]. This confirmation testing has not been cleared or approved by the FDA. The laboratory is regulated under CLIA as qualified to perform high-complexity testing. This test is used for patient testing purposes. It should not be regarded as investigational or for research. Test performed at [facility], [address], [place] [address] Teressa Rothman MD, PhD - Supply Planner Blood Venous blood specimen / Unknown Venipuncture / Unknown 02/19/2025 11:02 AM EDT 02/19/2025 11:02 AM EDT Marli Carvalho MD LAB BLOOD ORDERABLES Fi nal Result Performing Organization Address City/[facility]/ZIP Co de Phone Number [facility] [address] [place] [address] * Triiodothyronine free (02/19/2025 11:02 AM EDT) T3, Free 341 230 - 420 pcg/dL LAB CHEMISTRY METHOD 02/19/2025 4:37 PM EDT [facility] Blood Venous blood specimen / Unknown Venipuncture / Unknown 02/19/2025 11:02 AM EDT 02/19/2025 11:02 AM EDT us Marli Carvalho MD LAB BLOOD ORDERABLES Fi nal Result Performing Organization Address City/[facility] Co de Phone Number [facility] [address] [place] [address], [place] [phone] * XR Chest 2 Views (02/18/2025 12:53 PM EDT) Anatomical Region Laterality Modality Body Radiographic Francisca ging 02/19/2025 7:57 AM EDT Impressions 02/19/2025 7:57 AM EDT Normal examination. Code 15232 -------- FINAL REPORT -------- Dictated By: Alex Loyola Dictated Date: 02/19/2025 07:57 ET Assigned Physician: Alex Loyola Reviewed and Electronically Signed By: Alex Loyola Signed Date: 02/19/2025 07:57 ET Workstation ID: [id number] Transcribed By: Self Edit Transcribed Date: 02/19/2025 07:57 ET Narrative 02/19/2025 7:57 AM EDT HISTORY: The patient is a 29-year-old female with asthma and morbid obesity, undergoing evaluation prior to bariatric surgery. FINDINGS: PA and lateral radiographs of the chest demonstrate normal appearance of the bony structures. The cardiac and mediastinal contours are within normal limits. The lungs and costophrenic angles are clear. Procedure Note Alex Loyola MD - 02/19/2025 HISTORY: The patient is a 29-year-old female with asthma and morbidobesity, undergoing evaluation prior to bariatric surgery. FINDINGS: PA and lateral radiographs of the chest demonstrate normalappearance of the bony structures. The cardiac and mediastinal contoursare within normal limits. The lungs and costophrenic angles are clear. IMPRESSION: Normal examination. Code 72722 -------- FINAL REPORT -------- Dictated By: Alex Loyola Dictated Date: 02/19/2025 07:57 ET Assigned Physician: Alex Loyola Reviewed and Electronically Signed By: Alex Loyola Signed Date: 02/19/2025 07:57 ET Workstation ID: [id number] Transcribed By: Self Edit Transcribed Date: 02/19/2025 07:57 ET us Marli Carvalho MD IMG XR PROCEDURES Final Result * ECG 12 lead (02/18/2025 12:35 PM EDT) Ventricular Rate ECG 74 BPM GEMUSE Atrial Rate 74 BPM GEMUSE P-R Interval 148 ms GEMUSE QRS Duration 80 ms GEMUSE Q-T Interval 366 ms GEMUSE QTc 406 ms GEMUSE P Wave [place] 40 degrees GEMUSE R [place] 65 degrees GEMUSE T [place] 34 degrees GEMUSE ECG Interpretation Normal sinus rhythm with sinus arrhythmia Normal ECG No previous ECGs available Confirmed by MD Hyde Christopher ([id number]) on 02/19/2025 8:32:25 AM GEMUSE 02/18/2025 12:3 5 PM EDT 02/19/2025 8:32 AM EDT us Marli Carvalho MD ECG ORDERABLES Final R esult GEMUSE * (ABNORMAL) CBC auto differential (02/18/2025 12:28 PM EDT) WBC 12.5(H) 4.8 - 10.8 K/mcL LAB HEMETOLOGY METHOD 02/18/2025 2:06 PM EDT [facility] RBC 4.10 3.80 - 4.80 M/mcL LAB HEMETOLOGY METHOD 02/18/2025 2:06 PM EDT [facility] Hemoglobin 12.9 11.5 - 16.0 g/dL LAB HEMETOLOGY METHOD 02/18[facility]25 [facility] Hematocrit 38.1 35.0 - 47.0 % LAB HEMETOLOGY METHOD 02/18/2025 2:06 PM EDT [facility] MCV 93.8 79.0 - 98.0 FL LAB HEMETOLOGY METHOD 02/18/2025 2:[facility] MCH 31.8 27.0 - 32.0 pcg LAB HEMETOLOGY METHOD 02/18/2025 2:[facility] MCHC 33.9 32.0 - 37.0 g/dL LAB HEMETOLOGY METHOD 02/18/2025 2:[facility] RDW 11.3 11.0 - 15.0 % LAB HEMETOLOGY METHOD 02/18/2025 2:[facility] Platelets 354 130 - 400 K/mcL LAB HEMETOLOGY METHOD 02/18/2025 2:[facility] MPV 10.0 7.0 - 11.0 FL LAB HEMETOLOGY METHOD 02/18/2025 2:06 PM EDT [facility] NRBC 0.0 <1.0 % LAB HEMETOLOGY METHOD 02/18/2025 2:06 PM [facility] NRBC Absolute 0.00 <0.10 K/mcL LAB HEMETOLOGY METHOD 02/18/2025 2:06 PM [facility] Neutrophils Relative 68.0 % LAB HEMETOLOGY METHOD 02/18/2025 2:06 PM [facility] Lymphocytes Relative 20.5 % LAB HEMETOLOGY METHOD 02/18/2025 2:06 PM [facility] Monocytes Relative 7.1 % LAB HEMETOLOGY METHOD 02/18/2025 2:06 PM [facility] Eosinophils Relative 3.5 % LAB HEMETOLOGY METHOD 02/18/2025 2:06 PM [facility] Basophils Relative 0.6 % LAB HEMETOLOGY METHOD 02/18/2025 2:06 PM [facility] Immature Granulocytes Relative 0.3 % LAB HEMETOLOGY METHOD 02/18/2025 2:06 PM [facility] Neutrophils Absolute 8.49(H) 1.50 - 7.00 K/mcL LAB HEMETOLOGY METHOD 02/18/2025 2:06 PM [facility] Lymphocytes Absolute 2.56 1.00 - 5.00 K/mcL LAB HEMETOLOGY METHOD 02/18/2025 2:06 PM [facility] Monocytes Absolute 0.89 0.20 - 1.00 K/mcL LAB HEMETOLOGY METHOD 02/18/2025 2:06 PM [facility] Eosinophils Absolute 0.44 0.00 - 0.50 K/mcL LAB HEMETOLOGY METHOD 02/18/2025 2:06 PM [facility] Basophils Absolute 0.07 0.00 - 0.20 K/mcL LAB HEMETOLOGY METHOD 02/18/2025 2:06 PM EDT [facility] Immature Granulocytes Absolute 0.04(H) 0.00 - 0.03 K/mcL LAB HEMETOLOGY METHOD 02/18/2025 2:06 PM EDT [facility] Blood Venous blood specimen / Unknown Venipuncture / Unknown 02/18/2025 12:28 PM EDT 02/18/2025 12:48 PM EDT us Marli Carvalho MD LAB BLOOD ORDERABLES Fi nal Result Performing Organization Address [facility] Co de Phone Number [facility] [address] [place] [address], [place] [phone] * Prothrombin time with INR (02/18/2025 12:28 PM EDT) Protime 12.8 10.6 - 13.9 sec LAB COAGULATION METHOD 02/18/2025 1:06 PM EDT [facility] INR 1.0 LAB COAGULATION METHOD 02/18/2025 1:06 PM EDT [facility] Blood Venous blood specimen / Unknown Venipuncture / Unknown 02/18/2025 12:28 PM EDT 02/18/2025 12:48 PM EDT us Marli Carvalho MD LAB BLOOD ORDERABLES Fi nal Result Performing Organization Address City/[facility]/ZIP Co de Phone Number [facility] [address] [place] [address], [place] [phone] * Type and screen (02/18/2025 12:28 PM EDT) ABO Group B 02/18/2025 2:09 PM EDT [facility] Rh Type Positive 02/18/2025 2:09 PM EDT [facility] Antibody Screen Negative 02/18/2025 2:09 PM EDT [facility] Blood Venous blood specimen / Unknown Venipuncture / Unknown 02/18/2025 12:28 PM EDT 02/18/2025 12:48 PM EDT Marli Carvalho MD LAB BLOOD BANK TEST ORD ERABLES Final Result [facility] [address] [place] [address], * (ABNORMAL) CMP (02/18/2025 12:28 PM EDT) Sodium 136 133 - 145 mmol/L LAB CHEMISTRY METHOD 02/18/2025 1:21 PM [facility] Potassium 4.2 3.5 - 5.5 mmol/L LAB CHEMISTRY METHOD 02/18/2025 1:21 PM [facility] Chloride 105 96 - 110 mmol/L LAB CHEMISTRY METHOD 02/18/2025 1:21 PM [facility] CO2 26 21 - 32 mmol/L LAB CHEMISTRY METHOD 02/18/2025 1:21 PM [facility] Anion Gap 5 3 - 11 LAB CHEMISTRY METHOD 02/18/2025 1:21 PM [facility] Glucose 88 70 - 100 mg/dL LAB CHEMISTRY METHOD 02/18/2025 1:21 PM [facility] BUN 15 5 - 25 mg/dL LAB CHEMISTRY METHOD 02/18/2025 1:21 PM [facility] Creatinine 0.68 0.50 - 1.10 mg/dL LAB CHEMISTRY METHOD 02/18/2025 1:21 PM [facility] eGFR 123 >=60 mL/min/1. 73m2 LAB CHEMISTRY METHOD 02/18/2025 1:21 PM [facility] Comment:Calculation based on the Chronic Kidney Disease Epidemiology Collaboration (CKD-EPI) equation refit without adjustment for race. BUN/Creatinine Ratio 22.1 LAB CHEMISTRY METHOD 02/18/2025 1:21 PM [facility] Calcium 8.2(L) 8.5 - 10.5 mg/dL LAB CHEMISTRY METHOD 02/18/2025 1:21 PM [facility] AST (SGOT) 13 10 - 42 unit/L LAB CHEMISTRY METHOD 02/18/2025 1:21 PM [facility] ALT (SGPT) 32 10 - 60 unit/L LAB CHEMISTRY METHOD 02/18/2025 1:21 PM [facility] Alkaline Phosphatase 57 42 - 121 unit/L LAB CHEMISTRY METHOD 02/18/2025 1:21 PM [facility] Total Protein 7.0 6.0 - 8.0 g/dL LAB CHEMISTRY METHOD 02/18/2025 1:21 PM [facility] Albumin 3.4 3.2 - 5.0 g/dL LAB CHEMISTRY METHOD 02/18/2025 1:21 PM [facility] Total Bilirubin 0.4 0.0 - 1.4 mg/dL LAB CHEMISTRY METHOD 02/18/2025 1:21 PM [facility] Blood Venous blood specimen / Unknown Venipuncture / Unknown 02/18/2025 12:28 PM EDT 02/18/2025 12:48 PM EDT us Marli Carvalho MD LAB BLOOD ORDERABLES Fi nal Result [facility] [address] [place] [address], * Lipid panel with reflex to direct LDL (10/09/2024 11:12 AM EST) Cholesterol 161 0 - 200 mg/dL LAB CHEMISTRY METHOD 10/09/2024 3:32 PM EST [facility] Triglycerides 128 0 - 150 mg/dL LAB CHEMISTRY METHOD 10/09/2024 3:32 PM EST [facility] HDL 40 >=40 mg/dL LAB CHEMISTRY METHOD 10/09/2024 3:32 PM EST [facility] LDL Calculated 95 0 - 100 mg/dL LAB CHEMISTRY METHOD 10/09/2024 3:32 PM EST [facility] VLDL Cholesterol Luis 25.6 mg/dL LAB CHEMISTRY METHOD 10/09/2024 3:32 PM [facility] Non HDL Chol. (LDL+VLDL) 121 <145 mg/dL LAB CHEMISTRY METHOD 10/09/2024 3:32 PM [facility] Chol/HDL Ratio 4.0 0.0 - 4.4 LAB CHEMISTRY METHOD 10/09/2024 3:32 PM EST [facility] Blood Venous blood specimen / Unknown Venipuncture / Unknown 10/09/2024 11:12 AM EST 10/09/2024 11:12 AM EST us Marli Carvalho MD LAB BLOOD ORDERABLES Fi nal Result [facility] [address] [place] [address], from Last 3 Months or Most Recently Relevant to Health Maintenance Insurance [facility] Care Teams Heater Helper Relationship Specialty Start Date End Date Beckie Grace MD [address] [facility] , [address] [facility] D/B/A: Richie Yeung In Internal Medicine JEN Quiroz PCP - General 12/21/23
== END 2025-02-28 15:47 | disposition home or self-care (01) ==
LOC: HO.HWS 14:47
PROVIDERS: PCP Internal Medicine; Visit Provider Obstetrics & Gynecology
DX: R87.612 Low grade squamous intraepithelial lesion on cytologic smear of cervix (LGSIL) (principal); N93.9 Abnormal uterine and vaginal bleeding, unspecified; Z32.02 Encounter for pregnancy test, result negative
CPT/HCPCS: 57454; 58110

== ENCOUNTER 2025-03-26 11:10 | Outpatient (AMB) | payer OTHER, SELFPAY ==
--- NOTE | 2025-03-26 11:11 | MHC.OFFVIS ---
Intake Visit Reasons: colpo/EMB results/do not carolyne Allergies shrimp Allergy (Mild, Verified 02/28/25 15:17) tongue swelling Environmental Allergies Allergy (Intermediate, Uncoded 02/28/25 15:17) sneezing, asthma black olives Allergy (Mild, Uncoded 02/28/25 15:17) Itching HPI Comments Details: Presenting post colpo for follow-up. The patient is doing well with no complaints. The pathology showed the following: A. Endometrium, biopsy: Benign secretory endometrium with poorly developed glands and extensive stromal breakdown, and benign endocervical glandular mucosa; no atypia or carcinoma. B. Endocervix, curettage: Benign endocervical glandular mucosa; negative for dysplasia. C. Cervix, 1:00, biopsy: Squamous and scant endocervical glandular mucosa with inflammation and reactive changes; negative for dysplasia. D. Cervix, 4:00, biopsy: Low-grade squamous intraepithelial lesion (mild dysplasia, JONATHAN 1) (minute focus); no endocervical glandular component present. E. Cervix, 9:00, biopsy: Squamous mucosa with focal hyperkeratosis, and endocervical glandular mucosa with inflammation and reactive and metaplastic changes; negative for dysplasia Comment: The low-grade dysplasia in the patient's previous Pap test ([id number]) concurs with the current biopsy The following workup was done.: H&H= 12.8/38 TSH, prolactin, hCG, GC and chlamydia were negative. 17hydroxyprogesterone and total and free testosterone within normal Co testing was done showed LGSIL, colpo biopsy done see pathology report Pelvic ultrasound showed the following: Uterus: The uterus is anteverted and measures 9 x 3 x 4.5 cm. The double wall endometrial thickness is 3 mm. The uterus is smooth in contour and has normal myometrial echogenicity. No visible fibroid. Right ovary measures 2.6 x 2 x 1.5 cm. the right ovary is normal appearing. The left ovary is not seen. 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 Brother Colon cancer Brother No problems noted. Maternal Grandfather Colon cancer Prostate cancer Other Mental health disorder Social History Housing: House Alcohol intake: never Patient Tobacco Use Status: Former Tobacco user Tobacco use type: Cigarette e-Cigarette/Vaping Use: Former Use Second Hand Smoke Exposure: No service: No Current occupational status: unemployed Cognitive needs: No Hearing needs: No Vision needs: No Female Reproductive History Menstrual Age of Menarche: 14 Review of Systems Const All systems reviewed & are unremarkable except as noted in HPI and below Reports as per HPI and Reports no additional complaints GI Reports no additional complaints Reports no additional complaints Telehealth Telehealth Telehealth Platform: Telephone Location of provider rendering services: practice address Location of patient: address on file Patient Identification confirmed using: Name, : Yes Telehealth method: video Patient verbally consented to treatment: Yes Patient verbally consented to billing insurance company: Yes Patient informed of any privacy concerns related to visit: Yes Minutes spent on Phone/Video with Pt.: 6 Assessment & Plan Assessment & Plan (1) Dysplasia of cervix, low grade (JONATHAN 1): Comment: 12/06 LGSIL, colpo biopsy ECC JONATHAN 1 03/08 LGSIL, colpo biopsy ECC JONATHAN 1 Code(s): N87.0 - Mild cervical dysplasia Category: Medical Plan: Discussed with the patient the pathology results of the colposcopy biopsies & endocervical curettage ( mild dysplasia-JONATHAN 1). Discussed with the patient the sensitivity specificity, positive and negative predictive value in detecting cervical cancer in addition discussed the regression, persistence and progression rates. Recommended co-testing in 12 months, if cytology and or HPV are abnormal will proceed was colposcopy biopsy and endocervical curettage, if lesions gets worse or stays persistent for a total of 2 years from initial JONATHAN 1 diagnosis, 2023, will proceed with loop electric excision procedure. Instructions given to the patient to schedule a co test appointment in 1 year. All questions answered the patient verbalized understanding. (2) Abnormal uterine bleeding: Comment: PCOS Code(s): N93.9 - Abnormal uterine and vaginal bleeding, unspecified Category: Medical Plan: Discussed with the patient the results of her blood work included TSH, prolactin, testosterone, 17 hydroxyprogesterone and DHEA-S. Explained to the patient that she has a diagnosis of PCOS. D/w the patient the association of PCOS with an increase in the risk of diabetes or pre diabetes, heart disease, hypercholesterolemia and metabolic syndrome, endometrial hyperplasia and/or cancer if untreated and an increase in the risk of breast cancer. Recommended for the patient the following: -To call her pcp to screen for cardiovascular risk and diabetes with FBS and 2 hr GTT after 75 g OGTT, in addition to cholesterol, lipids, HDL and LDL. -Instructions given to patient to increase exercise combined with dietary changes reduce the risk of diabetes, explained to the patient that reduction in body weight has been associated with improved rate and decreased hirsutism as well as improvement in glucose tolerance and lipid levels -For her Menstrual cycle control: Discussed with the patient the following options of treatment : Combination low-dose hormonal contraceptives are recommended as the primary treatment for menstrual disorder After discussion all the pros and cons risks benefits of each were discussed with the patient, the patient decided to proceed with control pills, recommended to hold off the treatment for 6 weeks since the patient had bariatric surgery 4 weeks ago. -If the patient is interested in in the future will send pt for a consult to reproductive endocrinology. All questions answered. Pt verbalized understanding I spent a total of 20 minutes reviewing the chart, talking to the patient via video and documenting in the medical record. Medications: New desogestrel-ethinyl estradiol 0.15-0.03 mg (Apri) 1 tab PO DAILY 28 tabs 2RF 28 days Coding Level of Care Code Tele Est Pt Level 3 (76448) Diagnoses Dysplasia of cervix, low grade (JONATHAN 1) N87.0 Abnormal uterine bleeding N93.9
--- OUTSIDE RECORDS SUMMARY | 2025-03-26 12:17 | XMS_ITS | Clinical Summary ---
Author Organization [facility] Address [address] [place] [address] Phone Care Team Providers Care Death Claim Clerk Name Role Phone Beckie Grace MD Primary Care Provider [phone] Allergies Active Allergy Reactions Criticality Noted Date Comments Other Cough,Sneezing Medium 12/21/2023 Seasonal Allergies Shrimp Itching Medium 12/21/2023 Medications pantoprazole (PROTONIX) 40 mg EC tablet Take 1 tablet (40 mg total) by mouth 1 (one) time each day before breakfast. Do not crush, chew, or split. 30 each 2 5 05/20/20 25 Active simethicone (MYLICON) 80 mg chewable tablet Chew 1 tablet (80 mg total) every 6 (six) hours if needed for flatulence. 30 tablet 5 Active ursodioL (ACTIGALL) 300 mg capsule Take 1 capsule (300 mg total) by mouth 2 (two) times a day. 60 each 5 5 08/18/19 26 Active polyethylene glycol 1450,bulk, powder 1 Capful 1 (one) time each day if needed (constipatio n). 1 each 5 Active cholecalciferol (VITAMIN D-3) 50 mcg (2,000 unit) tablet Take 1 tablet (2,000 Units total) by mouth 1 (one) time each day. Active albuterol HFA (PROAIR HFA ; PROVENTIL HFA ; VENTOLIN HFA) 90 mcg/actuation inhaler Inhale 2 puffs by mouth every 6 (six) hours if needed for wheezing. Active oxyCODONE (ROXICODONE) 5 mg immediate release tabletIndicatio ns:History of sleeve gastrectomy Take 1 tablet (5 mg total) by mouth every 4 (four) hours if needed for moderate pain. Max Daily Amount: 30 mg 15 tablet 5 Active ergocalciferol (VITAMIN D-2) 1,250 mcg (50,000 unit) capsule Take 1 capsule (50,000 Units total) by mouth 1 (one) time per week. 12 each 5 03/06/20 25 Discontinue d(Therapy completed) acetaminophen (TYLENOL) 500 mg tablet Take 2 tablets (1,000 mg total) by mouth every 8 (eight) hours. 30 each 5 03/21/20 25 ondansetron (ZOFRAN) 4 mg tablet Take 1 tablet (4 mg total) by mouth every 8 (eight) hours if needed for nausea or vomiting for up to 7 days. 21 tablet 5 02/27/20 25 wheat dextrin 3 gram/3.5 gram powder in packet Take 1 packet by mouth 1 (one) time each day. 30 packet 5 03/06/20 25 Discontinue d(Formulary change) Active Problems Problem Noted Date Diagnosed Date Morbid obesity with BMI of 4 0.0-44.9, adult ([facility] V24, [facility] V28) 01/09/2025 Class 3 severe obesity with serious comorbidity and body mass index (BMI) of 45.0 to 49.9 in adult ([facility] V24, [facility] V28) 12/20/2024 Class 2 severe obesity due t o excess calories with serious comorbidity and body mass index (BMI) of 39.0 to 39.9 in adult ([facility] V24, [facility] V28) 02/02/2024 Asthma 01/04/2024 GERD (gastroesophageal reflux disease) 4 Encounters Date Type Department Care Team Description 03/26/2025 8:15 AM EDT Office Visit Bariatric Surgery - [address] [phone] Мария Rodriguez PA Class 2 severe obesity due to excess calories with serious comorbidity and body mass index (BMI) of 39.0 to 39.9 in adult (CMS/HCC V24, CMS/HCC V28) (Primary Dx); Bariatric surgery status 03/08/2025 7:44 AM EDT Anesthesia Event [facility] Main OR [address] [place] [phone] Francisco Bone MD 03/08/2025 7:30 AM EDT - 03/08/2025 10:00 AM EDT Surgery [facility] Main OR [address] [place] [phone] Marli Carvalho MD [facility] LAPAROSCOPIC SLEEVE GASTRECTOMY [94126 (CPT )] 03/08/2025 5:59 AM EDT - 03/10/2025 2:32 PM EDT Hospital Encounter [facility] Surgical [facility] [address] [place] [phone] Marli Carvalho MD History of sleeve gastrectomy (Primary Dx); Morbid obesity with BMI of 40.0-44.9, adult (CMS/HCC V24, [facility] V28) Discharge Disposition: Home or Self Care 02/19/2025 10:30 AM EDT Consult Bariatric Surgery - [address] [phone] Marli Carvalho MD Morbid obesity with BMI of 40.0-44.9, adult (CMS/HCC V24, [facility] V28) (Primary Dx); Abnormal laboratory test; Inactivity 02/18/2025 12:44 PM EDT - 02/18/2025 11:59 PM EDT Hospital Encounter [facility] Xray [address] [place] [phone] Discharge Disposition: Home or Self Care 02/08/2025 9:00 AM EDT Telemedicine Bariatric Surgery [address] [phone] Class 3 severe obesity with serious comorbidity and body mass index (BMI) of 45.0 to 49.9 in adult, unspecified obesity type (CMS/HCC V24, [facility] V28) (Primary Dx) 01/09/2025 1:00 PM EDT Office Visit Bariatric Surgery - [address] [phone] Marli Carvalho MD Morbid obesity with BMI of 40.0-44.9, adult ([facility] V24, [facility] V28) (Primary Dx); Abnormal laboratory test; Preop testing from Last 3 Months Surgical History Surgery Date Site/Laterality Comments NO PAST SURGERIES OTHER SURGICAL HISTORY COLONOSCOPY Medical History Medical History Date Comments Asthma GERD (gastroesophageal reflux disease) Obesity Social History Tobacco Use Types Packs/Day Years Used Date Smoking Tobacco: Former Cigarettes Q uit: 2023 Tobacco Cessation:Counseling Given: Not Answered Alcohol Use Standard Drinks/Week Comments Not Currently 0 (1 standard drink = 0.6 oz pur e alcohol) Interpersonal Safety Answer Date Record ed Physical Abuse 03/08/2025 Verbal Abuse 03/08/2025 Comments No Sex and Gender Information Value Date Recorded Sex Assigned at Not on file Legal Sex Female 11:06 AM EDT Gender Identity Not on file Sexual Orientation Not on file Obstetrics History Last Filed Vital Signs Vital Sign Reading Time Taken Comments Blood Pressure 94/60 03/26/2025 8:15 AM EDT Pulse 90 03/26/2025 8:15 AM EDT Temperature 36.3 C (97.3 F) 03/10/2025 7:28 AM EDT Respiratory Rate 15 03/10/2025 7:28 AM EDT Oxygen Saturation 100% 03/10/2025 7:28 AM EDT Inhaled Oxygen Concentration - - Weight 104 kg (230 lb 3.2 oz) 03/26/2025 8:15 AM EDT Height 162.6 cm (5' 4 ) 03/26/2025 8:15 AM EDT Body Mass Index 39.51 03/26/2025 8:15 AM EDT Plan of Treatment Upcoming Encounters Date Type Department Care Team (Late st Contact Info) Description 04/29/2025 11:00 AM EDT Telemedicine Bariatric Surgery - [address] [phone] Julia Flores, RD 175 [facility] [address] [place] [phone] 05/22/2025 9:00 AM EDT Office Visit Bariatric Surgery - [place] [address] [place] [phone] Marli Carvalho MD [address] [place] [phone] Health Maintenance Due Date Last [...] Procedure Name Priority Date/Time Associated Diagnosis Comments CBC WITH AUTO DIFFERENTIAL Routine 03/10/2025 8:27 AM EDT CBC AND DIFFERENTIAL Routine 03/10/2025 8:27 AM EDT BASIC METABOLIC PANEL Routine 03/10/2025 8:27 AM EDT MAGNESIUM Routine 03/10/2025 8:27 AM EDT PHOSPHORUS Routine 03/10/2025 8:27 AM EDT POCT GLUCOSE BLOOD Routine 03/09/2025 1: 50 PM EDT CBC WITH AUTO DIFFERENTIAL Routine 03/09/2025 5:25 AM EDT MAGNESIUM Routine 03/09/2025 5:25 AM EDT BASIC METABOLIC PANEL Routine 03/09/2025 5:25 AM EDT CBC AND DIFFERENTIAL Routine 03/09/2025 5:25 AM EDT OXYGEN THERAPY, ADULT Routine 03/08/2025 9:51 AM EDT TISSUE EXAM Routine 03/08/2025 9:21 AM EDT Morbid obesity with BMI of 40.0-44.9, adult (CMS/HCC V24, CMS/HCC V28) TH AN ENDOTRACHEAL(NO CHARGE) Routine 03/08/2025 8:17 AM EDT DC LAP SURGICAL GASTRIC RESTRICTIVE PROCEDURE LONGITUDINAL GASTRECTOMY 03/08/2025 7:43 AM EDT Morbid obesity with BMI of 40.0-44.9, adult (CMS/HCC V24, CMS/HCC V28) Special Needs CHANGED TO [facility] VIA TEAMS W/GARETT CASSIDY 03/06 POC , URINE DIAGNOSTIC Routine 03/08/2025 7:27 AM EDT HCG QUALITATIVE, URINE Routine 11:09 AM EDT Morbid obesity with BMI of 40.0-44.9, adult (CMS/HCC V24, CMS/HCC V28) TRIIODOTHYRONINE FREE Routine 02/19/2025 11:02 AM EDT Abnormal laboratory test FREE THYROXINE WITH REFLEX TO FREE TRIIODOTHYRONINE Routine 02/19/2025 11:02 AM EDT Abnormal laboratory test THYROID STIMULATING HORMONE WITH REFLEX TO FREE T4 AND FREE T3 Routine 02/19/2025 11:02 AM EDT Abnormal laboratory test NICOTINE AND COTININE Routine 02/19/2025 11:02 AM EDT Preop testing XR CHEST 2 VIEWS Routine 02/18/2025 12:53 PM EDT Morbid obesity with BMI of [...] Maintenance Results * (ABNORMAL) CBC auto differential (03/10/2025 8:27 AM EDT) Only the most recent of3 resultswithin the time period is included. WBC 11.3(H) 4.8 - 10.8 K/mcL LAB HEMETOLOGY METHOD 03/10/2025 8:39 AM [facility] RBC 3.80 3.80 - 4.80 M/mcL LAB HEMETOLOGY METHOD 03/10/2025 8:39 AM [facility] Hemoglobin 11.6 11.5 - 16.0 g/dL LAB HEMETOLOGY METHOD 03/10/2025 8:39 AM [facility] Hematocrit 35.9 35.0 - 47.0 % LAB HEMETOLOGY METHOD 03/10/2025 8:39 AM [facility] MCV 95.7 79.0 - 98.0 FL LAB HEMETOLOGY METHOD 03/10/2025 8:39 AM [facility] MCH 30.9 27.0 - 32.0 pcg LAB HEMETOLOGY METHOD 03/10/2025 8:39 AM [facility] MCHC 32.3 32.0 - 37.0 g/dL LAB HEMETOLOGY METHOD 03/10/2025 8:39 AM [facility] RDW 11.6 11.0 - 15.0 % LAB HEMETOLOGY METHOD 03/10/2025 8:39 AM [facility] Platelets 332 130 - 400 K/mcL LAB HEMETOLOGY METHOD 03/10/2025 8:39 AM [facility] MPV 9.3 7.0 - 11.0 FL LAB HEMETOLOGY METHOD 03/10/2025 8:39 AM [facility] NRBC 0.0 <1.0 % LAB HEMETOLOGY METHOD 03/10/2025 8:39 AM [facility] NRBC Absolute 0.00 <0.10 K/mcL LAB HEMETOLOGY METHOD 03/10/2025 8:39 AM [facility] Neutrophils Relative 72.2 % LAB HEMETOLOGY METHOD 03/10/2025 8:39 AM [facility] Lymphocytes Relative 20.2 % LAB HEMETOLOGY METHOD 03/10/2025 8:39 AM [facility] Monocytes Relative 6.6 % LAB HEMETOLOGY METHOD 03/10/2025 8:39 AM [facility] Eosinophils Relative 0.2 % LAB HEMETOLOGY METHOD 03/10/2025 8:39 AM [facility] Basophils Relative 0.4 % LAB HEMETOLOGY METHOD 03/10/2025 8:39 AM [facility] Immature Granulocytes Relative 0.4 % LAB HEMETOLOGY METHOD 03/10/2025 8:39 AM [facility] Neutrophils Absolute 8.15(H) 1.50 - 7.00 K/mcL LAB HEMETOLOGY METHOD 03/10/2025 8:39 AM EDT [facility] Lymphocytes Absolute 2.28 1.00 - 5.00 K/[facility] LAB HEMETOLOGY METHOD 03/10/2025 8:39 AM EDT [facility] Monocytes Absolute 0.74 0.20 - 1.00 K/[facility] LAB HEMETOLOGY METHOD 03/10/2025 8:39 AM EDT [facility] Eosinophils Absolute 0.02 0.00 - 0.50 K/[facility] LAB HEMETOLOGY METHOD 03/10/2025 8:39 AM EDT [facility] Basophils Absolute 0.04 0.00 - 0.20 K/[facility] LAB HEMETOLOGY METHOD 03/10/2025 8:39 AM EDT [facility] Immature Granulocytes Absolute 0.04(H) 0.00 - 0.03 K/[facility] LAB HEMETOLOGY METHOD 03/10/2025 8:39 AM EDT [facility] Blood Venous blood specimen / Unknown Venipuncture / Unknown 03/10/2025 8:27 AM EDT 03/10/2025 8:31 AM EDT Apryl WALKER LAB BLOOD ORDERABLES Final Resu lt [facility] [address] [place] [address], * (ABNORMAL) Phosphorus (03/10/2025 8:27 AM EDT) Phosphorus 2.4(L) 2.5 - 4.5 mg/dL LAB CHEMISTRY METHOD 03/10/2025 9:01 AM EDT [facility] Blood Venous blood specimen / Unknown Venipuncture / Unknown 03/10/2025 8:27 AM EDT 03/10/2025 8:31 AM EDT us Apryl WALKER LAB BLOOD ORDERABLES Final Resu lt Performing Organization Address [facility]/ZIP Co de Phone Number [facility] [address] [place] [address], [place] [phone] * (ABNORMAL) Magnesium (03/10/2025 8:27 AM EDT) Only the most recent of2 resultswithin the time period is included. Pathologist [facility] Magnesium 1.8(L) 1.9 - 2.6 mg/dL LAB CHEMISTRY METHOD 03/10/2025 9:01 AM EDT [facility] Blood Venous blood specimen / Unknown Venipuncture / Unknown 03/10/2025 8:27 AM EDT 03/10/2025 8:31 AM EDT Apryl WALKER LAB BLOOD ORDERABLES Final Resu lt Performing Organization Address [facility]/ZIP Co de Phone Number [facility] [address] [place] [address], [place] [phone] * Basic metabolic panel (03/10/2025 8:27 AM EDT) Only the most recent of2 resultswithin the time period is included. Pathologist [facility] Sodium 139 133 - 145 mmol/L LAB CHEMISTRY METHOD 03/10/2025 9:01 AM [facility] Potassium 3.9 3.5 - 5.5 mmol/L LAB CHEMISTRY METHOD 03/10/2025 9:01 AM [facility] Chloride 106 96 - 110 mmol/L LAB CHEMISTRY METHOD 03/10/2025 9:01 AM [facility] CO2 29 21 - 32 mmol/L LAB CHEMISTRY METHOD 03/10/2025 9:01 AM [facility] Anion Gap 4 3 - 11 LAB CHEMISTRY METHOD 03/10/2025 9:01 AM [facility] Glucose 86 70 - 100 mg/dL LAB CHEMISTRY METHOD 03/10/2025 9:01 AM EDT [facility] BUN 9 5 - 25 mg/dL LAB CHEMISTRY METHOD 03/10/2025 9:01 AM EDT [facility] Creatinine 0.69 0.50 - 1.10 mg/dL LAB CHEMISTRY METHOD 03/10/2025 9:01 AM EDT [facility] eGFR 122 >=60 mL/min/1. 73m2 LAB CHEMISTRY METHOD 03/10/2025 9:01 AM EDT [facility] Comment:Calculation based on the Chronic Kidney Disease Epidemiology Collaboration (CKD-EPI) equation refit without adjustment for race. BUN/Creatinine Ratio 13.0 LAB CHEMISTRY METHOD 03/10/2025 9:01 AM EDT [facility] Calcium 8.8 8.5 - 10.5 mg/dL LAB CHEMISTRY METHOD 03/10/2025 9:01 AM EDT [facility] Blood Venous blood specimen / Unknown Venipuncture / Unknown 03/10/2025 8:27 AM EDT 03/10/2025 8:31 AM EDT us Apryl WALKER LAB BLOOD ORDERABLES Final Resu lt [facility] [address] [place] [address], * (ABNORMAL) POCT Glucose, blood (03/09/2025 1:50 PM EDT) Glucose POCT 114(H) 70 - 100 mg/dL 03/09/2025 1:51 PM EDT [facility] Blood Capillary blood specimen / Unknown 03/09/2025 1:50 PM EDT 03/09/2025 1:52 PM EDT Marli Carvalho MD LAB POINT OF CA RE TEST DOCKED DEVICE UNSOLICITED RESULTS Final Result [facility] [address] [place] [address], [place] [phone] * Tissue exam (03/08/2025 9:21 AM EDT) Final Diagnosis A. Stomach, sleeve gastrectomy: - Portion of stomach with no specific pathologic changes. 03/11/2025 12:23 PM EDT [facility] Gross Description A. Stomach, : Labeled stomach . Received in formalin is a 20.1 x 3.2 x 3.2 cm pouch of stomach with a linear stapled margin of resection. There is scant attached perigastric adipose tissue. The serosa is cash-pink, glistening, and focally hemorrhagic. The staple line is removed and inked black. The specimen is opened to show a pink-red mucosa with prominent rugal folds. The hemorrhagic mucosa is most prominent in one half of the specimen. Polyps and masses are absent. Lymph nodes are absent. The luminal contents consist of red, bilious and bloody material. Paper Sheeter sections are submitted in one cassette to include a perpendicular section of the margin and random stomach, three pieces. 03/11/2025 12:23 PM EDT [facility] Disclaimer Unless otherwise specified, all tissue is 10% NB formalin fixed and paraffin embedded. 03/11/2025 12:23 PM EDT [facility] Tissue Stomach structure / Unknown 03/08/2025 9:21 AM EDT 03/08/2025 10:22 AM EDT us Marli Carvalho MD LAB PATHOLOGY ORDERABLE S Final Result [facility] [address] [place] [address], [place] [phone] * TH AN ENDOTRACHEAL(NO CHARGE) (03/08/2025 8:17 AM EDT) Narrative Dorcas Smith CRNA - 03/08/2025 8:17 AM EDT Dorcas Smith CRNA 03/08/2025 8:18 AM General Information and Staff Patient location during procedure: OR Anesthesiologist: Francisco Bone MD Resident/ENGLISH COMPOSITION INSTRUCTOR: Dorcas Smith CRNA Performed: resident/ENGLISH COMPOSITION INSTRUCTOR/CAA Performed by: Dorcas Smith CRNA Authorized by: Francisco Bone MD Intubation Urgency: elective Final Airway Details Successful airway: ETT Cuffed: yes Successful intubation technique: direct laryngoscopy Endotracheal tube insertion site: oral Blade: Tash Blade size: #3 ETT size (mm): 7.0 Cormack-Lehane Classification: grade I - full view of glottis Placement verified by: chest auscultation and capnometry Measured from: lips ETT to lips (cm): 22 Number of attempts at approach: 1 Number of other approaches attempted: 0Final airway type: endotracheal airway Indications and Patient Condition Indications for airway management: anesthesia Preoxygenated: yes Soft Tissue Damage: No Dentition Unchanged: Yes Mask difficulty assessment: 1 - vent by mask Francisco Bone MD ANESTHESIA ORDERABLES Final R esult * POC , urine manually resulted (03/08/2025 7:27 AM EDT) HCG, Ur POC Negative Negative POC hCG Int QC Pass? Yes Yes Urine Urine specimen obtained by clean catch procedure / Unknown 03/08/2025 7:27 AM EDT Francisco Bone MD POINT OF CARE TEST ENTER/EDIT ORDERABLES Final Result * , urine (02/19/2025 11:09 AM EDT) Preg Test, Ur Negative Negative 02/19/2025 2:20 PM EDT [facility] Urine Urine specimen obtained by clean catch procedure / Unknown Non-blood Collection / Unknown 02/19/2025 11:09 AM EDT 02/19/2025 11:09 AM EDT Marli Carvalho MD LAB URINE ORDERABLES Fi nal Result Performing Organization Address City/[facility]/ZIP Co de Phone Number [facility] [address] [place] [address], [place] [phone] * (ABNORMAL) Thyroid stimulating hormone with reflex to free t4 and free t3 (02/19/2025 11:02 AM EDT) TSH 4.96(H) 0.40 - 4.00 mcIU/mL LAB CHEMISTRY METHOD 02/19/2025 2:40 PM EDT [facility] Blood Venous blood specimen / Unknown Venipuncture / Unknown 02/19/2025 11:02 AM EDT 02/19/2025 11:02 AM EDT us Marli Carvalho MD LAB BLOOD ORDERABLES Fi nal Result Performing Organization Address [facility] Co de Phone Number [facility] [address] [place] [address], [place] [phone] * Free thyroxine with reflex to free triiodothyronine (02/19/2025 11:02 AM EDT) Free T4 1.02 0.70 - 1.80 ng/dL LAB CHEMISTRY METHOD 02/19/2025 3:28 PM EDT [facility] Blood Venous blood specimen / Unknown Venipuncture / Unknown 02/19/2025 11:02 AM EDT 02/19/2025 11:02 AM EDT us Marli Carvalho MD LAB BLOOD ORDERABLES Fi nal Result Performing Organization Address [facility]/ZIP Co de Phone Number [facility] [address] [place] [address], [place] [phone] * Nicotine and cotinine (02/19/2025 11:02 AM EDT) Nicotine <2.0 <2.0 ng/mL 02/23/2025 9:11 AM EDT [facility] Cotinine <2.0 <2.0 ng/mL 02/23/2025 9:11 AM EDT [facility] Comment: Additional Reference Ranges: Active Tobacco Passive Abstinence User Exposure 2 Weeks and more Nicotine 30 - 50 ng/mL <2 ng/mL <2 ng/mL Cotinine 200 - 800 ng/mL <8 ng/mL <2 ng/mL Reference Ranges from: Clin. Chem.; 48:6701-0374 (2002) Direct any interpretive questions to the toxicology laboratory. This is for medical use only, it is not intended for forensic use. If applicable, any drug confirmation testing reported here was developed and the performance characteristics determined by [facility]. This confirmation testing has not been cleared or approved by the FDA. The laboratory is regulated under CLIA as qualified to perform high-complexity testing. This test is used for patient testing purposes. It should not be regarded as investigational or for research. Test performed at [facility], [address] , [place] [address] Teressa Rothman MD, PhD - [employer] Blood Venous blood specimen / Unknown Venipuncture / Unknown 02/19/2025 11:02 AM EDT 02/19/2025 11:02 AM EDT us Marli Carvalho MD LAB BLOOD ORDERABLES Fi nal Result [facility] [address] [place] [address] * Triiodothyronine free (02/19/2025 11:02 AM EDT) T3, Free 341 230 - 420 pcg/dL LAB CHEMISTRY METHOD 02/19/2025 4:37 PM EDT [facility] Blood Venous blood specimen / Unknown Venipuncture / Unknown 02/19/2025 11:02 AM EDT 02/19/2025 11:02 AM EDT us Marli Carvalho MD LAB BLOOD ORDERABLES Fi nal Result [facility] ([facility] [[email or web address] [address] [place] [address], [place] [phone] * XR Chest 2 Views (02/18/2025 12:53 PM EDT) Anatomical Region Laterality Modality Body Radiographic Francisca ging 02/19/2025 7:57 AM EDT Impressions 02/19/2025 7:57 AM EDT Normal examination. Code 15925 -------- FINAL REPORT -------- Dictated By: Alex Loyola Dictated Date: 02/19/2025 07:57 ET Assigned Physician: Alex Loyola Reviewed and Electronically Signed By: Alex Loyola Signed Date: 02/19/2025 07:57 ET Workstation ID: [id number] Transcribed By: Self Edit Transcribed Date: 02/19/2025 [...] angles are clear. IMPRESSION: Normal examination. Code 44241 -------- FINAL REPORT -------- Dictated By: Alex Loyola Dictated Date: 02/19/2025 07:57 ET Assigned Physician: Alex Loyola Reviewed and Electronically Signed By: Alex Loyola Signed Date: 02/19/2025 07:57 ET Workstation ID: [id number] Transcribed By: Self Edit Transcribed Date: 02/19/2025 07:57 ET us Marli Carvalho MD IMG XR PROCEDURES Final Result * ECG 12 lead (02/18/2025 12:35 PM EDT) Ventricular Rate ECG 74 BPM GEMUSE Atrial Rate 74 BPM GEMUSE P-R Interval 148 ms GEMUSE QRS Duration 80 ms GEMUSE Q-T Interval 366 ms GEMUSE QTc 406 ms GEMUSE P Wave Savage 40 degrees GEMUSE R Savage 65 degrees GEMUSE T Savage 34 degrees GEMUSE ECG Interpretation Normal sinus rhythm with sinus arrhythmia Normal ECG No previous ECGs available Confirmed by MD Barrett, Primo ([id number]) on 02/19/2025 8:32:25 AM GEMUSE 02/18/2025 12:3 5 PM EDT 02/19/2025 8:32 AM EDT us Marli Carvalho MD ECG ORDERABLES Final R esult Performing Organization Address City/[facility] de Phone Number GEMUSE * Prothrombin time with INR (02/18/2025 12:28 PM EDT) Pathologist [facility] Protime 12.8 10.6 - 13.9 sec LAB COAGULATION METHOD 02/18/2025 1:06 PM EDT [facility] INR 1.0 LAB COAGULATION METHOD 02/18/2025 1:06 PM EDT [facility] Blood Venous blood specimen / Unknown Venipuncture / Unknown 02/18/2025 12:28 PM EDT 02/18/2025 12:48 PM EDT us Marli Carvalho MD LAB BLOOD ORDERABLES Fi nal Result Performing Organization Address City/[facility] Co de Phone Number [facility] [address] [place] [address], [place] [phone] * Type and screen (02/18/2025 12:28 PM EDT) Pathologist [facility] ABO Group B 02/18/2025 2:09 PM EDT [facility] Rh Type Positive 02/18/2025 2:09 PM EDT [facility] Antibody Screen Negative 02/18/2025 2:09 PM EDT [facility] Blood Venous blood specimen / Unknown Venipuncture / Unknown 02/18/2025 12:28 PM EDT 02/18/2025 12:48 PM EDT Marli Carvalho MD LAB BLOOD BANK TEST ORD ERABLES Final Result [facility] [address] [place] [address], [place] [phone] * (ABNORMAL) CMP (02/18/2025 12:28 PM EDT) [facility] Sodium 136 133 - 145 mmol/L LAB CHEMISTRY METHOD 02/18/2025 1:21 PM [facility] Potassium 4.2 3.5 - 5.5 mmol/L LAB CHEMISTRY METHOD 02/18/2025 1:21 PM [facility] Chloride 105 96 - 110 mmol/L LAB CHEMISTRY METHOD 02/18/2025 1:21 PM [facility] CO2 26 21 - 32 mmol/L LAB CHEMISTRY METHOD 02/18/2025 1:21 PM [facility] Anion Gap 5 3 - 11 LAB CHEMISTRY METHOD 02/18/2025 1:21 PM [facility] Glucose 88 70 - 100 mg/dL LAB CHEMISTRY METHOD 02/18/2025 1:21 PM [facility] BUN 15 5 - 25 mg/dL LAB CHEMISTRY METHOD 02/18/2025 1:21 PM [facility] Creatinine 0.68 0.50 - 1.10 mg/dL LAB CHEMISTRY METHOD 02/18/2025 1:21 PM [facility] eGFR 123 >=60 mL/min/1. 73m2 LAB CHEMISTRY METHOD 02/18/2025 1:21 PM [facility] Comment:Calculation based on the Chronic Kidney Disease Epidemiology Collaboration (CKD-EPI) equation refit without adjustment for race. BUN/Creatinine Ratio 22.1 LAB CHEMISTRY METHOD 02/18/2025 1:21 PM [facility] Calcium 8.2(L) 8.5 - 10.5 mg/dL LAB CHEMISTRY METHOD 02/18/2025 1:21 PM [facility] AST (SGOT) 13 10 - 42 unit/L LAB CHEMISTRY METHOD 02/18/2025 1:21 PM [facility] ALT (SGPT) 32 10 - 60 unit/L LAB CHEMISTRY METHOD 02/18/2025 1:21 PM [facility] Alkaline Phosphatase 57 42 - 121 unit/L LAB CHEMISTRY METHOD 02/18/2025 1:21 PM [facility] Total Protein 7.0 6.0 - 8.0 g/dL LAB CHEMISTRY METHOD 02/18/2025 1:21 PM [facility] Albumin 3.4 3.2 - 5.0 g/dL LAB CHEMISTRY METHOD 02/18/2025 1:21 PM [facility] Total Bilirubin 0.4 0.0 - 1.4 mg/dL LAB CHEMISTRY METHOD 02/18/2025 1:21 PM [facility] Blood Venous blood specimen / Unknown Venipuncture / Unknown 02/18/2025 12:28 PM EDT 02/18/2025 12:48 PM EDT Marli Carvalho MD LAB BLOOD ORDERABLES Fi nal Result [facility] [address] [place] [address], * Lipid panel with reflex to direct LDL (10/09/2024 11:12 AM EST) Cholesterol 161 0 - 200 mg/dL LAB CHEMISTRY METHOD 10/09/2024 3:32 PM EST [facility] Triglycerides 128 0 - 150 mg/dL LAB CHEMISTRY METHOD 10/09/2024 3:32 PM EST [facility] HDL 40 >=40 mg/dL LAB CHEMISTRY METHOD 10/09/2024 3:32 PM EST [facility] LDL Calculated 95 0 - 100 mg/dL LAB CHEMISTRY METHOD 10/09/2024 3:32 PM EST [facility] VLDL Cholesterol Luis 25.6 mg/dL LAB CHEMISTRY METHOD 10/09/2024 3:32 PM EST [facility] Non HDL Chol. (LDL+VLDL) 121 <145 mg/dL LAB CHEMISTRY METHOD 10/09/2024 3:32 PM EST [facility] Chol/HDL Ratio 4.0 0.0 - 4.4 LAB CHEMISTRY METHOD 10/09/2024 3:32 PM EST [facility] Blood Venous blood specimen / Unknown Venipuncture / Unknown 10/09/2024 11:12 AM EST 10/09/2024 11:12 AM EST Marli Carvalho MD LAB BLOOD ORDERABLES Fi nal Result Performing Organization Address [facility]/ZIP Co de Phone Number [facility] [address] [place] [address], [place] [phone] from Last 3 Months or Most Recently Relevant to Health Maintenance Insurance [facility] Care Teams Death Claim Clerk Relationship Specialty Start Date End Date Beckie Grace MD 2 [facility] , [address] Physician Associ D/B/A: [facility] JEN Quiroz PCP - General 12/21/23
== END 2025-03-26 12:11 | disposition home or self-care (01) ==
LOC: HO.HWS 11:10
PROVIDERS: PCP Internal Medicine; Visit Provider Obstetrics & Gynecology
DX: N87.0 Mild cervical dysplasia (principal); N93.9 Abnormal uterine and vaginal bleeding, unspecified
CPT/HCPCS: 99213

== ENCOUNTER 2025-03-29 10:49 | Outpatient (REF) | payer OTHER, SELFPAY ==
--- NOTE | ~2025-03-29 | US_ITS ---
CLINICAL HISTORY: N93.9 - Abnormal uterine and vaginal bleeding, unspecified Ultrasound of the female pelvis Comparison: US/SR - US PELVIS TRANSABDOMINAL AND TRANSVAGINAL - 11/25/23 13:02 EDT Technique: Grayscale ultrasound with assistance of color Doppler. Transabdominal scanning performed for overall anatomy. Transvaginal scanning performed for better anatomic delineation. Findings: Anteverted uterus measures 6.2 x 3.2 x 4.1 cm. Mildly heterogeneous myometrium, no uterine fibroid is seen. Endometrium is hyperechoic with mild heterogeneity, measures 11 mm in thickness, within normal range for secretory phase, no focal lesion or abnormal vascular flow is seen. Normal cervix. Normal right ovary, 2.2 x 1.5 x 1.6 cm. No abnormal vascular flow. Left ovary is not seen. No free fluid. Impression: 1. No sonographic finding to account for abnormal uterine bleeding. 2. Nonvisualization of the left ovary. This document has been electronically signed by: Emam Chung MD on 03/29/2025 13:43:59
--- OUTSIDE RECORDS SUMMARY | 2025-03-29 10:55 | XMS_ITS | Clinical Summary ---
Author Organization 175 [facility] Address [address] [place] [address] Phone Care Team Providers Care Enterprise Software Engineer Name Role Phone Beckie Grace MD Primary Care Provider [phone] Allergies Active Allergy Reactions Criticality Noted Date [...] (eight) hours. 30 each 5 03/21/20 25 wheat dextrin 3 gram/3.5 gram powder in packet Take 1 packet by mouth 1 (one) time each day. 30 packet 5 03/06/20 25 Discontinue d(Formulary change) Active Problems Problem Noted Date Diagnosed Date Morbid obesity with BMI of 4 0.0-44.9, adult ([facility] V24, [facility] V28) 01/09/2025 Class 3 severe obesity with serious comorbidity and body mass index (BMI) of 45.0 to 49.9 in adult ([facility] V24, [facility] V28) 12/20/2024 Class 2 severe obesity due t o excess calories with serious comorbidity and body mass index (BMI) of 39.0 to 39.9 in adult ([facility] V24, [facility] V28) 02/02/2024 Asthma 01/04/2024 GERD (gastroesophageal reflux disease) 4 Encounters Date Type Department Care Team Description 03/26/2025 8:15 AM EDT Office Visit Bariatric Surgery - [address] [place] [address] Мария Rodriguez PA Class 2 severe obesity due to excess calories with serious comorbidity and body mass index (BMI) of 39.0 to 39.9 in adult ([facility] V24, [facility] V28) (Primary Dx); Bariatric surgery status 03/08/2025 7:44 AM EDT Anesthesia Event [facility] Main OR [address] [place] [address] Francisco Bone MD 03/08/2025 7:30 AM EDT - 03/08/2025 10:00 AM EDT Surgery [facility] Main OR [address] [place] [address] Marli Carvalho MD DAVINCI LAPAROSCOPIC SLEEVE GASTRECTOMY [93860 (CPT )] 03/08/2025 5:59 AM EDT - 03/10/2025 2:32 PM EDT Hospital Encounter [facility] Medical Surgical Unit [address] [place] [address] Marli Carvalho MD History of sleeve gastrectomy (Primary Dx); Morbid obesity with BMI of 40.0-44.9, adult (CMS/HCC V24, CMS/HCC V28) Discharge Disposition: Home or Self Care 02/19/2025 10:30 AM EDT Consult Bariatric Surgery [address] [address] Marli Carvalho MD Morbid obesity with BMI of 40.0-44.9, adult (CMS/HCC V24, CMS/HCC V28) (Primary Dx); Abnormal laboratory test; Inactivity 02/18/2025 12:44 PM EDT - 02/18/2025 11:59 PM EDT Hospital Encounter [facility] Xray [address] [place] [id number] Discharge Disposition: Home or Self Care 02/08/2025 9:00 AM EDT Telemedicine Bariatric Surgery [address] [phone] Class 3 severe obesity with serious comorbidity and body mass index (BMI) of 45.0 to 49.9 in adult, unspecified obesity type (CMS/HCC V24, CMS/HCC V28) (Primary Dx) 01/09/2025 1:00 PM EDT Office Visit Bariatric Surgery [address] [address] Marli Carvalho MD Morbid obesity with BMI of 40.0-44.9, adult ([facility] V24, [facility] V28) (Primary Dx); Abnormal laboratory test; Preop [...] 11:00 AM EDT Telemedicine Bariatric Surgery - [address] [address] Julia Folres, ELIAS [address] [address] 05/22/2025 9:00 AM EDT Office Visit Bariatric Surgery - [address] [address] Marli Carvalho MD [address] [address] Health Maintenance Due Date Last Done [...] ENDOTRACHEAL(NO CHARGE) Routine 03/08/2025 8:17 AM EDT NM LAP SURGICAL GASTRIC RESTRICTIVE PROCEDURE LONGITUDINAL GASTRECTOMY [...] K/mcL LAB HEMETOLOGY METHOD 03/10/2025 8:39 AM [facility] RBC 3.80 3.80 - 4.80 M/mcL LAB HEMETOLOGY METHOD 03/10/2025 8:39 AM [facility] Hemoglobin 11.6 11.5 - 16.0 g/dL LAB HEMETOLOGY METHOD 03/10/2025 8:39 AM [facility] Hematocrit 35.9 35.0 - 47.0 % LAB HEMETOLOGY METHOD 03/10/2025 8:39 AM [facility] MCV 95.7 79.0 - 98.0 FL LAB HEMETOLOGY METHOD 03/10/2025 8:39 AM [facility] MCH 30.9 27.0 - 32.0 pcg LAB HEMETOLOGY METHOD 03/10/2025 8:39 AM [facility] MCHC 32.3 32.0 - 37.0 g/dL LAB HEMETOLOGY METHOD 03/10/2025 8:39 [facility] RDW 11.6 11.0 - 15.0 % LAB HEMETOLOGY METHOD 03/10/2025 8:39 AM [facility] Platelets 332 130 - 400 K/[facility] LAB HEMETOLOGY METHOD 03/10/2025 8:39 AM [facility] MPV 9.3 7.0 - 11.0 FL LAB HEMETOLOGY METHOD 03/10/2025 8:39 AM [facility] NRBC 0.0 <1.0 % LAB HEMETOLOGY METHOD 03/10/2025 8:39 AM [facility] NRBC Absolute 0.00 <0.10 K/[facility] LAB HEMETOLOGY METHOD 03/10/2025 8:39 AM [facility] Neutrophils Relative 72.2 % LAB HEMETOLOGY METHOD 03/10/2025 8:39 AM [facility] Lymphocytes Relative 20.2 % LAB HEMETOLOGY METHOD 03/10/2025 8:39 AM [facility] Monocytes Relative 6.6 % LAB HEMETOLOGY METHOD 03/10/2025 8:39 AM [facility] Eosinophils Relative 0.2 % LAB HEMETOLOGY METHOD 03/10/2025 8:39 AM [facility] Basophils Relative 0.4 % LAB HEMETOLOGY METHOD 03/10/2025 8:39 AM [facility] Immature Granulocytes Relative 0.4 % LAB HEMETOLOGY METHOD 03/10/2025 8:39 AM [facility] Neutrophils Absolute 8.15(H) 1.50 - 7.00 K/[facility] LAB HEMETOLOGY METHOD 03/10/2025 8:39 AM [facility] Lymphocytes Absolute 2.28 1.00 - 5.00 K/mcL LAB HEMETOLOGY METHOD 03/10/2025 8:39 AM EDT [facility] Monocytes Absolute 0.74 0.20 - 1.00 K/mcL LAB HEMETOLOGY METHOD 03/10/2025 8:39 AM EDT [facility] Eosinophils Absolute 0.02 0.00 - 0.50 K/mcL LAB HEMETOLOGY METHOD 03/10/2025 8:39 AM EDT [facility] Basophils Absolute 0.04 0.00 - 0.20 K/[facility] HEMETOLOGY METHOD 03/10/2025 8:39 AM EDT [facility] Immature Granulocytes Absolute 0.04(H) 0.00 - 0.03 K/mcL LAB HEMETOLOGY METHOD 03/10/2025 8:39 AM EDT [facility] Blood Venous blood specimen / Unknown Venipuncture / Unknown 03/10/2025 8:27 AM EDT 03/10/2025 8:31 AM EDT Apryl WALKER LAB BLOOD ORDERABLES Final Resu lt Performing Organization Address City/[facility]/ZIP Co de Phone Number [facility] [address] [place] [address], [place] [phone] * (ABNORMAL) Phosphorus (03/10/2025 8:27 AM EDT) Phosphorus 2.4(L) 2.5 - 4.5 mg/dL LAB CHEMISTRY METHOD 03/10/2025 9:01 AM EDT [facility] Blood Venous blood specimen / Unknown Venipuncture / Unknown 03/10/2025 8:27 AM EDT 03/10/2025 8:31 AM EDT Apryl WALKER LAB BLOOD ORDERABLES Final Resu lt Performing Organization Address [facility]/ZIP Co de Phone Number [facility] [address] [place] [address], [place] [phone] * (ABNORMAL) Magnesium (03/10/2025 8:27 AM EDT) Only the most recent of2 resultswithin the time period is included. [facility] Magnesium 1.8(L) 1.9 - 2.6 mg/dL LAB CHEMISTRY METHOD 03/10/2025 9:01 AM [facility] Blood Venous blood specimen / Unknown Venipuncture / Unknown 03/10/2025 8:27 AM EDT 03/10/2025 8:31 AM EDT Apryl WALKER LAB BLOOD ORDERABLES Final Resu lt [facility] [address] [place] [address], [place] [phone] * Basic metabolic panel (03/10/2025 8:27 AM EDT) Only the most recent of2 resultswithin the time period is included. [facility] Sodium 139 133 - 145 mmol/L LAB CHEMISTRY METHOD 03/10/2025 9:01 AM [facility] Potassium 3.9 3.5 - 5.5 mmol/L LAB CHEMISTRY METHOD 03/10/2025 9:01 AM [facility] Chloride 106 96 - 110 mmol/L LAB CHEMISTRY METHOD 03/10/2025 9:01 AM [facility] CO2 29 21 - 32 mmol/L LAB CHEMISTRY METHOD 03/10/2025 9:01 AM [facility] Anion Gap 4 3 - 11 LAB CHEMISTRY METHOD 03/10/2025 9:01 AM [facility] Glucose 86 70 - 100 mg/dL LAB CHEMISTRY METHOD 03/10/2025 9:01 AM [facility] BUN 9 5 - 25 mg/dL LAB CHEMISTRY METHOD 03/10/2025 9:01 AM [facility] Creatinine 0.69 0.50 - 1.10 mg/dL LAB CHEMISTRY METHOD 03/10/2025 9:01 AM EDT [facility] eGFR 122 >=60 mL/min/1. 73m2 LAB CHEMISTRY METHOD 03/10/2025 9:01 AM EDT [facility] Comment:Calculation based on the Chronic Kidney Disease Epidemiology Collaboration (CKD-EPI) equation refit without adjustment for race. BUN/Creatinine Ratio 13.0 LAB CHEMISTRY METHOD 03/10/2025 9:01 AM EDT [facility] Calcium 8.8 8.5 - 10.5 mg/dL LAB CHEMISTRY METHOD 03/10/2025 9:01 AM EDT [facility] Blood Venous blood specimen / Unknown Venipuncture / Unknown 03/10/2025 8:27 AM EDT 03/10/2025 8:31 AM EDT Apryl WALKER LAB BLOOD ORDERABLES Final Resu lt [facility] [address] [place] [address], [place] [phone] * (ABNORMAL) POCT Glucose, blood (03/09/2025 1:50 PM EDT) Glucose POCT 114(H) 70 - 100 mg/dL 03/09/2025 1:51 PM EDT [facility] Blood Capillary blood specimen / Unknown 03/09/2025 1:50 PM EDT 03/09/2025 1:52 PM EDT Marli Carvalho MD LAB POINT OF CA RE TEST DOCKED DEVICE UNSOLICITED RESULTS Final Result [facility] [address] [place] [address], [place] [phone] * Tissue exam (03/08/2025 9:21 AM EDT) Final Diagnosis A. Stomach, sleeve gastrectomy: - Portion of stomach with no specific pathologic changes. 03/11/2025 12:23 PM EDT [facility] Gross Description A. Stomach, : [...] consist of red, bilious and bloody material. Head Of Loss Prevention sections are submitted in one cassette to include a perpendicular section of the margin and random stomach, three pieces. 03/11/2025 12:23 PM EDT [facility] Disclaimer Unless otherwise specified, all tissue is 10% NB formalin fixed and paraffin embedded. 03/11/2025 12:23 PM EDT [facility] Tissue Stomach structure / Unknown 03/08/2025 9:21 AM EDT 03/08/2025 10:22 AM EDT us Marli Carvalho MD LAB PATHOLOGY ORDERABLE S Final Result [facility] [address] [place] [address], * TH AN ENDOTRACHEAL(NO CHARGE) (03/08/2025 8:17 AM EDT) Narrative Dorcas Smith CRNA - 03/08/2025 8:17 AM EDT Dorcas Smith CRNA 03/08/2025 8:18 AM General Information and Staff Patient location during procedure: OR Anesthesiologist: Francisco Bone MD Resident/SUBSTATION TECHNICIAN: Dorcas Decandio, SUBSTATION TECHNICIAN Performed: resident/SUBSTATION TECHNICIAN/CAA Performed by: Dorcas Smith SUBSTATION TECHNICIAN Authorized by: Francisco Bone MD Intubation Urgency: [...] Ur Negative Negative 02/19/2025 2:20 PM EDT [facility] Urine Urine specimen obtained by clean catch procedure / Unknown Non-blood Collection / Unknown 02/19/2025 11:09 AM EDT 02/19/2025 11:09 AM EDT Marli Carvalho MD LAB URINE ORDERABLES Fi nal Result [facility] [address] [place] [address], [place] [phone] * (ABNORMAL) Thyroid stimulating hormone with reflex to free t4 and free t3 (02/19/2025 11:02 AM EDT) TSH 4.96(H) 0.40 - 4.00 mcIU/mL LAB CHEMISTRY METHOD 02/19/2025 2:40 PM EDT [facility] Blood Venous blood specimen / Unknown Venipuncture / Unknown 02/19/2025 11:02 AM EDT 02/19/2025 11:02 AM EDT us Marli Carvalho MD LAB BLOOD ORDERABLES Fi nal Result Performing Organization Address City/[facility]/ZIP Co de Phone Number [facility] [address] [place] [address], [place] [phone] * Free thyroxine with reflex to free triiodothyronine (02/19/2025 11:02 AM EDT) [facility] Free T4 1.02 0.70 - 1.80 ng/dL LAB CHEMISTRY METHOD 02/19/2025 3:28 PM EDT [facility] Blood Venous blood specimen / Unknown Venipuncture / Unknown 02/19/2025 11:02 AM EDT 02/19/2025 11:02 AM EDT us Marli Carvalho MD LAB BLOOD ORDERABLES Fi nal Result Performing Organization Address City/[facility]/ZIP Co de Phone Number [facility] [address] [place] [address], [place] [phone] * Nicotine and cotinine (02/19/2025 11:02 AM EDT) Nicotine <2.0 <2.0 ng/mL 02/23/2025 9:11 AM EDT [facility] Cotinine <2.0 <2.0 ng/mL 02/23/2025 9:11 AM EDT [facility] Comment: Additional Reference Ranges: Active Tobacco Passive Abstinence User Exposure 2 Weeks and more Nicotine 30 - 50 ng/mL <2 ng/mL <2 ng/mL Cotinine 200 - 800 ng/mL <8 ng/mL <2 ng/mL Reference Ranges from: Clin. Chem.; 48:6238-3551 (2002) Direct any interpretive questions to the toxicology laboratory. This is for medical use only, it is not intended for forensic use. If applicable, any drug confirmation testing reported here was developed and the performance characteristics determined by [facility]. This confirmation testing has not been cleared or approved by the FDA. The laboratory is regulated under CLIA as qualified to perform high-complexity testing. This test is used for patient testing purposes. It should not be regarded as investigational or for research. Test performed at [facility], [address] , [place] [address] Teressa Rothman MD, PhD - Director Of Federal Sales Blood Venous blood specimen / Unknown Venipuncture / Unknown 02/19/2025 11:02 AM EDT 02/19/2025 11:02 AM EDT us Marli Carvalho MD LAB BLOOD ORDERABLES Fi nal Result [facility] [address] [place] [address] * Triiodothyronine free (02/19/2025 11:02 AM EDT) Pathologist [facility] T3, Free 341 230 - 420 pcg/dL LAB CHEMISTRY METHOD 02/19/2025 4:37 PM EDT [facility] Blood Venous blood specimen / Unknown Venipuncture / Unknown 02/19/2025 11:02 AM EDT 02/19/2025 11:02 AM EDT us Marli Carvalho MD LAB BLOOD ORDERABLES Fi nal Result [facility] [address] [place] [address], * XR Chest 2 Views (02/18/2025 12:53 PM EDT) Anatomical Region Laterality Modality Body Radiographic Francisca ging 02/19/2025 7:57 AM EDT Impressions 02/19/2025 7:57 AM EDT Normal examination. Code 92820 -------- FINAL REPORT -------- Dictated By: Alex Loyola Dictated Date: 02/19/2025 07:57 ET Assigned Physician: Alex Loyola Reviewed and Electronically Signed By: Alex Loyola Signed Date: 02/19/2025 07:57 ET Workstation ID: [id number] Transcribed By: Self Edit Transcribed Date: 02/19/2025 [...] angles are clear. IMPRESSION: Normal examination. Code 22577 -------- FINAL REPORT -------- Dictated By: Alex Loyola Dictated Date: 02/19/2025 07:57 ET Assigned Physician: Alex Loyola Reviewed and Electronically Signed By: Alex Loyola Signed Date: 02/19/2025 07:57 ET Workstation ID: [id number] Transcribed By: Self Edit Transcribed Date: 02/19/2025 07:57 ET us Marli Carvalho MD IMG XR PROCEDURES Final Result * ECG 12 lead (02/18/2025 12:35 PM EDT) [facility] Ventricular Rate ECG 74 BPM GEMUSE Atrial Rate 74 BPM GEMUSE P-R Interval 148 ms GEMUSE QRS Duration 80 ms GEMUSE Q-T Interval 366 ms GEMUSE QTc 406 ms GEMUSE P Wave [place] 40 degrees GEMUSE R [place] 65 degrees GEMUSE T [place] 34 degrees GEMUSE ECG Interpretation Normal sinus rhythm with sinus arrhythmia Normal ECG No previous ECGs available Confirmed by MD Barrett, Primo ([id number]) on 02/19/2025 8:32:25 AM GEMUSE 02/18/2025 12:3 5 PM EDT 02/19/2025 8:32 AM EDT us Marli Carvalho MD ECG ORDERABLES Final R esult Performing Organization Address City/[facility] Co de Phone Number GEMUSE * Prothrombin time with INR (02/18/2025 12:28 PM EDT) [facility] Protime 12.8 10.6 - 13.9 sec LAB COAGULATION METHOD 02/18/2025 1:06 PM EDT [facility] INR 1.0 LAB COAGULATION METHOD 02/18/2025 1:06 PM EDT [facility] Blood Venous blood specimen / Unknown Venipuncture / Unknown 02/18/2025 12:28 PM EDT 02/18/2025 12:48 PM EDT us Marli Carvalho MD LAB BLOOD ORDERABLES Fi nal Result [facility] [address] [place] [address], * Type and screen (02/18/2025 12:28 PM EDT) [facility] ABO Group B 02/18/2025 2:09 PM EDT [facility] Rh Type Positive 02/18/2025 2:09 PM EDT [facility] Antibody Screen Negative 02/18/2025 2:09 PM EDT [facility] Blood Venous blood specimen / Unknown Venipuncture / Unknown 02/18/2025 12:28 PM EDT 02/18/2025 12:48 PM EDT Marli Carvalho MD LAB BLOOD BANK TEST ORD ERABLES Final Result [facility] [address] [place] [address], [place] [phone] * (ABNORMAL) CMP (02/18/2025 12:28 PM EDT) Pathologist [facility] Sodium 136 133 - 145 mmol/L LAB CHEMISTRY METHOD 02/18/2025 1:21 PM [facility] Potassium 4.2 3.5 - 5.5 mmol/L LAB CHEMISTRY METHOD 02/18/2025 1:21 PM [facility] Chloride 105 96 - 110 mmol/L LAB CHEMISTRY METHOD 02/18/2025 1:21 PM [facility] CO2 26 21 - 32 mmol/L LAB CHEMISTRY METHOD 02/18/2025 1:21 PM [facility] Anion Gap 5 3 - 11 LAB CHEMISTRY METHOD 02/18/2025 1:21 PM [facility] Glucose 88 70 - 100 mg/dL LAB CHEMISTRY METHOD 02/18/2025 1:21 PM [facility] BUN 15 5 - 25 mg/dL LAB CHEMISTRY METHOD 02/18/2025 1:21 PM [facility] Creatinine 0.68 0.50 - 1.10 mg/dL LAB CHEMISTRY METHOD 02/18/2025 1:21 PM [facility] eGFR 123 >=60 mL/min/1. 73m2 LAB CHEMISTRY METHOD 02/18/2025 1:21 PM [facility] Comment:Calculation based on the Chronic Kidney Disease Epidemiology Collaboration (CKD-EPI) equation refit without adjustment for race. BUN/Creatinine Ratio 22.1 LAB CHEMISTRY METHOD 02/18/2025 1:21 PM [facility] Calcium 8.2(L) 8.5 - 10.5 mg/dL LAB CHEMISTRY METHOD 02/18/2025 1:21 PM [facility] AST (SGOT) 13 10 - 42 unit/L LAB CHEMISTRY METHOD 02/18/2025 1:21 PM [facility] ALT (SGPT) 32 10 - 60 unit/L LAB CHEMISTRY METHOD 02/18/2025 1:21 PM [facility] Alkaline Phosphatase 57 42 - 121 unit/L LAB CHEMISTRY METHOD 02/18/2025 1:21 PM [facility] Total Protein 7.0 6.0 - 8.0 g/dL LAB CHEMISTRY METHOD 02/18/2025 1:21 PM [facility] Albumin 3.4 3.2 - 5.0 g/dL LAB CHEMISTRY METHOD 02/18/2025 1:21 PM [facility] Total Bilirubin 0.4 0.0 - 1.4 mg/dL LAB CHEMISTRY METHOD 02/18/2025 1:21 PM [facility] Blood Venous blood specimen / Unknown Venipuncture / Unknown 02/18/2025 12:28 PM EDT 02/18/2025 12:48 PM EDT us Marli Carvalho MD LAB BLOOD ORDERABLES Fi nal Result [facility] [address] [place] [address], * Lipid panel with reflex to direct LDL (10/09/2024 11:12 AM EST) Cholesterol 161 0 - 200 mg/dL LAB CHEMISTRY METHOD 10/09/2024 3:32 PM EST [facility] Triglycerides 128 0 - 150 mg/dL LAB CHEMISTRY METHOD 10/09/2024 3:32 PM EST [facility] HDL 40 >=40 mg/dL LAB CHEMISTRY METHOD 10/09/2024 3:32 PM EST [facility] LDL Calculated 95 0 - 100 mg/dL LAB CHEMISTRY METHOD 10/09/2024 3:32 PM [facility] VLDL Cholesterol Luis 25.6 mg/dL LAB CHEMISTRY METHOD 10/09/2024 3:32 PM [facility] Non HDL Chol. (LDL+VLDL) 121 <145 mg/dL LAB CHEMISTRY METHOD 10/09/2024 3:32 PM [facility] Chol/HDL Ratio 4.0 0.0 - 4.4 LAB CHEMISTRY METHOD 10/09/2024 3:32 PM [facility] Blood Venous blood specimen / Unknown Venipuncture / Unknown 10/09/2024 11:12 AM EST 10/09/2024 11:12 AM EST Marli Carvalho MD LAB BLOOD ORDERABLES Fi nal Result [facility] [address] [place] [address], [place] [phone] from Last 3 Months or Most Recently Relevant to Health Maintenance Insurance [facility] Care Teams Enterprise Software Engineer Relationship Specialty Start Date End Date Beckie Grace MD [address] [place] [address] , [address] Physician Associ D/B/A: [facility] JEN Quiroz PCP - General 12/21/23
== END 2025-03-29 10:50 | disposition home or self-care (01) ==
LOC: HO.US 10:49
PROVIDERS: PCP Internal Medicine; Visit Provider Obstetrics & Gynecology
DX: N93.9 Abnormal uterine and vaginal bleeding, unspecified (principal)
CPT/HCPCS: 76830; 76856

== ENCOUNTER → 2025-03-29 10:50 | Outpatient (BNV) | payer OTHER, SELFPAY | PROVIDERS: PCP Internal Medicine; Visit Provider Radiology Diagnostic Radiology | DX: N93.9 Abnormal uterine and vaginal bleeding, unspecified (principal) | CPT/HCPCS: 76830; 76856 ==

== ENCOUNTER 2025-04-10 09:55 | Outpatient (AMB) | payer OTHER, SELFPAY ==
--- NOTE | 2025-04-10 09:56 | MHC.OFFVIS ---
Intake Visit Reasons: Ultrasound follow up Vp Public Relations Required: No Information Interpreted: non-clinical & clinical Allergies shrimp Allergy (Mild, Verified 04/10/25 09:56) tongue swelling Environmental Allergies Allergy (Intermediate, Uncoded 04/10/25 09:56) sneezing, asthma black olives Allergy (Mild, Uncoded 04/10/25 09:56) Itching HPI Comments Details: The patient scheduled a telehealth visit for follow-up to discuss the results of her abnormal uterine bleeding workup and options of treatment. The following workup was done.: H&H= 12.8/38 178 hydroxyprogesterone, testosterone free and total within normal TSH, PRL, GC and chlamydia were negative. Endometrial biopsy pathology showed the following: Benign secretory endometrium with poorly developed glands and extensive stromal breakdown, and benign endocervical glandular mucosa; no atypia or carcinoma Pap smear was done was negative. Pelvic ultrasound showed the following: Anteverted uterus measures 6.2 x 3.2 x 4.1 cm. Mildly heterogeneous myometrium, no uterine fibroid is seen. Endometrium is hyperechoic with mild heterogeneity, measures 11 mm in thickness, within normal range for secretory phase, no focal lesion or abnormal vascular flow is seen. Normal cervix. Normal right ovary, 2.2 x 1.5 x 1.6 cm. No abnormal vascular flow. Left ovary is not seen. 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 Brother Colon cancer Brother No problems noted. Maternal Grandfather Colon cancer Prostate cancer Other Mental health disorder Social History Housing: House Alcohol intake: never Patient Tobacco Use Status: Former Tobacco user Tobacco use type: Cigarette e-Cigarette/Vaping Use: Former Use Second Hand Smoke Exposure: No service: No Current occupational status: unemployed Cognitive needs: No Hearing needs: No Vision needs: No Female Reproductive History Menstrual Age of Menarche: 14 Review of Systems Const All systems reviewed & are unremarkable except as noted in HPI and below Reports as per HPI and Reports no additional complaints GI Reports no additional complaints Reports no additional complaints Telehealth Telehealth Telehealth Platform: Telephone Location of provider rendering services: practice address Location of patient: address on file Patient Identification confirmed using: Name, : Yes Telehealth method: video Patient verbally consented to treatment: Yes Patient verbally consented to billing insurance company: Yes Patient informed of any privacy concerns related to visit: Yes Minutes spent on Phone/Video with Pt.: 4 Assessment & Plan Assessment & Plan (1) Abnormal uterine bleeding: Comment: PCOS Code(s): N93.9 - Abnormal uterine and vaginal bleeding, unspecified Category: Medical Plan: Discussed with the patient the results of the workup including ultrasound, EMB, Pap smear, androgen levels, recommended to start Apri as prescribed jhony follow-up in 3 months. All questions answered, the patient verbalized understanding I spent a total of 20 minutes reviewing the chart, talking to the patient via video and documenting in the medical record. Coding Level of Care Code Tele Est Pt Level 3 (17617) Diagnoses Abnormal uterine bleeding N93.9
--- OUTSIDE RECORDS SUMMARY | 2025-04-10 10:35 | XMS_ITS | Clinical Summary ---
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 1 each 5 Active cholecalciferol (VITAMIN D-3) [...] Amount: 30 mg 15 tablet 5 Active polyethylene glycol (Gavilax) 17 gram/dose oral powder DISSOLVE 1 CAPFUL IN 8 OUNCES OF LIQUID AND DIRNK ONCE DAILY NEEDED FOR CONSTIPATION 510 g 3 5 Active acetaminophen (TYLENOL) 500 mg tablet Take 2 tablets (1,000 mg total) by mouth every 8 (eight) hours. 30 each 5 025 Active Problems Problem Noted Date Diagnosed Date Morbid obesity with BMI of 4 0.0-44.9, adult ([facility] V24, [facility] V28) 01/09/2025 Class 3 severe obesity with serious comorbidity and body mass index (BMI) of 45.0 to 49.9 in adult ([facility] V24, [facility] V28) 12/20/2024 Class 2 severe obesity due t o excess calories with serious comorbidity and body mass index (BMI) of 39.0 to 39.9 in adult ([facility] V24, [facility] V28) 02/02/2024 Asthma 01/04/2024 GERD (gastroesophageal reflux disease) 4 Encounters Date Type Department Care Team Description 03/26/2025 8:15 AM EDT Office Visit Bariatric Surgery - [address] [place] [phone] Мария Rodriguez PA Class 2 severe obesity due to excess calories with serious comorbidity and body mass index (BMI) of 39.0 to 39.9 in adult ([facility] V24, [facility] V28) (Primary Dx); Bariatric surgery status 03/08/2025 7:44 AM EDT Anesthesia Event [facility] Main OR [address] [place] [phone] Francisco Bone MD 03/08/2025 7:30 AM EDT - 03/08/2025 10:[address] [facility] OR [address] [place] [phone] Marli Carvalho MD [facility] LAPAROSCOPIC SLEEVE GASTRECTOMY [02190 (CPT )] 03/08/2025 5:59 AM EDT - 03/10/2025 2:32 PM EDT Hospital Encounter [facility] Medical Surgical Unit [address] [place] [phone] Marli Carvalho MD History of sleeve gastrectomy (Primary Dx); Morbid obesity with BMI of 40.0-44.9, adult ([facility] V24, [facility] V28) Discharge Disposition: Home or Self Care 02/19/2025 10:30 AM EDT Consult Bariatric Surgery - [address] [phone] Marli Carvalho MD Morbid obesity with BMI of 40.0-44.9, adult ([facility] V24, [facility] V28) (Primary Dx); Abnormal laboratory test; Inactivity 02/18/2025 12:44 PM EDT - 02/18/2025 11:59 PM EDT Hospital Encounter [facility] Xray [address] [place] [phone] Discharge Disposition: Home or Self Care 02/08/2025 9:00 AM EDT Telemedicine Bariatric Surgery - [address] [phone] Julia Flores, ELIAS Class 3 severe obesity with serious comorbidity and body mass index (BMI) of 45.0 to 49.9 in adult, unspecified obesity type ([facility] V24, [facility] V28) (Primary Dx) 01/09/2025 1:00 PM EDT Office Visit Bariatric Surgery [address] [phone] Marli Carvalho MD Morbid obesity with BMI of 40.0-44.9, adult ([facility] V24, [facility] V28) (Primary Dx); Abnormal laboratory test; Preop [...] 04/29/2025 11:00 AM EDT Telemedicine Bariatric Surgery [facility] [address] [phone] Julia Flores, ELIAS [address] [phone] 05/22/2025 9:00 AM EDT Office Visit Bariatric Surgery [address] [phone] Marli Carvalho MD [address] [place] [phone] Health Maintenance Due Date Last Done Comments [...] ENDOTRACHEAL(NO CHARGE) Routine 03/08/2025 8:17 AM EDT [place] LAP SURGICAL GASTRIC RESTRICTIVE PROCEDURE LONGITUDINAL GASTRECTOMY 03/08/2025 7:43 AM EDT Morbid obesity with BMI of 40.0-44.9, adult (CMS/HCC V24, CMS/HCC V28) Special Needs CHANGED TO [facility] VIA TEAMS W/GARETT CB 03/06 POC , URINE DIAGNOSTIC Routine 03/08/2025 [...] K/mcL LAB HEMETOLOGY METHOD 03/10/2025 8:39 AM [facility] RBC 3.80 3.80 - 4.80 M/mcL LAB HEMETOLOGY METHOD 03/10/2025 8:39 AM [facility] Hemoglobin 11.6 11.5 - 16.0 g/dL LAB HEMETOLOGY METHOD 03/10/2025 8:39 AM [facility] Hematocrit 35.9 35.0 - 47.0 % LAB HEMETOLOGY METHOD 03/10/2025 8:39 AM [facility] MCV 95.7 79.0 - 98.0 FL LAB HEMETOLOGY METHOD 03/10/2025 8:39 AM [facility] MCH 30.9 27.0 - 32.0 pcg LAB HEMETOLOGY METHOD 03/10/2025 8:39 AM [facility] MCHC 32.3 32.0 - 37.0 g/dL LAB HEMETOLOGY METHOD 03/10/2025 8:39 AM [facility] RDW 11.6 11.0 - 15.0 % LAB HEMETOLOGY METHOD 03/10/2025 8:39 AM [facility] Platelets 332 130 - 400 K/mcL LAB HEMETOLOGY METHOD 03/10/2025 8:39 AM [facility] MPV 9.3 7.0 - 11.0 FL LAB HEMETOLOGY METHOD 03/10/2025 8:39 AM [facility] NRBC 0.0 <1.0 % LAB HEMETOLOGY METHOD 03/10/2025 8:39 AM [facility] NRBC Absolute 0.00 <0.10 K/mcL LAB HEMETOLOGY METHOD 03/10/2025 8:39 AM [facility] Neutrophils Relative 72.2 % LAB HEMETOLOGY METHOD 03/10/2025 8:39 AM [facility] Lymphocytes Relative 20.2 % LAB HEMETOLOGY METHOD 03/10/2025 8:39 AM [facility] Monocytes Relative 6.6 % LAB HEMETOLOGY METHOD 03/10/2025 8:39 AM [facility] Eosinophils Relative 0.2 % LAB HEMETOLOGY METHOD 03/10/2025 8:39 AM [facility] Basophils Relative 0.4 % LAB HEMETOLOGY METHOD 03/10/2025 8:39 AM [facility] Immature Granulocytes Relative 0.4 % LAB HEMETOLOGY METHOD 03/10/2025 8:39 AM [facility] Neutrophils Absolute 8.15(H) 1.50 - 7.00 K/mcL LAB HEMETOLOGY METHOD 03/10/2025 8:39 AM [facility] Lymphocytes Absolute 2.28 1.00 - 5.00 K/mcL LAB HEMETOLOGY METHOD 03/10/2025 8:39 AM [facility] Monocytes Absolute 0.74 0.20 - 1.00 K/mcL LAB HEMETOLOGY METHOD 03/10/2025 8:39 AM [facility] Eosinophils Absolute 0.02 0.00 - 0.50 K/mcL LAB HEMETOLOGY METHOD 03/10/2025 8:39 AM EDT [facility] Basophils Absolute 0.04 0.00 - 0.20 K/Health system LAB HEMETOLOGY METHOD 03/10/2025 8:39 AM EDT [facility] Immature Granulocytes Absolute 0.04(H) 0.00 - 0.03 K/Health system LAB HEMETOLOGY METHOD 03/10/2025 8:39 AM EDT [facility] Blood Venous blood specimen / Unknown Venipuncture / Unknown 03/10/2025 8:27 AM EDT 03/10/2025 8:31 AM EDT Apryl WALKER LAB BLOOD ORDERABLES Final Resu lt Performing Organization Address [facility]/ZIP Co de Phone Number [facility] [address] [place] [address], [place] [phone] * (ABNORMAL) Phosphorus (03/10/2025 8:27 AM EDT) Phosphorus 2.4(L) 2.5 - 4.5 mg/dL LAB CHEMISTRY METHOD 03/10/2025 9:01 AM EDT [facility] Blood Venous blood specimen / Unknown Venipuncture / Unknown 03/10/2025 8:27 AM EDT 03/10/2025 8:31 AM EDT Apryl WALKER LAB BLOOD ORDERABLES Final Resu lt [facility] [address] [place] [address], [place] [phone] * (ABNORMAL) Magnesium (03/10/2025 8:27 AM EDT) Only the most recent of2 resultswithin the time period is included. Magnesium 1.8(L) 1.9 - 2.6 mg/dL LAB CHEMISTRY METHOD 03/10/2025 9:01 AM EDT [facility] Blood Venous blood specimen / Unknown Venipuncture / Unknown 03/10/2025 8:27 AM EDT 03/10/2025 8:31 AM EDT Apryl WALKER LAB BLOOD ORDERABLES Final Resu lt [facility] [address] [place] [address], * Basic metabolic panel (03/10/2025 8:27 AM EDT) Only the most recent of2 resultswithin the time period is included. Sodium 139 133 - 145 mmol/L LAB CHEMISTRY METHOD 03/10/2025 9:01 AM [facility] Potassium 3.9 3.5 - 5.5 mmol/L LAB CHEMISTRY METHOD 03/10/2025 9:01 AM [facility] Chloride 106 96 - 110 mmol/L LAB CHEMISTRY METHOD 03/10/2025 9:01 AM [facility] CO2 29 21 - 32 mmol/L LAB CHEMISTRY METHOD 03/10/2025 9:01 AM [facility] Anion Gap 4 3 - 11 LAB CHEMISTRY METHOD 03/10/2025 9:01 AM [facility] Glucose 86 70 - 100 mg/dL LAB CHEMISTRY METHOD 03/10/2025 9:01 AM [facility] BUN 9 5 - 25 mg/dL LAB CHEMISTRY METHOD 03/10/2025 9:01 AM [facility] Creatinine 0.69 0.50 - 1.10 mg/dL LAB CHEMISTRY METHOD 03/10/2025 9:01 AM [facility] eGFR 122 >=60 mL/min/1. 73m2 LAB CHEMISTRY METHOD 03/10/2025 9:01 AM [facility] Comment:Calculation based on the Chronic Kidney Disease Epidemiology Collaboration (CKD-EPI) equation refit without adjustment for race. BUN/Creatinine Ratio 13.0 LAB CHEMISTRY METHOD 03/10/2025 9:01 AM EDT [facility] Calcium 8.8 8.5 - 10.5 mg/dL LAB CHEMISTRY METHOD 03/10/2025 9:01 AM EDT [facility] Blood Venous blood specimen / Unknown Venipuncture / Unknown 03/10/2025 8:27 AM EDT 03/10/2025 8:31 AM EDT Apryl WALKER LAB BLOOD ORDERABLES Final Resu lt Performing Organization Address [facility]/ZIP Co de Phone Number [facility] [address] [place] [address], [place] [phone] * (ABNORMAL) POCT Glucose, blood (03/09/2025 1:50 PM EDT) Glucose POCT 114(H) 70 - 100 mg/dL 03/09/2025 1:51 PM EDT [facility] Blood Capillary blood specimen / Unknown 03/09/2025 1:50 PM EDT 03/09/2025 1:52 PM EDT Marli Carvalho MD LAB POINT OF CA RE TEST DOCKED DEVICE UNSOLICITED RESULTS Final Result Performing Organization Address [facility]/ZIP Co de Phone Number [facility] [address] [place] [address], [place] [phone] * Tissue exam (03/08/2025 9:21 AM EDT) Final Diagnosis A. Stomach, sleeve gastrectomy: - Portion of stomach with no specific pathologic changes. 03/11/2025 12:23 PM EDT [facility] Gross Description A. Stomach, : Labeled [...] consist of red, bilious and bloody material. Dietary Aide sections are submitted in one cassette to include a perpendicular section of the margin and random stomach, three pieces. 03/11/2025 12:23 PM EDT [facility] Disclaimer Unless otherwise specified, all tissue is 10% NB formalin fixed and paraffin embedded. 03/11/2025 12:23 PM EDT [facility] Tissue Stomach structure / Unknown 03/08/2025 9:21 AM EDT 03/08/2025 10:22 AM EDT us Marli Carvalho MD LAB PATHOLOGY ORDERABLE S Final Result [facility] [address] [place] [address], * TH AN ENDOTRACHEAL(NO CHARGE) (03/08/2025 8:17 AM EDT) Narrative Dorcas Smith CRNA - 03/08/2025 8:17 AM EDT Dorcas Smith CRNA 03/08/2025 8:18 AM General Information and Staff Patient location during procedure: OR Anesthesiologist: Francisco Bone MD Resident/RENAL MEDICINE PHYSICIAN: Dorcas Smith CRNA Performed: resident/CHAI/CAA Performed by: Dorcas Smith CRNA Authorized by: [...] urine manually resulted (03/08/2025 7:27 AM EDT) [facility] HCG, Ur POC Negative Negative POC hCG Int QC Pass? Yes Yes Urine Urine specimen obtained by clean catch procedure / Unknown 03/08/2025 7:27 AM EDT Francisco Bone MD POINT OF CARE TEST ENTER/EDIT ORDERABLES Final Result * , urine (02/19/2025 11:09 AM EDT) [facility] Preg Test, Ur Negative Negative 02/19/2025 2:20 PM EDT [facility] Urine Urine specimen obtained by clean catch procedure / Unknown Non-blood Collection / Unknown 02/19/2025 11:09 AM EDT 02/19/2025 11:09 AM EDT Marli Carvalho MD LAB URINE ORDERABLES Fi nal Result [facility] [address] [place] [address], [place] [phone] * (ABNORMAL) Thyroid stimulating hormone with reflex to free t4 and free t3 (02/19/2025 11:02 AM EDT) [facility] TSH 4.96(H) 0.40 - 4.00 mcIU/mL LAB CHEMISTRY METHOD 02/19/2025 2:40 PM EDT [facility] Blood Venous blood specimen / Unknown Venipuncture / Unknown 02/19/2025 11:02 AM EDT 02/19/2025 11:02 AM EDT us Marli Carvalho MD LAB BLOOD ORDERABLES Fi nal Result Performing Organization Address [facility]/ZIP Co de Phone Number [facility] [address] [place] [address], [place] [phone] * Free thyroxine with reflex to free triiodothyronine (02/19/2025 11:02 AM EDT) Free T4 1.02 0.70 - 1.80 ng/dL LAB CHEMISTRY METHOD 02/19/2025 3:28 PM EDT [facility] Blood Venous blood specimen / Unknown Venipuncture / Unknown 02/19/2025 11:02 AM EDT 02/19/2025 11:02 AM EDT us Marli Carvalho MD LAB BLOOD ORDERABLES Fi nal Result Performing Organization Address [facility] de Phone Number [facility] [address] [place] [address], [place] [phone] * Nicotine and cotinine (02/19/2025 11:02 AM [...] <2 ng/mL Reference Ranges from: Clin. Chem.; 48:[id number] (2002) Direct any interpretive questions to the toxicology laboratory. This is for medical use only, it is not intended for forensic use. If applicable, any drug confirmation testing reported here was developed and the performance characteristics determined by [facility]. This confirmation testing has not been cleared or approved by the FDA. The laboratory is regulated under CLIA as qualified to perform high-complexity testing. This test is used for patient testing purposes. It should not be regarded as investigational or for research. Test performed at [facility], [address] , [place] [address] Teressa Rothman MD, PhD - Labeling Machine Operator Blood Venous blood specimen / Unknown Venipuncture / Unknown 02/19/2025 11:02 AM EDT 02/19/2025 11:02 AM EDT us Marli Carvalho MD LAB BLOOD ORDERABLES Fi nal Result Performing Organization Address City/[facility]/ZIP Co de Phone Number [facility] [address] [place] [address] * Triiodothyronine free (02/19/2025 11:02 AM EDT) T3, Free 341 230 - 420 pcg/dL LAB CHEMISTRY METHOD 02/19/2025 4:37 PM EDT [facility] Blood Venous blood specimen / Unknown Venipuncture / Unknown 02/19/2025 11:02 AM EDT 02/19/2025 11:02 AM EDT us Marli Carvalho MD LAB BLOOD ORDERABLES Fi nal Result [facility] [address] [place] [address], [place] [phone] * XR Chest 2 Views (02/18/2025 12:53 PM EDT) Anatomical Region Laterality Modality Body Radiographic Francisca ging 02/19/2025 7:57 AM EDT Impressions 02/19/2025 7:57 AM EDT Normal examination. Code 25791 -------- FINAL REPORT -------- Dictated By: Alex Loyola Dictated Date: 02/19/2025 07:57 ET Assigned Physician: Alex Loyola Reviewed and Electronically Signed By: Alex Loyola Signed Date: 02/19/2025 07:57 ET Workstation ID: [id number] Transcribed By: Self Edit Transcribed Date: 02/19/2025 [...] angles are clear. IMPRESSION: Normal examination. Code 77223 -------- FINAL REPORT -------- Dictated By: Alex Loyola Dictated Date: 02/19/2025 07:57 ET Assigned Physician: Alex Loyola Reviewed and Electronically Signed By: Alex Loyola Signed Date: 02/19/2025 07:57 ET Workstation ID: [id number] Transcribed By: Self Edit Transcribed Date: 02/19/2025 07:57 ET us Marli Carvalho MD IMG XR PROCEDURES Final Result * ECG 12 lead (02/18/2025 12:35 PM EDT) Ventricular Rate ECG 74 BPM GEMUSE Atrial Rate 74 BPM GEMUSE P-R Interval 148 ms GEMUSE QRS Duration 80 ms GEMUSE Q-T Interval 366 ms GEMUSE QTc 406 ms GEMUSE P Wave Durant 40 degrees GEMUSE R Durant 65 degrees GEMUSE T [place] 34 degrees GEMUSE ECG Interpretation Normal sinus rhythm with sinus arrhythmia Normal ECG No previous ECGs available Confirmed by MD Hyde Christopher ([id number]) on 02/19/2025 8:32:25 AM GEMUSE 02/18/2025 12:3 5 PM EDT 02/19/2025 8:32 AM EDT us Marli Carvalho MD ECG ORDERABLES Final R esult GEMUSE * Prothrombin time with INR (02/18/2025 12:28 PM EDT) Protime 12.8 10.6 - 13.9 sec LAB COAGULATION METHOD 02/18/2025 1:06 PM EDT [facility] INR 1.0 LAB COAGULATION METHOD 02/18/2025 1:06 PM EDT [facility] Blood Venous blood specimen / Unknown Venipuncture / Unknown 02/18/2025 12:28 PM EDT 02/18/2025 12:48 PM EDT us Marli Carvalho MD LAB BLOOD ORDERABLES Fi nal Result Performing Organization Address City/[facility]/ZIP Co de Phone Number [facility] [address] [place] [address], * Type and screen (02/18/2025 12:28 PM EDT) ABO Group B 02/18/2025 2:09 PM EDT [facility] Rh Type Positive 02/18/2025 2:09 PM EDT [facility] Antibody Screen Negative 02/18/2025 2:09 PM EDT [facility] Blood Venous blood specimen / Unknown Venipuncture / Unknown 02/18/2025 12:28 PM EDT 02/18/2025 12:48 PM EDT us Marli Carvalho MD LAB BLOOD BANK TEST ORD ERABLES Final Result [facility] [address] [place] [address], * (ABNORMAL) CMP (02/18/2025 12:28 PM EDT) Sodium 136 133 - 145 mmol/L LAB CHEMISTRY METHOD 02/18/2025 1:21 PM [facility] Potassium 4.2 3.5 - 5.5 mmol/L LAB CHEMISTRY METHOD 02/18/2025 1:21 PM [facility] Chloride 105 96 - 110 mmol/L LAB CHEMISTRY METHOD 02/18/2025 1:21 PM [facility] CO2 26 21 - 32 mmol/L LAB CHEMISTRY METHOD 02/18/2025 1:21 PM [facility] Anion Gap 5 3 - 11 LAB CHEMISTRY METHOD 02/18/2025 1:21 PM [facility] Glucose 88 70 - 100 mg/dL LAB CHEMISTRY METHOD 02/18/2025 1:21 PM [facility] BUN 15 5 - 25 mg/dL LAB CHEMISTRY METHOD 02/18/2025 1:21 PM [facility] Creatinine 0.68 0.50 - 1.10 mg/dL LAB CHEMISTRY METHOD 02/18/2025 1:21 PM [facility] eGFR 123 >=60 mL/min/1. 73m2 LAB CHEMISTRY METHOD 02/18/2025 1:21 PM [facility] Comment:Calculation based on the Chronic Kidney Disease Epidemiology Collaboration (CKD-EPI) equation refit without adjustment for race. BUN/Creatinine Ratio 22.1 LAB CHEMISTRY METHOD 02/18/2025 1:21 PM EDT [facility] Calcium 8.2(L) 8.5 - 10.5 mg/dL LAB CHEMISTRY METHOD 02/18/2025 1:21 PM [facility] AST (SGOT) 13 10 - 42 unit/L LAB CHEMISTRY METHOD 02/18/2025 1:21 PM [facility] ALT (SGPT) 32 10 - 60 unit/L LAB CHEMISTRY METHOD 02/18/2025 1:21 PM [facility] Alkaline Phosphatase 57 42 - 121 unit/L LAB CHEMISTRY METHOD 02/18/2025 1:21 PM [facility] Total Protein 7.0 6.0 - 8.0 g/dL LAB CHEMISTRY METHOD 02/18/2025 1:21 PM [facility] Albumin 3.4 3.2 - 5.0 g/dL LAB CHEMISTRY METHOD 02/18/2025 1:21 PM [facility] Total Bilirubin 0.4 0.0 - 1.4 mg/dL LAB CHEMISTRY METHOD 02/18/2025 1:21 PM [facility] Blood Venous blood specimen / Unknown Venipuncture / Unknown 02/18/2025 12:28 PM EDT 02/18/2025 12:48 PM EDT us Marli Carvalho MD LAB BLOOD ORDERABLES Fi nal Result [facility] [address] [place] [address], * Lipid panel with reflex to direct LDL (10/09/2024 11:12 AM EST) Cholesterol 161 0 - 200 mg/dL LAB CHEMISTRY METHOD 10/09/2024 3:32 PM EST [facility] Triglycerides 128 0 - 150 mg/dL LAB CHEMISTRY METHOD 10/09/2024 3:32 PM EST [facility] HDL 40 >=40 mg/dL LAB CHEMISTRY METHOD 10/09/2024 3:32 PM EST [facility] LDL Calculated 95 0 - 100 mg/dL LAB CHEMISTRY METHOD 10/09/2024 3:32 PM [facility] VLDL Cholesterol Luis 25.6 mg/dL LAB CHEMISTRY METHOD 10/09/2024 3:32 PM EST [facility] Non HDL Chol. (LDL+VLDL) 121 <145 mg/dL LAB CHEMISTRY METHOD 10/09/2024 3:32 PM [facility] Chol/HDL Ratio 4.0 0.0 - 4.4 LAB CHEMISTRY METHOD 10/09/2024 3:32 PM [facility] Blood Venous blood specimen / Unknown Venipuncture / Unknown 10/09/2024 11:12 AM EST 10/09/2024 11:12 AM EST us Marli Carvalho MD LAB BLOOD ORDERABLES Fi nal Result [facility] [address] [place] [address], from Last 3 Months or Most Recently Relevant to Health Maintenance [place] [id number] [facility] [employer] Care Teams Poultry Debeaker Relationship Specialty Start Date End Date Beckie Grace MD NPI: [id number] [place] [address] , [address] Physician Associ D/B/A: [facility] JEN Quiroz PCP - General 12/21/23
== END 2025-04-10 10:22 | disposition home or self-care (01) ==
LOC: HO.HWS 09:55
PROVIDERS: PCP Internal Medicine; Visit Provider Obstetrics & Gynecology
DX: N93.9 Abnormal uterine and vaginal bleeding, unspecified (principal)
CPT/HCPCS: 99213

== ENCOUNTER 2025-05-17 11:18 | Emergency (ER) | payer OTHER, SELFPAY ==
[2025-05-17] VITALS (10 sets, daily range): BP systolic 101–133; BP diastolic 55–82; PULSE 61–84; RESP 16; TEMP 36.6–36.7; O2SAT 98–99; BMI 36.2
--- NOTE | ~2025-05-17 | CT_ITS ---
EXAMINATION: CT ANGIOGRAM CHEST CLINICAL INFORMATION: Chest pain. Shortness of breath. COMPARISON: Previous chest x-ray most recent March 2023 TECHNIQUE: Multiple axial images were obtained through the chest after the administration of 65 mL of Omnipaque 350 intravenous contrast. Extensive vascular post-processing including two-dimensional and three-dimensional reformatted images were created and reviewed on an independent workstation. This CT examination was performed using dose optimization techniques as appropriate, variously including the following: *Automated exposure control *Adjustment of mA and/or kV according to patient size (this includes techniques or standardized protocols for targeted exams where dose is matched to indication/reason for exam; i.e. extremities or head) *Use of iterative reconstruction technique DLP 420 mGy per centimeter FINDINGS: There is good opacification of the pulmonary arteries. No pulmonary embolism. Main pulmonary artery measures 2.2 cm in diameter. No evidence of right heart strain. No reflux of contrast into the liver. Lungs are clear. No consolidation. No pulmonary nodules. Central airways are clear. No enlarged hilar or mediastinal lymph nodes. Normal heart size. No pericardial effusion. Small esophageal hernia. Normal thyroid gland. No chest wall mass. Postsurgical changes from gastric sleeve. Bony structures are unremarkable. CT/CT angio chest PE protocol IMPRESSION: No evidence of pulmonary embolism. Fleischner guidelines were followed. Electronically signed by: Celsa Wiley MD 05/17/2025 01:34 PM EDT
--- NOTE | ~2025-05-17 | CT_ITS ---
EXAMINATION: CT HEAD WITHOUT IV CONTRAST HISTORY: near syncope. TECHNIQUE: Unenhanced helical CT of the head was performed per standard departmental protocol. Coronal and sagittal reformats of the head were also evaluated. One or more of the following techniques was used for dose reduction: Automated exposure control, adjustment of the mA and/or kV according to patient size, use of iterative reconstruction technique. DLP: 652 mGy-cm COMPARISON: Comparison is made with the prior examination dated 07/16/2020. FINDINGS: BRAIN: The brain parenchyma is unremarkable. There is normal lagunas/white differentiation. The ventricular system is normal in size and configuration. There is no mass effect or midline shift. No intra- or extra-axial fluid collections are identified. SINUSES: The visualized paranasal sinuses are clear. The mastoid air cells and middle ear cavities are well pneumatized. ORBITS: The visualized orbits are unremarkable. BONES/SOFT TISSUES: The extracranial soft tissues are unremarkable. The calvarium is intact. No suspicious lytic or sclerotic lesions. CT/CT head/brain wo IV con IMPRESSION: No acute intracranial abnormality. Electronically signed by: Ariel Nayak MD 05/17/2025 01:24 PM EDT
--- NOTE | 2025-05-17 11:37 | ED.GENADULT ---
HPI - General Adult General Chief complaint: Dizziness Stated complaint: DIZZY,VISION DARKENING,-LOC,NAUSEA PER EMS Time Seen by Provider: 05/17/25 11:22 Source: patient and EMS Mode of arrival: EMS Limitations: no limitations History of Present Illness ED Provider: AARON Newman HPI narrative: This is a 30-year-old female past medical history significant for depression, goiter, hypothyroidism, GERD, binge eating disorder, PCOS, anxiety, hyperprolactinemia presenting to the emergency department with chief complaint of I almost passed out. She tells me earlier this morning she felt her vision go ?weird? she started seeing spots and then it became blurry. She reports she drank milk and her symptoms resolved. She tells me she has actually passed out before and this is what it felt like however this time she did not actually pass out she drank milk, sat down and then felt better. Not on OCPs, no recent travel, not a smoker. At this time she just feels out of it. Denies chest pain, shortness of breath, nausea, vomiting, changes in urinary or bowel habits, headache, vision changes, dizziness and weakness Related Data Previous Rx's ?Medication ?Instructions ?Recorded albuterol sulfate 2.5 mg/3 mL 2.5 mg (3 mL) inhalation Q4-6H PRN 11/04/22 (0.083 %) solution for nebulization shortness of breath or wheezing #75 mL bupropion HCl 150 mg 24 hr tablet, 150 mg PO QAM 90 days #90 tabs 10/20/23 extended release omeprazole 20 mg capsule,delayed 20 mg PO DAILY 90 days #90 caps 10/20/23 release bisacodyl 5 mg tablet,delayed 5 mg PO BEDTIME #60 tabs 12/13/23 release (Dulcolax (bisacodyl)) epinephrine 0.3 mg/0.3 mL 0.3 mg (0.3 mL) IM Q10M PRN 12/23/23 injection, auto-injector anaphylaxis #2 ea fluconazole 150 mg tablet 150 mg PO Q3D 2 doses #2 tabs 03/14/25 desogestrel 0.15 mg-ethinyl 1 tab PO DAILY 28 days #28 tabs 03/26/25 estradiol 0.03 mg tablet (Apri) ergocalciferol (vitamin D2) 1,250 1,250 mcg PO QWEEK 90 days #13 caps 04/14/25 mcg (50,000 unit) capsule Ventolin HFA 90 mcg/actuation 2 puff inhalation Q6H PRN 04/29/25 aerosol inhaler (albuterol sulfate) shortness of breath or wheezing 30 days #18 grams Allergies Allergy/AdvReac Type Severity Reaction Status Date / Time shrimp Allergy Mild tongue Verified 05/17/25 11:29 swelling Environmental Allergies Allergy Intermediate sneezing, Uncoded 04/10/25 09:56 asthma black olives Allergy Mild Itching Uncoded 04/10/25 09:56 Review of Systems Review of Systems: Yes all other systems are reviewed and are negative PMFSH Past Medical History Attestation statement: The following information was validated with the patient. 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 Brother Colon cancer Brother No problems noted. Maternal Grandfather Colon cancer Prostate cancer Other Mental health disorder Social History Social History Housing: House Alcohol intake: never Patient Tobacco Use Status: Former Tobacco user Tobacco use type: Cigarette Smoked in Last 30 Days: No e-Cigarette/Vaping Use: Former Use Second Hand Smoke Exposure: No Use of substances other than those prescribed or required for medical reasons: No Advance Directives: No Advance Directives Information Provided: No service: No Current occupational status: unemployed Cognitive needs: No Hearing needs: No Vision needs: No Physical Exam ED Exam Exam: Appearance: Alert.? Oriented X3.? No acute distress.? Head: Normocephalic, atraumatic, no step-offs or deformities Eyes: Pupils equal, round and reactive to light.? ENT: Pharynx normal.? Neck: Normal inspection.? Neck supple.? CVS: Normal heart rate and rhythm.? Pulses normal.? Respiratory: No respiratory distress.? Breath sounds normal.? Abdomen: Soft and nontender.? Skin: Skin warm and dry.? Normal skin color.? Normal skin turgor.? Extremities: No lower extremity edema.? No calf ttp. 5/5 strength to bilateral upper and lower extremities Back: No midline tenderness, no C-spine tenderness, full range of motion, no CVA tenderness bilaterally Neuro: Oriented X 3.? No motor deficit.? No sensory deficit. CN 2-12 intact Vital Signs: Vital Signs - 24 hr 05/17/25 11:55 05/17/25 13:30 05/17/25 13:33 Temperature 97.9 F Pulse Rate 72 72 67 Respiratory Rate 16 Blood Pressure 116/68 101/59 L 133/66 Pulse Oximetry 99 Oxygen Delivery Method Room Air 05/17/25 13:37 05/17/25 13:54 05/17/25 15:18 Temperature 98.1 F Pulse Rate 75 68 61 Respiratory Rate 16 Blood Pressure 133/65 130/61 108/55 L Pulse Oximetry 99 Oxygen Delivery Method Room Air 05/17/25 15:21 05/17/25 15:24 Temperature Pulse Rate 62 68 Respiratory Rate Blood Pressure 117/63 119/70 Pulse Oximetry Oxygen Delivery Method BMI result Body Mass Index 36.2 vss Course Reevaluation(s) Reevaluation #1: CBC unremarkable. Chemistry with no acute electrolyte abnormalities requiring intervention. Lipase normal. Beta hCG negative. CT head no acute intracranial abnormality. CTA pending. UA, orthostatic vital signs and fluids pending Time: 13:30 Reevaluation #2: CT head and CTA unremarkable no acute findings. No signs of orthostasis. However patient did report dizziness/lightheadedness with standing. NIH stroke scale is 0 I do not suspect cerebellar infarct or intracranial hemorrhage. Time: 13:56 Reevaluation #3: Patient feeling better after fluids no longer dizzy after hydration orthostatics negative again. No longer reporting dizziness when going from sitting to standing. Educated patient on diagnosis and treatment plan, answered all question, patient verbalizes understanding. At this time patient will be discharged home, advised to return with new or worsening symptoms. Educated on worrisome signs and symptoms and when to return. At this time I feel comfortable discharge home. Medications Administered Discontinued Medications Generic Name Dose Route Start Last Admin Trade Name Rufus PRN Reason Stop Dose Admin Sodium Chloride 1,000 mls @ 999 mls/hr 05/17/25 13:30 05/17/25 15:22 Ns IV 05/17/25 14:30 Infused .Q1H1M NANO Infusion Iohexol 100 ml 05/17/25 13:16 05/17/25 13:16 Iohexol 350 Mg/Ml 100 Ml Infus..Btl IV 05/17/25 13:17 65 ml ONCE ONE Administration Medical Decision Making Medical Decision Making [facility] Narrative: 1140 30-year-old female presents feeling unwell reports near syncopal episode at home. Has history of this in the past. Physical examination benign History and physical exam concerning for near syncope. Will rule out electrolyte abnormalities, anemia. Will also rule out PE. Plan labs, urine Differential Diagnosis Differential Diagnoses: The differential diagnosis associated with the presentation includes (History and physical exam concerning for near syncope. Will rule out electrolyte abnormalities, anemia. Will also rule out PE.) Admission/Observation Consideration of admission/observation: Escalation of care including admission/observation considered Lab Data [facility] Lab Attestation statement: I reviewed the patient's lab results. 05/17/25 11:37 05/17/25 11:37 Labs: Lab Results 05/17/25 05/17/25 Range/Units 11:37 14:23 WBC 6.4 (4.8-10.8) X10*3/uL RBC 4.07 L (4.20-5.50) X10*6/uL Hgb 13.0 (12.0-16.0) g/dl Hct 36.9 L (37.0-47.0) % MCV 90.7 (80.0-98.0) fL MCH 31.9 (27.0-33.0) pg MCHC 35.2 H (31.0-35.0) g/dl RDW 11.3 (11.0-16.0) % Plt Count 268 D (160-400) X10*3/uL MPV 10.5 (9.4-12.3) fL Immature Gran % (Auto) 0.2 (0.0-0.4) % Neut % (Auto) 43.3 L (45-73) % Lymph % (Auto) 43.9 H (20-40) % [place] % (Auto) 6.7 (2-11) % Eos % (Auto) 5.3 H (0-4) % Baso % (Auto) 0.6 (0-2) % Lymph # (Auto) 2.8 (1.2-4.9) X10*3/uL [place] # (Auto) 0.4 (0.1-1.2) X10*3/uL Eos # (Auto) 0.3 (0.0-0.4) X10*3/uL Baso # (Auto) 0.0 (0.0-0.2) X10*3/uL Abs Immat Gran (auto) 0.01 (0.00-0.03) X10*3/uL Absolute Neuts (auto) 2.8 (2.0-8.3) x10*3/uL Absolute Nucleated RBC 0.000 (0.0-0.012) X10*3/uL Nucleated RBC % (auto) 0.0 (0.0-0.2) /100WBC PT 13.3 H (10.9-12.4) SEC INR 1.2 H (0.9-1.1) D-Dimer High Sensitivty 285 NG/ML Sodium 142 (135-145) mmol/L Potassium 3.6 (3.3-5.1) mmol/L Chloride 110 H (96-108) mmol/L Carbon Dioxide 26 (22-29) mmol/L Anion Gap 10 L (12-20) BUN 10 (9-16) mg/dL Creatinine 0.66 (0.5-1.4) mg/dL Estim Creat Clear Calc 142.4 Estimated GFR > 60 Random Glucose 119 H (60-115) mg/dL Calcium 8.6 (8.4-10.2) mg/dL Magnesium 1.7 (1.6-2.6) mg/dL Total Bilirubin 0.5 (0.0-1.0) mg/dL AST 19 (5-31) U/L ALT 33 H (0-31) U/L Alkaline Phosphatase 62 (39-117) U/L Troponin I High Sens < 2.7 (<3.5-17.0) ng/L Total Protein 6.8 (6.5-8.0) g/dL Albumin 3.9 (3.5-5.0) g/dL Lipase 44 (8-78) U/L Beta HCG, Quant < 2 mIU/mL Urine Color Yellow Urine Appearance Clear Urine pH 5.5 (5.0-9.0) Ur Specific [place] >= 1.030 H (1.005-1.025) Urine Protein Trace (Neg-Trace) mg/dL Urine Glucose (UA) Negative (Negative) mg/dL Urine Ketones Trace (Negative) mg/dL Urine Blood Negative (Negative) Urine Nitrite Negative (Negative) Ur Leukocyte Esterase Negative (Negative) Independent Interpretation I performed an independent interpretation of an: CT Scan ( CT/CT head/brain wo IV con IMPRESSION: No acute intracranial abnormality. ) Independent Historian Clinical information obtained from an independent historian. History obtained from or confirmed by: EMS External Record Review External record reviewed: Inpatient record, Office record, Outpatient record, Prior outpatient labs, Prior outpatient radiology, Primary care record and Outside ED record Chronic Conditions Patient?s care impacted by: Other (see hpi ) Critical Care Time Critical Care Time Critical Care Time: Yes Total Critical Care Time: 35 Attestation: I attest to this time spent taking care of the patient, obtaining history, physical, reviewing labs, imaging, treatment of patients condition +/- specialist/hospitalist consult +/- procedure Discharge Plan Discharge Clinical Impression: Near syncope Patient Disposition: Home, Self-Care Instructions: Near Syncope (ED) Additional Instructions: Take your medications as prescribed. If you were prescribed antibiotics today, it is important that you take your medication to their entirety, do not skip any doses, do not finish them early. Follow-up with your primary care provider this week. Return to the emergency department with new or worsening symptoms. Such as fevers, chills, chest pain, shortness of breath, nausea, vomiting, dizziness, headache, vision changes, lethargy In case of emergency call 911 Please drink plenty of fluids. Prescriptions: No Action fluconazole 150 mg tablet 150 mg PO Q3D Qty: 2 0RF ergocalciferol (vitamin D2) 1,250 mcg (50,000 unit) capsule 1,250 mcg PO QWEEK 90 Days Qty: 13 0RF albuterol sulfate [Ventolin HFA] 90 mcg/actuation HFA aerosol inhaler 2 puff inhalation Q6H PRN (Reason: shortness of breath or wheezing) 30 Days Qty: 18 3RF albuterol sulfate 2.5 mg /3 mL (0.083 %) solution for nebulization 2.5 mg inhalation Q4-6H PRN (Reason: shortness of breath or wheezing) Qty: 75 0RF epinephrine 0.3 mg/0.3 mL auto-injector 0.3 mg IM Q10M PRN (Reason: anaphylaxis) Qty: 2 0RF Rx Instructions: for 2 doses bupropion HCl 150 mg tablet extended release 24 hr 150 mg PO QAM 90 Days Qty: 90 1RF omeprazole 20 mg capsule,delayed release(DR/EC) 20 mg PO DAILY 90 Days Qty: 90 1RF bisacodyl [Dulcolax (bisacodyl)] 5 mg tablet,delayed release (DR/EC) 5 mg PO BEDTIME Qty: 60 4RF desogestrel-ethinyl estradiol [Apri] 0.15-0.03 mg tablet 1 tab PO DAILY 28 Days Qty: 28 2RF Referrals: Beckie Mora MD [Primary Care Provider, Internal Medicine] Print Language: Albanian
--- NOTE | 2025-05-17 11:40 | ECG_ITS ---
Test Reason : NEAR SYNCOPE Blood Pressure : */* mmHG Vent. Rate : 70 BPM Atrial Rate : 70 BPM P-R Int : 150 ms QRS Dur : 86 ms QT Int : 382 ms P-R-T Axes : 61 45 19 degrees QTcB Int : 412 ms Normal sinus rhythm Normal ECG When compared with ECG of 18-Nov-2022 10:30, No significant change was found Referred By: Shira Newman Electronically Signed By: SAMUEL GAMA
[2025-05-17 11:41] LABS: MANUAL DIFF FLAG NO
[2025-05-17 11:42] LABS: Hematocrit 36.9 % (37.0-47.0); Hemoglobin 13.0 g/dl (12.0-16.0); Imm Gran Abs Auto 0.01 X10*3/uL (0.00-0.03); Imm Gran Pct Auto 0.2 % (0.0-0.4); Lymphocytes Absolute Auto 2.8 X10*3/uL (1.2-4.9); Mean Corpuscular HGB Conc 35.2 g/dl (31.0-35.0); Mean Corpuscular Hemoglobin 31.9 pg (27.0-33.0); Mean Corpuscular Volume 90.7 fL (80.0-98.0); NRBC Abs Auto 0.000 X10*3/uL (0.0-0.012); NRBC Pct Auto 0.0 /100WBC (0.0-0.2); Platelet Count 268 X10*3/uL (160-400); Red Blood Count 4.07 X10*6/uL (4.20-5.50); White Blood Count 6.4 X10*3/uL (4.8-10.8)
[2025-05-17 11:48] LABS: INTERNATIONAL NORM RATIO 1.2 (0.9-1.1); Prothrombin Time 13.3 SEC (10.9-12.4)
[2025-05-17 12:02] LABS: Alanine Aminotransferase 33 U/L (0-31); Albumin Level 3.9 g/dL (3.5-5.0); Alkaline Phosphatase 62 U/L (39-117); Anion Gap 10 (12-20); Aspartate Amino Transferase 19 U/L (5-31); Blood Urea Nitrogen 10 mg/dL (9-16); Calcium 8.6 mg/dL (8.4-10.2); Carbon Dioxide 26 mmol/L (22-29); Chloride 110 mmol/L (96-108); Creatinine Clr Calc Pharmacy 142.4; Estimated Glomerular Filt Rate > 60; Lipase 44 U/L (8-78); Magnesium 1.7 mg/dL (1.6-2.6); Potassium 3.6 mmol/L (3.3-5.1); Sodium 142 mmol/L (135-145); Total Protein 6.8 g/dL (6.5-8.0)
[2025-05-17 12:17] LABS: D Dimer High Sensitivity 285 NG/ML
--- OUTSIDE RECORDS SUMMARY | 2025-05-17 13:06 | XMS_ITS | Clinical Summary ---
Author Organization [facility] Address [address] [place] [address] Phone Care Team Providers Care Knife Operator Name Role Phone Beckie Grace MD Primary Care Provider [phone] Allergies Active Allergy Reactions Criticality Noted Date [...] FOR CONSTIPATION 510 g 3 5 Active Active Problems Problem Noted Date Diagnosed Date S/P bariatric surgery 04/29/2025 Morbid obesity with BMI of 4 0.0-44.9, adult ([facility] V24, [facility] V28) 01/09/2025 Class 3 severe obesity with serious comorbidity and body mass index (BMI) of 45.0 to 49.9 in adult ([facility] V24, [facility] V28) 12/20/2024 Class 2 severe obesity due t o excess calories with serious comorbidity and body mass index (BMI) of 39.0 to 39.9 in adult 02/02/2024 Asthma 01/04/2024 GERD (gastroesophageal reflux disease) 4 Encounters Date Type Department Care Team Description 04/29/2025 11:00 AM EDT Telemedicine Bariatric Surgery - [address] [phone] Julia Flores RD S/P bariatric surgery (Primary Dx) 03/26/2025 8:15 AM EDT Office Visit Bariatric Surgery - [address] [phone] Мария Rodriguez PA Class 2 severe obesity due to excess calories with serious comorbidity and body mass index (BMI) of 39.0 to 39.9 in adult ([facility] V24, [facility] V28) (Primary Dx); Bariatric surgery status 03/08/2025 7:44 AM EDT Anesthesia Event [facility] OR [address] [place] [phone] Francisco Bone MD 03/08/2025 7:30 AM EDT - 03/08/2025 10:00 AM EDT Surgery [facility] OR [address] [place] [phone] Marli Carvalho MD DAVINCI LAPAROSCOPIC SLEEVE GASTRECTOMY [71521 (CPT )] 03/08/2025 5:59 AM EDT - 03/10/2025 2:32 PM EDT Hospital Encounter [facility] Medical Surgical Unit [address] [place] [phone] Marli Carvalho MD History of sleeve gastrectomy (Primary Dx); Morbid obesity with BMI of 40.0-44.9, adult ([facility] V24, [facility] V28) Discharge Disposition: Home or Self Care 02/19/2025 10:30 AM EDT Consult Bariatric Surgery - [place] [address] [facility] [address] [place] [phone] Marli Carvalho MD Morbid obesity with BMI of 40.0-44.9, adult ([facility] V24, [facility] V28) (Primary Dx); Abnormal laboratory test; Inactivity 02/18/2025 12:44 PM EDT - 02/18/2025 11:59 PM EDT Hospital Encounter [facility] Xray [address] [place] [phone] Discharge Disposition: Home or Self Care from Last 3 Months Surgical History Surgery [...] Safety Answer Date Record ed Physical Abuse Unrecognized value 03/08/2025 Verbal Abuse Unrecognized value 03/08/2025 Comments No Sex and Gender Information [...] EDT Inhaled Oxygen Concentration - - Weight 97.1 kg (214 lb) 04/29/2025 11:00 AM EDT Height 162.6 cm (5' 4 ) 03/26/2025 8:15 AM EDT Body Mass Index 36.73 03/26/2025 8:15 AM EDT Plan of Treatment Upcoming Encounters Date Type Department Care Team (Late st Contact Info) Description 05/22/2025 9:00 AM EDT Office Visit Bariatric Surgery [address] [phone] Marli Carvalho MD [address] [place] [phone] 07/31/2025 9:00 AM EST Nutrition Bariatric Surgery - [place] [address] [phone] Julia Flores, ELIAS [address] [phone] Health Maintenance Due Date Last Done Comments Pneumococcal Vaccine: Pediatrics (0 to 5 Years) and At-Risk Patients (6 to 49 Years) (1 of 2 - PCV) 2016 Cervical Cancer Screening: Pap Smear 2018 HIV Screening 03/09/2024 Hepatitis C Screening 03/09/2024 Social Influencers of Health Screening 03/09/2024 Depression Screening 08/15/2024 COVID-19 Vaccine ( season) 2025 02/24/2022, 05/30/2021 Influenza Vaccine (#1) 2025 , 09/13/2022, 07/24/2019, Additional history exists DTaP,Tdap,and Td Vaccines (8 - Td or Tdap) 06/05/2029 06/05/2019, 05/24/2008, 05/24/2008, Additional history exists Cholesterol Screening (Lipid Panel) 10/09/2029 10/09/2024 RSV Immunization Adult Patients (1 - 1-dose 75+ series) 2072 HIB Vaccines Completed 08/15/1998, 09/1997, 1997, Additional [...] is included. WBC 11.3(H) 4.8 - 10.8 K/[facility] LAB HEMETOLOGY METHOD 03/10/2025 8:39 AM [facility] RBC 3.80 3.80 - 4.80 M/mcL LAB HEMETOLOGY METHOD 03/10/2025 8:39 AM [facility] Hemoglobin 11.6 11.5 - 16.0 g/dL LAB HEMETOLOGY METHOD 03/10/2025 8:39 AM [facility] Hematocrit 35.9 35.0 - 47.0 % LAB HEMETOLOGY METHOD 03/10/2025 8:39 AM [facility] MCV 95.7 79.0 - 98.0 FL LAB HEMETOLOGY METHOD 03/10/2025 8:39 AM [facility] MCH 30.9 27.0 - 32.0 pcg LAB HEMETOLOGY METHOD 03/10/2025 8:39 AM [facility] MCHC 32.3 32.0 - 37.0 g/dL LAB HEMETOLOGY METHOD 03/10/2025 8:39 AM [facility] RDW 11.6 11.0 - 15.0 % LAB HEMETOLOGY METHOD 03/10/2025 8:39 AM [facility] Platelets 332 130 - 400 K/mcL LAB HEMETOLOGY METHOD 03/10/2025 8:39 AM [facility] MPV 9.3 7.0 - 11.0 FL LAB HEMETOLOGY METHOD 03/10/2025 8:39 AM [facility] NRBC 0.0 <1.0 % LAB HEMETOLOGY METHOD 03/10/2025 8:39 AM [facility] NRBC Absolute 0.00 <0.10 K/mcL LAB HEMETOLOGY METHOD 03/10/2025 8:39 AM [facility] Neutrophils Relative 72.2 % LAB HEMETOLOGY METHOD 03/10/2025 8:39 AM [facility] Lymphocytes Relative 20.2 % LAB HEMETOLOGY METHOD 03/10/2025 8:39 AM [facility] Monocytes Relative 6.6 % LAB HEMETOLOGY METHOD 03/10/2025 8:39 AM [facility] Eosinophils Relative 0.2 % LAB HEMETOLOGY METHOD 03/10/2025 8:39 AM [facility] Basophils Relative 0.4 % LAB HEMETOLOGY METHOD 03/10/2025 8:39 AM [facility] Immature Granulocytes Relative 0.4 % LAB HEMETOLOGY METHOD 03/10/2025 8:39 AM [facility] Neutrophils Absolute 8.15(H) 1.50 - 7.00 K/mcL LAB HEMETOLOGY METHOD 03/10/2025 8:39 AM [facility] Lymphocytes Absolute 2.28 1.00 - 5.00 K/mcL LAB HEMETOLOGY METHOD 03/10/2025 8:39 AM [facility] Monocytes Absolute 0.74 0.20 - 1.00 K/mcL LAB HEMETOLOGY METHOD 03/10/2025 8:39 AM [facility] Eosinophils Absolute 0.02 0.00 - 0.50 K/mcL LAB HEMETOLOGY METHOD 03/10/2025 8:39 AM [facility] Basophils Absolute 0.04 0.00 - 0.20 K/mcL LAB HEMETOLOGY METHOD 03/10/2025 8:39 AM [facility] Immature Granulocytes Absolute 0.04(H) 0.00 - 0.03 K/mcL LAB HEMETOLOGY METHOD 03/10/2025 8:39 AM [facility] Blood Venous blood specimen / Unknown Venipuncture / Unknown 03/10/2025 8:27 AM EDT 03/10/2025 8:31 AM EDT Apryl WALKER LAB BLOOD ORDERABLES Final Resu lt Performing Organization Address [facility]/ZIP Co de Phone Number [facility] [address] [place] [address], [place] [phone] * (ABNORMAL) Phosphorus (03/10/2025 8:27 AM EDT) Phosphorus 2.4(L) 2.5 - 4.5 mg/dL LAB CHEMISTRY METHOD 03/10/2025 9:01 AM EDT [facility] Blood Venous blood specimen / Unknown Venipuncture / Unknown 03/10/2025 8:27 AM EDT 03/10/2025 8:31 AM EDT Apryl WALKER LAB BLOOD ORDERABLES Final Resu lt Performing Organization Address [facility] de Phone Number [facility] [address] [place] [address], [place] [phone] * (ABNORMAL) Magnesium (03/10/2025 8:27 AM EDT) Only the most recent of2 resultswithin the time period is included. Magnesium 1.8(L) 1.9 - 2.6 mg/dL LAB CHEMISTRY METHOD 03/10/2025 9:01 AM EDT [facility] Blood Venous blood specimen / Unknown Venipuncture / Unknown 03/10/2025 8:27 AM EDT 03/10/2025 8:31 AM EDT Apryl Strickland [place] LAB BLOOD ORDERABLES Final Resu lt Performing Organization Address City/[facility]/ZIP Co de Phone Number [facility] [address] [place] [address], [place] [phone] * Basic metabolic panel (03/10/2025 8:27 AM EDT) Only the most recent of2 resultswithin the time period is included. Sodium 139 133 - 145 mmol/L LAB CHEMISTRY METHOD 03/10/2025 9:01 AM [facility] Potassium 3.9 3.5 - 5.5 mmol/L LAB CHEMISTRY METHOD 03/10/2025 9:01 AM [facility] Chloride 106 96 - 110 mmol/L LAB CHEMISTRY METHOD 03/10/2025 9:01 AM [facility] CO2 29 21 - 32 mmol/L LAB CHEMISTRY METHOD 03/10/2025 9:01 AM [facility] Anion Gap 4 3 - 11 LAB CHEMISTRY METHOD 03/10/2025 9:01 AM [facility] Glucose 86 70 - 100 mg/dL LAB CHEMISTRY METHOD 03/10/2025 9:01 AM [facility] BUN 9 5 - 25 mg/dL LAB CHEMISTRY METHOD 03/10/2025 9:01 AM [facility] Creatinine 0.69 0.50 - 1.10 mg/dL LAB CHEMISTRY METHOD 03/10/2025 9:01 AM [facility] eGFR 122 >=60 mL/min/1. 73m2 LAB CHEMISTRY METHOD 03/10/2025 9:01 AM [facility] Comment:Calculation based on the Chronic Kidney Disease Epidemiology Collaboration (CKD-EPI) equation refit without adjustment for race. BUN/Creatinine Ratio 13.0 LAB CHEMISTRY METHOD 03/10/2025 9:01 AM [facility] Calcium 8.8 8.5 - 10.5 mg/dL LAB CHEMISTRY METHOD 03/10/2025 9:01 AM [facility] Blood Venous blood specimen / Unknown Venipuncture / Unknown 03/10/2025 8:27 AM EDT 03/10/2025 8:31 AM EDT us Apryl Strickland PA LAB BLOOD ORDERABLES Final Resu lt Performing Organization Address [facility]/ZIP Co de Phone Number [facility] [address] [place] [address], [place] [phone] * (ABNORMAL) POCT Glucose, blood (03/09/2025 1:50 PM EDT) Glucose POCT 114(H) 70 - 100 mg/dL 03/09/2025 1:51 PM EDT [facility] Blood Capillary blood specimen / Unknown 03/09/2025 1:50 PM EDT 03/09/2025 1:52 PM EDT Marli Carvalho MD LAB POINT OF CA RE TEST DOCKED DEVICE UNSOLICITED RESULTS Final Result Performing Organization Address [facility] Co de Phone Number [facility] [address] [place] [address], [place] [phone] * Tissue exam (03/08/2025 9:21 AM EDT) Final Diagnosis A. Stomach, sleeve gastrectomy: - Portion of stomach with no specific pathologic changes. 03/11/2025 12:23 PM EDT [facility] Gross Description A. Stomach, : [...] consist of red, bilious and bloody material. Senior Qa Analyst sections are submitted in one cassette to include a perpendicular section of the margin and random stomach, three pieces. AINSLEY 03/11/2025 12:23 PM EDT [facility] Disclaimer Unless otherwise specified, all tissue is 10% NB formalin fixed and paraffin embedded. 03/11/2025 12:23 PM EDT [facility] Tissue Stomach structure / Unknown 03/08/2025 9:21 AM EDT 03/08/2025 10:22 AM EDT us Marli Carvalho MD LAB PATHOLOGY ORDERABLE S Final Result [facility] [address] [place] [address], * TH AN ENDOTRACHEAL(NO CHARGE) (03/08/2025 8:17 AM EDT) Dorcas Peng CRNA - 03/08/2025 8:17 AM EDT Dorcas Smith CRNA 03/08/2025 8:18 AM General Information and Staff Patient location during procedure: OR Anesthesiologist: Francisco Bnoe MD Resident/TARGETEER: Dorcas Smith CRNA Performed: resident/TARGETEER/CAA Performed by: Dorcas Smiht CRNA Authorized by: Francisco Bone MD Intubation [...] difficulty assessment: 1 - vent by mask us Francisco Bone MD ANESTHESIA ORDERABLES Final R esult * POC , urine manually resulted (03/08/2025 7:27 AM EDT) HCG, Ur POC Negative Negative POC hCG Int QC Pass? Yes Yes Urine Urine specimen obtained by clean catch procedure / Unknown 03/08/2025 7:27 AM EDT Francisco Bone MD POINT OF CARE TEST ENTER/EDIT ORDERABLES Final Result * , urine (02/19/2025 11:09 AM EDT) [facility] Preg Test, Ur Negative Negative 02/19/2025 2:20 PM EDT [facility] Urine Urine specimen obtained by clean catch procedure / Unknown Non-blood Collection / Unknown 02/19/2025 11:09 AM EDT 02/19/2025 11:09 AM EDT us Marli Carvalho MD LAB URINE ORDERABLES Fi nal Result Performing Organization Address City/[facility]/ZIP Co de Phone Number [facility] [address] [place] [address], [place] [phone] * (ABNORMAL) Thyroid stimulating hormone with reflex to free t4 and free t3 (02/19/2025 11:02 AM EDT) [facility] TSH 4.96(H) 0.40 - 4.00 mcIU/mL LAB CHEMISTRY METHOD 02/19/2025 2:40 PM EDT [facility] Blood Venous blood specimen / Unknown Venipuncture / Unknown 02/19/2025 11:02 AM EDT 02/19/2025 11:02 AM EDT us Marli Carvalho MD LAB BLOOD ORDERABLES Fi nal Result [facility] [address] [place] [address], [place] [phone] * Free thyroxine with reflex to free triiodothyronine (02/19/2025 11:02 AM EDT) Free T4 1.02 0.70 - 1.80 ng/dL LAB CHEMISTRY METHOD 02/19/2025 3:28 PM EDT [facility] Blood Venous blood specimen / Unknown Venipuncture / Unknown 02/19/2025 11:02 AM EDT 02/19/2025 11:02 AM EDT Marli Carvalho MD LAB BLOOD ORDERABLES Fi nal Result [facility] [address] [place] [address], * Nicotine and cotinine (02/19/2025 11:02 AM EDT) [facility] Nicotine <2.0 <2.0 ng/mL 02/23/2025 9:11 AM EDT [facility] Cotinine <2.0 <2.0 ng/mL 02/23/2025 9:11 AM EDT [facility] Comment: Additional Reference Ranges: Active Tobacco Passive Abstinence User Exposure 2 Weeks and more Nicotine 30 - 50 ng/mL <2 ng/mL <2 ng/mL Cotinine 200 - 800 ng/mL <8 ng/mL <2 ng/mL Reference Ranges from: Clin. Chem.; 48:8009-7656 (2002) Direct any interpretive questions to the toxicology laboratory. This is for medical use only, it is not intended for forensic use. If applicable, any drug confirmation testing reported here was developed and the performance characteristics determined by [facility]. This confirmation testing has not been cleared or approved by the FDA. The laboratory is regulated under CLIA as qualified to perform high-complexity testing. This test is used for patient testing purposes. It should not be regarded as investigational or for research. Test performed at [facility], [address] [place] [address] Teressa Rothman MD, PhD - [employer]rigeration Systems Installer Blood Venous blood specimen / Unknown Venipuncture / Unknown 02/19/2025 11:02 AM EDT 02/19/2025 11:02 AM EDT Marli Carvalho MD LAB BLOOD ORDERABLES Fi nal Result Performing Organization Address [facility]/ZIP Co de Phone Number [facility] [address] [place] [address] * Triiodothyronine free (02/19/2025 11:02 AM EDT) T3, Free 341 230 - 420 pcg/dL LAB CHEMISTRY METHOD 02/19/2025 4:37 PM EDT [facility] Blood Venous blood specimen / Unknown Venipuncture / Unknown 02/19/2025 11:02 AM EDT 02/19/2025 11:02 AM EDT Marli Carvalho MD LAB BLOOD ORDERABLES Fi nal Result Performing Organization Address [facility] de Phone Number [facility] [address] [place] [address], [place] [phone] * XR Chest 2 Views (02/18/2025 12:53 PM EDT) Anatomical Region Laterality Modality Body Radiographic Francisca ging 02/19/2025 7:57 AM EDT Impressions 02/19/2025 7:57 AM EDT Normal examination. Code 65676 -------- FINAL REPORT -------- Dictated By: Alex Loyola Dictated Date: 02/19/2025 07:57 ET Assigned Physician: Alex Loyola Reviewed and Electronically Signed By: Alex Loyola Signed Date: 02/19/2025 07:57 ET Workstation ID: [id number] Transcribed By: Self Edit Transcribed Date: 02/19/2025 [...] angles are clear. IMPRESSION: Normal examination. Code 63939 -------- FINAL REPORT -------- Dictated By: Alex Loyola Dictated Date: 02/19/2025 07:57 ET Assigned Physician: Alex Loyola Reviewed and Electronically Signed By: Alex Loyola Signed Date: 02/19/2025 07:57 ET Workstation ID: [id number] Transcribed By: Self Edit Transcribed Date: 02/19/2025 07:57 ET us Marli Carvalho MD IMG XR PROCEDURES Final Result * ECG 12 lead (02/18/2025 12:35 PM EDT) Ventricular Rate ECG 74 BPM GEMUSE Atrial Rate 74 BPM GEMUSE P-R Interval 148 ms GEMUSE QRS Duration 80 ms GEMUSE Q-T Interval 366 ms GEMUSE QTc 406 ms GEMUSE P Wave [place] 40 degrees GEMUSE R [place] 65 degrees GEMUSE T [place] 34 degrees GEMUSE ECG Interpretation Normal sinus rhythm with sinus arrhythmia Normal ECG No previous ECGs available Confirmed by MD Hyde Christopher ([id number]) on 02/19/2025 8:32:25 AM GEMUSE 02/18/2025 12:3 5 PM EDT 02/19/2025 8:32 AM EDT us Marli Carvalho MD ECG ORDERABLES Final R esult Performing Organization Address [facility] Co de Phone Number GEMUSE * Prothrombin time with INR (02/18/2025 12:28 PM EDT) Pathologist [facility] Protime 12.8 10.6 - 13.9 sec LAB COAGULATION METHOD 02/18/2025 1:06 PM EDT [facility] INR 1.0 LAB COAGULATION METHOD 02/18/2025 1:06 PM EDT [facility] Blood Venous blood specimen / Unknown Venipuncture / Unknown 02/18/2025 12:28 PM EDT 02/18/2025 12:48 PM EDT us Marli Carvalho MD LAB BLOOD ORDERABLES Fi nal Result Performing Organization Address [facility] Co de Phone Number [facility] [address] [place] [address], [place] [phone] * Type and screen (02/18/2025 12:28 PM EDT) [facility] ABO Group B 02/18/2025 2:09 PM EDT [facility] Rh Type Positive 02/18/2025 2:09 PM EDT [facility] Antibody Screen Negative 02/18/2025 2:09 PM EDT [facility] Blood Venous blood specimen / Unknown Venipuncture / Unknown 02/18/2025 12:28 PM EDT 02/18/2025 12:48 PM EDT us Marli Carvalho MD LAB BLOOD BANK TEST ORD ERABLES Final Result Performing Organization Address [facility] Co de Phone Number [facility] [address] [place] [address], [place] [phone] * (ABNORMAL) CMP (02/18/2025 12:28 PM EDT) Sodium 136 133 - 145 mmol/L LAB CHEMISTRY METHOD 02/18/2025 1:21 PM [facility] Potassium 4.2 3.5 - 5.5 mmol/L LAB CHEMISTRY METHOD 02/18/2025 1:21 PM [facility] Chloride 105 96 - 110 mmol/L LAB CHEMISTRY METHOD 02/18/2025 1:21 PM [facility] CO2 26 21 - 32 mmol/L LAB CHEMISTRY METHOD 02/18/2025 1:21 PM [facility] Anion Gap 5 3 - 11 LAB CHEMISTRY METHOD 02/18/2025 1:21 PM [facility] Glucose 88 70 - 100 mg/dL LAB CHEMISTRY METHOD 02/18/2025 1:21 PM [facility] BUN 15 5 - 25 mg/dL LAB CHEMISTRY METHOD 02/18/2025 1:21 PM [facility] Creatinine 0.68 0.50 - 1.10 mg/dL LAB CHEMISTRY METHOD 02/18/2025 1:21 PM [facility] eGFR 123 >=60 mL/min/1. 73m2 LAB CHEMISTRY METHOD 02/18/2025 1:21 PM [facility] Comment:Calculation based on the Chronic Kidney Disease Epidemiology Collaboration (CKD-EPI) equation refit without adjustment for race. BUN/Creatinine Ratio 22.1 LAB CHEMISTRY METHOD 02/18/2025 1:21 PM [facility] Calcium 8.2(L) 8.5 - 10.5 mg/dL LAB CHEMISTRY METHOD 02/18/2025 1:21 PM [facility] AST (SGOT) 13 10 - 42 unit/L LAB CHEMISTRY METHOD 02/18/2025 1:21 PM [facility] ALT (SGPT) 32 10 - 60 unit/L LAB CHEMISTRY METHOD 02/18/2025 1:21 PM [facility] Alkaline Phosphatase 57 42 - 121 unit/L LAB CHEMISTRY METHOD 02/18/2025 1:21 PM EDT [facility] Total Protein 7.0 6.0 - 8.0 g/dL LAB CHEMISTRY METHOD 02/18/2025 1:21 PM EDT [facility] Albumin 3.4 3.2 - 5.0 g/dL LAB CHEMISTRY METHOD 02/18/2025 1:21 PM EDT [facility] Total Bilirubin 0.4 0.0 - 1.4 mg/dL LAB CHEMISTRY METHOD 02/18/2025 1:21 PM EDT [facility] Blood Venous blood specimen / Unknown Venipuncture / Unknown 02/18/2025 12:28 PM EDT 02/18/2025 12:48 PM EDT Marli Carvalho MD LAB BLOOD ORDERABLES Fi nal Result [facility] [address] [place] [address], [place] [phone] * Lipid panel with reflex to direct LDL (10/09/2024 11:12 AM EST) Cholesterol 161 0 - 200 mg/dL LAB CHEMISTRY METHOD 10/09/2024 3:32 PM EST [facility] Triglycerides 128 0 - 150 mg/dL LAB CHEMISTRY METHOD 10/09/2024 3:32 PM EST [facility] HDL 40 >=40 mg/dL LAB CHEMISTRY METHOD 10/09/2024 3:32 PM EST [facility] LDL Calculated 95 0 - 100 mg/dL LAB CHEMISTRY METHOD 10/09/2024 3:32 PM [facility] VLDL Cholesterol Luis 25.6 mg/dL LAB CHEMISTRY METHOD 10/09/2024 3:32 PM [facility] Non HDL Chol. (LDL+VLDL) 121 <145 mg/dL LAB CHEMISTRY METHOD 10/09/2024 3:32 PM EST [facility] Chol/HDL Ratio 4.0 0.0 - 4.4 LAB CHEMISTRY METHOD 10/09/2024 3:32 PM EST [facility] Blood Venous blood specimen / Unknown Venipuncture / Unknown 10/09/2024 11:12 AM EST 10/09/2024 11:12 AM EST us Marli Carvalho MD LAB BLOOD ORDERABLES Fi nal Result [facility] [address] [place] [address], from Last 3 Months or Most Recently Relevant to Health [place] [id number] [facility] Care Teams Knife Operator Relationship Specialty Start Date End Date Beckie Grace MD [address] [facility] , [address] [place] [address] Physician Associ D/B/A: [facility] JEN Dominguez PCP - General 12/21/23
[2025-05-17] MEDS: iohexoL 350 MG/ML 100 ML INFUS..BTL IV (13:16)
[2025-05-17 14:30] LABS: Appearance Urine Clear; Glucose Urine UA Negative (Negative); PH 5.5 (5.0-9.0); Specific Gravity - Urine >= 1.030 (1.005-1.025)
[2025-05-17 14:33] LABS: Troponin-I High Sensitivity < 2.7 ng/L (<3.5-17.0)
== END 2025-05-17 16:19 | disposition home or self-care (01) ==
PROVIDERS: Physician Assistant; Emergency Provider Emergency Medicine; PCP Internal Medicine
DX: R55 Syncope and collapse (principal); R42 Dizziness and giddiness; R11.0 Nausea; Z79.899 Other long term (current) drug therapy
CPT/HCPCS: 36415; 70450; 71275; 80053; 81003; 83690; 83735; 84484; 84702; 85025; 85379; 85610; 93005; 96360; 96361; 99284; 99285; Q9967

== ENCOUNTER → 2025-05-17 11:40 | Outpatient (BNV) | payer OTHER, SELFPAY | PROVIDERS: Emergency Provider Emergency Medicine; PCP Internal Medicine; Visit Provider Internal Medicine | DX: R55 Syncope and collapse (principal) | CPT/HCPCS: 93010 ==

== ENCOUNTER → 2025-05-17 12:34 | Outpatient (BNV) | payer OTHER, SELFPAY | PROVIDERS: Emergency Provider Emergency Medicine; PCP Internal Medicine; Visit Provider Radiology Diagnostic Radiology | DX: R07.9 Chest pain, unspecified (principal); R06.02 Shortness of breath; R55 Syncope and collapse | CPT/HCPCS: 70450; 71275 ==

== ENCOUNTER 2025-05-23 13:32 | Outpatient (AMB) | payer OTHER, SELFPAY ==
[2025-05-23 13:42] VITALS: BP 104/70; PULSE 78; RESP 18; TEMP 36.4; O2SAT 93; BMI 36.0
--- NOTE | 2025-05-23 13:42 | A.OFFPC_ITS ---
Vital Signs 05/23/25 13:42 Height 5 ft 4 in Weight 209 lb 8 oz BMI 36.0 BP 104/70 Blood Pressure Location Lt brachial Position Sitting Respiration 18 Pulse 78 Pulse Source Pulse Oximeter Temp 97.5 F Temp Source Temporal Artery Scan Pulse Oximetry (%) 93 Oxygen Delivery Method Room Air Intake Visit Reasons: Check up Collector Of Port Required: No Accompanied by: Self / Same As Patient Allergies mold Allergy (Mild, Verified 05/23/25 14:24) Unknown shrimp Allergy (Mild, Verified 05/23/25 14:24) tongue swelling Environmental Allergies Allergy (Intermediate, Uncoded 05/23/25 14:24) sneezing, asthma black olives Allergy (Mild, Uncoded 05/23/25 14:24) Itching grass Allergy (Mild, Uncoded 05/23/25 14:24) Unknown trees Allergy (Mild, Uncoded 05/23/25 14:24) Swelling Medication List - Last Reconciled 05/23/25 by Beckie Grace MD albuterol sulfate 2.5 mg (3 mL) inhalation Q4-6H PRN bisacodyl (Dulcolax (bisacodyl)) 5 mg PO BEDTIME bupropion HCl XL 150 mg PO QAM 90 days desogestrel-ethinyl estradiol 0.15-0.03 mg (Apri) 1 tab PO DAILY 28 days epinephrine 0.3 mg (0.3 mL) IM Q10M PRN ergocalciferol (vitamin D2) 1,250 mcg PO QWEEK 90 days fluconazole 150 mg PO Q3D 2 doses omeprazole 20 mg PO DAILY 90 days Ventolin HFA 90 mcg/actuation (albuterol sulfate) 2 puffs inhalation Q6H PRN 30 days NS Tobacco use date assessed: 05/23/25 Dental Screening Dental Screen Date: 05/23/25 HPI HPI Comments History of Present Illness Details The patient is a 30-year-old female presenting for a follow-up visit after surgery and to discuss ongoing health management. She has a history of allergic rhinitis with allergies to mold, shrimp, environmental factors, black olives, grass, and trees. Her current medications include an inhaler, bupropion for depression, an oral contraceptive, an Epipen, vitamin D, and omeprazole for heartburn. The patient has a history of Nata's thyroiditis, which has been stable without the need for thyroxine supplementation. She previously smoked but has since quit and does not consume alcohol. She underwent surgery on March 08 and reports feeling much better postoperatively. Her weight has decreased from 251 pounds in November to 209 pounds, marking a significant improvement. 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 Brother Colon cancer Brother No problems noted. Maternal Grandfather Colon cancer Prostate cancer Other Mental health disorder Social History Housing: House Alcohol intake: never Patient Tobacco Use Status: Former Tobacco user Tobacco use type: Cigarette e-Cigarette/Vaping Use: Former Use Second Hand Smoke Exposure: No service: No Current occupational status: unemployed Cognitive needs: No Hearing needs: No Vision needs: No Female Reproductive History Menstrual Age of Menarche: 14 Questionnaire PHQ-9 Over the last 2 weeks, how often have you been bothered by any of the following problems? 1. Little interest or pleasure in doing things: several days 2. Feeling down, depressed, or hopeless: more than half the days 3. Trouble falling or staying asleep, or sleeping too much: more than half the days 4. Feeling tired or having little energy: nearly every day 5. Poor appetite or overeating: not at all 6. Feeling bad about yourself - or that you are a failure or have let yourself or your family down: nearly every day 7. Trouble concentrating on things, such as reading the newspaper or watching television: more than half the days 8. Moving or speaking so slowly that other people could have noticed. Or the opposite - being so fidgety or restless that you have been moving around a lot more than usual: more than half the days 9. Thoughts that you would be better off or of hurting yourself in some way: several days Total score: 16 Depression Screening Interpretation: Positive (no suicidal thoughts) Depression Screening Follow-up: Existing condition, In treatment and Follow-up Visit Requested Depression Screening Done: Yes 88599 - PHQ-9 Billing: Yes Source: Developed by Drs. Ariel Bragg, Jo Zimmerman, Charles Molina and colleagues, with an educational aquiles from [employer]. Thrive Questionnaire Date Thrive assessed: 11/27/24 I am a: Patient What is your living situation today?: I have a steady place to live Within the past 12 months, did the food you bought not last and you didn't have the money to get more?: Often true Within the past 12 months, did you worry whether your food would run out before you got money to buy more?: Often true Do you have trouble paying for medicines?: No Do you have trouble getting transportation to medical appointments?: No Do you have trouble paying your heating and electricity bill?: No Do you have trouble taking care of your child, family member or friend?: No Do you have trouble with day-to-day activities such as bathing, preparing meals, shopping, managing finances, etc.?: No Are you currently unemployed and looking for a job?: Yes Are you interested in more education?: Yes Please select the resources that you would like help with: None Currently or been in a relationship where the following occur: No concerns reported THRIVE Score: 2 AUDIT C Alcohol Use Questionnaire (AUDIT-C) 1. How often do you have a drink containing alcohol?: Never 3. How often do you have six or more drinks on one occasion?: Never Total Score: 0 Score Reviewed/Action Taken: No TERRELL-7 AMB Questionnaire TERRELL-7 Date TERRELL - 7 assessed: 11/27/24 Feeling nervous, anxious, or on edge: 3 = Nearly every day Not being able to stop or control worryin = Several days Worrying too much about different things: 2 = More than half the days Trouble relaxin = Several days Being so restless that it is hard to sit still: 0 = Not at all Becoming easily annoyed or irritable: 2 = More than half the days Feeling afraid as if something awful might happen: 3 = Nearly every day Total TERRELL-7 score (0-4 normal; 5-9 mild; 10-14 moderate; 15-21 severe): 12 Source: Developed by Drs. Ariel Bragg, Jo Zimmerman, Charles Molina and colleagues, with an educational aquiles from [employer]. TERRELL-7 Assessment Billing TERRELL-7 Assessment Tool: TERRELL-7 Assessment 64716 Review of Systems Const All systems reviewed & are unremarkable except as noted in HPI and below Card Denies chest pain at rest, Denies chest pain with activity, Denies edema, Denies irregular heart rhythm, Denies claudication, Denies dyspnea, Denies dyspnea on exertion, Denies orthopnea, Denies paroxysmal nocturnal dyspnea and Denies slow heart rate Resp Denies cough, Denies dyspnea and Denies dyspnea on exertion GI Denies abdominal pain, Denies change in bowel habits, Denies excessive flatus, Denies nausea and Denies vomiting Physical exam (Primary Care) Vital Signs: Last Vital Signs Temp 97.5 F 05/23/25 13:42 Pulse 78 05/23/25 13:42 Resp 18 05/23/25 13:42 BP 104/70 05/23/25 13:42 Pulse Ox 93 05/23/25 13:42 Oxygen Delivery Method Room Air 05/23/25 13:42 BMI result Body Mass Index 36.0 BMI Assessment/Plan discussion: High BMI High, discussed plan: lifestyle, weight reduction, dietary and physical activity Tobacco/Smoking Status: Tobacco use Status Tobacco use date assessed 05/23/25 05/23/25 13:49 Patient Tobacco Use Status Former Tobacco user 05/23/25 13:49 Tobacco use type Cigarette 05/23/25 13:49 e-Cigarette/Vaping Use Former Use 05/23/25 13:49 PHQ-9: PHQ-9 Score PHQ-9: Total score 16 05/23/25 14:28 Depression Screening Interpretation: Positive (no suicidal thoughts) Depression Screening Follow-up: Existing condition, In treatment and Follow-up Visit Requested Thrive Assessment: Date of Thrive Assessment Date Thrive assessed 11/27/24 05/23/25 13:49 Currently or been in a relationship where the following occur: No concerns reported Resp Effort & Inspection: normal respiratory effort Auscultation: clear to auscultation bilaterally Cardio Jugular venous distension: no JVD Rate: regular rate Rhythm: regular rhythm Heart sounds: S1 normal heart sound present and S2 normal heart sound present Extrem General: Yes full ROM Coding Level of Care Code Est Pt Level 4 (54563) Complex EM visit Add On G2211 Diagnoses Mild recurrent major depression F33.0 Low serum vitamin D R79.89 Nata's disease E06.3 Gastroesophageal reflux disease, unspecified whether esophagitis present K21.9 Esophagitis presence: esophagitis presence not specified Allergic rhinitis J30.9 Additional Codes TERRELL-7 Assessment Billing - TERRELL-7 Assessment Tool: TERRELL-7 Assessment 69914 ([id number]) PHQ-9 - 48829 - PHQ-9 Billing: Yes ([id number]) Time Spent (min) 22 Assessment & Plan Assessment & Plan (1) Mild recurrent major depression: Code(s): F33.0 - Major depressive disorder, recurrent, mild Category: Medical (2) Low serum vitamin D: Code(s): R79.89 - Other specified abnormal findings of blood chemistry Category: Medical (3) Nata's disease: Code(s): E06.3 - Autoimmune thyroiditis Category: Medical (4) GERD (gastroesophageal reflux disease): Code(s): K21.9 - Gastro-esophageal reflux disease without esophagitis Category: Medical Qualifiers: Esophagitis presence: esophagitis presence not specified Qualified Code(s): K21.9 - Gastro-esophageal reflux disease without esophagitis (5) Allergic rhinitis: Code(s): J30.9 - Allergic rhinitis, unspecified Category: Medical Plan Plan Patient was informed and verbally consented to the use of an ambient scribe for clinic note documentation during this visit. 1. Allergic Rhinitis The patient will continue to manage allergic rhinitis with avoidance of known allergens and use of prescribed medications, including an inhaler and Epipen for acute allergic reactions. 2. Depression The patient is currently on bupropion for depression management and reports no new symptoms or concerns. 3. Gastroesophageal Reflux Disease The patient is taking omeprazole for gastroesophageal reflux disease management and reports stable symptoms. 4. Nata's Thyroiditis The patient's Nata's thyroiditis remains stable without the need for thyroxine supplementation. Orders: Orders Thyroid Stimulating Hormone 6 Months E03.8 - Other specified hypothyroidism Lipid Panel 6 Months E78.5 - Hyperlipidemia, unspecified IRON PROFILE 6 Months D64.9 - Anemia, unspecified Comprehensive Bruno. Panel Fast 6 Months K21.9 - Gastro-esophageal reflux disease without esophagitis Vitamin D 25-OH Total 6 Months E55.9 - Vitamin D deficiency, unspecified Vitamin B12 and Folate 6 Months E53.8 - Deficiency of other specified B group vitamins Complete Blood Count Auto Diff 6 Months D64.9 - Anemia, unspecified
== END 2025-05-23 14:33 | disposition home or self-care (01) ==
LOC: HO.HMCH 13:32
PROVIDERS: PCP Internal Medicine; Visit Provider Internal Medicine
DX: F33.0 Major depressive disorder, recurrent, mild (principal); R79.89 Other specified abnormal findings of blood chemistry; E06.3 Autoimmune thyroiditis; K21.9 Gastro-esophageal reflux disease without esophagitis; J30.9 Allergic rhinitis, unspecified

== ENCOUNTER → 2025-05-23 13:32 | Outpatient (BNVA) | payer OTHER, SELFPAY | PROVIDERS: PCP Internal Medicine; Visit Provider Internal Medicine | DX: E06.3 Autoimmune thyroiditis (principal); J30.9 Allergic rhinitis, unspecified; F33.0 Major depressive disorder, recurrent, mild; R79.89 Other specified abnormal findings of blood chemistry; K21.9 Gastro-esophageal reflux disease without esophagitis; E03.8 Other specified hypothyroidism; E78.5 Hyperlipidemia, unspecified; D64.9 Anemia, unspecified; E55.9 Vitamin D deficiency, unspecified; E53.8 Deficiency of other specified B group vitamins | CPT/HCPCS: 96127; 99212 ==

== ENCOUNTER 2025-06-26 10:38 | Outpatient (AMB) | payer OTHER, SELFPAY ==
--- NOTE | 2025-06-26 10:53 | A.OFFVIS_ITS ---
Vital Signs 06/26/25 10:54 Height 5 ft 4 in Weight 198 lb BMI 34.0 BP 124/76 Intake Visit Reasons: control follow up System Administration Manager Required: No Information Interpreted: non-clinical & clinical Accompanied by: Mother Allergies mold Allergy (Mild, Verified 06/26/25 10:55) Unknown shrimp Allergy (Mild, Verified 06/26/25 10:55) tongue swelling Environmental Allergies Allergy (Intermediate, Uncoded 06/26/25 10:55) sneezing, asthma black olives Allergy (Mild, Uncoded 06/26/25 10:55) Itching grass Allergy (Mild, Uncoded 06/26/25 10:55) Unknown trees Allergy (Mild, Uncoded 06/26/25 10:55) Swelling Is last menstrual period known: Yes HPI Comments Details: Presenting for follow-up regarding control pills, the patient is doing well with no complaints and is requesting refill on her control pills. 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 Brother Colon cancer Brother No problems noted. Maternal Grandfather Colon cancer Prostate cancer Other Mental health disorder Social History Housing: House Alcohol intake: never Patient Tobacco Use Status: Former Tobacco user Tobacco use type: Cigarette e-Cigarette/Vaping Use: Former Use Second Hand Smoke Exposure: No service: No Current occupational status: unemployed Cognitive needs: No Hearing needs: No Vision needs: No Female Reproductive History Menstrual Age of Menarche: 14 Physical Exam Vital Signs: Last Vital Signs BP 124/76 06/26/25 10:54 BMI result Body Mass Index 34.0 Assessment & Plan Assessment & Plan (1) Abnormal uterine bleeding: Comment: PCOS Code(s): N93.9 - Abnormal uterine and vaginal bleeding, unspecified Category: Medical Plan: control pills refill sent to the patient's pharmacy. Instructions given the patient to call with any concerns. All questions answered, the patient verbalized understanding. Medications: Refilled desogestrel-ethinyl estradiol 0.15-0.03 mg (Apri) 1 tab PO DAILY 28 tabs 2RF 28 days Coding Level of Care Code Est Pt Level 3 (53763) Diagnoses Abnormal uterine bleeding N93.9
[2025-06-26 10:54] VITALS: BP 124/76; BMI 34.0
--- OUTSIDE RECORDS SUMMARY | 2025-06-26 12:47 | XMS_ITS | Clinical Summary ---
Author Organization [address] [facility] Address [address] [place] [address] Phone Care Team Providers Care Financial Analyst Intern Name Role Phone Beckie Grace MD Primary Care Provider [phone] Allergies Active Allergy Reactions Criticality Noted Date Comments Other Cough,Sneezing Medium 12/21/2023 Seasonal Allergies Shrimp Itching Medium 12/21/2023 Medications simethicone (MYLICON) 80 mg chewable tablet Chew [...] obesity with BMI of 4 0.0-44.9, adult ([facility] [place], [facility] V28) 01/09/2025 Class 3 severe obesity with serious comorbidity and body mass index (BMI) of 45.0 to 49.9 in adult ([facility] [place], [facility] V28) 12/20/2024 Class 2 severe obesity due t o excess calories with serious comorbidity and body mass index (BMI) of 39.0 to 39.9 in adult 02/02/2024 Asthma 01/04/2024 GERD (gastroesophageal reflux disease) 4 Encounters Date Type Department Care Team Description 05/22/2025 9:00 AM EDT Office Visit Bariatric Surgery [address] [phone] Marli Carvalho MD S/P bariatric surgery (Primary Dx); Obesity (BMI 30-39.9); Subclinical hypothyroidism; Nausea 04/29/2025 11:00 AM EDT Telemedicine Bariatric Surgery [address] [phone] S/P bariatric surgery (Primary Dx) 03/26/2025 8:15 AM EDT Office Visit Bariatric Surgery [address] [phone] Мария Rodriguez PA Class 2 severe obesity due to excess calories with serious comorbidity and body mass index (BMI) of 39.0 to 39.9 in adult ([facility] V24, [facility] V28) (Primary Dx); Bariatric surgery status from Last 3 Months Surgical History Surgery Date Site/Laterality Comments NO PAST SURGERIES OTHER SURGICAL HISTORY COLONOSCOPY Medical History Medical History Date Comments Asthma GERD (gastroesophageal reflux disease) Obesity Social History Tobacco Use Types Packs/Day Years Used Date Smoking Tobacco: Former Cigarettes 0 Q uit: 2023 Tobacco Cessation:Counseling Given: Not [...] Sign Reading Time Taken Comments Blood Pressure 118/82 05/22/2025 8:57 AM EDT Pulse 101 05/22/2025 8:57 AM EDT Temperature 36.7 C (98 F) 05/22/2025 8:57 AM EDT Respiratory Rate 15 03/10/2025 7:28 AM EDT Oxygen Saturation 100% 03/10/2025 7:28 AM EDT Inhaled Oxygen Concentration - - Weight 96.6 kg (213 lb) 05/22/2025 8:57 AM EDT Height 162.6 cm (5' 4 ) 05/22/2025 8:57 AM EDT Body Mass Index 36.56 05/22/2025 8:57 AM EDT Plan of Treatment Upcoming Encounters Date Type Department Care Team (Late st Contact Info) Description 07/01/2025 11:45 AM EST Office Visit Bariatric Surgery [address] [phone] Marli Carvalho MD [address] [place] [phone] 07/31/2025 9:00 AM EST Nutrition Bariatric Surgery - [place] [address] [phone] Julia Flores, ELIAS [address] [phone] Health Maintenance Due Date Last Done Comments Pneumococcal Vaccine: Pediatrics (0 to 5 Years) and At-Risk Patients (6 to 49 Years) (1 of 2 - PCV) 2016 Cervical Cancer Screening: Pap Smear 2018 HIV Screening 03/09/2024 Hepatitis C Screening 03/09/2024 Social Influencers of Health Screening 03/09/2024 Depression Screening 08/15/2024 COVID-19 Vaccine (3 - season) 2025 02/24/2022, 05/30/2021 Influenza Vaccine (#1) [...] Procedure Name Priority Date/Time Associated Diagnosis Comments LIPID PANEL WITH REFLEX TO DIRECT LDL Routine 10/09/2024 11:12 AM EST Morbid obesity with BMI of 40.0-44.9, adult (CMS/HCC V24, CMS/HCC V28) from Last 3 Months or Most Recently Relevant to Health Maintenance Results * Lipid panel with reflex to direct LDL (10/09/2024 11:12 AM EST) Cholesterol 161 0 - 200 mg/dL LAB CHEMISTRY METHOD 10/09/2024 3:32 PM EST [facility] Triglycerides 128 0 - 150 mg/dL LAB CHEMISTRY METHOD 10/09/2024 3:32 PM EST [facility] HDL 40 >=40 mg/dL LAB CHEMISTRY METHOD 10/09/2024 3:32 PM EST [facility] LDL Calculated 95 0 - 100 mg/dL LAB CHEMISTRY METHOD 10/09/2024 3:32 PM EST [facility] VLDL Cholesterol Luis 25.6 mg/dL LAB CHEMISTRY METHOD 10/09/2024 3:32 PM EST [facility] Non HDL Chol. (LDL+VLDL) 121 <145 mg/dL LAB CHEMISTRY METHOD 10/09/2024 3:32 PM EST [facility] Chol/HDL Ratio 4.0 0.0 - 4.4 LAB CHEMISTRY METHOD 10/09/2024 3:32 PM [facility] Blood Venous blood specimen / Unknown Venipuncture / Unknown 10/09/2024 11:12 AM EST 10/09/2024 11:12 AM EST Marli Carvalho MD LAB BLOOD ORDERABLES Fi nal Result [facility] [address] [place] [address], from Last 3 Months or Most Recently Relevant to Health Maintenance Insurance [facility] [address] [employer] Care Teams Financial Analyst Intern Relationship Specialty Start Date End Date Beckie Grace MD [address] [facility] , [address] [facility] JEN Quiroz PCP - General 12/21/23
== END 2025-06-26 11:08 | disposition home or self-care (01) ==
LOC: HO.HWS 10:40
PROVIDERS: PCP Internal Medicine; Visit Provider Obstetrics & Gynecology
DX: N93.9 Abnormal uterine and vaginal bleeding, unspecified (principal)
CPT/HCPCS: 99213

== ENCOUNTER → 2025-06-26 10:38 | Outpatient (BNVA) | payer OTHER, SELFPAY | PROVIDERS: PCP Internal Medicine; Visit Provider Obstetrics & Gynecology | DX: N93.9 Abnormal uterine and vaginal bleeding, unspecified (principal); Z79.3 Long term (current) use of hormonal contraceptives | CPT/HCPCS: 99212 ==